=== PATIENT | male | born 1935 | race Caucasian/White ===

== ENCOUNTER 2017-02-07 11:06 | Emergency (ER) | payer MEDICARE ==
[~2017-02-07] VITALS: Ht 188 cm; Wt 107.1 kg
[~2017-02-07 11:06] MED LIST: ASPI81TA85 PO; CARV3.12 PO; CIPR-249 PO; ENAL2.5T PO; GLUC500C5 PO; LOVA40TA PO; MULTCAP PO; OSCA200T PO; PERC5TAB12 PO; PX F0.52 PO; RANO5TAB PO; ROPI1TAB PO; SPIR25TA2 PO
[2017-02-07] MEDS ORDERED: LIDOCAINE 2% MDV 20 ML VIAL As Ordered ONE (12:18)
[2017-02-07] MEDS ORDERED: LIDOCAINE 2% MDV 20 ML VIAL SC ONE (12:30)
[2017-02-07] MEDS ORDERED: ADACEL/BOOSTRIX VACCINE (DIPHTH/PERTUSS/ACELL/TETANUS)0.5ML SYR (90715) IM ONE (12:30)
[2017-02-07] MEDS ORDERED: cefTRIAXone SOD 1 GM VIAL (J0696) IM ONE (12:30)
--- NOTE | 2017-02-07 12:45 | REP ---
Maxillofacial CT without IV contrast: Axial images are acquired with helical scanning and a reformatted sagittal coronal projections. There are fractures of the tips of the nasal bones bilaterally and soft tissue injury of the nose. There are a few small bubbles of air beneath the right dilated. No orbit fracture is identified. The orbital fat planes are unremarkable. The ocular globes and lenses are unremarkable. The left frontal sinus is clear. 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 There is mild mucosal thickening in the ethmoid sinuses. The right maxillary sinus is clear. There is circumferential mucosal thickening of the left maxillary sinus accompanied by diffuse left maxillary sinus wall thickening. Findings are compatible with chronic left maxillary sinusitis. The sphenoid sinuses and man stored air cells are clear. There is nasal septal deviation to the left posteriorly. There is no zygomatic arch fracture. There is no mandible fracture. The skull base and sella are unremarkable. Impression: The tips of the nasal bones are fractured bilaterally. There is soft tissue injury of the nodes. No other fractures are identified. There are findings compatible with chronic sinusitis of the left maxillary sinus. Signed by Tong Christianson MD 02/07/2017 12:37 P
[2017-02-07] MEDS ORDERED: KEFL500C17 PO (13:17)
[2017-02-07 13:29] VITALS: BP 142/68
== END 2017-02-07 13:29 | disposition home or self-care (01) ==
LOC: M ED 11:06
DX: S01.21XA Laceration without foreign body of nose, initial encounter (principal); S01.511A Laceration without foreign body of lip, initial encounter; S01.81XA Laceration without foreign body of other part of head, initial encounter; W18.09XA Striking against other object with subsequent fall, initial encounter; Y92.019 Unspecified place in single-family (private) house as the place of occurrence of the external cause; Y93.89 Activity, other specified; Y99.8 Other external cause status; J34.2 Deviated nasal septum; I11.0 Hypertensive heart disease with heart failure; I25.2 Old myocardial infarction; E78.00 Pure hypercholesterolemia, unspecified; Z79.82 Long term (current) use of aspirin; Z79.899 Other long term (current) drug therapy; Z88.7 Allergy status to serum and vaccine; Z88.8 Allergy status to other drugs, medicaments and biological substances
CPT/HCPCS: 12004; 70486; 90471; 90715; 96372; 99282; J0696

== ENCOUNTER 2018-12-18 14:00 | Emergency (ER) | payer MEDICARE ==
[~2018-12-18] VITALS: Ht 182.9 cm; Wt 100.0 kg
[~2018-12-18 14:00] MED LIST changes: +KEFL500C17 PO; +RANO500T7 PO; -RANO5TAB PO; +SPIR-10 PO; -SPIR25TA2 PO
--- NOTE | 2018-12-18 15:02 | REP ---
CT of the brain without IV contrast: There are no comparisons. There is no subdural or epidural hematoma. There is no other acute intracranial hemorrhage. There is no edema, mass effect or midline shift. The cortical stripe is unremarkable. There is mild dilatation of the ventricles and sulci compatible with diffuse volume loss. There is lucency within the subcortical/periventricular white matter compatible with chronic microvascular ischemia. The visualized paranasal sinuses and mastoid air cells are clear. Impression: There is no hemorrhage, acute infarct or mass. There is chronic microvascular ischemia. There is mild diffuse volume loss. Electronically Signed by Tong Christianson MD 12/18/2018 02:53 P
--- NOTE | 2018-12-18 15:05 | REP ---
CT of the cervical spine: Axial images are acquired helical scanning and a reformatted sagittal and coronal projections. There are no comparisons. Vertebral body heights and alignment are normal. There is degenerative disc disease at C5-6 and C6-7. There is facet osteoarthritis. The facets are normally aligned. Prevertebral soft tissues are unremarkable. There are no posterior element fractures. Impression: There is no fracture or listhesis. There is degenerative disc disease and facet osteoarthritis. Electronically Signed by Tong Christianson MD 12/18/2018 02:57 P
[2018-12-18] MEDS ORDERED: LIDOCAINE 2% MDV 20 ML VIAL SC ONE (15:30)
[2018-12-18] MEDS ORDERED: NEOSPORIN OINT 0.9 GM PKT (FLOOR STOCK) TOP ONE (16:15)
[2018-12-18 16:25] VITALS: BP 129/69
== END 2018-12-18 16:29 | disposition home or self-care (01) ==
LOC: M ED 14:00
DX: S01.81XA Laceration without foreign body of other part of head, initial encounter (principal); S00.81XA Abrasion of other part of head, initial encounter; W06.XXXA Fall from bed, initial encounter; Y92.9 Unspecified place or not applicable; Y93.9 Activity, unspecified; Y99.9 Unspecified external cause status; I48.91 Unspecified atrial fibrillation; I25.2 Old myocardial infarction; I10 Essential (primary) hypertension; N42.9 Disorder of prostate, unspecified; Z95.0 Presence of cardiac pacemaker; Z96.641 Presence of right artificial hip joint; Z96.642 Presence of left artificial hip joint; Z79.82 Long term (current) use of aspirin; Z79.899 Other long term (current) drug therapy; Z88.7 Allergy status to serum and vaccine; Z88.8 Allergy status to other drugs, medicaments and biological substances

== ENCOUNTER 2018-12-22 15:01 | Emergency (ER) | payer MEDICARE ==
[~2018-12-22] VITALS: Ht 182.9 cm; Wt 100.0 kg
[2018-12-22 15:02] VITALS: BP 142/66
== END 2018-12-22 15:39 | disposition home or self-care (01) ==
LOC: M ED 15:01
DX: Z48.02 Encounter for removal of sutures (principal); I11.0 Hypertensive heart disease with heart failure; I50.9 Heart failure, unspecified; E78.9 Disorder of lipoprotein metabolism, unspecified; Z95.0 Presence of cardiac pacemaker; Z79.899 Other long term (current) drug therapy; Z79.82 Long term (current) use of aspirin; Z88.7 Allergy status to serum and vaccine; Z88.8 Allergy status to other drugs, medicaments and biological substances

== ENCOUNTER 2020-12-27 19:59 | Inpatient (IN) | payer MEDICARE ==
[~2020-12-27] VITALS: Ht 182.9 cm; Wt 100.1 kg
[~2020-12-27 19:59] MED LIST changes: -ASPI81TA85 PO; +ASPI81TA86 PO; +ENAL1TAB46 PO; -ENAL2.5T PO; -ROPI1TAB PO; +ROPI1TAB3 PO
[2020-12-27] MEDS: COMBIVENT RESPIMAT 100-20MCG INHALER 4GM INH SCH ×3 (22:10→22:56)
--- NOTE | 2020-12-27 22:19 | REPVR ---
PROCEDURE INFORMATION: Exam: XR Chest Exam date and time: 12/27/2020 9:40 PM Age: 85 years old Clinical indication: Cough and dyspnea; Additional info: Dyspnea/cough TECHNIQUE: Imaging protocol: XR of the chest. Views: 1 view. COMPARISON: CR Chest, 2 view PA, Lat 06/08/2014 8:00 AM FINDINGS: Tubes, catheters and devices: Transvenous pacemaker is in place. Lungs: There is patchy interstitial and alveolar pneumonic infiltrate in both lung bases. The Pleural spaces: There is no evidence of pneumothorax or pleural effusion. Heart/Mediastinum: The heart is normal in size. Bones/joints: There are degenerative changes right and left shoulder. There is osteophyte formation throughout the thoracic spine. IMPRESSION: Patchy interstitial and alveolar pneumonic infiltrate in both lung bases. Electronically signed by: Xavi Bahena On 12/27/2020 22:18:51 PM
[2020-12-27 22:32] LABS: VENOUS BASE EXCESS 3.9 (-2.0-2.0); VENOUS HCO3 32.5 MEQ/L (23.0-27.0); VENOUS O2 SATURATION 75.9 % (60.0-80.0); VENOUS PARTIAL PRESSURE CO2 67.2 mmHg (38.0-50.0); VENOUS PARTIAL PRESSURE O2 43.8 mmHg (30.0-50.0); VENOUS PH 7.302 UNITS (7.330-7.430); VENOUS STANDARD HCO3 27.4 MEQ/L; VENOUS TOTAL CO2 34.5 MEQ/L (24.0-28.0)
[2020-12-27 22:33] LABS: BASO # 0.1 10^3/uL (0.0-0.2); BASO % 0.2 % (0.0-1.0); EOS % 0.1 % (0.0-3.0); HEMATOCRIT 42.4 % (42.0-52.0); LYMPH # 0.7 10^3/uL (1.5-5.0); LYMPH % 3.2 % (24.0-44.0); MEAN CORPUSCULAR HEMOGLOBIN 30.4 pg (27.0-33.0); MEAN CORPUSCULAR HGB CONC 30.7 g/dl (32.0-36.5); MEAN CORPUSCULAR VOLUME 99.1 fl (80.0-96.0); MONO # 1.5 10^3/uL (0.0-0.8); MONO % 7.1 % (2.0-8.0); NEUTROPHILS # 19.1 10^3/uL (1.5-8.5); NEUTROPHILS % 88.8 % (36.0-66.0); PLATELET COUNT, AUTOMATED 222 10^3/uL (150-450); RED BLOOD COUNT 4.28 10^6/uL (4.30-6.10)
[2020-12-27 22:54] LABS: WHITE BLOOD COUNT 21.5 10^3/uL (4.0-10.0)
[2020-12-27 23:08] LABS: ALBUMIN 3.4 GM/DL (3.2-5.2); ALT/SGPT 19 U/L (12-78); BILIRUBIN,DIRECT 0.2 MG/DL (0.0-0.2); BILIRUBIN,TOTAL 0.6 MG/DL (0.2-1.0); BLOOD UREA NITROGEN 39 MG/DL (7-18); CALCIUM LEVEL 9.2 MG/DL (8.8-10.2); CARBON DIOXIDE LEVEL 32 MEQ/L (21-32); CHLORIDE LEVEL 100 MEQ/L (98-107); CK-MB VALUE MASS 1.3 NG/ML (<3.6); CPK CREATINE PHOSPHOKINASE 52 U/L (39-308); CREATININE FOR GFR 1.52 MG/DL (0.70-1.30); GLOMERULAR FILTRATION RATE 46.9 (>35); GLUCOSE, FASTING 112 MG/DL (70-100); NT-PRO BNP 1467 PG/ML (<450); POTASSIUM SERUM 4.6 MEQ/L (3.5-5.1); SODIUM LEVEL 139 MEQ/L (136-145); TOTAL PROTEIN 6.9 GM/DL (6.4-8.2); TROPONIN I < 0.02 NG/ML (< 0.10)
[2020-12-27] MEDS ORDERED: cefTRIAXone SOD 2 GM in D5W MINI-BAG PLUS 50 ML IV ONE (23:15)
[2020-12-27] MEDS ORDERED: AZITHROMYCIN INJ 500 MG, VIAL MATE ADAPTER 1 EACH in NS 250 ML IV ONE (23:15)
[2020-12-27] MEDS ORDERED: ASPI81TA26 PO (23:53)
[2020-12-27] MEDS ORDERED: MULT-110 PO (23:53)
[2020-12-27] MEDS ORDERED: META1POW PO (23:55)
[2020-12-27] MEDS ORDERED: ROPI2TAB3 PO (23:56)
[2020-12-28] MEDS ORDERED: ALBU8.5H INH
[2020-12-28] MEDS ORDERED: FURO40TA2 PO
[2020-12-28] MEDS ORDERED: ALBU0.63 NEB
[2020-12-28] MEDS ORDERED: XALA0.007 OU
[2020-12-28] MEDS ORDERED: SODI3NEB NEB
[2020-12-28] MEDS ORDERED: CARV6.25 PO
[2020-12-28] MEDS ORDERED: INCR1INH INH
[2020-12-28] MEDS ORDERED: ENAL5TA PO (00:01)
[2020-12-28] MEDS ORDERED: MAALOX 30 ML SUSP *UDC PO PRN (00:35)
[2020-12-28] MEDS ORDERED: ACETAMINOPHEN TAB 650MG DOSE (2X325MG) PO PRN (00:35)
[2020-12-28] MEDS ORDERED: MOM 30ML SUSPENSION UDC PO PRN (00:35)
[2020-12-28] MEDS: LEVALBUTEROL 1.25 MG/0.5 ML CONCENTRATE NEB NEB SCH ×6 (01:09→20:34)
[2020-12-28 02:16] VITALS: BP 118/58
[2020-12-28] MEDS: SIMVASTATIN 40 MG TAB PO SCH ×2 (02:49→22:01)
[2020-12-28] MEDS: rOPINIRole 1MG TAB PO SCH ×2 (02:50→22:02)
[2020-12-28] MEDS: LATANOPROST 0.005% OPHTH SOLN 2.5 ML OU SCH ×2 (04:00→22:03)
[2020-12-28 06:00] VITALS: BP 101/53
--- NOTE | 2020-12-28 06:15 | HPEPDOC ---
[facility] Medical History & Physical Date of Admission Dec 28, 2020 Date of Service: Dec 28, 2020 Attending Physician: URIEL MARK MD MPH History and Physical CHIEF COMPLAINT: Shortness of breath, cough HISTORY OF PRESENT ILLNESS: Mr. Chahal is an 85 year old male with history of bronchiectasis on 2L NC who presents to the ED via EMS for progressive shortness of breath and cough over the past 1.5 weeks. Patient states that since June 2020 he has had an increased cough with sputum but it became much worse 1.5 weeks ago and he began to develop shortness of breath with minor tasks. Today he was unable to even shower without being markedly short of breath so he decided to go to the ED. He denies any fevers, chills, chest pains, nausea or vomiting. He states that today he had less of an appetite but it was mostly related to his shortness of breath. ROS: Patient also endorses a firm area over his right bess that has been tender and painful for about 1 month without redness, warmth, or migration. He was going to mention it to his PCM next month when he saw them. PAST MEDICAL PROBLEMS: CAD A fib Prolonged sinus pausing with pacemaker placement (last battery change 2019) CHF with preserved ejection fraction HLD HTN Osteoarthritis Bronchiectasis on 2L NC at home PAST SURGICAL HISTORY: Hip replacement Partial prostatectomy Pacemaker placement MEDICATIONS: See record SOCIAL HISTORY: LIVES: at home alone WORK: retired TOBACCO: quit many years ago ALCOHOL: rare OTHER PERTINENT: still drives and performs IADLs PHYSICAL EXAMINATION: VITAL SIGNS: Reviewed, see below GENERAL: Well appearing older male, reclining in hospital bed with O2 cannula in place HEENT: AT/NC, EOMI, PERRLA NECK: supple, no lad HEART: rate controlled with occasional irregular beat, no appreciable M/R/G. 2+ bilateral mildly pitting edema to low bess which is chronic per patient, 2+ PTP bilaterally LUNGS: markedly decreased air movement throughout with prolonged expiratory phase, scattered rhonchi bilaterally, with possible faint bilateral expiratory wheezing ABDOMEN: active bowel sounds, soft and nontender SKIN: warm dry, no rashes, warmth, or induration MSK: moving all extremities, 3x6 inch area of increased firmness to right medial bess that is tender to palpation with mild tenderness to palpation proximally. The right calf circumference is not greater than the left calf. There is no calf tenderness or palpable cords. NEURO: AOx3 PSYCH: euthymic LABS: reviewed RADIOLOGY: CXR: IMPRESSION: Patchy interstitial and alveolar pneumonic infiltrate in both lung bases. MICROBIOLOGY: sputum culture ordered, blood cultures pending. Viral panel negative for all. ASSESSMENT: Mr. Chahal is an 85 year old male w/ bronchiectasis on 2L O2 by NE at home presenting with increased shortness of breath and patchy infiltrative processes identified on CXR brought in with SIRS criteria. PLAN: # Shortness of breath Imaging is concerning for bilateral pulmonary infiltrates with leukocytosis with neutrophil predominance and tachypnea meeting criteria for SIRS. Respiratory viral panel was negative and procalcitonin is pending. ABG shows slight base deficit with hypercarbia and hypoxia indicating acute process. Antibiotics have been initiated and prednisone burst was started to treat CAP with bronchiectasis with acute exacerbation. Meds: Prednisone 50mg daily x5 days Xopenex inhalers Q4H Azithromycin 500mg IV daily x3 days CTX 2g IV Q24H Aggressive pulmonary toilet Blood cultures and sputum cultures Follow procal Encourage ambulation # elevated serum creatinine: There are no prior renal studies to compare and patient is unsure if he has any history of kidney compromise. He received fluids in the ED and appears clinically hypervolemic with an elevated pBNP at this time so will hold additional IVF and recheck trend of serum creatinine. Will continue Coreg but will hold enalapril and Lasix. Meds: None Avoid nephrotoxic medications Recheck BMP in the morning # elevated pBNP: Unclear what patients baseline is, however he has peripheral edema on exam which is chronic and requires daily Lasix. He also has atrial fibrillation and required a demand pacemaker for frequent sinus pauses which also could contribute to elevated pBNP. In light of SIRS criteria, will not diurese at this time but will be mindful of fluid use while resuscitating. Meds: Continue cardiac medications Holding Enalapril, spironolactone and Lasix in setting of acute illness # RLE lesion: Patient has several weeks of firmness and tenderness to palpation over his right bess, his right leg does not appear larger in circumference than the left and there is no warmth or induration so this does not appear to be peripheral or deep vein thrombosis however will obtain XR and possibly US in the morning to further characterize it. Meds: None Ice packs to area as needed RLE XR obtained Consider RLE US in the morning pending XR results # CAD: Patient has history of CAD including angina and HTN and is followed in [place]. His blood pressures in the ED were initially low however after gentle fluids and abx he has become slightly hypertensive. Will hold enalapril, spironolactone and Lasix however will continue other cardiac medications. Meds: Ranolazine 500mg BID Coreg 6.25mg BID ASA 81mg # Restless leg syndrome: Continue home medication Meds: Ropinirole 2mg QHS # HLD: No active issues Meds: Simvastatin 40mg QHS DISPO: MED SURG FLOOR INPATIENT DIET: CARDIAC DVT PROPHY: LOVENOX DISCHARGE: PENDING REDUCTION IN O2 REQUIREMENT CONSULTS: NONE Vital Signs Vital Signs Date Time Temp Pulse Resp B/P (MAP) Pulse Ox O2 Delivery O2 Flow Rate FiO2 12/28/20 06:00 97.6 82 17 101/53 (69) 97 Nasal Cannula 6.0 Laboratory Data Labs 24H Laboratory Tests 2 12/27/20 22:12: Immature Granulocyte % (Auto) 0.6, Neutrophils (%) (Auto) 88.8H, Lymphocytes (%) (Auto) 3.2L, Monocytes (%) (Auto) 7.1, Eosinophils (%) (Auto) 0.1, Basophils (%) (Auto) 0.2, Neutrophils # (Auto) 19.1H, Lymphocytes # (Auto) 0.7L, Monocytes # (Auto) 1.5H, Eosinophils # (Auto) 0.0, Basophils # (Auto) 0.1, Nucleated Red Blood Cells % (auto) 0.0, Lactic Acid Level 1.2 12/27/20 22:13: Blood Gas Bicarbonate Standard 27.4, Venous Blood pH 7.302L, Venous Blood Partial Pressure CO2 67.2H, Venous Blood Partial Pressure O2 43.8, Venous Blood Total Carbon Dioxide 34.5H, Venous Blood HCO3 32.5H, Venous Blood Oxygen Saturation 75.9, Venous Blood Base Excess 3.9H, Anion Gap 7L, Glomerular Filtration Rate 46.9, Calcium Level 9.2, Total Bilirubin 0.6, Direct Bilirubin 0.2, Aspartate Amino Transf (AST/SGOT) 14, Alanine Aminotransferase (ALT/SGPT) 19, Alkaline Phosphatase 87, Total Creatine Kinase 52, Creatine Kinase MB 1.3, Creatine Kinase MB Relative Index 2.50, Troponin I < 0.02, [id number]-Type Natriuretic Peptide 1467H, Total Protein 6.9, Albumin 3.4, Albumin/Globulin Ratio 1.0, Thyroid Stimulating Hormone (TSH) 2.610 12/27/20 23:43: POC pH (Misc Panel) 7.422, POC Base Excess (Misc Panel) 7.0H, POC Saturated Percent O2 (Misc) 88L, POC pO2 (Misc Panel) 55.0L, POC pCO2 (Misc Panel) 47.8H, POC HCO3 (Misc Panel) 31.2H, POC Total CO2 (Misc Panel) 33.0H CBC/BMP Laboratory Tests 12/27/20 22:12 12/27/20 22:13 Microbiology Microbiology 12/27/20 Blood Culture, Received Pending 12/27/20 Blood Culture, Received Pending 12/27/20 Respiratory Virus Panel (PCR) ([facility]) - Final, Complete Home Medications Scheduled Aspirin (Aspirin EC) 81 Mg Tablet.dr, 81 MG PO DAILY Carvedilol (Carvedilol) 6.25 Mg Tablet, 6.25 MG PO BID Enalapril Maleate (Enalapril Maleate) 5 Mg Tablet, 5 MG PO BID Furosemide (Furosemide) 40 Mg Tablet, 40 MG PO DAILY Latanoprost (Xalatan) 0.005% 2.5ML Drops, 1 DROP OU QHS Lovastatin (Lovastatin) 40 Mg Tab, 40 MG PO QHS Multivitamin (Daily-Michael) 1 Each Tablet, 1 EACH PO DAILY Psyllium Husk/Aspartame (Metamucil Fiber Singles Packet) 3.4 Gm Powd.pack, 1 PKT PO BID Ranolazine (Ranexa) 500 Mg Aleisha, 500 MG PO BID Ropinirole HCl (Ropinirole HCl) 2 Mg Tablet, 2 MG PO QHS MAY TAKE A SECOND TABLET IF NEEDED Spironolactone (Spironolactone) 25 Mg Tab, 12.5 MG PO DAILY Umeclidinium [place] (Incruse Ellipta) 62.5 Mcg Blst.w.dev, 1 PUFF INH DAILY Scheduled PRN Albuterol Sulfate (Albuterol Sulfate Hfa) 8.5 Gm Hfa.aer.ad, 2 PUFFS INH Q6H PRN for WHEEZING Albuterol Sulfate (Albuterol Sulfate) 0.63 Mg/3 Ml Vial.neb, 1 VIAL NEB Q6H PRN for WHEEZING Sodium Chloride (Sodium Chloride 3% Neb Jessica) 15 Ml Vial.neb, 1 VIAL NEB BID PRN for WHEEZING USES AFTER ALBUTEROL IN NEB Allergies Coded Allergies: pseudoephedrine (Verified Adverse Reaction, Intermediate, ENLARGES HIS [place], 12/27/20) Influenza Virus Vaccines (Verified Adverse Reaction, Mild, "I GOT THE FLU", 12/27/20) A-FIB/CHADSVASC A-FIB History Current/History of A-Fib/PAF?: Yes Current PO Anticoag Therapy: No Age/Risk Factor Scoring CHADSVASC: CHADSVASC Response (Comments) Value Age Risk Factor Age >/= 75 years old 2 Gender Risk Factor Male 0 Hx of CHF Yes 1 Hx of HTN Yes 1 Hx of Stroke/TIA/or VTE No 0 Hx of Diabetes No 0 Hx of Vascular Disease No 0 Total 4 Treatment Treatment ordered: Other Other anticoagulant ordered: URIEL ALCANTARA MD MPH Dec 28, 2020 06:15
--- NOTE | 2020-12-28 06:16 | ECGEPIP ---
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
[2020-12-28 07:47] LABS: HEMATOCRIT 37.8 % (42.0-52.0); HEMOGLOBIN 11.7 g/dl (13.5-17.5); MEAN CORPUSCULAR HEMOGLOBIN 30.5 pg (27.0-33.0); MEAN CORPUSCULAR VOLUME 98.4 fl (80.0-96.0); PLATELET COUNT, AUTOMATED 216 10^3/uL (150-450); RED BLOOD COUNT 3.84 10^6/uL (4.30-6.10); WHITE BLOOD COUNT 17.6 10^3/uL (4.0-10.0)
[2020-12-28 08:07] LABS: CREATININE FOR GFR 1.35 MG/DL (0.70-1.30); GLOMERULAR FILTRATION RATE 53.7 (>35); POTASSIUM SERUM 4.2 MEQ/L (3.5-5.1)
[2020-12-28 08:08] LABS: CALCIUM LEVEL 8.7 MG/DL (8.8-10.2)
--- NOTE | 2020-12-28 08:32 | REP ---
INDICATION: firmness and pain over right bess COMPARISON: None. TECHNIQUE: AP and lateral views of the right tibia/fibula FINDINGS: Age-related changes to the tibia and fibula including knee and ankle joint. No acute fracture or dislocation. No obvious acute osseous abnormality. The surrounding soft tissues are grossly normal. No discrete soft tissue collection, subcutaneous emphysema, or foreign body noted. IMPRESSION: Age-related changes.. No obvious acute process by radiographic evaluation. <Electronically signed by Santiago Felix > 12/28/20 [id number]
[2020-12-28] MEDS ORDERED: FUROSEMIDE 40 MG TAB PO SCH (09:00)
[2020-12-28] MEDS ORDERED: SPIRONOLACTONE 12.5MG PER 1/2 TABLET PO SCH (09:00)
[2020-12-28] MEDS: CARVedilol 6.25 MG TAB PO SCH ×2 (09:00→22:05)
[2020-12-28] MEDS ORDERED: ENALAPRIL MALEATE 5 MG TAB PO SCH (09:00)
[2020-12-28] MEDS: ENOXAPARIN 40MG/0.4ML SYRINGE (J1650 PER 10MG) SC SCH (09:35)
[2020-12-28] MEDS: DOCUSATE SODIUM 100MG CAPSULE PO SCH ×2 (09:35→22:02)
[2020-12-28] MEDS: predniSONE 50 MG TAB PO SCH (09:35)
[2020-12-28] MEDS: ASPIRIN 81MG ENTERIC TABLET PO SCH (09:38)
[2020-12-28] MEDS: RANOLAZINE 500 MG ER TAB PO SCH ×2 (09:38→22:02)
[2020-12-28] MEDS ORDERED: NS 500 ML IV ONE (09:55)
[2020-12-28 10:00] VITALS: BP 90/45
[2020-12-28 14:00] VITALS: BP 100/54
--- NOTE | 2020-12-28 14:09 | IPNPDOC ---
Subjective Date Seen The patient was seen on 12/28/20. Subjective Chief Complaint/HPI Mr. Chahal is an 85 year old male with CAD, atrial fibrillation, and bronchiectasis chronically on 2L of NC at home who is here with worsening dyspnea and cough. This morning, his dyspnea is improved, but still requiring 6L of oxygen. Denies any chest pain. Objective Physical Examination General Exam: Positive: Alert, Cooperative Eye Exam: Negative: Sclera icteric ENT Exam: Positive: Atraumatic Neck Exam: Positive: Supple Chest Exam: Positive: Wheezing, Diminished Heart Exam: Positive: Rate Normal, Regular Rhythm Abdomen Exam: Positive: Normal bowel sounds, Soft; Negative: Tenderness Neuro Exam: Positive: Normal Speech Psych Exam: Positive: Mental status NL, Mood NL Assessment /Plan Assessment Mr. Chahal is an 85 year old male with CAD, atrial fibrillation, and bron chiectasis chronically on 2L of NC at home who is here with worsening dyspnea and cough and found to have pneumonia and acute exacerbation of bronchiectasis. Procalcitonin is mildly elevated at 0.27. Will continue with IV antibiotics, steroids, and Xopenex scheduled. Plan/VTE VTE Prophylaxis Ordered?: Yes Plan 1. Acute exacerbation of bronchiectasis -Secondary to pneumonia -Procalcitonin elevated at 0.27 -Continue IV antibiotics, steroids, and Xopenex (due to atrial fibrillation) -Supplemental oxygen as needed 2. Acute on chronic hypoxic respiratory failure -Chronically on 2L -Currently requiring 6L -Wean as tolerated 3. ENRIKE -Unclear baseline -Creatinine on admission 1.52 -Improving -Supportive care. Hold Lasix and enalapril 4. CAD -stable, no active chest pain -continue ranolazine, simvastatin, aspirin, and Coreg -Restart enalapril when renal function improves 5. Glaucoma -Continue latanoprost 6. DVT ppx -Lovenox Disposition: Pending improvement in oxygen requirements and renal function VS, I&O, 24H, Fishbone Vital Signs/I&O Vital Signs Date Time Temp Pulse Resp B/P (MAP) Pulse Ox O2 Delivery O2 Flow Rate FiO2 12/28/20 10:00 97.4 79 16 90/45 (60) 96 Nasal Cannula 6.0 I&O- Last 24 Hours up to 6 AM 12/28/20 06:00 Intake Total 305 ml Balance 305 ml Laboratory Data 24H LABS Laboratory Tests 2 12/27/20 22:12: Immature Granulocyte % (Auto) 0.6, Neutrophils (%) (Auto) 88.8H, Lymphocytes (%) (Auto) 3.2L, Monocytes (%) (Auto) 7.1, Eosinophils (%) (Auto) 0.1, Basophils (%) (Auto) 0.2, Neutrophils # (Auto) 19.1H, Lymphocytes # (Auto) 0.7L, Monocytes # (Auto) 1.5H, Eosinophils # (Auto) 0.0, Basophils # (Auto) 0.1, Nucleated Red Blood Cells % (auto) 0.0, Lactic Acid Level 1.2 12/27/20 22:13: Blood Gas Bicarbonate Standard 27.4, Venous Blood pH 7.302L, Venous Blood Partial Pressure CO2 67.2H, Venous Blood Partial Pressure O2 43.8, Venous Blood Total Carbon Dioxide 34.5H, Venous Blood HCO3 32.5H, Venous Blood Oxygen Saturation 75.9, Venous Blood Base Excess 3.9H, Anion Gap 7L, Glomerular Filtration Rate 46.9, Calcium Level 9.2, Total Bilirubin 0.6, Direct Bilirubin 0.2, Aspartate Amino Transf (AST/SGOT) 14, Alanine Aminotransferase (ALT/SGPT) 19, Alkaline Phosphatase 87, Total Creatine Kinase 52, Creatine Kinase MB 1.3, Creatine Kinase MB Relative Index 2.50, Troponin I < 0.02, DF-Hxt-F-Type Natriuretic Peptide 1467H, Total Protein 6.9, Albumin 3.4, Albumin/Globulin Ratio 1.0, Procalcitonin 0.27, Thyroid Stimulating Hormone (TSH) 2.610 12/27/20 23:43: POC pH (Misc Panel) 7.422, POC Base Excess (Misc Panel) 7.0H, POC Saturated Percent O2 (Misc) 88L, POC pO2 (Misc Panel) 55.0L, POC pCO2 (Misc Panel) 47.8H, POC HCO3 (Misc Panel) 31.2H, POC Total CO2 (Misc Panel) 33.0H 12/28/20 07:01: Nucleated Red Blood Cells % (auto) 0.0, Anion Gap 4L, Glomerular Filtration Rate 53.7, Calcium Level 8.7L CBC/BMP Laboratory Tests 12/27/20 22:12 12/27/20 22:13 12/28/20 07:01 Microbiology Microbiology 7/2/21 Blood Culture, Received Pending 12/27/20 Blood Culture, Received Pending 12/27/20 Respiratory Virus Panel (PCR) ([facility]) - Final, Complete TERRA LATIF DO Dec 28, 2020 14:09
[2020-12-28] MEDS ORDERED: cefTRIAXone SOD 2 GM VIAL (J0696 PER 250MG) IM SCH (21:00)
[2020-12-28] MEDS ORDERED: cefTRIAXone SOD 2 GM VIAL (J0696 PER 250MG) IV SCH (21:00)
[2020-12-28 22:00] VITALS: BP 130/63
[2020-12-28] MEDS: cefTRIAXone SOD 2 GM in D5W MINI-BAG PLUS 50 ML IV SCH (22:03)
[2020-12-28] MEDS: AZITHROMYCIN INJ 500 MG, VIAL MATE ADAPTER 1 EACH in NS 250 ML IV SCH (23:03)
[2020-12-29] MEDS: LEVALBUTEROL 1.25 MG/0.5 ML CONCENTRATE NEB NEB SCH ×7 (00:21→23:23)
[2020-12-29 02:00] VITALS: BP 121/57
[2020-12-29 05:35] LABS: HEMATOCRIT 38.9 % (42.0-52.0); MEAN CORPUSCULAR HEMOGLOBIN 30.6 pg (27.0-33.0); MEAN CORPUSCULAR HGB CONC 30.8 g/dl (32.0-36.5); MEAN CORPUSCULAR VOLUME 99.2 fl (80.0-96.0); PLATELET COUNT, AUTOMATED 240 10^3/uL (150-450); RED BLOOD COUNT 3.92 10^6/uL (4.30-6.10); WHITE BLOOD COUNT 12.9 10^3/uL (4.0-10.0)
[2020-12-29 05:57] LABS: CALCIUM LEVEL 8.5 MG/DL (8.8-10.2); CREATININE FOR GFR 1.28 MG/DL (0.70-1.30); GLOMERULAR FILTRATION RATE 57.1 (>35); MAGNESIUM LEVEL 2.4 MG/DL (1.8-2.4); POTASSIUM SERUM 4.4 MEQ/L (3.5-5.1)
[2020-12-29 06:00] VITALS: BP 118/56
[2020-12-29] MEDS: predniSONE 50 MG TAB PO SCH (09:43)
[2020-12-29] MEDS: DOCUSATE SODIUM 100MG CAPSULE PO SCH ×2 (09:43→20:38)
[2020-12-29] MEDS: ENOXAPARIN 40MG/0.4ML SYRINGE (J1650 PER 10MG) SC SCH (09:43)
[2020-12-29] MEDS: RANOLAZINE 500 MG ER TAB PO SCH ×2 (09:44→20:37)
[2020-12-29] MEDS: ASPIRIN 81MG ENTERIC TABLET PO SCH (09:44)
[2020-12-29] MEDS: CARVedilol 6.25 MG TAB PO SCH ×2 (09:45→20:38)
[2020-12-29 10:00] VITALS: BP 121/58
--- NOTE | 2020-12-29 10:00 | IPNPDOC ---
Subjective Date Seen The patient was seen on 12/29/20. Subjective Chief Complaint/HPI Mr. Chahal is an 85 year old male with CAD, atrial fibrillation, and bronchiectasis chronically on 2L of NC at home who is here with worsening dyspnea and cough. This morning, he was on 4L of oxygen. Dyspnea improved. No chest pain. Objective Physical Examination General Exam: Positive: Alert, Cooperative Eye Exam: Negative: Sclera icteric ENT Exam: Positive: Atraumatic Neck Exam: Positive: Supple Chest Exam: Positive: Wheezing, Diminished Heart Exam: Positive: Rate Normal, Regular Rhythm Abdomen Exam: Positive: Normal bowel sounds, Soft; Negative: Tenderness Neuro Exam: Positive: Normal Speech Psych Exam: Positive: Mental status NL, Mood NL Assessment /Plan Assessment Mr. Chahal is an 85 year old male with CAD, atrial fibrillation, and bronchiectasis chronically on 2L of NC at home who is here with worsening dyspnea and cough and found to have pneumonia and acute exacerbation of bronchiectasis. Procalcitonin is mildly elevated at 0.27. Will continue with IV antibiotics, steroids, and Xopenex scheduled. Plan/VTE VTE Prophylaxis Ordered?: Yes Plan 1. Acute exacerbation of bronchiectasis -Secondary to pneumonia -Procalcitonin elevated at 0.27 -Continue IV antibiotics, steroids, and Xopenex (due to atrial fibrillation) -Supplemental oxygen as needed -Ceftriaxone and Azithromycin day 2 2. Acute on chronic hypoxic respiratory failure -Chronically on 2L -Currently requiring 6L -Wean as tolerated 3. ENRIKE -Unclear baseline -Creatinine on admission 1.52 -Improving -Supportive care. Hold Lasix and enalapril 4. CAD -stable, no active chest pain -continue ranolazine, simvastatin, aspirin, and Coreg -Restart enalapril when renal function improves 5. Glaucoma -Continue latanoprost 6. DVT ppx -Lovenox Disposition: Pending improvement in oxygen requirements and renal function VS, I&O, 24H, Fishbone Vital Signs/I&O Vital Signs Date Time Temp Pulse Resp B/P (MAP) Pulse Ox O2 Delivery O2 Flow Rate FiO2 12/29/20 09:45 92 119/57 12/29/20 06:00 97.5 18 94 Nasal Cannula 4.0 I&O- Last 24 Hours up to 6 AM 12/29/20 06:00 Intake Total 1735 ml Output Total 175 ml Balance 1560 ml Laboratory Data 24H LABS Laboratory Tests 2 12/29/20 02:56: 12/29/20 05:20: Nucleated Red Blood Cells % (auto) 0.0, Anion Gap 3L, Glomerular Filtration Rate 57.1, Calcium Level 8.5L, Magnesium Level 2.4 CBC/BMP Laboratory Tests 12/29/20 05:20 Microbiology Microbiology 12/29/20 Gram Stain - Final, Resulted 12/29/20 Sputum Culture, Resulted Pending 12/27/20 Blood Culture - Preliminary, Resulted No growth after 24 hours . All specim... 12/27/20 Blood Culture - Preliminary, Resulted No growth after 24 hours . All specim... 12/27/20 Respiratory Virus Panel (PCR) ([facility]) - Final, Complete TERRA LATIF DO Dec 29, 2020 10:00
[2020-12-29 14:00] VITALS: BP 117/58
[2020-12-29 18:00] VITALS: BP 120/58
[2020-12-29] MEDS: rOPINIRole 1MG TAB PO SCH (20:37)
[2020-12-29] MEDS: SIMVASTATIN 40 MG TAB PO SCH (20:38)
[2020-12-29] MEDS: cefTRIAXone SOD 2 GM in D5W MINI-BAG PLUS 50 ML IV SCH (20:39)
[2020-12-29] MEDS: LATANOPROST 0.005% OPHTH SOLN 2.5 ML OU SCH (20:39)
[2020-12-29] MEDS: AZITHROMYCIN INJ 500 MG, VIAL MATE ADAPTER 1 EACH in NS 250 ML IV SCH (21:45)
[2020-12-29 22:00] VITALS: BP 141/64
[2020-12-30 02:00] VITALS: BP 129/66
[2020-12-30] MEDS: LEVALBUTEROL 1.25 MG/0.5 ML CONCENTRATE NEB NEB SCH ×3 (03:52→11:14)
[2020-12-30 06:00] VITALS: BP 127/71
[2020-12-30 06:07] LABS: HEMATOCRIT 37.5 % (42.0-52.0); HEMOGLOBIN 11.5 g/dl (13.5-17.5); MEAN CORPUSCULAR HEMOGLOBIN 30.6 pg (27.0-33.0); MEAN CORPUSCULAR HGB CONC 30.7 g/dl (32.0-36.5); MEAN CORPUSCULAR VOLUME 99.7 fl (80.0-96.0); PLATELET COUNT, AUTOMATED 222 10^3/uL (150-450); RED BLOOD COUNT 3.76 10^6/uL (4.30-6.10); WHITE BLOOD COUNT 11.3 10^3/uL (4.0-10.0)
[2020-12-30 06:22] LABS: BLOOD UREA NITROGEN 34 MG/DL (7-18); CALCIUM LEVEL 8.5 MG/DL (8.8-10.2); CARBON DIOXIDE LEVEL 34 MEQ/L (21-32); CHLORIDE LEVEL 105 MEQ/L (98-107); CREATININE FOR GFR 1.03 MG/DL (0.70-1.30); GLOMERULAR FILTRATION RATE > 60.0 (>35); GLUCOSE, FASTING 114 MG/DL (70-100); MAGNESIUM LEVEL 2.2 MG/DL (1.8-2.4); POTASSIUM SERUM 4.4 MEQ/L (3.5-5.1); SODIUM LEVEL 142 MEQ/L (136-145)
[2020-12-30] MEDS: BISACODYL 5 MG TAB PO SCH ×2 (09:00→11:08)
[2020-12-30] MEDS: ASPIRIN 81MG ENTERIC TABLET PO SCH (09:36)
[2020-12-30] MEDS: DOCUSATE SODIUM 100MG CAPSULE PO SCH (09:37)
[2020-12-30] MEDS: RANOLAZINE 500 MG ER TAB PO SCH (09:37)
[2020-12-30 09:38] VITALS: BP 118/58
[2020-12-30] MEDS: predniSONE 50 MG TAB PO SCH (09:38)
[2020-12-30] MEDS: ENOXAPARIN 40MG/0.4ML SYRINGE (J1650 PER 10MG) SC SCH (09:38)
[2020-12-30] MEDS: CARVedilol 6.25 MG TAB PO SCH (09:38)
[2020-12-30 10:00] VITALS: BP 124/69
[2020-12-30] MEDS ORDERED: rOPINIRole 2MG TAB PO PRN (10:05)
[2020-12-30] MEDS ORDERED: methylPREDNISolone 40MG 1ML VIAL IV ONE (10:15)
--- NOTE | 2020-12-30 10:45 | IPNPDOC ---
Subjective Date Seen The patient was seen on 12/30/20. Subjective Chief Complaint/HPI Mr. Chahal is an 85 year old male with CAD, atrial fibrillation, and bronchiectasis chronically on 2L of NC at home who is here with worsening dyspnea and cough. He has been having trouble sleeping overnight. Tells me that he takes 2mg in addition to his regular ropinirole when his regular ropinirole does not sufficiency control symptoms. Otherwise, he is still requiring 4L of oxygen. Objective Physical Examination General Exam: Positive: Alert, Cooperative Eye Exam: Negative: Sclera icteric ENT Exam: Positive: Atraumatic Neck Exam: Positive: Supple Chest Exam: Positive: Wheezing, Diminished Heart Exam: Positive: Rate Normal, Regular Rhythm Abdomen Exam: Positive: Normal bowel sounds, Soft; Negative: Tenderness Neuro Exam: Positive: Normal Speech Psych Exam: Positive: Mental status NL, Mood NL Assessment /Plan Assessment Mr. Chahal is an 85 year old male with CAD, atrial fibrillation, and bronchiectasis chronically on 2L of NC at home who is here with worsening dyspnea and cough and found to have pneumonia and acute exacerbation of bronchiectasis. Procalcitonin is mildly elevated at 0.27. Will continue with IV antibiotics, steroids, and Xopenex scheduled. Plan/VTE VTE Prophylaxis Ordered?: Yes Plan 1. Acute exacerbation of bronchiectasis -Secondary to pneumonia -Procalcitonin elevated at 0.27 -Continue IV antibiotics, steroids, and Xopenex (due to atrial fibrillation) -Supplemental oxygen as needed -Ceftriaxone and Azithromycin day 3 2. Acute on chronic hypoxic respiratory failure -Chronically on 2L -Currently requiring 6L -Wean as tolerated 3. ENRIKE -Unclear baseline -Creatinine on admission 1.52 -Resolved 4. CAD -stable, no active chest pain -continue ranolazine, simvastatin, aspirin, Coreg, and enalapril 5. Glaucoma -Continue latanoprost 6. DVT ppx -Lovenox Disposition: Pending improvement in oxygen requirements VS, I&O, 24H, Fishbone Vital Signs/I&O Vital Signs Date Time Temp Pulse Resp B/P (MAP) Pulse Ox O2 Delivery O2 Flow Rate FiO2 12/30/20 09:38 78 118/58 12/30/20 09:15 3.0 12/30/20 06:00 97.4 18 94 Nasal Cannula I&O- Last 24 Hours up to 6 AM 12/30/20 06:00 Intake Total 1830 ml Output Total 0 ml Balance 1830 ml Laboratory Data 24H LABS Laboratory Tests 2 12/30/20 05:29: Nucleated Red Blood Cells % (auto) 0.0, Anion Gap 3L, Glomerular Filtration Rate > 60.0, Calcium Level 8.5L, Magnesium Level 2.2 CBC/BMP Laboratory Tests 12/30/20 05:29 Microbiology Microbiology 12/29/20 Gram Stain - Final, Resulted 12/29/20 Sputum Culture, Resulted Pending 12/27/20 Blood Culture - Preliminary, Resulted No Growth after 48 hours. All Specime... 12/27/20 Blood Culture - Final, Complete Staphylococcus Epidermidis 12/27/20 Respiratory Virus Panel (PCR) ([facility]) - Final, Complete TERRA LATIF DO Dec 30, 2020 10:45
[2020-12-30] MEDS ORDERED: CEFD1CAP8 PO (12:26)
[2020-12-30] MEDS ORDERED: AZIT500T5 PO (12:26)
[2020-12-30] MEDS ORDERED: PRED5PAK2 PO (12:26)
--- NOTE | 2020-12-30 23:32 | DS.PDOC ---
Discharge Summary General Date of Admission Dec 28, 2020 at 00:52 Date of Discharge Dec 30, 2020 Discharge Summary PROCEDURES PERFORMED DURING STAY: None ADMITTING DIAGNOSES: 1. Acute exacerbation of bronchiectasis 2. Pneumonia 3. Acute on chronic hypoxic respiratory failure 4. ENRIKE 5. CAD 6. Glaucoma DISCHARGE DIAGNOSES: 1. Acute exacerbation of bronchiectasis 2. Pneumonia 3. Acute on chronic hypoxic respiratory failure 4. ENRIKE 5. CAD 6. Glaucoma. COMPLICATIONS/CHIEF COMPLAINT: Bronchiectasis, Pneumonia. HISTORY OF PRESENT ILLNESS: Copied from admitting attending's H&P " Mr. Chahal is an 85 year old male with history of bronchiectasis on 2L NC who presents to the ED via EMS for progressive shortness of breath and cough over the past 1.5 weeks. Patient states that since June 2020 he has had an increased cough with sputum but it became much worse 1.5 weeks ago and he began to develop shortness of breath with minor tasks. Today he was unable to even shower without being markedly short of breath so he decided to go to the ED. He denies any fevers, chills, chest pains, nausea or vomiting. He states that today he had less of an appetite but it was mostly related to his shortness of breath. " HOSPITAL COURSE: Patient arrived to the floor initially requiring Ventimask. Patient was given steroids, breathing treatments, and IV antibiotics. Patient's oxygen requirements improved back down to 2L. Today, patient feels well. He feels that his breathing was greatly improved compared to admission. He is able to ambulate the room without problem. Patient was discharged home today. DISCHARGE MEDICATIONS: Please see below. ALLERGIES: Please see below. PHYSICAL EXAMINATION ON DISCHARGE: VITAL SIGNS: Please see below. GENERAL: Comfortable, in no apparent distress HEENT: EOMI, Sclera clear NECK: Supple CARDIOVASCULAR EXAMINATION: Regular rate and rhythm RESPIRATORY EXAMINATION: Diminished, but clear ABDOMINAL EXAMINATION: Normal bowel sounds, soft, nontender PSYCHIATRIC EXAMINATION: Normal mood and affect LABORATORY DATA: Please see below. IMAGING: Radiologist interpretation CXR Patchy interstitial and alveolar pneumonic infiltrate in both lung bases. Tibia/Fibular XRay Age-related changes.. No obvious acute process by radiographic evaluation. PROGNOSIS: Good ACTIVITY: As tolerated. DIET: 2 gram sodium diet DISCHARGE PLAN: Home DISPOSITION: 01 Home, Self-Care. DISCHARGE INSTRUCTIONS: 1. Follow up with PCP in 1 week 2. Complete steroid taper 3. Complete antibiotic course DISCHARGE CONDITION: Stable. Total time spent on discharge planning, discharge summary, and medication reconciliation: 45 minutes. Vital Signs/I&Os Vital Signs Date Time Temp Pulse Resp B/P (MAP) Pulse Ox O2 Delivery O2 Flow Rate FiO2 12/30/20 11:42 92 Nasal Cannula 2.0 12/30/20 10:00 97.6 83 18 124/69 (87) I&O- Last 24 Hours up to 6 AM 12/30/20 06:00 Intake Total 1830 ml Output Total 0 ml Balance 1830 ml Laboratory Data Labs 24H Laboratory Tests 2 12/30/20 05:29: Nucleated Red Blood Cells % (auto) 0.0, Anion Gap 3L, Glomerular Filtration Rate > 60.0, Calcium Level 8.5L, Magnesium Level 2.2 CBC/BMP Laboratory Tests 12/30/20 05:29 Microbiology Microbiology 12/29/20 Gram Stain - Final, Resulted 12/29/20 Sputum Culture, Resulted Pending 12/27/20 Blood Culture - Preliminary, Resulted No Growth after 72 hours. All specime... 12/27/20 Blood Culture - Final, Complete Staphylococcus Epidermidis 12/27/20 Respiratory Virus Panel (PCR) (JOANN) - Final, Complete Discharge Medications Scheduled Aspirin (Aspirin EC) 81 Mg Tablet.dr, 81 MG PO DAILY, (Reported) Azithromycin (Azithromycin) 500 Mg Tablet, 500 MG PO DAILY Carvedilol (Carvedilol) 6.25 Mg Tablet, 6.25 MG PO BID, (Reported) Cefdinir (Cefdinir) 300 Mg Capsule, 300 MG PO BID Enalapril Maleate (Enalapril Maleate) 5 Mg Tablet, 5 MG PO BID, (Reported) Furosemide (Furosemide) 40 Mg Tablet, 40 MG PO DAILY, (Reported) Latanoprost (Xalatan) 0.005% 2.5ML Drops, 1 DROP OU QHS, (Reported) Lovastatin (Lovastatin) 40 Mg Tab, 40 MG PO QHS, (Reported) Multivitamin (Daily-Michael) 1 Each Tablet, 1 EACH PO DAILY, (Reported) Prednisone (Prednisone) 5 Mg Tab.ds.pk, 0 PO ASDIRECTED 6 day dose pack taper Psyllium Husk/Aspartame (Metamucil Fiber Singles Packet) 3.4 Gm Powd.pack, 1 PKT PO BID, (Reported) Ranolazine (Ranexa) 500 Mg Aleisha, 500 MG PO BID, (Reported) Ropinirole HCl (Ropinirole HCl) 2 Mg Tablet, 2 MG PO QHS, (Reported) MAY TAKE A SECOND TABLET IF NEEDED Spironolactone (Spironolactone) 25 Mg Tab, 12.5 MG PO DAILY, (Reported) Umeclidinium Flat Top (Incruse Ellipta) 62.5 Mcg Blst.w.dev, 1 PUFF INH DAILY, (Reported) Scheduled PRN Albuterol Sulfate (Albuterol Sulfate Hfa) 8.5 Gm Hfa.aer.ad, 2 PUFFS INH Q6H PRN for WHEEZING, (Reported) Albuterol Sulfate (Albuterol Sulfate) 0.63 Mg/3 Ml Vial.neb, 1 VIAL NEB Q6H PRN for WHEEZING, (Reported) Sodium Chloride (Sodium Chloride 3% Neb Jessica) 15 Ml Vial.neb, 1 VIAL NEB BID PRN for WHEEZING, (Reported) USES AFTER ALBUTEROL IN NEB Allergies Coded Allergies: pseudoephedrine (Verified Adverse Reaction, Intermediate, ENLARGES HIS PROSTATE, 12/27/20) Influenza Virus Vaccines (Verified Adverse Reaction, Mild, "I GOT THE FLU", 12/27/20) TERRA LATIF DO Dec 30, 2020 23:32
[2021-01-01 14:09] LABS: BODY FLUID CULTURE Not indicated. (.); LEGIONELLA ANTIGEN URINE Negative (Negative); ORGANISM ID Not indicated. (.); SPECIMEN SOURCE Urine (.); URINE STREP PNEUMONIAE ANTIGEN Negative (Negative)
== END 2020-12-30 13:48 | disposition home health service (06) | DRG 190 ==
LOC: M ED 19:59 → M MSPAV 20:00 → OBSVTOIN 12-28 00:52 → ENRESERV 12-28 01:19
PROVIDERS: ADMIT General Practice; ATTEND Internal Medicine
DX: J47.1 Bronchiectasis with (acute) exacerbation (principal); J96.21 Acute and chronic respiratory failure with hypoxia; N17.9 Acute kidney failure, unspecified; Z99.81 Dependence on supplemental oxygen; I25.10 Atherosclerotic heart disease of native coronary artery without angina pectoris; J47.0 Bronchiectasis with acute lower respiratory infection; I48.91 Unspecified atrial fibrillation; I50.9 Heart failure, unspecified; J18.9 Pneumonia, unspecified organism; M79.661 Pain in right lower leg; E78.5 Hyperlipidemia, unspecified; G25.81 Restless legs syndrome; I11.0 Hypertensive heart disease with heart failure; H40.9 Unspecified glaucoma; M19.90 Unspecified osteoarthritis, unspecified site; Z87.891 Personal history of nicotine dependence; Z79.82 Long term (current) use of aspirin; Z79.899 Other long term (current) drug therapy; Z88.7 Allergy status to serum and vaccine; Z88.8 Allergy status to other drugs, medicaments and biological substances; Z95.0 Presence of cardiac pacemaker

== ENCOUNTER 2021-04-20 20:03 | Observation (INO) | payer MEDICARE ==
[~2021-04-20] VITALS: Ht 180.3 cm; Wt 97.7 kg
[~2021-04-20 20:03] MED LIST changes: +ALBU0.63 NEB; +ALBU8.5H INH; +ASPI81TA26 PO; +AZIT500T5 PO; +CARV6.25 PO; +CEFD1CAP8 PO; +ENAL5TA PO; +FURO40TA2 PO; +INCR1INH INH; +META1POW PO; +MULT-110 PO; +PRED5PAK2 PO; +ROPI2TAB3 PO; +SODI3NEB NEB; +XALA0.007 OU
--- OUTSIDE RECORDS SUMMARY | 2021-04-20 20:11 | CCD | Summary of Care ---
Author Author [facility] Organization [facility] Address Unknown Phone Unavailable Care Team Providers Care Stamp Pad Maker Name Role Phone Shadi Monk MD PCP Reason for Referral * Diagnostic Lab (Routine) Referred By Contact Referred To Contact Status Reason Specialty Diagnoses / Procedures Tee Craig MD PhD [address] [address] Email: [email or web address] Open Diagnoses Bronchiectasis with acute exacerbation P rocedures AFB culture Electronically signed by Tee Craig MD PhD at * Diagnostic Lab (Routine) Referred By Contact Referred To Contact Status Reason Specialty Diagnoses / Procedures Tee Craig MD PhD [address] [place] [phone] Email: [email or web address] Open Diagnoses Bronchiectasis with acute exacerbation P rocedures AFB stain Electronically signed by Tee Craig MD PhD at * Diagnostic Lab (Routine) Referred By Contact Referred To Contact Status Reason Specialty Diagnoses / Procedures Tee Craig MD PhD [address] [place] [phone] Email: [email or web address] Open Diagnoses Bronchiectasis with acute exacerbation P rocedures Gram stain Electronically signed by Tee Craig MD PhD at * Diagnostic Lab (Routine) Referred By Contact Referred To Contact Status Reason Specialty Diagnoses / Procedures Tee Craig MD PhD 90 [facility] 2nd Floor [address] [place] [phone] Email: [email or web address] Open Diagnoses Bronchiectasis with acute exacerbation P rocedures Sputum Culture Electronically signed by Tee Craig MD PhD at Reason for Visit * Reason Comments Follow-up Encounter Details Care Team Description Date Type Department Tee Craig MD PhD [address] [place] [phone] Bronchiectasis with acute exacerbation ( Primary Dx); Chronic obstructive pulmonary disease, unspecified COPD type 02/26/2021 Office Visit [facility] [address], [address] [place] [phone] Allergies Comments Active Allergy Reactions Severity Noted Date Worsening BPH Pseudoephedrine Hcl Very sick, hospitalized after Typhus Vaccine 02/02/2012 documented as of this encounter (statuses as of 02/26/2021) Medications End Date Status Medication Sig Dispensed Refills Start Date Active Multiple Vitamin Take 1 tablet 0 (MULTIVITAMIN) tablet by mouth daily Active Calcium Carbonate-Vitamin Take 1 tablet 0 D (CALCIUM 500+D PO) by mouth 2 (two) times daily. Active psyllium 0.52 G capsule Take 3 0 capsules by mouth 2 (two) times daily. Active aspirin 81 MG tablet Take 81 mg by 0 mouth daily Active Pulmonary Supplies-see Nebulizer 1 each 0 sig MISCIndications: machine and 9 Bronchiectasis with acute kits for exacerbation bronchiectasi s Acapella for bronchiectasi s Active Misc. Devices (ACAPELLA) Use as 1 each 1 0 MISCIndications: directed. 9 Bronchiectasis with acute With airway exacerbation clearance- acapella device. Dx J47.1 Active Fexofenadine HCl 60 MG Take 60 mg by 0 Oral Tablet (MK) mouth daily as needed Active Latanoprost 0.005 % Place 1 drop 0 Ophthalmic Solution into both 0 (XALATAN) eyes daily Active Sodium Chloride 3 % Take by 750 mL 3 08/22/ 202 Inhalation Nebulization nebulization 0 Solution Two Times Daily For airway clearance as needed 04/09/2021 Active Albuterol Sulfate HFA 108 Inhale 2 3 Inhaler 4 (90 Base) MCG/ACT puffs into 0 Inhalation Aerosol the lungs Solution (PROVENTIL every 6 (six) HFA)Indications: SOB hours as (shortness of breath), needed for Wheezing Wheezing Active Spironolactone 25 MG Oral Take 0.5 45 tablet 3 Tablet (ALDACTONE) tablets by 0 mouth daily Active Enalapril Maleate 5 MG Take 1 tablet 180 tablet 3 0 Oral Tablet (VASOTEC) by mouth Two 1 Times Daily Active Carvedilol 6.25 MG Oral Take 1 tablet 180 tablet 3 Tablet (COREG) by mouth Two 1 times daily with meals Active Ranolazine ER 500 MG Oral Take 1 tablet 180 tablet 3 Tablet Extended Release by mouth Two 1 12 Hour (RANEXA) Times Daily Active Lovastatin 40 MG Oral Take 1 tablet 90 tablet 3 Tablet by mouth 1 (MEVACOR)Indications: nightly Dyslipidemia Active COVID-19 mRNA Virus Inject into 0 Vaccine (MODERNA COVID-19 the muscle VACCINE IM) Active Furosemide 20 MG Oral Take 20 mg by 0 Tablet (LASIX) mouth daily Active rOPINIRole HCl 2 MG Oral TAKE 1 TABLET 130 tablet 3 Tablet BY MOUTH 1 (REQUIP)Indications: NIGHTLY( MAY Restless leg syndrome TAKE ADDITIONAL DOSE IF NEEDED)* MAXIMUM DAILY DOSE IS 2 TABLETS* Active Misc. Devices (DURABLE Use as 1 each 0 MEDICAL EQUIPMENT SEE directed. 1 SIG) XX MISCIndications: Portable Chronic hypoxemic oxygen respiratory failure concentrator with tubing and nasal cannulae to be worn at 2 lpm oxygen with exertion. Active Albuterol Sulfate 0.63 Take 3 mLs by 75 mL 2 0 MG/3ML Inhalation nebulization 1 Nebulization Solution every 6 (six) (ACCUNEB)Indications: hours as Simple chronic bronchitis needed for Wheezing Active Incruse Ellipta 62.5 Inhale 1 puff 1 each 6 MCG/INH Inhalation into the 1 Aerosol Powder Breath lungs daily Activated (Umeclidinium [place]) Active Misc. Devices (DURABLE Use as 1 each 0 MEDICAL EQUIPMENT SEE directed. 1 SIG) XX MISC Oxygen at 2 liters via n/c with exertion portable use conserving device . Dx COPD Active Pulmonary Supplies-see Supplemental 1 each 0 sig XX MISCIndications: oxygen at 1 Exercise hypoxemia 2lpm with exercise/exer tion via nc, please supply tubing, related supplies, gaseous portability.( portable oxygen concentrator documented as of this encounter (statuses as of 02/26/2021) Active Problems Problem Noted Date Pacemaker generator end of life 11/24/2019 Nonischemic cardiomyopathy 11/24/2019 Complete AV block 11/24/2019 Gynecomastia 12/21/2018 Overview: Formatting of this note might be differ ent from the original. 11/28/2018 Incidental finding on chest CT Renal cyst 12/21/2018 Overview: Formatting of this note might be differ ent from the original. 11/28/2018 Incidental finding on chest CT , 3.9 cm on left. 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 TLC discussed at length with patient an d written instructions reviewed and provided to help lose at least at least 1/2 pound in weight per week. Cold 05/27/2018 Overview: Formatting of this note might be differ ent from the original. Getting over "recent cold" with cough a nd SOB for 3 weeks -lost 11 lbs in weight since last visit-- under care of his PCP -- Feeling bettor for for the last 2 days. Remains afebrile. No p urulent sputum.Refused Flu shot. PAC (premature atrial contraction) 11/18/2016 Overview: Formatting of this note might be differ ent from the original. 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 Now excellent LV function and no ventri cular ectopy. 11/19/15-- Doing well -- H/o non-ischemi c cardiomyopathy. Pacemaker reprogramming/check 04/15/2016 Overview: Formatting of this note might be differ ent from the original. Changed Atrial sensing from .3 to .6 mv on 04/15/16 for diminutive P waves nearly isoelectric. Restless leg syndrome 01/05/2014 Overview: Formatting of this note might be differ ent from the original. 12/09- postop from THR on R requip start ed by ortho. 0.5/d. Not holding overnite. Go to [id number] qhs 01/05/1412/2019 takes ropinirole qhs, sometimes needs to take another (usually once a week) L ast Assessment & Plan: Formatting of this note might be differ ent from the original. Doing very well on Requip 1mg/qhs. Trie d to d/c c return of sx's(cold turkey). Macular degeneration 10/30/2013 Hypovitaminosis D 09/26/2013 Overview: Formatting of this note is different fr om the original. Lab Results Component Value Date/Time [id number] 50 11/07/2018 12:57 PM [id number] 53 11/05/2017 11:07 AM [id number] 50 11/05/2015 11:55 AM [id number] 48 09/26/2013 08:45 AM 11/16/14 - DEXA spine :2.3.neck(-)0.7, h ip(-)0.3 Bilateral THR's. 11/10 VitD: 50 10/2018=50 Takes oscal+D (500 IU of vit pires D) 12/2019 takes Oscal bid. Healthcare maintenance 04/30/2012 Overview: Formatting of this note is different fr om the original. HME 05/09 [facility] prev initial. . Living will on chart. 05/09:MMSE;30/30, 06/09 [facility] established. MMSE: 30/30. H ME 10/30/14 minicog:(-), 10/31/15 GI colonoscopy planned Healthcare maintenance - Physical: 11/07/2018, 01/08/2020, 01/09 - Exercise: Walks on treadmill and ADL 's - Eye Exam: Once a year - Dental Exam: Every six months. - HIV Test: Screened in past for insur nicole., 10/2018=declined, 12/2019=declined - Hep C Screen: 10/2018=declined, 0=declined - Pneumovax: PCv13=10/2014; PPV23= 9; series completed. - Shingles Vaccine: Zostavax 08/2013, S hingrix recommended 12/2019, 12/2020 - Tdap: 01/2017 - Colonoscopy: 2016 - Next Colonoscopy due: 5 years (2020) - DEXA: B/ hip replacement; 2014 L-Spi ne T=2.3 - PSA: Followed by urology, hx of bl adder cancer. - Healthcare Proxy: Y Form in Chart: Y, 10/2018=forms provided. Living will signed 01/2003 reviewed with usha paul 12/2019 - Other: - TSH: See Dx. - Lipids: See Dx - Vitamin D: See Dx - A1C: Lab Results Component Value Date/Time HGBA1C 5.8 09/29/2011 10:50 AM HGBA1C 6.0 12/20/2009 03:45 PM -Dermatology: in the distant past, not recently. Skin exam 12/2019 Influenza vaccine refused 04/30/2012 Pure hypercholesterolemia 04/30/2012 Overview: Formatting of this note might be differ ent from the original. 08/05 - statin. 04/12; 158/64/78/80 10/2017- controlled on statin L ast Assessment & Plan: Formatting of this note might be differ ent from the original. Due for repeat. Tolerating meds well Low back pain 03/02/2012 Overview: Formatting of this note might be differ ent from the original. 02/06 GreenkyMD. PT started. Motrin vero ng day. L ast Assessment & Plan: Formatting of this note might be differ ent from the original. Stable. Essential hypertension 02/02/2012 Overview: Formatting of this note might be differ ent from the original. - F/U MookergeeMD 09/29/11 extensive note,labs. 02/06 . ECG: NSR 60/mi with upper normal AV for rate and prolo nged IV conduction time due to RBBB. [place] in the frontal plane -90 degrees w ith Left Anterior Fascicular block has Bifascicular Block- persisting with wide QRS interval of 160 ms. Frequent PVC often in couplets-- asympt omatic; consider remote septal MO.Compared with the last tracing frequ ent PVC's noticeable. ECHO: Moderate global hypokinesis with EF @ 35-40 % with mildly enlarged LV and enlarged RV that is also mildly hyp okinetic. Transmitral Doppler flow pattern showed Spiky tall A- waves dwar fing the E-- indicating impaired LV relaxation. Trace PI and MR and . Cou ld not estimate PA pressure- technically limited. Di.6. BP<. < dose amlodipine. 11/09:microalb:18.1 10/15/15 MookhergiMD: (-)Sx's, WT>, EKG stable, device check:nl. 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 04/12- CMP:nl Atypical moles/melanotic nevi pos 01/26/2011 Overview: Formatting of this note might be differ ent from the original. 02/05. TangorenMD. F/u: 10/2017- normal skin examiantion CHF , diastolic dysfunction 05/28/2010 Overview: Formatting of this note might be differ ent from the original. 12/05 - 02/04 NucStress:fixed inf hypo, L VEF: 42% F/U Mookergee 09/29/11 extensive note,lab s. 02/06 .ProBNP: 175. ECG: NSR 60/mi with upper normal AV for rate and prolonged IV conduction time due to RBBB. [place] in the frontal plane -90 deg nic with Left Anterior Fascicular block has Bifascicular Block- persistin g with wide QRS interval of 160 ms. Frequent PVC often in couplets-- asympt omatic; consider remote septal MO.Compared with the last tracing frequ ent PVC's noticeable. ECHO: Moderate global hypokinesis with EF @ 35-40 % with mildly enlarged LV and enlarged RV that is also mildly hyp okinetic. Transmitral Doppler flow pattern showed Spiky tall A- waves dwar fing the E-- indicating impaired LV relaxation. Trace PI and MR and . Cou ld not estimate PA pressure- technically limited. Di.6. 05/03/12:Check dig level and CMP and go from there. Next appointment in 1 month. 09/30/12:Plan: Discontinue-- AmlodipineCu t the dose of carvedilol to 3.125 mg bid and Enalapril too to 2.5 mg BID whi le continuing the spironolactone 12.5 mg daily-- i Needs to be seen 6 weeks-- will repeat ECHO( had MR, TR and PI with dilated Cardiomyopathy and low EF befor e) when Device check will be done as well. BP check 10/03/12: Non ischemic cardiomyopathy is well compensated and he is also on optimal medical management, BIV pacing sytem is working well . PVC are much less now . Incision site is also h ealing well 04/25/13: Ischemic cardiomyopathy well compensated now on optimal medical management 2. BIV pacer is working well from above parameters 3. Atrial tachycardia seems benign with no sympto ms, will observe. 09/26/13: ECG: AV sequential Bi ventricul ar Pacemaker driven complexes at a rate of 86/min with PVC,s seen. As comp ared with prior tracing. PVC's now back again. NO CHF but has now ventricu lar Ectopy--but no runs. BP under control . ECHO - Poor technical quality and windo ws. LV systolic function looked better than before..NO AI seen. RTC in 6 months. Will review labs from this morning as t steffany become available and act as needed then. 10/23/13: BhattaMD: Ischemic cardiomyop athy well compensated now on optimal medical management BIV pacer is workin g well from above parameters Atrial tachycardia seems benign with no sympto ms, will observe He is at low risk for Hip surgery with careful I/Os tila ce. back in 6 months 04/23/14 -BhattaMD 1. Ischemic cardiom yopathy well compensated now on optimal management 2. BIV pacer is work ing well from above parameters 3. Non sustained ventricular tachycardi a seems benign with no symptoms, will observe F/U in 6 months. 10/22/14 BhattaMD: Non Ischemic cardiomy opathy well compensated now on optimal medical management 2. BIV pacer is working well from above parameters 3. VT : No arrhythmia docume nted for the last 6 monthsF/U 6 months. 02/12/15 - MookhergeeMD NO CHF has now a symptomatic ventricular Ectopy-- albeit less than before and remain isol ated ones- no runs or complex VT.BP under control .RTC in 8-10 months 04/29/15 -BhattaMD Non Ischemic cardiomy opathy well compensated - on optimal medical management ; EF improve d from 30% to 55% after revascularization. 2. BIV pacer working well 3. VT : No arrhythmia documented for the last 6 months 10/15/15 MookhergiMD: (-)Sx's, WT>, EKG stable, device check:nl. F/u 6mt 04/15/16 -MookhergeeMD Hypertension, d yslipidemia and CHF-- now all improved by his compliance . No recurre nce of dizziness on position change . feels great cardiac munoz. NO chest di scomfort or SOB. has lost 11 lbs in weight since last v isit and motivated to lose extra weight. Impression and Plan; NO CHF, asymptomatic, No isolated ventricular Ectopy-- Pacemaker dependent now- Asking about Ranolazine and cost effec tiveness-- has no angina, but for its possible beneficial effect on LV fu nction would like to continue for now. RTC in 6-8 months. L ast Assessment & Plan: Formatting of this note might be differ ent from the original. 04/23/14 -BhattaMD 1. Ischemic cardiom yopathy well compensated now on optimal management 2. BIV pacer is work ing well from above parameters 3. Non sustained ventricular tachycardi a seems benign with no symptoms, will observe F/U in 6 months. Today: Clinically stable. Denies any CA rdia sx's Goiter 04/28/2000 Overview: Formatting of this note might be differ ent from the original. . US, repeat 09/27, 06/05: 2of 3 no dules gone, other :no change. 09/06 TFT;nl.06/09: US no change in old nodul es, new small nodule L lobe. F/u 1yr 07/12 TSH: 2.4, US: Somewhat heterogeneo us thyroid gland echogenicity with a few focal lesions. 11/10 -US: Unchanged bilateral thyroid n odules 04/12 TSH: 2.95 10/2018 FT4, TSH and U/S stable appearan ce of bilateral nodues. 12/27/2020 TSH=2.610 (external at [facility] during admission for pneumonia). L ast Assessment & Plan: Formatting of this note might be differ ent from the original. 06/09: US no change in old nodules, new small nodule L lobe. F/u 1yr c TSH Atherosclerotic heart disease of [place] coronary artery without angina pectoris Overview: Formatting of this note might be differ ent from the original. 12/05 - 02/04 NucStress:fixed inf hypo, L VEF: 42% F/U Mookergee 09/29/11 extensive note,lab s. 02/06 . ECG: NSR 60/mi with upper normal AV for rate and prolonged IV con duction time due to RBBB. [place] in the frontal plane -90 degrees with Left Anterior Fascicular block has Bifascicular Block- persisting with wid e QRS interval of 160 ms. Frequent PVC often in couplets-- asymptomatic; c onsider remote septal MO.Compared with the last tracing frequent PVC's no ticeable. ECHO: Moderate global hypokinesis with EF @ 35-40 % with mildly enlarged LV and enlarged RV that is also mildly hyp okinetic. Transmitral Doppler flow pattern showed Spiky tall A- waves dwar fing the E-- indicating impaired LV relaxation. Trace PI and MR and . Cou ld not estimate PA pressure- technically limited. Di.6. 05/03/12:Check dig level and CMP and go from there. Next appointment in 1 month. 06/23/13 Bi Pacer put in, due to >PVC 10/03/12: Non ischemic cardiomyopathy is well compensated and he is also on optimal medical management, BIV pacing sytem is working well . PVC are much less now . Incision site is also h ealing well 11/15/12: Plan: Stable ; Asymptomatic. C ontinue low dose of medications as advised Increase Ranolazine to 500 mg B ID now-- it has very little rate or BP effect CMP and Lipids check on way o ut and also BMP in RTC in 6 weeks. 12/27/12:Labs; Excellent renal function a nd good lipid profile. On reports from2 days prior lab work. Impression a nd Plan; NO CHF and No Ectopy. Stable cardiac status. BP under control as is the lipid profile. Device working well. Needs to follow TLC as di scussed and given written instructions. No question he had. Meds reviewed and reconciled. RTC in 8 months. BMP and Lipids to be checked pr ior to visit. 04/25/13: Ischemic cardiomyopathy well compensated now on optimal medical management 2. BIV pacer is working well from above parameters 3. Atrial tachycardia seems benign with no sympto ms, will observe. 10[facility]23/13[facility] Ischemic cardiomyop athy well compensated now on optimal medical management BIV pacer is workin g well from above parameters Atrial tachycardia seems benign with no sympto ms, will observe He is at low risk for Hip surgery with careful I/Os tila ce. back in 6 months 04/23/14 -[facility] 1. Ischemic cardiom yopathy well compensated now on optimal management 2. BIV pacer is work ing well from above parameters 3. Non sustained ventricular tachycardi a seems benign with no symptoms, will observe F/U in 6 months. 10/22/14 [facility]: Non Ischemic cardiomy opathy well compensated now on optimal medical management 2. BIV pacer is working well from above parameters 3. VT : No arrhythmia docume nted for the last 6 monthsF/U 6 months. 02/12/15 - MookhergeeMD NO CHF has now a symptomatic ventricular Ectopy-- albeit less than before and remain isol ated ones- no runs or complex VT.BP under control .RTC in 8-10 months 04/29/15 -[facility] Non Ischemic cardiomy opathy well compensated - on optimal medical management ; EF improve d from 30% to 55% after revascularization. 2. BIV pacer working well 3. VT : No arrhythmia documented for the last 6 months 10/15/15 MookhergeeMD : (-)Sx's, WT>, EK G stable, device check:nl. 04/15/16 -MookhergeeMD Hypertension, d yslipidemia and CHF-- now all improved by his compliance . No recurre nce of dizziness on position change . feels great cardiac munoz. NO chest di scomfort or SOB. has lost 11 lbs in weight since last v isit and motivated to lose extra weight. Impression and Plan; NO CHF, asymptomatic, No isolated ventricular Ectopy-- Pacemaker dependent now- Asking about Ranolazine and cost effec tiveness-- has no angina, but for its possible beneficial effect on LV fu nction would like to continue for now. RTC in 6-8 months. . L ast Assessment & Plan: Formatting of this note might be differ ent from the original. 04/23/14 -BhattaMD 1. Ischemic cardiom yopathy well compensated now on optimal management 2. BIV pacer is work ing well from above parameters 3. Non sustained ventricular tachycardi a seems benign with no symptoms, will observe F/U in 6 months. Today: Clinically stable. Denies any CA rdiac sx's Bladder cancer Overview: Formatting of this note might be differ ent from the original. 09/04 - hi grade. 04/06 s/p TURP for out let obstruction. 11/06 F/U [facility], PSA: 0.5. Cysto: no rmal, F/U 11/25/12: cystoscopy:(-)PSA; 0.7 05/29/13: cystoscopy: normal penile ure thra. Bulbous urethra was normal. The sphincter was adequate. Prostate: T here was recurrence of benign prostatic hyperplasia, however, his misael dder neck was wide open. The patient denies any symptoms. Bladder itself was heavily trabeculated. No evidence of any tumors was seen. Both orifices w ere seen and clear urine was effluxing from both. F/u in 6 months wi th a PSA and urine cytologies. 11/24/13: [facility] recurrence of benign prostatic hyperplasia, patient asymptomatic. bladder normal with some trabeculations, multiple red areas suggestive of BCG therapy. No other les ions were seen. The patient was reassured and told to come back and see me in 6 months for repeat cystoscopy at which time 3 urine cytolo gies will also be done. 06/04/14 ; Kaela returns for another surveillance cystoscopy:The bladder itself was normal. No lesions were seen . Both orifices appeared to be normal. The patient will return to see me in 1 year with a PSA and 3 urine cytologies. If negative, will start seeing him once a year. His PSA in the past has been normal.PSA; 06/19/14: 1.0 Prior to his next visit, he will need to have 3 urine cytologies. The most recen t one showed atypical cells. 05/31/15 [facility] Cytology x3: ATYPICAL CYTOLOGY x 3 [facility]04[facility] 3 urine cytologies with atypical cells but no cancer cells . h as no significant urological symptoms although does have some residu al urine. PSA 06/04/15: 0.9. cystoscopy : normal urethra, wide open bladder neck, no evidence of tumors in bladder. F/U 1 year with 3 urine cy tologies and cystoscopy. 06/03/16 Cytololgy 2of3:atypical per Dyllan kuliMD - 06/05/16 [facility] returns for once a year surveillance cystoscopy - also known to have a TURP back in 2007 and has been doing very well ever since.flexible cystoscopy = normal urethra. bladder neck wide open. bladd er = no it. F/U1 year for repeat cystoscopy and 3 urine cytologies. 06/13- normal csytoscopy L ast Assessment & Plan: Formatting of this note might be differ ent from the original. 06/04/14 ; Kaela returns for another surveillance cystoscopy:The bladder itself was normal. No lesions were seen . Both orifices appeared to be normal. The patient will return to see me in 1 year with a PSA and 3 urine cytologies. If negative, will start seeing him once a year. His PSA in the past has been normal.PSA; 06/19/14: 1.0 Prior to his next visit, he will need to have 3 urine cytologies. The most recen t one showed atypical cells. documented as of this encounter (statuses as of 02/26/2021) Resolved Problems Problem Noted Date Resolved Date Pulmonary nodules 07/14/2018 05/09/2019 Overview: Formatting of this note might be differ ent from the original. 06/13/2017 on CXR 06/29/2018 CT: right 7th and 8th rib defo rmity correlating with CXR nodule; also nodule 3.6 mm RUL, 2.6 mm RUL, sub centimeter x3 RUL, bronchiectasis 10/2018 CT of chest stable/decreased in size. Noted L 3.9 cm renal mass incidental find. Pedal edema 05/25/2017 11/23/2017 Overview: Formatting of this note might be differ ent from the original. 1-2 + without MOORE or any other symptom, but "Optivol" indicated fluid build up. Lasix 20 mg Q OD in the morning st arted. Advised to eat fruits too. Pneumothorax on left 07/10/2014 10/16/2015 Overview: Formatting of this note might be differ ent from the original. 06/05-06/08/14 [facility], [facility]. Fell on ice. CTchest: 06/05/14: L large pneumo/hemothorax. Ple ural fluid: (-)cytoAdmitted 1wk later c rib fractures and pneumothorax on Left. 4d in hospital and f/u c pulmonary c CXR:normal? CBC: H/H: 10.6/ 33.9 F/U RobertJohnsonMD- ortho. 07/10/14:fe els at baseline. Some cough c sputum but doesn't feel ill, SOB, feverish. 07/20/14 -RobertJohnsonMD- CXR: sig impr ovement. 07/24/14 - MookhergeeMD CXR: Interval de velopment of a small left pleural effusion with or without pleural thicke shameka. Given history of trauma, a hemothorax is not excluded. Otherwise, no change. In particular, there is no pneumothorax. Last Assessment & Plan: Formatting of this note might be differ ent from the original. 06/10 in [place]. Fell on ice. Admi tted 1wk later c rib fractures and pneumothorax on Left. 4d in hospital an d f/u c pulmonary c CXR:normal? Now feels at baseline. Some cough c sputum but doesn't feel ill, SOB, feverish. Aortic insufficiency 09/26/2013 09/26/2013 Overview: Formatting of this note might be differ ent from the original. By Echo has AI --mild- moderate. Checki ng another one on 09/26/13 --a year after the last one for follow-up as his arrhythmias have reappeared since last ECG in December of 2012. Asymptomatic PVCs 09/26/2013 11/23/2017 Overview: Formatting of this note might be differ ent from the original. Occasional isolated PVC's Right hip pain. THR 09/12/2013 10/16/2015 Overview: Formatting of this note might be differ ent from the original. 09/08 > ing pain. Xray:Severe degenerati ve changes of the right hip. No acute fracture or dislocation.2. Right supra-acetabular ossific density which may represent a dystrophic calcif ication or sequela nonunited ossification center.3. Abnormal contour of the femoral head neck junction suggestive of JOSH, cam type. Ref to Elvi ttGreenkyMD. 10/23/13: BhattaMD: Ischemic cardiomyop athy well compensated now on optimal medical management BIV pacer is workin g well from above parameters Atrial tachycardia seems benign with no sympto ms, will observe He is at low risk for Hip surgery with careful I/Os tila ce. back in 6 months 12/09 THR BrettGreenkyMD Hypotension 09/30/2012 07/24/2014 V-tach, bifascicular block, tachy/zenia. Pacer. 02/02/2012 11/23/2017 Overview: Formatting of this note might be differ ent from the original. 1989's. 05/03/12: MookergheeMD. Although asymptomatic will Assess PVC burden in 24 hours by a Holter appointment in 1 month. Thyroid functio n by TSH tests has been normal. Holter abnormalities enough to warrant Pacer.LBhatta to implant 06/24/12 done. F/U 07/05/12:stable. F/U 3mt for EC HO 04/25/13: Ischemic cardiomyopathy well compensated now on optimal medical management 2. BIV pacer is working well from above parameters 3. Atrial tachycardia seems benign with no sympto ms, will observe. 10/23/13: : Ischemic cardiomyopathy wel l compensated now on optimal medical management BIV pacer is working well f rom above parameters Atrial tachycardia seems benign with no sympto ms, will observe He is at low risk for Hip surgery with careful I/Os tila ce. back in 6 months . 04/23/14 -BhattaMD 1. Ischemic cardiom yopathy well compensated now on optimal management 2. BIV pacer is work ing well from above parameters 3. Non sustained ventricular tachycardi a seems benign with no symptoms, will observe F/U in 6 months. 07/24/14: Cards; MookhergeeMD NO CHF ut still has asymptomatic ventricular Ectopy--but no runs. BP under control . will get Holter monitor check for PVC burden that might itself comprimise LV function if more than 20% in a healthy heart. 10/22/14 BhattaMD: Non Ischemic cardiomy opathy well compensated now on optimal medical management 2. BIV pacer is working well from above parameters 3. VT : No arrhythmia docume nted for the last 6 monthsF/U 6 months. 02/12/15 - MookhergeeMD NO CHF has now a symptomatic ventricular Ectopy-- albeit less than before and remain isol ated ones- no runs or complex VT.BP under control .RTC in 8-10 months. 04/29/15 -BhattaMD Non Ischemic cardiomy opathy well compensated - on optimal medical management ; EF improve d from 30% to 55% after revascularization. 2. BIV pacer working well 3. VT : No arrhythmia documented for the last 6 months 10/15/15 MookhergiMD: (-)Sx's, WT>, EKG stable, device check:nl. F/u 6mt 04/15/16 -MookhergeeMD Hypertension, d yslipidemia and CHF-- now all improved by his compliance . No recurre nce of dizziness on position change . feels great cardiac munoz. NO chest di scomfort or SOB. has lost 11 lbs in weight since last v isit and motivated to lose extra weight. Impression and Plan; NO CHF, asymptomatic, No isolated ventricular Ectopy-- Pacemaker dependent now- Asking about Ranolazine and cost effec tiveness-- has no angina, but for its possible beneficial effect on LV fu nction would like to continue for now. RTC in 6-8 months. L ast Assessment & Plan: Formatting of this note might be differ ent from the original. Stable per MookerigobertoeMD 04/09, no new sx 's Obesity 05/27/2018 Overview: Formatting of this note might be differ ent from the original. Longstanding. 06/09 TFT:nl. 05/25/17 Not Obese BMI 29.09-- has lost 19 lbs in weight since last visit. L ast Assessment & Plan: Formatting of this note might be differ ent from the original. 15 lb loss since 06/09 purposeful Heart block 07/24/2014 documented as of this encounter (statuses as of 02/26/2021) Immunizations Name Administration Dates Next Due Influenza Quad High Dose 05/21/2020 IM Pres Free >=65YO Influenza Tri High Dose 05/08/2019 IM Pres Free >=65YO (FLUZONE HD) Moderna SARS-CoV-2 09/10/2020, 08/12/2020 Vaccine Pneumococcal Conjugate 7 09/26/2002 Valent Pneumococcal Conjugate 10/30/2014 PCV13 Pneumococcal 11/07/2018 Polysaccharide PPV23 Tdap 02/07/2017, 04/20/2011 Zoster (Shingles) Live 09/12/2013 (ZOSTAVAX) documented as of this encounter Social History Date Tobacco Use Types Packs/Day Years Used Quit: 06/28/1973 Former Smoker Cigarettes 0 36 Smokeless Tobacco: Never Used Comments Alcohol Use Standard Drinks/Week social rare No 0 (1 standard drink = 0.6 o z pure alcohol) Sex Assigned at Date Recorded Not on file Industry Job Start Date Occupation Not on file Not on file Not on file Date Recorded COVID-19 Exposure Response 02/26/2021 1:04 PM EDT In the last month, have you been in contact with No / Unsure someone who was confirmed or suspected to have Coronavirus / COVID-19? documented as of this encounter Last Filed Vital Signs Reading Time Taken Comments Vital Sign 132/71 02/26/2021 1:49 PM EDT Blood Pressure 90 02/26/2021 1:49 PM EDT Pulse 36.8 C (98.2 F) 02/26/2021 1:49 PM EDT Temperature 16 02/26/2021 1:49 PM EDT Respiratory Rate 95% 02/26/2021 1:49 PM EDT @2L pulse Oxygen Saturation - - Inhaled Oxygen Concentration 98.6 kg (217 lb 6 oz) 02/26/2021 1:49 PM EDT Weight 180.3 cm (5' 11") 02/26/2021 1:49 PM EDT Height 30.32 02/26/2021 1:49 PM EDT Body Mass Index documented in this encounter Progress Notes * Tee Craig MD PhD - 02/26/2021 2:00 PM EDT REASON FOR VISIT/CHIEF COMPLAINT: Bronchiectasis and COPD on SBOT in the past Worsening dyspnea due to interim hospitalization with post-discharge follow-up HISTORY OF PRESENTING ILLNESS/INTERIM HISTORY: - hospitalization locally in early December 2020 with pneumonia and sputum growing p an-sensitive pseudomonas aeruginosa for which he received treatment with Cephalo sporin and Azithromycin - at this point not recovered back to his regular baseline requiring LTOT at 2 l pm at rest whereas before he would only wear it with exertion, ie walking on yuan adm[place] - ET: mostly walking indoors for now since discharge - improved ankle swelling compared to hospitalization during which he was also t reated for pulmonary edema with Lasix - sputum production, cole-coloured, dark, no green discoloration, no hemoptysis - using his airway clearance regimen not regularly, once a week only - 3-4 tablespoon full of sputum per day, denies any fevers - no chest pains - weight loss during hospitalization and last 1-2 months, 11 lbs compared to las t visit in October 2020 - had COVID-vaccine this year in August and September 2020 - no difficulties swallowing/choking - reduced appetite - denies any blood AR or hematuria - continues on Incruse Ellipta PAST MEDICAL HISTORY: CAD with CHF, following with cardiology Dr Franco HTN HLD S/p PPM RLS Past surgeries/trauma: Tonsillectomy, adenoidectomy, fractured heel on the left side, L THR, R THR, pro state surgery for BPH, rib fracture 2014 Spinal stenosis Past Medical History: Diagnosis Date Abnormal CT scan, chest 02/02 with Ca nodules, cleared by EScalzettiMD radiology02/04 Bladder cancer 09/04 hi grade BPH (benign prostatic hyperplasia) 09/04 TURP for outlet obstruction Bright's disease age 11 CHF (congestive heart failure) EKG abnormal 12/05,06/06 Family history of colon cancer in extended family Fx ankle 1985 Right, recurrent edema Goiter 04/2000. US, repeat 09/27, 06/05: 2of 3 nodules gone, other :no change H/O sebaceous cyst on back chronic and asymptomatic Hearing loss Hearing loss in right ear 1991 s/p Sx repair=partial facial nerve on R Heart block Hyperglycemia 06/28/2006 resolved Hypertension Kidney stones, calcium oxalate 1984 1984, recurred 1988. W/U 2003:(-), Left otitis media 08/05 Obesity longstanding Osteoporosis screening 11/10 DEXA hip/wrist:normal Pneumothorax on left 07/10/201406/05-06/08/14 [facility]. Fell on ice. CTchest: 06/05/14: L large pneumo/hemothorax. Pleural fluid: (-)cytoAdmitted 1wk later c rib fract ures and pneumothorax on Left. 4d in hospital and f/u c pulmonary c CXR:normal? CBC: H/H: 10.6/33.9 F/U Wendy- ortho. 07/10/14:feels at baseline. Some cough c sputum but doesn't feel ill, SOB, feverish. 07/20/14 -Wendy- C RCT (rotator cuff tear) 12/03 Right. SGreenkyMD, s/p inj/PT Renal cyst, acquired, right 02/02CT, 03/06US: R cystic lesion no change, hemmorhagic cyst Right hip pain. THR 09/12/2013 11/15/15: GreenkyMD stable f/u 1yr Screen for colon cancer 11/2708/11/12:JOSE M poor prep (+)'roids 11/28/15 colon: (+) stool , no bx. f/u 5yr if ap propriate Vision abnormalities Past Surgical History: Procedure Laterality Date COLONOSCOPY 11/27 neg dental extractions 08/05 PACEMAKER PLACEMENT 06/23/2012 Bi[employer] REPRESENT[employer]IVE [employer] COURSES-P right heel TONSILLECTOMY AND ADENOIDECTOMY TOTAL HIP ARTHROPLASTY Left 2005 L hip 2005 GreenkyMD. 12/09 Rhip TOTAL HIP ARTHROPLASTY Right 12/09 GreenkyMD. 12/09 Rhip TRANSURETHRAL RESECTION OF PROSTATE 09/04 CURRENT MEDICATION: Current Outpatient Medications on File Prior to Visit Medication Sig Dispense Refill Albuterol Sulfate 0.63 MG/3ML Inhalation Nebulization Solution (ACCUNEB) Take 3 mLs by nebulization every 6 (six) hours as needed for Wheezing 75 mL 2 Albuterol Sulfate HFA 108 (90 Base) MCG/ACT Inhalation Aerosol Solution ( PROVENTIL HFA) Inhale 2 puffs into the lungs every 6 (six) hours as needed for Wheezing 3 Inhaler 4 aspirin 81 MG tablet Take 81 mg by mouth daily Calcium Carbonate-Vitamin D (CALCIUM 500+D PO) Take 1 tablet by mouth 2 ( two) times daily. Carvedilol 6.25 MG Oral Tablet (COREG) Take 1 tablet by mouth Two times d aily with meals 180 tablet 3 Enalapril Maleate 5 MG Oral Tablet (VASOTEC) Take 1 tablet by mouth Two T imes Daily 180 tablet 3 Fexofenadine HCl 60 MG Oral Tablet (MK) Take 60 mg by mouth daily as needed Furosemide 20 MG Oral Tablet (LASIX) Take 20 mg by mouth daily Incruse Ellipta 62.5 MCG/INH Inhalation Aerosol Powder Breath Activated ( Umeclidinium [place]) Inhale 1 puff into the lungs daily 1 each 6 Latanoprost 0.005 % Ophthalmic Solution (XALATAN) Place 1 drop into both eyes daily Lovastatin 40 MG Oral Tablet (MEVACOR) Take 1 tablet by mouth nightly 90 tablet 3 Misc. Devices (ACAPELLA) MISC Use as directed. With airway clearance- kerry pella device. Dx J47.1 1 each 1 Misc. Devices (DURABLE MEDICAL EQUIPMENT SEE SIG) XX MISC Use as directed . Portable oxygen concentrator with tubing and nasal cannulae to be worn at 2 lp m oxygen with exertion. 1 each 0 Misc. Devices (DURABLE MEDICAL EQUIPMENT SEE SIG) XX MISC Use as directed . Oxygen at 2 liters via n/c with exertion portable use conserving device . Dx COPD 1 each 0 Multiple Vitamin (MULTIVITAMIN) tablet Take 1 tablet by mouth daily psyllium 0.52 G capsule Take 3 capsules by mouth 2 (two) times daily. Pulmonary Supplies-see sig MISC Nebulizer machine and kits for bronchiect asis Acapella for bronchiectasis 1 each 0 Pulmonary Supplies-see sig XX MISC Supplemental oxygen at 2lpm with exerc ise/exertion via nc, please supply tubing, related supplies, gaseous portability .(portable oxygen concentrator 1 each 0 Ranolazine ER 500 MG Oral Tablet Extended Release 12 Hour (RANEXA) Take 1 tablet by mouth Two Times Daily 180 tablet 3 rOPINIRole HCl 2 MG Oral Tablet (REQUIP) TAKE 1 TABLET BY MOUTH NIGHTLY( MAY TAKE ADDITIONAL DOSE IF NEEDED)* MAXIMUM DAILY DOSE IS 2 TABLETS* 130 tablet 3 Sodium Chloride 3 % Inhalation Nebulization Solution Take by nebulization Two Times Daily For airway clearance as needed 750 mL 3 Spironolactone 25 MG Oral Tablet (ALDACTONE) Take 0.5 tablets by mouth da abdirahman 45 tablet 3 COVID-19 mRNA Virus Vaccine (MODERNA COVID-19 VACCINE IM) Inject into the muscle (Patient not taking: Reported on 11/12/2020) [DISCONTINUED] amlodipine (NORVASC) 5 MG tablet Take 2.5 mg by mouth warren y. Take 1/2 tablet by mouth daily No current facility-administered medications on file prior to visit. ALLERGIES: Sudafed - worsening BPH Typhus vaccine - [facility] [place] [facility] in the [employer], ? reaction not exactly known but required hospitalization Other; Sudafed [pseudoephedrine hcl]; and Typhus vaccine SOCIAL HISTORY: 45 pack years, quit 1974 No new interim changes reported FAMILY HISTORY: Father with emphysema (heavy smoker) No new interim changes reported The remainder of [id number] review of systems was non-contributory /unremarkable. PHYSICAL EXAMINATION: GENERAL: comfortable at rest, no acute distress VITAL SIGNS: Visit Vitals BP 132/71 (BP Location: Right arm, Patient Position: Sitting, Cuff size: Regular ) Pulse 90 Temp 36.8 C (98.2 F) (Oral) Resp 16 Ht 1.803 m (5' 11") Wt 98.6 kg (217 lb 6 oz) SpO2 95% Comment: @2L pulse BMI 30.32 kg/m HEENT: no cervical or supraclavicular lymphadenopathy, no thyromegaly, moist ora l mucous membranes, no oral thrush or lesions, tracheamid-line CVS: heart sounds heard distant but normal/without added audible sounds, calves soft, non-tender, no ankle edema RESPIRATORY: no digital clubbing, chestwith prolonged expiratory phase but n o wheezing onauscultation, mild bibasilar crackles GIT/ABDOMEN: soft, non-tender, no palpable masses/organomegaly MUSCULOSKELETAL: no obvious joint swelling/ gross deformities/ effusions or over lying redness, s/p bilateral THR, mild DJD-related changes in knees, ankles and hand joints SKIN: no rashes NEUROLOGICAL: awake and alert with no gross focal neurological deficit PSYCHIATRIC: grossly normal affect, mood, mentation and orientation PERTINENT (INTERIM) INVESTIGATIONS: Repeat chest x-ray today in light of outside chest x-ray from 2 months ago repor tedly demonstrating infiltrates did not show any infiltrates when compared to ol joni chest x-ray's done here in the past on my independent review with chronic ch anges as previously described. ASSESSMENT AND RECOMMENDATIONS/PLAN: Mr. Chahal is a pleasant 86 year old man with a remote but significant smok ing history (45 packyears) who hasmoderately severeCOPD witha combin ation ofchronic bronchitis and bronchiectasisalongside emphysema with hy perinflation. Since being started on regular airway clearance regimen with nebulized Albuterol and hypertonic saline the frequency of his intermittent recurringchest infe ctions/IECOPD's had decreased over the past couple of years. However, he experienced an interim exacerbation with pierre-sensitive pneumonia grown from spu jg sample while being hospitalized at his local outside hospital in early December, and has not recovered to his previous respiratory baseline up to this point maria fernanda roximately 2 months later. Her remains on LTOT to maintain adequate oxygen levels including at rest. 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 He has lost weight attributed to his exacerbation with no obvious red flag sympt oms on questioning him today and no other associated symptoms including any cons titutional symptoms or infectious signs. It is unclear whether he may have had a step-down in his lung function as a resu lt of his recent exacerbation or whether he continues to suffer from an ongoing infection, possibly with atypical mycobacterial infection or more drug-resistant organism. I have provided him with request for sputum samples including atypical AFB-smear and cultures as well as gram stain and sensitivities, which he would like to dodd ve tested locally with request to fax a copy of the results to us once available . In addition, I advised him to resume regular airway clearance at least once warren y and possibly twice daily, mornings and evenings, to optimize airway clearance and reduce sputum burden. We will follow-up in 6 weeks' time prior to the onset of winter and obtain repea t spirometry, lung volumes and gas transfer at that point with in-person visit. Otherwise, he should continue on his inhaled regimen apart from regular airway c learance. He received his COVID-vaccine with second dose in September this year and should kyra lify for a booster shot given underlying chronic lung disease, and I advised him to continue adhering to precautions, as he has been, in light of the ongoing SA RS-CoV-2 pandemic. I also advised him to contact us with any interim worsening i n his respiratory symptoms prior to his next upcoming appointment, if needed. I spent 20 minutes in [id number] consultation with the patient today of which at least half were spent counseling on the above outlined diagnosis and manageme nt plan with all questions answered to the patient's satisfaction. documented in this encounter Nursing Notes * Faye Javier RN - 02/26/2021 2:00 PM EDT Sterile cup given to patient labeled with patient name and date of , along with sputum sample order requisitions and sample bag. Patient given verbal inst ructions on how to obtain sample, he verbalized understanding. documented in this encounter Plan of Treatment Care Team Description Date Type Specialty 03/28/2021 Procedure visit Pulmonology 04/02/2021 Office Visit Pulmonology Jaya Sr MD [address] [facility] [address] [place], [place] [id number] 05/27/2021 Office Visit Cardiology Yoni Oneal MD [address] [place] [id number] 09/17/2021 Procedure visit Urology Shadi Monk MD [address] [place], [place] [id number] 01/12/2022 Office Visit Internal Medicine Order Schedule Name Type Priority Associated Diag noses Ordered: 02/26/2021 Sputum Culture Microbiology Routine Bronchiectasis with acute exacerbation Ordered: 02/26/2021 Gram stain Microbiology Routine Bronchiectasis with acute exacerbation Ordered: 02/26/2021 AFB stain Microbiology Routine Bronchiectasis with acute exacerbation Ordered: 02/26/2021 AFB culture Microbiology Routine Bronchiectasis with acute exacerbation Ordered: 02/26/2021 Complete PFT's, no PFT Routine Chronic obs tructive Bronchodilator pulmonary disease, unspecified COPD type Health Maintenance Due Date Last Done Comments MMR Vaccines (1 of 1 - 10/10/2013 Standard series) Varicella Vaccines (1 of 10/10/2013 09/12/2013 2 - 2-dose childhood series) Zoster Vaccines (2 of 3) 11/07/2013 09/12/2013 DTaP,Tdap,and Td Vaccines 08/10/2017 02/07/2017, (3 - Td or Tdap) 04/20/2011 Influenza Vaccine 03/28/2021 05/21/2020, 05/08/2019 Pneumococcal Vaccine: 65+ Completed 11/07/2018, Years 10/30/2014, 09/26/2002 Pneumococcal Vaccine: Completed 11/07/2018, Pediatrics (0 to 5 Years) 10/30/2014, and At-Risk Patients (6 09/26/2002 to 64 Years) COVID-19 Vaccine Completed 09/10/2020, 08/12/2020 HIB Vaccines Aged Out No longer eligible based on patient's age to complete this topic Hepatitis A Vaccines Aged Out No longer eligibl e based on patient's age to complete this topic Hepatitis B Vaccines Aged Out No longer eligibl e based on patient's age to complete this topic IPV Vaccines Aged Out No longer eligible based on patient's age to complete this topic documented as of this encounter Goals Goal Patient Associated Recent Progress Patient-Stat Aut hor Goal Type Problems ed? Weight (lb) < 99.8 kg (220 lb) Weight 98.6 kg (217 lb 6 Ye floridalma Marsh, oz) (02/26/2021 Devmauricio L 1:49 PM EDT) documented as of this encounter Implants Device Identifier Shelf Expiration Date Model / Serial / L ot Implanted Type Area Manufactur er 4076-52 / [id number] / Lead 52cm 4076-52capturefix Lead Heart ME DTRONIC Novus-06/23/2012 INC Implanted: 06/23/2012 by Yajaira Victor MD (Quantity not on file) Description:Right Atrial Pacing Lead 4076-58 / [id number] / Lead Pacemaker 58cm Capsurefixnovus Lead Heart MEDTRONIC Medt Card-06/23/2012 INC Implanted: 06/23/2012 by Yajaira Victor MD (Quantity not on file) Description:Right Ventricular Pacing Lead 4195 / [id number] / Lead Starfix Lv-06/23/2012 Lead Heart MED TRONIC Implanted: 06/23/2012 by BASHIR Victor MD (Quantity not on file) Description:Left Ventricular Pacing Lead 01/08/2021 [id number] / [id number] / Percepta Mri Entry Level Electrician-P [id number] Pacemaker Left: Chest [employer] Resync - [id number] INC Implanted: Qty: 1 on 11/24/2019 by Jay Dietz MD at [facility] Description:BiV Pacemaker documented as of this encounter Results Not on filedocumented in this encounter Visit Diagnoses Diagnosis Bronchiectasis with acute exacerbation - Primary Chronic obstructive pulmonary disease, unspecified COPD type documented in this encounter Additional Health Concerns Last Indicated Resolved Time Infection Onset Date 02/26/2021 Tuberculosis Rule-Out 02/26/2021 documented as of this encounter
--- OUTSIDE RECORDS SUMMARY | 2021-04-20 20:11 | CCD | Summary of Care ---
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 Name Role Phone Shadi Monk MD PCP Encounter Details Care Team Description Date Type Department Bronchiectasis with acute ex acerbation 02/26/2021 [facility] Diagnostic Radiolog y at Encounter [facility] [address] [place] [address] Allergies Comments Active Allergy Reactions Severity Noted Date Worsening BPH Pseudoephedrine Hcl Very sick, hospitalized after Typhus Vaccine 02/02/2012 documented as of this encounter (statuses as of 02/27/2021) Medications End Date Status Medication Sig Dispensed [...] 3 % Take by 750 mL 3 Inhalation Nebulization nebulization 0 Solution Two Times [...] Aerosol Powder Breath lungs daily Activated (Umeclidinium [place]) Active Misc. Devices (DURABLE Use as 1 [...] as of this encounter (statuses as of 02/27/2021) Active Problems Problem Noted Date Pacemaker generator [...] ortho. 0.5/d. Not holding overnite. Go to [id number] qhs 01/05/1412/2019 takes ropinirole qhs, sometimes needs [...] the original. Lab Results Component Value Date/Time [id number] 50 11/07/2018 12:57 PM [id number] 53 11/05/2017 11:07 AM [id number] 50 11/05/2015 11:55 AM [id number] 48 09/26/2013 08:45 AM 11/16/14 - DEXA spine :2.3.neck(-)0.7, h ip(-)0.3 Bilateral THR's. 11/10 VitD: 50 10/2018=50 Takes oscal+D (500 IU of vit pires D) 12/2019 takes Oscal bid. Healthcare maintenance 04/30/2012 Overview: Formatting of this note is different fr om the original. HME 05/09 [facility] prev initial. . Living will on chart. 05/09:MMSE;3030, 06/09 [facility] established. MMSE: 30. H ME 10/30/14 minicog:(-), 10/31/15 GI colonoscopy [...] 12/2019, 12/2020 - Tdap: 01/2017 - Colonoscopy: 2015 - Next Colonoscopy due: 5 years (2020) [...] the original. 02/06 [facility]. PT started. Motrin duri ng day. L ast Assessment & Plan: Formatting of this note might be differ ent from the original. Stable. Essential hypertension 02/02/2012 Overview: Formatting of this note might be differ ent from the original. - F/U [facility] 09/29/11 extensive note,labs. 02/06 . ECG: NSR 60/mi with upper normal AV for rate and prolo nged IV conduction time due to RBBB. 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 Frequent PVC often in couplets-- asympt omatic; consider remote septal [facility].Compared with the last tracing frequ ent PVC's [...] check:nl. 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 04/12- CMP:nl Atypical moles/melanotic nevi pos [...] prolonged IV conduction time due to RBBB. 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 Frequent PVC often in couplets-- asympt omatic; consider remote septal VA.Compared with the last tracing frequ ent PVC's [...] Will review labs from this morning as humberto jeter become available and act as needed then. [...] of bilateral nodues. 12/27/2020 TSH=2.610 (external at [facility] during admission for pneumonia). L ast Assessment & Plan: Formatting of this note might be differ ent from the original. 06/09: US no change in old nodules, new small nodule L lobe. F/u 1yr c TSH Atherosclerotic heart disease of [place] coronary artery without angina pectoris Overview: Formatting of this note might be differ ent from the original. 12/05 - 02/04 NucStress:fixed inf hypo, L VEF: 42% F/U [facility] 09/29/11 extensive note,lab s. 02/06 . ECG: NSR 60/mi with upper normal AV for rate and prolonged IV con duction time due to RBBB. 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 Frequent PVC often in couplets-- asymptomatic; c onsider remote septal [facility].Compared with the last tracing frequent PVC's no [...] with no sympto ms, will observe. 10/23/13: attaMD: Ischemic cardiomyop athy well compensated now on optimal medical management BIV pacer is workin g well from above parameters Atrial tachycardia seems benign with no sympto ms, will observe He is at low risk for Hip surgery with careful I/Os tila ce. back in 6 months 04/23/14 -[facility] 1. Ischemic cardiom yopathy well compensated now on optimal management 2. BIV pacer is work ing well from above parameters 3. Non sustained ventricular tachycardi a seems benign with no symptoms, will observe F/U in 6 months. 10/22/14 attaMD: Non Ischemic cardiomy opathy well compensated now [...] under control .RTC in 8-10 months 04/29/15 -[facility] Non Ischemic cardiomy opathy well compensated - [...] be differ ent from the original. 04/23/14 -[facility] 1. Ischemic cardiom yopathy well compensated now [...] TURP for out let obstruction. 11/06 F/U [facility], PSA: 0.5. Cysto: no rmal, F/U 11/25/12: [...] th a PSA and urine cytologies. 11/24/13: [facility] recurrence of benign prostatic hyperplasia, patient asymptomatic. [...] recen t one showed atypical cells. 05/31/15 [facility] Cytology x3: ATYPICAL CYTOLOGY x 3 [facility] e protocol. 3 urine cytologies with atypical cells but no cancer cells . h as no significant urological symptoms although does have some residu al urine. PSA 06/04/15: 0.9. cystoscopy : normal urethra, wide open bladder neck, no evidence of tumors in bladder. F/U 1 year with 3 urine cy tologies and cystoscopy. 06/03/16 Cytololgy 2of3:atypical per Dyllan Ana Paula - [facility] for once a year surveillance [...] as of this encounter (statuses as of 02/27/2021) Resolved Problems Problem Noted Date Resolved Date [...] be differ ent from the original. 06/05-06/08/14 [facility], [facility]. Fell on ice. CTchest: 06/05/14: L large [...] differ ent from the original. 06/10 in [place]. Fell on ice. Admi tted 1wk later [...] might be differ ent from the original. 3/14 > ing pain. Xray:Severe degenerati ve changes [...] differ ent from the original. Stable per [facility] 04/09, no new sx 's Obesity 05/27/2018 [...] as of this encounter (statuses as of 02/27/2021) Immunizations Name Administration Dates Next Due Influenza [...] of this encounter Last Filed Vital Signs Not on filedocumented in this encounter Plan of Treatment Care Team Description Date Type Specialty 03/28/2021 Procedure visit Pulmonology 04/02/2021 Office Visit Pulmonology Jaya Sr MD [address] [facility] [address] [place] [address] [phone] 05/27/2021 Office Visit Cardiology Yoni Oneal MD [address] [facility] [place] [address] 09/17/2021 Procedure visit Urology Shadi Monk MD [address] [facility] [address] [place], [place] [id number] 01/12/2022 Office Visit Internal Medicine Health Maintenance Due Date Last Done Comments [...] Weight 98.6 kg (217 lb 6 Ye s Salma, oz) (02/26/2021 Devena L 1:49 PM EDT) documented as of this encounter Implants Device Identifier Shelf Expiration Date Model / Serial / L ot Implanted Type Area Manufactur er 4076-52 / [id number] / Lead 52cm 4076-52capturefix Lead Heart ME DTRONIC Novus-06/23/2012 INC Implanted: 06/23/2012 by Yajaira Victor MD (Quantity not on file) Description:Right Atrial Pacing Lead 4076-58 / [id number] / Lead Pacemaker 58cm Capsurefixnovus Lead Heart MEDTRONIC Medt Card-06/23/2012 INC Implanted: 06/23/2012 by Yajaira Victor MD (Quantity not on file) Description:Right Ventricular Pacing Lead [id number] / [id number] / Lead Starfix Lv-06/23/2012 Lead Heart MED TRONIC Implanted: 06/23/2012 by BASHIR Victor MD (Quantity not on file) Description:Left Ventricular Pacing Lead 01/08/2021 [id number] / [id number] / Giovanna Mri Frame And Scrap Crusher-P [id number] Pacemaker Left: Chest MEDTRON[employer] Resync - [id number] [employer] Implanted: Qty: 1 on 11/24/2019 by Jay Dietz MD at OR [facility] Description:BiV Pacemaker documented as of this encounter Procedures Comments Procedure Name Priority Date/Time Associated Diag nosis XR CHEST FRONTAL AND Routine 02/26/2021 Bronchiec tasis with acute LATERAL 56081 1:17 PM EDT exacerbation documented in this encounter Results * XR Chest Frontal and Lateral (02/26/2021 1:17 PM EDT) Specimen Impressions Performed At IMPRESSION: [facility] No acute disease. Narrative Performed At [facility] INDICATION: Patient with history of inf ectious exacerbation of bronchiectasis, evaluate for interval change. TECHNIQUE: PA and lateral chest radiograph. COMPARISON: Chest radiograph dated 01/08. FINDINGS: Implantable cardiac pacemaker with lead s projecting over the right atrium, right ventricle, and left ventricle. Old healed fractures of bilateral ribs are again noted. The cardiomediastinal contours are normal. There is no evidence of pleural disease . Calcified nodular opacities in the left midlung, right perihilar, and right lower lung are unchanged. Procedure Note Interface, Received Via [employer] [facility] - 02/26/2021 4:55 PM EDT INDICATION: Patient with history of infectious exacerbation of bronchiectasis, evaluate for interval change. TECHNIQUE: PA and lateral chest radiograph. COMPARISON: Chest radiograph dated 01/09/2020. FINDINGS: Implantable cardiac pacemaker with leads projecting over the right atrium, right ventricle, and left ventricle. Old healed fractures of bilateral ribs are again noted. The cardiomediastinal contours are normal. There is no evidence of pleural disease. Calcified nodular opacities in the left midlung, right perihilar, and right lower lung are unchanged. IMPRESSION: No acute disease. Performing Organization Address City/State/ZIP Code P bhavna Number [facility] [address] [place] [address] documented in this encounter Visit Diagnoses Diagnosis Bronchiectasis with acute exacerbation documented in this encounter Additional Health Concerns Last Indicated Resolved Time Infection Onset Date 02/26/2021 Tuberculosis Rule-Out 02/26/2021 documented as of this encounter
--- OUTSIDE RECORDS SUMMARY | 2021-04-20 20:12 | CCD ---
Author Author [facility] Organization [facility] Address Unknown Phone Unavailable Care Team Providers Care Radiology Specialist Name Role Phone Jaya Sr MD Unavailable Unavailable Jaya Sr MD Unavailable Unavailable Jaya Sr MD Unavailable Unavailable Jaya Sr MD Unavailable Unavailable Jaya Sr MD Unavailable Unavailable Jaya Sr MD Unavailable Unavailable Jaya Sr MD Unavailable Unavailable Jaya Sr MD Unavailable Unavailable Jaya Sr MD Unavailable Unavailable Jaya Sr MD Unavailable Unavailable Jaya Sr MD Unavailable Unavailable Jaya Sr MD Unavailable Unavailable Jaya Sr MD Unavailable Unavailable Jaya Sr MD Unavailable Unavailable Jaya Sr MD Unavailable Unavailable Jaya Sr MD Unavailable Unavailable Jaya Sr MD Unavailable Unavailable Jaya Sr MD Unavailable Unavailable Mookherjee, Saktipada MD Unavailable Unavailable Mookherjee, Saktipada MD Unavailable Unavailable Mookherjee, Saktipada MD Unavailable Unavailable Mookherjee, Saktipada MD Unavailable Unavailable Mookherjee, Saktipada MD Unavailable Unavailable Mookherjee, Saktipada MD Unavailable Unavailable Mookherjee, Saktipada MD Unavailable Unavailable Mookherjee, Saktipada MD Unavailable Unavailable Mookherjee, Saktipada MD Unavailable Unavailable Mookherjee, Saktipada MD Unavailable Unavailable Mookherjee, Saktipada MD Unavailable Unavailable Mookherjee, Saktipada MD Unavailable Unavailable Mookherjee, Saktipada MD Unavailable Unavailable Mookherjee, Saktipada MD Unavailable Unavailable Mookherjee, Saktipada MD Unavailable Unavailable Mookherjee, Saktipada MD Unavailable Unavailable Mookherjee, Saktipada MD Unavailable Unavailable Mookherjee, Saktipada MD Unavailable Unavailable Mookherjee, Saktipada MD Unavailable Unavailable SOWMYA SUMMERSBETH Unavailable Unavailable Makhuli, N Zahi Unavailable Unavailable Makhuli, N Zahi Unavailable Unavailable Makhuli, N Zahi Unavailable Unavailable Makhuli, N Zahi Unavailable Unavailable Makhuli, N Zahi Unavailable Unavailable Makhuli, N Zahi Unavailable Unavailable Makhuli, N Zahi Unavailable Unavailable Makhuli, N Zahi Unavailable Unavailable Makhuli, N Zahi Unavailable Unavailable Makhuli, N Zahi Unavailable Unavailable Makhuli, N Zahi Unavailable Unavailable Makhuli, N Zahi Unavailable Unavailable Makhuli, N Zahi Unavailable Unavailable Makhuli, N Zahi Unavailable Unavailable Makhuli, N Zahi Unavailable Unavailable Makhuli, N Zahi Unavailable Unavailable Makhuli, N Zahi Unavailable Unavailable Makhuli, N Zahi Unavailable Unavailable Makhuli, N Zahi Unavailable Unavailable Makhuli, N Zahi Unavailable Unavailable Makhuli, N Zahi Unavailable Unavailable Makhuli, N Zahi Unavailable Unavailable Makhuli, N Zahi Unavailable Unavailable Makhuli, N Zahi Unavailable Unavailable Makhuli, N Zahi Unavailable Unavailable Makhuli, N Zahi Unavailable Unavailable Makhuli, N Zahi Unavailable Unavailable Makhuli, N Zahi Unavailable Unavailable Makhuli, N Zahi Unavailable Unavailable Makhuli, N Zahi Unavailable Unavailable Makhuli, N Zahi Unavailable Unavailable Makhuli, N Zahi Unavailable Unavailable Makhuli, N Zahi Unavailable Unavailable Makhuli, N Zahi Unavailable Unavailable Makhuli, N Zahi Unavailable Unavailable Makhuli, N Zahi Unavailable Unavailable Makhuli, N Zahi Unavailable Unavailable Makhuli, N Zahi Unavailable Unavailable Makhuli, N Zahi Unavailable Unavailable Makhuli, N Zahi Unavailable Unavailable Makhuli, N Zahi Unavailable Unavailable Makhuli, N Zahi Unavailable Unavailable Makhuli, N Zahi Unavailable Unavailable Makhuli, N Zahi Unavailable Unavailable Makhuli, N Zahi Unavailable Unavailable Makhuli, N Zahi Unavailable Unavailable Makhuli, N Zahi Unavailable Unavailable Linn Oneal MD Unavailable Unavailable Linn Oneal MD Unavailable Unavailable Linn Oneal MD Unavailable Unavailable Linn Oneal MD Unavailable Unavailable Linn Oneal MD Unavailable Unavailable Linn Oneal MD Unavailable Unavailable Linn Oneal MD Unavailable Unavailable Linn Oneal MD Unavailable Unavailable Linn Oneal MD Unavailable Unavailable Linn Oneal MD Unavailable Unavailable Linn Onela MD Unavailable Unavailable Linn Oneal MD Unavailable Unavailable Linn Oneal MD Unavailable Unavailable Linn Oneal MD Unavailable Unavailable Linn Oneal MD Unavailable Unavailable Linn Oneal MD Unavailable Unavailable Linn Oneal MD Unavailable Unavailable Linn Oneal MD Unavailable Unavailable Linn Oneal MD Unavailable Unavailable Linn Oneal MD Unavailable Unavailable Linn Oneal MD Unavailable Unavailable Linn Oneal MD Unavailable Unavailable Linn Oneal MD Unavailable Unavailable Linn Oneal MD Unavailable Unavailable Linn Oneal MD Unavailable Unavailable Linn Oneal MD Unavailable Unavailable Linn Oneal MD Unavailable Unavailable Linn Oneal MD Unavailable Unavailable Linn Oneal MD Unavailable Unavailable Linn Oneal MD Unavailable Unavailable Linn Oneal MD Unavailable Unavailable Linn Oneal MD Unavailable Unavailable Linn Oneal MD Unavailable Unavailable Linn Oneal MD Unavailable Unavailable Linn Oneal MD Unavailable Unavailable Linn Oneal MD Unavailable Unavailable Linn Oneal MD Unavailable Unavailable Linn Oneal MD Unavailable Unavailable Linn Oneal MD Unavailable Unavailable Linn Oneal MD Unavailable Unavailable Linn Oneal MD Unavailable Unavailable Linn Oneal MD Unavailable Unavailable Linn Oneal MD Unavailable Unavailable Linn Oneal MD Unavailable Unavailable Linn Oneal MD Unavailable Unavailable Linn Oneal MD Unavailable Unavailable Linn Oneal MD Unavailable Unavailable Linn Oneal MD Unavailable Unavailable Linn Oneal MD Unavailable Unavailable Linn Oneal MD Unavailable Unavailable Linn Oneal MD Unavailable Unavailable Linn Oneal MD Unavailable Unavailable Linn Oneal MD Unavailable Unavailable Linn Oneal MD Unavailable Unavailable Linn Oneal MD Unavailable Unavailable Linn Oneal MD Unavailable Unavailable GluzGiovana MD Unavailable Unavailable GluzGiovana MD Unavailable Unavailable GluzGiovana MD Unavailable Unavailable GluzGiovana MD Unavailable Unavailable GluzGiovana MD Unavailable Unavailable GluzGiovana MD Unavailable Unavailable GluzGiovana MD Unavailable Unavailable GluzGiovana MD Unavailable Unavailable GluzGiovana MD Unavailable Unavailable GluzGiovana MD Unavailable Unavailable GluzGiovana MD Unavailable Unavailable GluzGiovana MD Unavailable Unavailable GluzGiovana MD Unavailable Unavailable GluzGiovana MD Unavailable Unavailable GluzGiovana MD Unavailable Unavailable GluzGiovana MD Unavailable Unavailable GluzGiovana MD Unavailable Unavailable GluzGiovana MD Unavailable Unavailable GluzGiovana MD Unavailable Unavailable GluzGiovana MD Unavailable Unavailable GluzGiovana MD Unavailable Unavailable GluzGiovana MD Unavailable Unavailable GluzGiovana MD Unavailable Unavailable GluzGiovana MD Unavailable Unavailable GluzGiovana MD Unavailable Unavailable GluzGiovana MD Unavailable Unavailable GluGiovana carpenter MD Unavailable Unavailable GluGiovana carpenter MD Unavailable Unavailable GluGiovana carpenter MD Unavailable Unavailable GluzGiovana MD Unavailable Unavailable GluzGiovana MD Unavailable Unavailable GluzGiovana MD Unavailable Unavailable GluGiovana carpenter MD Unavailable Unavailable GluGiovana carpenter MD Unavailable Unavailable GluGiovana carpenter MD Unavailable Unavailable GluGiovana carpenter MD Unavailable Unavailable GluzGiovana MD Unavailable Unavailable GluzGiovana MD Unavailable Unavailable GluzGiovana MD Unavailable Unavailable GluzGiovana MD Unavailable Unavailable GluzGiovana MD Unavailable Unavailable GluGiovana carpenter MD Unavailable Unavailable GluGiovana carpenter MD Unavailable Unavailable GluGiovana carpenter MD Unavailable Unavailable GluGiovana carpenter MD Unavailable Unavailable GluzGiovana MD Unavailable Unavailable GluzGiovana MD Unavailable Unavailable GluGiovana carpenter MD Unavailable Unavailable GluGiovana carpenter MD Unavailable Unavailable GluGiovana carpenter MD Unavailable Unavailable GluGiovana carpenter MD Unavailable Unavailable GluGiovana carpenter MD Unavailable Unavailable GluGiovana carpenter MD Unavailable Unavailable GluzGiovana MD Unavailable Unavailable GluzGiovana MD Unavailable Unavailable GluzGiovana MD Unavailable Unavailable GluzGiovana MD Unavailable Unavailable Gluz, Giovana Hsu MD Unavailable Unavailable Gluz, Giovana Hsu MD Unavailable Unavailable Gluz, Giovana Hsu MD Unavailable Unavailable Gluz, Giovana Hsu MD Unavailable Unavailable Gluz, Giovana Hsu MD Unavailable Unavailable Gluz, Giovana Hsu MD Unavailable Unavailable Gluz, Giovana Hsu MD Unavailable Unavailable Gluz, Giovana Hsu MD Unavailable Unavailable Gluz, Giovana Hsu MD Unavailable Unavailable Gluz, Giovana Hsu MD Unavailable Unavailable Gluz, Giovana Hsu MD Unavailable Unavailable Gluz, Giovana Hsu MD Unavailable Unavailable Gluz, Giovana Hsu MD Unavailable Unavailable Gutsche MD, Tee Unavailable Gutsche MD, Tee Unavailable Gutsche MD, Tee Unavailable Gutsche MD, Tee Unavailable Gutsche MD, Tee Unavailable Gutsche MD, Tee Unavailable Gutsche MD, Tee Unavailable Gutsche MD, Tee Unavailable Gutsche MD, Tee Unavailable Gutsche MD, Tee Unavailable Gutsche MD, Tee Unavailable Gutsche MD, Tee Unavailable Gutsche MD, Tee Unavailable Gutsche MD, Tee Unavailable Gutsche MD, Tee Unavailable Gutsche MD, Tee Unavailable Gutsche MD, Tee Unavailable Gutsche MD, Tee Unavailable Gutsche MD, Tee Unavailable Gutsche MD, Tee Unavailable GUTSCHE, TEE [id number] Unavailable Unavailable Re-disclosure Warning The records that you are about to access may contain information from federally-assisted alcohol or drug abuse programs. If such information is present, then the following federally mandated warning applies: This information has been disclosed to you from records protected by federal confidentiality rules (42 CFR part 2). The federal rules prohibit you from making any further disclosure of this information unless further disclosure is expressly permitted by the written consent of the person to whom it pertains or as otherwise permitted by 42 CFR part 2. A general authorization for the release of medical or other information is NOT sufficient for this purpose. The Federal rules restrict any use of the information to criminally investigate or prosecute any alcohol or drug abuse patient.The records that you are about to access may contain highly sensitive health information, the redisclosure of which is protected by Article 27-F of the [facility] Public Health law. If you continue you may have access to information: Regarding HIV / AIDS; Provided by facilities licensed or operated by the [facility] Office of Mental Health; or Provided by the [facility] Office for People With Developmental Disabilities. If such information is present, then the following [facility] mandated warning applies: This information has been disclosed to you from confidential records which are protected by state law. State law prohibits you from making any further disclosure of this information without the specific written consent of the person to whom it pertains, or as otherwise permitted by law. Any unauthorized further disclosure in violation of state law may result in a fine or senior living sentence or both. A general authorization for the release of medical or other information is NOT sufficient authorization for further disc losure. Allergies and Adverse Reactions Type Description Substance Reaction Status Data Source(s ) Drug allergy PSEUDOEPHEDRINE HCL PSEUDOEPHEDRINE HCL [facility] Family History Family Member Name Family Member Gender Family Member Status Date o f Status Description Data Source(s) Unknown Unknown Problem [facility] ([facility] mother, sister Encounters Encounter Providers Location Date Indications Data Source(s ) Outpatient Attender: Shadi Monk MD 01/12/2022 12:00:[address] [facility] Outpatient Attender: Yoni Oneal MD 09/17/2021 12:00:[address] [facility] Outpatient 06/04/2021 12:00:00 AM [facility] Outpatient Attender: Jaya Sr MD 05/27/2021 12 :00:00 AM [facility] Outpatient Attender: TEE CRAIG [id number] 05/13/2021 12:0 0:00 AM EST [facility] Outpatient Referrer: TEE CRAIG [id number] 12:00:00 AM EDT Dyspnea, unspecified [facility] Dyspnea, unspecified Outpatient Attender: Tee Craig MDAttender: SALOMON KEN CRAIG [id number] 04/02/2021 12:00:00 AM EDT - 04/02/2021 05:30:34 PM EDT [facility] Outpatient Attender: TEE CRAIG [id number]: TEE CRAIG [id number] 03/28/2021 12:00:00 AM EDT - 03/29/2021 12:00:00 AM EDT Bronchiectasis with (acute) exacerbation [facility] Bronchiectasis with (acute) exacerbation Outpatient Attender: LANDEN SPAINeferrer: TEE LENZ CHE [id number] 03/28/2021 12:00:00 AM EDT [facility] Outpatient Referrer: TEE CRAIG [id number] 12:00:00 AM EDT Bronchiectasis with (acute) exacerbation [facility] Bronchiectasis with (acute) exacerbation Outpatient Attender: Tee Craig MDAttender: SALOMON CRAIG [id number] 02/26/2021 12:00:00 AM EDT - 02/26/2021 02:55:20 PM EDT [facility] Outpatient Attender: Shadi Monk MD [id number] 12:00:00 AM EDT - 01/09/2021 11:44:37 AM EDT [facility] Outpatient Referrer: Yoni Oneal MD 01/09/2021 12:0 0:00 AM EDT Malignant neoplasm of bladder, unspecified [facility] Malignant neoplasm of bladder, unspecifi ed Outpatient Referrer: Jaya Sr MD 021 12:00:00 AM EDT Other cardiomyopathies [facility] Other cardiomyopathies Outpatient Referrer: Shadi Monk MD 01/09/2021 12:00 :00 AM EDT Hypertrophy of breast [facility] Hypertrophy of breast Outpatient Attender: TEE CRAIG [id number] 01/02/2021 11:21:13 AM EDT [facility] Outpatient Attender: TEE CRAIG [id number] 11/12/2020 12:00:00 AM EDT - 11/12/2020 11:16:36 AM EDT Chronic respiratory failure with hypoxia [facility] Chronic respiratory failure with hypoxia Outpatient Referrer: Jaya Sr MD 12:00:00 AM EDT Fatty (change of) liver, not elsewhere classified [facility] Fatty (change of) liver, not elsewhere c lassified Outpatient Attender: Jaya Sr MDReferre r: Jaya Sr MD [id number] 09/24/2020 12:10:35 PM EDT - 09/24/2020 01:30:10 PM ED T Other cardiomyopathies [facility] Other cardiomyopathies Outpatient Attender: Yoni Oneal MD [id number] 2020 12:00:00 AM EDT - 09/11/2020 11:35:24 AM EDT Malignant neoplasm of bladder, unspecified [facility] Malignant neoplasm of bladder, unspecifi ed Outpatient Attender: Yoni Oneal MD 09/04/2020 12:00:00 A M EST [facility] Outpatient Referrer: Sarai Jackson 08/29/2020 12:00:0 0 AM EST Malignant neoplasm of bladder, unspecified [facility] Malignant neoplasm of bladder, unspecifi ed Outpatient Admitter: Sarai JacksonReferrer: Sarai Jackson 08/28/2020 12:00:00 AM EST Malignant neoplasm of bladder, unspecified [facility] Malignant neoplasm of bladder, unspecifi ed Outpatient Admitter: Sarai JacksonRefradhaer: Sarai Jackson 08/27/2020 12:00:00 AM EST Malignant neoplasm of bladder, unspecified [facility] Malignant neoplasm of bladder, unspecifi ed Outpatient Admitter: Sarai Chapiner: Sarai Jackson 08/26/2020 12:00:00 AM EST Malignant neoplasm of bladder, unspecified [facility] Malignant neoplasm of bladder, unspecifi ed Outpatient Attender: Sarai Nguyenshaji 07/23/2020 12:00:[address] [facility] Outpatient Attender: Jaya Sr MD 06/14/2020 12 :00:00 AM [facility] Outpatient Attender: TEE CRAIG [id number] 05/21/2020 12:00:00 AM [facility] Outpatient Attender: Shadi Monk MD [id number] 12:00:00 AM EDT - 01/08/2020 11:23:56 AM EDT Encounter for general adult medical exam ination without abnormal findings [facility] Encounter for general adult medical exam ination without abnormal findings Immunizations Vaccine Date Status Description Data Source(s) 09/10/2020 12:00:00 AM EDT completed <td I D="[id number]">Moderna SARS-CoV-2 Vaccine</td><td>09/10/2020, 08/12/2020</td><td></td> [facility] COVID-19 VACCINE Moderna 09/10/2020 12:00:00 AM EDT completed NYSIIS Vaccine Series Complete: YESThis Data wa s Submitted to [facility] Via [employer]. 08/12/2020 12:00:00 AM EST completed <td I D="[id number]">Moderna SARS-CoV-2 Vaccine</td><td>09/10/2020, 08/12/2020</td><td></td> [facility] COVID-19 VACCINE Moderna 08/12/2020 12:00:00 AM EST completed NYSIIS Vaccine Series Complete: NOThis Data was Submitted to [facility] Via [employer]. 197 05/21/2020 12:00:00 AM EST completed <td I D="[id number]">Influenza Quad High Dose IM Pres Free >=65YO</td><td>05/21/2020</td><td></td> [facility] Medications Medication Brand Name Start Date Product Form Dose Route Admi nistrative Instructions Pharmacy Instructions Status Indications Reaction Description Data Source(s) Pulmonary Supplies-see sig XX MISC [id number] 12/17/2020 12:00: 00 AM EDT active Exercise hypoxemia S upplemental oxygen at 2lpm with exercise/exertion via nc, please supply tubing, related supplies, gaseous portability.(portable oxygen concentrator [facility] Exercise hypoxemia [facility] [place], [place]. Devices (DURABLE MEDICAL EQUIPMENT SEE SIG) XX [facility] 97 [id number] 12/17/2020 12:00:00 AM EDT active Use as directed. Oxygen at 2 liters via n/c with exertion portable use conserving device . Dx COPD [facility] 7 ACTUAT umeclidinium 0.0625 MG/ACTUAT D ry Powder Inhaler [Incruse] Incruse Ellipta 62.5 MCG/INH Inhalation Aerosol Powder Breath Activated (Umeclidinium [place]) Incruse Ellipta 62.5 MCG/INH Inhalation Aerosol Powder Breath Activated (Umeclidinium [place]) 12/16/2020 12:00:00 AM EDT 1 {puff} Inhalatio n active Inhale 1 puff into the lungs neri ly [facility] Albuterol 0.21 MG/ML Inhalant Solution A lbuterol Sulfate 0.63 MG/3ML Inhalation Nebulization Solution (ACCUNEB) Albuterol Sulfate 0.63 MG/3ML Inhalation Nebulization Solution (ACCUNEB) 11/27/2020 12:00:00 AM EDT 0.63 mg Nebulization active Simple chronic bronchitis Take 3 mLs by nebulization every 6 (six) hours as needed for Wheezing [facility] Simple chronic bronchitis [facility] [place] [place]. Devices (DURABLE MEDICAL EQUIPMENT SEE SIG) XX [facility] 97 [id number] 11/12/2020 12:00:00 AM EDT act gabby Chronic hypoxemic respiratory failure Use as directed. Portable ox ygen concentrator with tubing and nasal cannulae to be worn at 2 lpm oxygen with exertion. [facility] Chronic hypoxemic respiratory failure ropinirole 2 MG Oral Tablet rOPINIRole HCl 2 MG Oral T ablet (REQUIP) rOPINIRole HCl 2 MG Oral Tablet (REQUIP) 10/01/2020 12:00:00 AM EDT active Restless leg syndrome TAKE 1 TABLET BY MOUTH NIGHT LY( MAY TAKE ADDITIONAL DOSE IF NEEDED)* MAXIMUM DAILY DOSE IS 2 TABLETS* [facility] Restless leg syndrome lidocaine (XYLOCAINE) 2 % urojet 20 mL [id number] 11:00:00 AM EDT 20 mL Urethral completed 20 mL, Urethr al, Once, Wed09/11/20 at 1100, For 1 dose [facility] Medication administered onsite Albuterol 0.21 MG/ML Inhalant Solution A lbuterol Sulfate 0.63 MG/3ML Inhalation Nebulization Solution (ACCUNEB) Albuterol Sulfate 0.63 MG/3ML Inhalation Nebulization Solution (ACCUNEB) 09/09/2020 12:00:00 AM EDT 0.63 mg Nebulization active Simple chronic bronchitis Take 3 mLs by nebulization every 6 (six) hours as needed for Wheezing [facility] Simple chronic bronchitis Lovastatin 40 MG Oral Tablet Lovastatin 40 MG Oral Tab let (MEVACOR) Lovastatin 40 MG Oral Tablet (MEVACOR) 08/01/2020 12:00:00 AM EST 40 mg Oral active Dyslipidemia Take 1 tablet by mouth nightly [facility] Dyslipidemia 12 HR ranolazine 500 MG Extended Release Oral Tablet Ranolazine ER 500 MG Oral Tablet Extended Release 12 Hour (RANEXA) Ranolazine ER 500 MG Oral Tablet Extended Release 12 Hour (RANEXA) 08/01/2020 12:00:00 AM EST 500 mg Oral active Take 1 tablet by mouth Two Times Daily [facility] Albuterol 0.21 MG/ML Inhalant Solution A lbuterol Sulfate 0.63 MG/3ML Inhalation Nebulization Solution (ACCUNEB) Albuterol Sulfate 0.63 MG/3ML Inhalation Nebulization Solution (ACCUNEB) 07/09/2020 12:00:00 AM EST 0.63 mg Nebulization active Simple chronic bronchitis Take 3 mLs by nebulization every 6 (six) hours as needed for Wheezing [facility] Simple chronic bronchitis carvedilol 6.25 MG Oral Tablet Carvedilol 6.25 MG Oral Tablet (COREG) Carvedilol 6.25 MG Oral Tablet (COREG) 07/03/2020 12:00:00 AM EST 6.25 mg Oral active Take 1 tablet by mouth Two times daily with meals [facility] Enalapril Maleate 5 MG Oral Tablet Enalapril Maleate 5 MG Oral Tablet (VASOTEC) Enalapril Maleate 5 MG Oral Tablet (VASOTEC) 07/03/2020 12:00:00 AM EST 5 mg Oral active Take 1 tablet by shaw th Two Times Daily [facility] 7 ACTUAT umeclidinium 0.0625 MG/ACTUAT D ry Powder Inhaler [Incruse] Incruse Ellipta 62.5 MCG/INH Inhalation Aerosol Powder Breath Activated (Umeclidinium [place]) Incruse Ellipta 62.5 MCG/INH Inhalation Aerosol Powder Breath Activated (Umeclidinium [place]) 05/16/2020 12:00:00 AM EST 1 {puff} Inhalatio n active Inhale 1 puff into the lungs neri ly [facility] Albuterol 0.21 MG/ML Inhalant Solution A lbuterol Sulfate 0.63 MG/3ML Inhalation Nebulization Solution (ACCUNEB) Albuterol Sulfate 0.63 MG/3ML Inhalation Nebulization Solution (ACCUNEB) 05/08/2020 12:00:00 AM EST 0.63 mg Nebulization active Simple chronic bronchitis Take 3 mLs by nebulization every 6 (six) hours as needed for Wheezing [facility] Simple chronic bronchitis Spironolactone 25 MG Oral Tablet Spironolactone 25 MG Oral Tablet (ALDACTONE) Spironolactone 25 MG Oral Tablet (ALDACTONE) 05/03/2020 12:00:00 AM EST 12.5 mg Oral active Take 0.5 tablets by mout h daily [facility] Albuterol Sulfate HFA 108 (90 Base) MCG/ ACT Inhalation Aerosol Solution (PROVENTIL HFA) 3381-5224-42 04/10/2020 12:00:00 AM EDT 2 {puff} Inha lation active WheezingSOB (shortness of breath) Inhale 2 puffs into the lungs every 6 (six) hours as needed for Wheezing [facility] Wheezing SOB (shortness of breath) Furosemide 40 MG Oral Tablet Furosemide 40 MG Oral Tab let (LASIX) Furosemide 40 MG Oral Tablet (LASIX) 01/11/2020 12:00:00 AM EDT 40 mg Oral active Take 1 tablet by mouth daily [facility] Furosemide 40 MG Oral Tablet Furosemide 40 MG Oral Tab let (LASIX) Furosemide 40 MG Oral Tablet (LASIX) 12/27/2019 12:00:00 AM EDT 40 mg Oral active Take 1 tablet by mouth Two Times Daily [facility] Insurance Providers Payer name Policy type / Coverage type Policy ID Covered democrat ID Covered democrat's relationship to garcia Policy Garcia Plan Information MEDICARE [id number] SP [id number] Medicare C [id number] SELF [id number] A Medicare C [id number] SELF [id number] MEDICARE A [id number] Self [id number] A DME Jurisdiction A [facility] [facility] C [id number] SELF [id number] MEDICARE [id number] Ruth [id number] A MEDICARE [id number] SP [id number] A MEDICARE A [id number] Self [id number] Medicare C [id number] SELF [id number] C96 C [id number] Ruth [id number] AARP U [id number] Self [id number] MEDICARE A [id number] Self [id number] A AARP UHC Supplemental F [id number] SELF [id number] UHC AARP Supplemental F [id number] SELF [id number] UHC AARP Supplemental F [id number] SELF [id number] UHC AARP Supplemental F [id number] SELF [id number] C AARP Supplemental F [id number] SELF [id number] MEDICARE [id number] Ruth [id number] A AARP O [id number] S [id number] [facility] [facility] OPTIONS [id number] SP [id number] DME Jurisdiction A TNIC C [id number] SELF [id number] [facility] Options Medigap Part B [id number] Self [id number] Medicare Natl Gov't Servi Medicare Primary [id number] Self [id number] AARP S [id number] S [id number] MEDICARE P [id number] S [id number] A SELF PAY 2 UNAVAILABLE 1 UNAVAILA BLE MEDICARE OUTPATIENT M [id number] S [id number] Problems, Conditions, and Diagnoses Code Display Name Description Problem Type Effective Dates Data Source(s) J47.1 Bronchiectasis with (acute) exacerbation Bronchiectasis with (acute) exacerbation Diagnosis 03/28/2021 01:41:34 PM EDT [facility] C67.9 Malignant neoplasm of bladder, unspecifi ed Malignant neoplasm of bladder, unspecified Diagnosis 01/09/2021 11:58:52 AM EDT [facility] I42.8 Other cardiomyopathies Other cardiomyopathies Diagnosi s 01/09/2021 11:57:23 AM T [facility] N62 Hypertrophy of breast Hypertrophy of breast Diagnosis 01/09/2021 11:55:00 AM T [facility] J96.11 Chronic respiratory failure with hypoxia Chronic respiratory failure with hypoxia Diagnosis 11/12/2020 10:18:34 AM EDT [facility] K76.0 Fatty (change of) liver, not elsewhere c lassified Fatty (change of) liver, not elsewhere classified Diagnosis 10/03/2020 10:08:[address] 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</td><td> </td> 01/09/2021 12:09:00 PM EDT Chronic combined systolic and diastolic congestive heart failureOther [facility] 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 LIPID PANEL <td>LIPID PANEL</td><td>Rout ine</td><td>01/09/2021 12:09 PM EDT</td><td> Other cardiomyopathy Obesity (BMI 30.0-34.9) Fatty liver Dyslipidemia</td><td> </td> 01/09/2021 12:09:00 PM EDT DyslipidemiaFatty liverObesity (BMI 30.0-34.9)Other ca rdiomyopathy [facility] Dyslipidemia Fatty liver Obesity (BMI 30.0-34.9) Other cardiomyopathy COMPREHENSIVE METABOLIC PANEL <td>COMPREHENSIVE METABO LIC PANEL</td><td>Routine</td><td>01/09/2021 12:09 PM EDT</td><td> Other cardiomyopathy Pacemaker reprogramming/check Obesity (BMI 30.0-34.9) Fatty liver Encounter for monitoring diuretic therapy</td><td> </td> 01/09/2021 12:09:00 PM EDT Encounter for monitoring diuretic therap yFatty liverObesity (BMI 30.0- 34.9)Pacemaker reprogramming/checkOther [facility] Encounter for monitoring diuretic therap y Fatty liver Obesity (BMI 30.0-34.9) Pacemaker reprogramming/check Other cardiomyopathy CREATININE BLOOD <td>CREATININE WITH GFR</td> <td>Routine</td><td>01/09/2021 12:06 PM EDT</td><td> Malignant neoplasm of urinary bladder, unspecified site</td><td> </td> 01/09/2021 12:06:00 PM EDT Malignant neoplasm of urinary bladder, unspecified sit e [facility] Malignant neoplasm of urinary bladder, u nspecified site PROLACTIN <td>PROLACTIN</td><td>Routin e</td><td>01/09/2021 12:04 PM EDT</td><td> Gynecomastia</td><td> </td> 01/09/2021 12:04:00 PM EDT Gynecomastia [facility] Gynecomastia US ABDOMINAL REAL TIME W/IMAGE DOCUMENTATION <td>US AB DOMEN COMPLETE 99476</td><td>Routine</td><td>10/03/2020 10:32 AM EDT</td><td> Fatty liver</td><td> </td> 10/03/2020 10:32:51 AM EDT Fatty liver [facility] Fatty liver Results ID Date Data Source [id number] 04/16/2021 03:02:38 PM EDT [facility] CT THORAX WITHOUT CONTRAST [id number] RE SULTInterpreted by:Bob Villarreal, MDCT thorax.INDICATION: Chronic dyspnea of uncertain etiology. History of bladder cancer. Reported history of bronchiectasis.TECHNIQUE: An unenhanced CT of the thorax was performed. 1 mm axial images are submitted and are compared with an examination dated November 25, 2018. Automated dose reduction techniques and/or adjustment according to patient size were used.FINDINGS: There is a left pacemaker generator. Lead tips terminate in the right atrium and right ventricle. A third lead is positioned in the coronary sinus.Nonocclusive secretions are present in the trachea. There is diffuse peripheral airway wall thickening. There is diffuse cylindrical bronchiectasis with scattered areas of varicoid and possibly cylindrical change. Similar findings were present previously. Airway patency is maintained through at least the segmental level. Occlusion of small peripheral airways by secretions or less likely aspirated material is noted.Patchy groundglass opacities are identified in the left upper lobe. There is a new nodular opacity measuring 5 mm in the left upper lobe on image #117. The large calcified nodule is again identified in the left midlung seen best on image #260. Associated linear calcification possibly representing inspissated secretions and a contiguous airway is once again identified. Bronchiectatic changes and associated adjacent inflammatory parenchymal changes have increased in the lingula. There is focal parenchymal density in the lingula representing either atelectasis or pneumonia. Increasing airway and parenchymal abnormalities are also identified in the left lower lobe. There is a new 8 mm in diameter pleural-based nodule in the left lower lobe on image #356. There is a new 9 mm in diameter pleural-based nodule in the left lower lobe seen on image #411. A spiculated approximately 2 cm in diameter pleural-based nodule is seen in the left lower lobe on image number 10/15/2016. There is no evidence of a l eft-sided pleural effusion.There is a new punctate nodule in the right lung apex on image #85. There is a new 3 mm in diameter pleural-based nodule in the right upper lobe on image #141. Progressive airway wall thickening is noted in the right upper lobe. Progressive airway wall thickening and intraluminal secretions are noted in the right middle lobe. Increasing inflammatory or infectious airway involvement is noted in the right lower lobe. Numerous peripheral airways in the right lower lobe are occluded and are completely or partially by secretions. There is no evidence of a right-sided pleural effusion.There are degenerative changes in the thoracic spine. Multiple interval lower right rib fractures are identified. Stable healed old lower right and left rib fractures are also identified.Numerous stable small mediastinal lymph nodes are present. Calcified left hilar lymph nodes are again identified. There is no evidence of intrathoracic lymphadenopathy.The thoracic esophagus is grossly unremarkable. Small mesenteric lymph nodes are identified. The right kidney is atrophic. There is a punctate nonobstructing stone in the right renal pelvis. There is a stable approximately 1.4 cm in diameter exophytic high attenuation lesion arising from the upper pole of the right kidney. There is persistent fullness of the olga and medial lateral limb of the left adrenal gland. There is a small low-attenuat ion nodule in the lateral limb of the right adrenal gland. Calcified stones are present in the gallbladder. Calcifications are present in the liver and spleen.Atherosclerotic calcifications are present in the thoracic aorta and branch vessels including the coronary arteries. The maximum diameter of the ascending aorta is approximately 4.2 cm in diameter, unchanged.There is stable bilateral gynecomastia.IMPRESSION: There is diffuse bilateral bronchiectasis. Interval increase in airway wall thickening is noted. Numerous airways are now partially or completely occluded by inspissated secretions. There are new nodular opacities are identified in the left lung. There is an approximately 2 cm in diameter spiculated left lower lobe opacity. While this could represent infectious or inflammatory disease, the possibility of neoplasm cannot be excluded and close radiographic follow-up is suggested. We recommend aggressive therapy for the patient's inflammatory/infectious airways disease with a repeat CT examination of the chest in approximately 6-8 weeks.Multiple interval lower right rib fractures.Evidence of a prior granulomatous infection.Atrophic right kidney with punctate nonobstructing stone. Stable 1.4 cm in diameter exophytic high attenuation lesion originating from the upper pole of the right kidney likely representing a cyst. This can be confirmed with ultrasound.Cholelithiasis.Small low-attenuation nodule right adrenal gland too small to characterize on this study. It has been present without significant interval change since at least October 2018.Stable dilatation of the ascending aorta with a maximum diameter 4.2 cm.Stable gynecomastia.This document has been electronically signed by Bob Villarreal MD on 04/16/2021 3:00 PM Name Value Range Interpretation Code Description Data Samira rce(s) Supporting Document(s) ID Date Data Source [id number] 04/08/2021 12:11:06 PM [facility] Name Value Range Interpretation Code Description Data [facility] rce(s) Supporting Document(s) Progress Note [facility] ERAUBi4kPuZBSlGl21/DIKdyGCJbd4MwXIefJVh5OTsaYINuS7FtZFL2nM5eNOZ1TWwDKkSsDmCyFFDy lbm [file] U2glLqNXkwQDT4Hj7VIAJTM5JGVv== ID Date Data Source [id number] 03/30/2021 12:50:40 PM EDT [facility] Service Cmnt XXX-Imp : NoneGram Stn XXX : 2+WBC'S Seen.No organisms seenMicroorganism XXX Cult : Indigenous microorganisms. Name Value Range Interpretation Code Description Data Samira rce(s) Supporting Document(s) ID Date Data Source [id number] 02/26/2021 04:55:39 PM EDT [facility] XR CHEST FRONTAL AND LATERAL [id number] RESULTInterpreted by:Marlen Gordon DOINDICATION: Patient with history of infectious exacerbation of bronchiectasis, evaluate for interval change.TECHNIQUE: PA and lateral chest radiograph.COMPARISON: Chest radiograph dated 01/09/2020.FINDINGS: Implantable cardiac pacemaker with leads projecting over the right atrium, right ventricle, and left ventricle.Old healed fractures of bilateral ribs are again noted. The cardiomediastinal contours are normal.There is no evidence of pleural disease.Calcified nodular opacities in the left midlung, right perihilar, and right lower lung are unchanged. IMPRESSION: No acute disease.This document has been electronically signed by ELIGIO Gordon on 02/26/2021 4:53 PM Name Value Range Interpretation Code Description Data Samira rce(s) Supporting Document(s) ID Date Data Source [id number] 02/26/2021 04:31:52 PM EDT [facility] Name Value Range Interpretation Code Description Data [facility] rce(s) Supporting Document(s) Progress Note [facility] IQFKUg7wXhATFxXq38/JDGpiFTVvh2YkBRxhMMf4RZllTGLrR4AzJLU4eW3hWKJ0UOkFMjHoWfQvWJVc lbm [file] ICAgICAgICAgICAgICAgICAgICAgICAgICAgICAgICAgICAgICAgICAgICAgICAgICAgICAgICAgICAg ICAgICAgICAgICAgICAgICAgICANCiAgICAgICAgIC AgICAgICAgICAgICAgICAgICAgICAgICAgICAgICAgICAgICAgICAgICAgICAgICAgICAgICAgICAgIC AgICAgICAgICAgICAgICAgICAgICAgICAgICAgICANCiAgICAgICAgICAgICAgICAgICAgICAgICAgIC AgICAgICAgICAgICAgICAgICAgICAgICAgICAgICAg ICAgICAgICAgICAgICAgICAgICAgICAgICAgICAgICAgICAgICAgICANCiAgICAgICAgICAgICAgICAg ICAgICAgICAgICAgICAgICAgICAgICAgICAgICAgICAgICAgICAgICAgICAgICAgICAgICAgICAgICAg ICAgICAgICAgICAgICAgICAgICAgICANCiAgICAgIC AgICAgICAgICAgICAgICAgICAgICAgICAgICAgICAgICAgICAgICAgICAgICAgICAgICAgICAgICAgIC AgICAgICAgICAgICAgICAgICAgICAgICAgICAgICAgICANCiAgICAgICAgICAgICAgICAgICAgICAgIC AgICAgICAgICAgICAgICAgICAgICAgICAgICAgICAg ICAgICAgICAgICAgICAgICAgICAgICAgICAgICAgICAgICAgICAgICAgICANCiAgICAgICAgICAgICAg ICAgICAgICAgICAgICAgICAgICAgICAgICAgICAgICAgICAgICAgICAgICAgICAgICAgICAgICAgICAg ICAgICAgICAgICAgICAgICAgICAgICAgICANCiAgIC AgICAgICAgICAgICAgICAgICAgICAgICAgICAgICAgICAgICAgICAgICAgICAgICAgICAgICAgICAgIC AgICAgICAgICAgICAgICAgICAgICAgICAgICAgICAgICAgICANCiAgICAgICAgICAgICAgICAgICAgIC AgICAgICAgICAgICAgICAgICAgICAgICAgICAgICAg ICAgICAgICAgICAgICAgICAgICAgICAgICAgICAgICAgICAgICAgICAgICAgICANCiAgICAgICAgICAg ICAgICAgICAgICAgICAgICAgICAgICAgICAgICAgICAgICAgICAgICAgICAgICAgICAgICAgICAgICAg ICAgICAgICAgICAgICAgICAgICAgICAgICAgICANCj w/cWFgS6mbvBZqxqN1F2cjYr5KNa3DSA1uo5QiQDEvYLyqehUxWqhRNtNgWQXuJkvDQxd9WKofFK7NjY FfN7HiS4NmXArrZE3CFPXoOODbxNEtVUEbZTSiAnN4IYRbPHteSA0QtBEnGYlxRKOkSINaSzRmBTJlRR CeBKXpFKJiHCVHURRwGUQwOpKsCBRdDNJgIK7VAFBp L737svUrZx2BJi2ADaToKH8qdo9RMqIvBHFtIziVUrp0FUkpGD9UyIPsqCEdXeAaVPAVFtKyY7hyi6Tu UlCjJJATCHebJI6Sn6MlhUXlFIu+Me0LAN0dw7MpRHwmMbCaVC5zse8XFOwQPoSdW3AizGsvWRWii2qw WBRsMI7ypQYoUSZ6BI5plrs4ucCHhMIlS9orBMNQDZ CHzJAjDUOcWA9cKpMuXdPlKNY1VZKuND9vVNhdDM4UTJZ3KNraKYBdGXDuL3mZHpYmAEBlFJYyjSqpEF 2JSbSxP3KzfqNgnWGlAjWeNZBVKa7+QYrjfdYmGsyQDeR0HNNjk1QrJIj8CV7NJMGuIRwrKH2ORRCbyK 9dFClrTY1VXpZwUIUtUKBVKeFuZ71rkNCtMKy5D2Kh YmVkZGVkRmlsZXMgPDwvTmFtZXMgWyBdDQogID4+ID4+JFvbGW9XYZfqhiOzRGPnKd2XKIQaYOSoIR7p BMHjLQQpW5F3nWbiHBBYCyMyW9frnmwuCD3eKDGeN716uAlpckGiCTTsJRPhZn1CNRHvVND6GODywNZm EuHcBTVRKTzsUW6YgRHiITV5vC9xWDojZXIpXXDeR9 nWCzYsvWjrAA94zCvpeoLccCPoTSr+Gi3RIN3mc6WmRZf8ntGzBUyaFFT9EVapGGKfSUWcEAWaAQN5WU T4DSCIGfUyZPXxSAJzUZzfHVFnOVQnve9HSZCjYUXcTqn2NJQfXKUcSVTsWLlgSXYuXQD5YPytIOEyID QdHY1WMvAkHVGbWELyTCobPMPhCSXmhq2IEMFcWFSy GsQ9YXIbPPNnQMSaZMnnWVFpRPQgDPx4NTQbQLFlSE7SAvFdIZLtIPfpEtzvVGRpFXJbcq7KFGJzBAOt BrW2JTHwXKTqPPKfVBrnFPDvYASxArL2HJJuKLZxML8TPkBjJVCgNXN2JqHpZOPzNBZsag5VLRYhVMRu TVUtKHBmSBKeMYMdDTgpXOCjFLB8PcZ2UQGbNJRyXT 3VJbZeRSObPFboLhBgGITpQBRuir9BEEZiEFKbRlH7DWGtXFZaHQGrMAggGHLbCENgVlBmPOYeNYNuLI 5ZMuVcEHMlMeJ8OssuVMLuPKAuwe2YVNVvWKDpIwBmGaNeLHLqCHAkYRqyGYAdEUUgLbN1OXMwDCFhMU 5PDvUmWQIyScI8RZurDFXhZSCwus3ZVGLoFLGfBpt6 TgAnGPJoRNOqLGroLKOdKHOpOZP8VRNlIPOaBN0JJrLbKIReXpVwNDGgGLDyGNJeyo5KAWQrNGFlCCQ1 FlLlUXAzWYQkRYqnSGEgYIB5SHSvPTGaODHoOO1SSbScCYKzWzNwLiGlSHXzNRKqfj9MRJTdTINjPcZ9 VLRbUAUsONMwEGudCYEdBGW9CFS3NIEfZWBuQR1ASr EgUFYiLrm3OuLmJCBkEQRkhm9BDMXwCZOnGbW7TMOtWGWtPJKcSPyoNCXdNIG6SZB0OHLnKWTbHV9VMh FmAKMkOmmjATVvZMLtLTGmji1JDBRiXBXdSJhhFRXxMJHnTCMvFGuwQIKtMAG3Ses1PLPxWISiTK9CKi KlGRWqAly6IxxzRBVjSGDjvy9UyQTqvSoawm7KUToB Gz1WjXllMLW4LHqqJr2rnTJtYJHbEQDSMk9NtyHiMQZqLKDUUXusPTQjZRFqDqPyHlW4RPZxMgH6RrX6 RKf3LSPxFUU3YRRlSPR5EsR1XDPvCIF7MFIqJPKoKQcuAZOdSLJ0LwPrOZYgQkN4VSf+XD2tYJe+Pg0K w4IpewO0waWuCQo6XOC6AE5RPZTSC5GSLu== ID Date Data Source [id number] 01/09/2021 03:30:20 PM T [facility] Name Value Range Interpretation Code Description Data Samira rce(s) Supporting Document(s) Progress Note [facility] YJOUEp9eLlULYkPb22/ETFacAGXro0XsVJcyBIu1PUmqZGTfM7KfIOU6dB5gVUQ0PBtTQsBpMiGxHgX3 lbm [file] MWMiZLo//6fVjiaIHnNDzhyfUggOgBP08hATkEynG4V/ISQSOCUicTfRTvtoEz351DKzeS5fAKpvyN qaX5CvHxfUWlVvSRJe5W1dxd+ojKoUdsHXTsLePVj3/hq05jkqO1/eu80z1Ovta/j2U12q/bB5Us9v2q pJQmn9UjOLw7TOYco2D4iMD//Ff6PHc7cAP8qh70kq 1Vx9PZz3j+6KEzw2qHmK2TrNl+a6B1BcSzNj0A9PaRsyqirLC4oH9iCs7ypA+2xhO5NCJEiy8fW4bAlr qaqg/0dXD4208UKsN98CfQs5q4iqm+LdeoiU4kn6F+rB8BjKUgYC9KBz6wpf+rF2i3+p7Tf6u+ru/ARCHIVIST MILITARY HISTORY/ [file] AgICAgICAgICAgICAgICAgICAgICAgICAgICAgICAg GIKpWWXsGOXqTFDrRXNoARDvRMZsSMMpJVTbMWLaJQRuDOErQIIgDQIpNXWtTM2LQCGeSDMcVEWtYXXf ICAgICAgICAgICAgICAgICAgICAgICAgICAgICAgICAgICAgICAgICAgICAgICAgICAgICAgICAgICAg EKRwIIOuLTZqLCMiYVUfTSTnLICnSUGjDEJjWB7NRI AgICAgICAgICAgICAgICAgICAgICAgICAgICAgICAgICAgICAgICAgICAgICAgICAgICAgICAgICAgIC DhDHQwSHIaKZXgYMLqSALjLSPkHNXnHEDrXDZkYWZcOPBqTJEpTJ5LGQYnGRQfPOJfSFBfZNRqAKCeFH AgICAgICAgICAgICAgICAgICAgICAgICAgICAgICAg LEPqLELpAJUfSMEmNRNqGZWwEXLeFQTqKPRcJKGrOLQgWDVtNUWpSFAbHWEeWEOzEY6MSLMvPSLqPQAm ICAgICAgICAgICAgICAgICAgICAgICAgICAgICAgICAgICAgICAgICAgICAgICAgICAgICAgICAgICAg ICAgICAgICAgICAgICAgICAgICAgICAgICAgICAgIA 0KICAgICAgICAgICAgICAgICAgICAgICAgICAgICAgICAgICAgICAgICAgICAgICAgICAgICAgICAgIC JfXRXzHPLaVDObPFFmYQHwYIGiPKQkGFPkTCPhGMGwCLHjTQXaJSXqEC9BTRUbWJRjQKNqEGJbHOYeSJ AgICAgICAgICAgICAgICAgICAgICAgICAgICAgICAg QAPnLKXrRXAkZBBnJPNmELOuLWNdEBDoGBCaVOHwQFErEEDoLBFaMWLjZDAjZBHxNWZbDO4XUFLqFRQl ICAgICAgICAgICAgICAgICAgICAgICAgICAgICAgICAgICAgICAgICAgICAgICAgICAgICAgICAgICAg ICAgICAgICAgICAgICAgICAgICAgICAgICAgICAgIC GeCX8BTLEaSXGxEVZdAXPzTTIpXMKpTPHyXREeHCZtLROjGUBlALLgMXXsQOHlASXfJJStSZSdJJQoRM YnQPGrYPVsCPKdAOMlFHOsCTTbDDIxLIKaOPMsCUQbSCWeDSBlICRxOJLiQY3BSRRzLLLgXNBdVVEdKB AgICAgICAgICAgICAgICAgICAgICAgICAgICAgICAg QRVzGHCeOJHxLQKpYPWlZBUwVMYtNYRvVPFwGOKyOTMhTAAhAMEmJDPsUPDfEUWfIQSdLSXxYT5YDL36 zOKtq9R3UAAzQX4nqkh/Ko4GKSdsofQbgJSeZI3AQiEcMN1euf2SHjQePK2tsm9GCRyYTvBgT8Y8fVTk DLDeHTVTDnMpD89bGEwhDw04VBffXPBpPmHcVFa1Th 4RWlPbA0uzTFExZoL2ONZlSjN5RAUlCnI0DLWcLiWbDDTbZILzYTOcYHPACQA1RADaNuSkJlXpVLVvTG bmYCSPFVPyTRMcEhXpRuKlYPKiMN0EPXGkI127nkGsHIXHUr3+MOrzobMeYgnROpLvCEEqa8XvFEy5WZ 5WWBXjJnyvn7VvQXRgCDQFKOdjJA6EBJR8BYI9POTe Ox7WWASmJ158ybZgIY4LOm1SZnYaJY7ttq8KAVBwYOKxImnVDvc3UGmuOO1IeAXqVGcKex6aahWeapQJ j7TnnfRenAHPEK6fS9UxJISHxXG3BICEBJQgdAP0VuP1VmGwJxQnPRE2KAZaEI0qIPxxHO7VWDK3MEqm FTFhQHXhW1nCToHfYQRnYAUugWhnBY0RBaRuJ6Romd EnxEP6PtOyBZGUHs0+ZVliscTtRmcVEdI1OPAun5MfQOl1XI5FETTbQGasRG0CACAtnI6jRAmgNM2LXw Z6YPMbLICCZzQbC47hsSWlWXh0K0NcHzRvALGhHrdoEJTzOPfyYoNvBQUyUaHsCWrgHG0+ID4+DQogIC 6VNPmrxrCyTOXtPx1IXJIlNZIkVJ9yABNoSGQbG3Z6 rWbwYAYQWcTjM5lfcngjJV2xVWSjC024kXbjftMnQZSaVSKcXk6FOYRoLXG7MEGkyBVgQTGuTTZMWPbj ST4TkKSmKKC9dV3dQJtmJPUtYOMxL9vTJgJavLmwUC04fBlrkwSzlUDbFCw+Fs7DQK4os1BlKQg8lcOj NYwuLEW7JPscJRGwBKCnBVVzGVT8CGB2FOSCAqTjMZ LyOVMjQNdaQVEmRDCntj9UVKQpNEE0JSU5HOHnCZNlKMJtTYctIBMrXGxuCQRsOCBcTHCcYA9FKcQbBA EuJOXqEAydTKFlZWLeli4SGPGdVFIrDmQhZVMyTMWbGHBhYTxyYXNbBFGlCyHiYFLfTUHjWZ2HRyPfYG YuNNE6HzItCOAgVULpjw4UHFVnCMCtNoWeFcTdOUKa VYDeCDusCNJxHNP5GAVtPZNmYOXaXP8PTzMqRYXuVVNwBkUrABRrEUQbbg9SDDDrWIBnNgg8WhUvSNEk FAPcKPrgIFIfOLQ4OEe2YABnOFCcDD7PZvSbOWOdXYndJSSlCOZxTSKsdb8LDWJcDRQwCWD1MNGdVTHf ERCeRWvaAYFvOVJoKsK7CPOfIGCtGV5RXcCbWBXnDo T0RKZuLZCrASKcup1SOLVeMYMjEbF7ZwNvUFFgZLTaCHvrJZSfEUMrXUG0EOGvHPDcZW8TEcTtSAAmSn gpMulqIBXvXVWycy6FURDzZBWpWuY7PPThQMZxJXSkLNawNRGlRRJ3QvqdVLYwGAIaJM5ZCaVvMHXfTs u5MXvbXTHuWPGxqc8FCDOsUQTcRKMwLVOkMXHuZYOk NSkaRULxAKAhQqF5OHArEAQpOM6MQkZsRYHcWqM6KqBrSMUyJACfkz0FTMTkYWIuLOo1BEEwSTNvOIUs WUzqLXMsJYVpWYI8KHQnUHDcEE4ZYkKrQMMpSdXjYJSoVKBqNPEvgv2VOYSqYMSpIxFiYKVfZTMxKBCj YUwoHDJqDIGrXTRaOYCnZOXvPS3HTvDvVAOqIrO1Rq kqGWRmFAZsnu4ABHEdIOS8QiS7JOEaJOXkYLOgKCngBDYlXTM5GeLfKQTeFKOeIR3BLqOyIKJsTcb5BP VvVSXdVVDtxz5VBNXbFEK9OFuqTdShBVDmKQFwUJgjLQWsJBI6HizeUUBqNRUnMB9JMrOlXIGgWvu4VN kvFCZaGSDeyh5PDDXdQLS4DYDrNpXkZOEoLAKzYElm KARoOIwfEUjuQGFzVROkIW2LXyUkKSMzYyFbXeJkVXZiAGEfos3OWKYgQOD8IST0RTElQZRqJXBwIYqb GOKiUUaqOxopQYVuEEFnXR4WLvPaNVXtMbBqBOIxJDBnJLXopn6FLMBiIBD8EzJ8XsHeDXOqVTQmRDpf HYEvONbvXDPwOLYdZLEcBL4PGhXdAVyrJERBPcj2VW plJ5z8IUE7Yz7PM5Cwt9DzQDZaDCODQXmxSD2kiiJmYKXtOf9SH6wEDvltFDOpDktmRCm5QxO9MlSgVJ O3HEAxZEQ1QCBdPLDtCG5vUET6WDCcYGX0StryRpq1REEkFAvbXkDnHiNhJHA7OJU9JdPiWQ8OPq5CHw I2MQX8dVNrCc4ILnP2XREQQtApGK7WMWm= ID Date Data Source [id number] 01/02/2021 01:42:42 PM EDT [facility] Name Value Range Interpretation Code Description Data Samira rce(s) Supporting Document(s) Progress Note [facility] SGQQLe7mArFLDkNh26/PJUixSBNlv4QkTRioQXo0OAogGTTxT1XsWDP7xL8uPUH7ORaPNpReAgWdBmG6 lbm EtMwkQLbIjLQCbYooLKyCuKJirOubipKWrSC3BgMN4SUGsX75qHSJiADWrR9XgVTK6HfP+Fo1ZIFTscT EtOP0JHzhG8Trfq2f1ZP8mfS+ZjJLzBCZjJTIEJDCgIq4Z7IuVgImHVL+USX9zrrDHzoh227OngtPu1B nkEQqn8eSfx/zdJ++OdBgr/31gHc+sNUobW3eYMnPI Chen+/62Dp9GCDzp/vtMrv7Z4hdw1oS+Yo16wiPZ9xx6m8OtbrwwA4uk7Obixn94sx84cxkOtmWf20nrb [file] FWI6ReTaKZM5PKHyP3EkPyStPP7WWz3YNoI0QWL1hZAqUe1VJEegQAOIZzGgLO9UFVz= ID Date Data Source [id number] 01/02/2021 12:01:15 PM EDT [facility] Name Value Range Interpretation Code Description Data Samira rce(s) Supporting Document(s) Progress Note [facility] PHOMZc8oFgUZQmOt08/OYUteDBAyj1DiIUdaVMx8XEkdNGHyW3OhBNA6nW1iYSO4ELkMZoZwNiStQyL6 lbm [file] zWXDYM5CIWZuDPaEpKgIjyn9J0YeHC8OCmxp// [file] ICAgICAgICAgICAgICAgICAgICAgICAgICAgICAgICAgICAgICAgICAgICAgICAgICAgICAgICAgICAg ICAgICAgICAgICAgICAgICAgICAgICAgICAgICAgICAgDQogICAgICAgICAgICAgICAgICAgICAgICAg ICAgICAgICAgICAgICAgICAgICAgICAgICAgICAgIC AgICAgICAgICAgICAgICAgICAgICAgICAgICAgICAgICAgICAgICAgICAgDQogICAgICAgICAgICAgIC AgICAgICAgICAgICAgICAgICAgICAgICAgICAgICAgICAgICAgICAgICAgICAgICAgICAgICAgICAgIC AgICAgICAgICAgICAgICAgICAgICAgICAgDQogICAg ICAgICAgICAgICAgICAgICAgICAgICAgICAgICAgICAgICAgICAgICAgICAgICAgICAgICAgICAgICAg ICAgICAgICAgICAgICAgICAgICAgICAgICAgICAgICAgICAgDQogICAgICAgICAgICAgICAgICAgICAg ICAgICAgICAgICAgICAgICAgICAgICAgICAgICAgIC AgICAgICAgICAgICAgICAgICAgICAgICAgICAgICAgICAgICAgICAgICAgICAgDQogICAgICAgICAgIC AgICAgICAgICAgICAgICAgICAgICAgICAgICAgICAgICAgICAgICAgICAgICAgICAgICAgICAgICAgIC AgICAgICAgICAgICAgICAgICAgICAgICAgICAgDQog ICAgICAgICAgICAgICAgICAgICAgICAgICAgICAgICAgICAgICAgICAgICAgICAgICAgICAgICAgICAg ICAgICAgICAgICAgICAgICAgICAgICAgICAgICAgICAgICAgICAgDQogICAgICAgICAgICAgICAgICAg ICAgICAgICAgICAgICAgICAgICAgICAgICAgICAgIC AgICAgICAgICAgICAgICAgICAgICAgICAgICAgICAgICAgICAgICAgICAgICAgICAgDQogICAgICAgIC AgICAgICAgICAgICAgICAgICAgICAgICAgICAgICAgICAgICAgICAgICAgICAgICAgICAgICAgICAgIC AgICAgICAgICAgICAgICAgICAgICAgICAgICAgICAg DQogICAgICAgICAgICAgICAgICAgICAgICAgICAgICAgICAgICAgICAgICAgICAgICAgICAgICAgICAg HCNdYCRbNNUoGJLpZSOzZYGtZGJfIKCbXTOnEPNdFSPiWEXeJSNqSCFqUNg8P0luRKXkSGSxQI1xKZv0 Jz8+FGzAWqBaQBR7mnKmcL4AIQ6et9IrDCjrFEDmf7 McJUc6BK3UTBYkXUycPT5HSPtvmz9UNXOoFZLncOMXh0rsWiXlGMX9GLPjXmaaEY5QNTCgU5owamRiWU JmPYNMBH7WHdJuF7ResX11LMCFMp0+RRzteoWsZrhRCpPlDSWpw3HpLXb8VF2IDBGbAnrqn6SxPkOeIU LIQLigVR8ZDVZ4UZHoHKPqDh8VQHIfD496mwOeHD9H Jj7TRlCuYX2hiy3HXeYlNJHrHioCDiz0QHcwOG1XsTOzQQeRnq6bsbOwinZVl6WievYlbLLTtIyrFE5z XF6yDZALQQA4WMciPR8fKMOeEXDkIoQ1SKHDJM8XOLGlJVCelYVtNDChGIMHPM6DIVkdMWY0ERMreeNv mKXsZQksHJ5RUXKkdbTrMpLgOHDYMNp+Kj8WDK6lw6 WtRPwgZPVeEV1acy0YZOdNFrMvI7P4lDIbZ0D7MGoeDm7JMUScUVAmUnRtWZNMHXsbKS8ZOO9dhoN9WJ 0JhNKdHZLkXVYawGFnRVl1T75piXCkJUftRJ3AFPN+Lexa+Mr2HDGDaWYMdYESlAwLpAYJPJnUlK9KxB7 UXj6XqT6HlFB49kGugaqXpIXedAR0ONO6iFSKfGMSY VZ8OfTUyuH7iccCtFdEnXCEDIqYvT37mrBKuVWIvPTQkBDLpLq3ZZVWwJ3LntaFqoJweogBrRNPlHQQE UM9DCPgxgjMcdCVrnAslYH78yXqqVT5KFd2BQsNrDX7lwk3EyQCzZm6NQSAgDC4HOIYnEDJkVJGoSEN6 RMMkAbNnBYioIRKgEYFwCLC4FGEdJPVuOD6YHoFrKW VqRBgjWYqqAUZdQGVesd1GULArIEAuUVr6CUHkEUNaXUOnXObeDSVjMIEkDPA2TIZxGTOkFA8XMqLdML SfJCR4TeosHYLvUMOzyq1NVYBxFIQdPJs8ZJWlEDQoMEEtOHjmHJLjXXTcNBPnUPDaTAEhJO9NGbAdST VvOLS5JZKkGUPhKYVzln6XJCOuKUYkDzJ5WyDhOFFl QERyXDeyJGZhDYH1MOG6MHNfKGGuAE7SAwYzMHIiMVUiMaDpZOWvKUSyss8UYGLlACPwHNGhUpEsOIRn VCRpNFknXTJuPRF7AQv4DDBmEGAmWV3NHjUcMZPdYJOkAOFbLUQjPAOfif3KLPDwJCBfEyXxUrDpKMEv FSSuVZohVIIzRPX1GkQvCPFaJZYoZH1JMaTuUDYrPF W6BAwoXGSmBAAxhv7ZGFJeASNpJaitGtMxXIMsVZDkGJwbVEPdDKT7DIX9JUZeZYJrVY1IYwBaTUFcBO jfLTMpXAStPRWfaf3NGYJiXAPyIOCiGITvGKVxSHOkUZvpWVFmHUS3CNA6FNSfQAHpZC5CFuJpCCDbRn FcDQVeHBDvGFQxoe7MBWCdZKZeSFB7EiWnEMAsCOTq HFw3awFdeVPeMCb1DB7QM6MperSmRfLGFa6Kh041RTV0YDHnEv2IQ1paIj6uHNAqZRKKSl0QACb6QJW9 KnZkMIPnUMT3F0BfLKm5DJC4SPSwAShkONQ2GfY+JCnvICY8TyQwLeNiLHO4SGJ2NEKcJDvySKXqSZHn POxwQd0mBPLIXp3+JNlixAEenAwuXORSYvFzKyk4KZroKCGKAg3E ID Date Data Source [id number] 01/02/2021 11:21:13 AM EDT [facility] Name Value Range Interpretation Code Description Data Samiar rce(s) Supporting Document(s) Progress Note [facility] CXAJOm5hUyLGOfKn16/YJJdzEXJfe2NtOKxhPBo2AGcuXAWzS3SiHFE5bT5eDRV8SKcKAgQxLjTsRhV4 lbm [file] ICAgICAgICAgICAgICAgICAgICAgICAgICAgICAgIC AgICAgICAgICAgICAgICAgICAgICAgICAgICAgICAgICAgICAgICAgICAgICAgICAgICAgICAgICAgIC VtKTXyDDKdPY6WUWAuYLPvZOInEHGeHLOuVAXuRYSzTHGkVTOyZZYpSVTeOZFxJQHuFQZnKXDvZZGwHA AgICAgICAgICAgICAgICAgICAgICAgICAgICAgICAg FNHtXVWdYRDfWQZoHAEuRFTlDN5SYYOpQXWmYDFmOPSnZLVrIRMpMSRoOIMzDXMqGAHpPQRfRLLcRHFb ICAgICAgICAgICAgICAgICAgICAgICAgICAgICAgICAgICAgICAgICAgICAgICAgICAgICAgICAgICAg TH9PXBFrSCYcNRFlNQCoKCXyUHGnNZNsDLLxLSJjSE AgICAgICAgICAgICAgICAgICAgICAgICAgICAgICAgICAgICAgICAgICAgICAgICAgICAgICAgICAgIC GpWGEnMFUyLLGiHN9FPLSmJXRsDHAyZOXxFUAqONIfGEMuISGyJCQeOUVnUAAoNANbNQKeNIHlKIYlYS AgICAgICAgICAgICAgICAgICAgICAgICAgICAgICAg INOaACRtGTYcDWZqEPZkAFEgBRWhBU8RTTQpJSRvVIFzOYJfQABmUXYuVWFjWNEpKUSiXQIvCKDuTXJz ICAgICAgICAgICAgICAgICAgICAgICAgICAgICAgICAgICAgICAgICAgICAgICAgICAgICAgICAgICAg XERmMT3TDNYjYECmNZSaFYOtWBVkJPJiSCHoNLEcGI AgICAgICAgICAgICAgICAgICAgICAgICAgICAgICAgICAgICAgICAgICAgICAgICAgICAgICAgICAgIC AsASOlREObENPfJENvGJ2IUJDcQQIgIQNiWMPlKQFjOBUiEKRsPXQiVLZxLHPzHCBnBFCaGJPfPAFdIH AgICAgICAgICAgICAgICAgICAgICAgICAgICAgICAg CTQeGEHgUGRwUHAfLNFqSGAbIAGuFXZpWW7CPQJkRSVpGAUmKKFmVSXeETYoJFFfTFUpAEApJDFbCDDv ICAgICAgICAgICAgICAgICAgICAgICAgICAgICAgICAgICAgICAgICAgICAgICAgICAgICAgICAgICAg DDTxASLlYG0VBW94xFVjh4C9WPOmJW4ndfg/Pg0KDQ adkhTozOSpCT2WKeWfUW5unn5WAgQuXF1rxl7NSFkSLkSwG7Y5rWXpUYHmMQNLKeXiO43uASmdHm34KU ilVFTuNyDdQCy4Sx2VCkQmG9weYLBiHiU5QJGpMvMuGPvpEK1Ga9VcuRAhJKv+Ar8NJI1nh5XeGPngMG OzXW2ocu7UXJoTCxDkJ2AnzkK3HUYqNKRlDg0TFSYo ZAQlhOUwTPQkKJHGKmQcF1NmqO31XMUGTg5+PVrdhyGzQhvBTnQbKMWtk4XyDNz2FK9TNKIhVVk5sSMi QALsU2Oif6RtWv80ROKyArpvQJQzl1YdBXx2rILrkLDbUZ8WQCKhDDOnuWZ3DwvnItGnUYJnGMhyVyVX GKaZZdMpN2Iae3ZiNeI2TYXbKuQfTCqmZGQjPqJ5YR 73oFvhDA0QQPOyMEZtZC06UOA8AYNbHj4IDb3ZNjDiRB5ubm8DUiIgBXAnOlqJHmz8RLtsPL5ZtMPcB1 WmnRPcw9pSJoJuI9ZKNNM6IJJvBy9AHSTjCiBeHIWqMYaeYG1kMQYrQFUNpUczpeA4IH5QGS8osrMaFV 5OXmZjKx8qXj9BPkHnX9OmQ0QzQAExKDIHHAacXS0D ZIxdMX5xUA2Bk2HOgKKxcL3ssl4UBTObENIiHwymwv6BEdljM1J8tVuyLJKgOIxdOWENQDgvJN6SDTPi EXF4IYPpIDWkTHBNSeYyV22kDE1LT0Pfe84jYwG6YPLzLhHqLOgfRW40kAwsjpVplZRqlKrtPM7HTi7+ DQplbmRvYmoNCnhyZWYNCjAgMjINCjAwMDAwMDAwMD KjDoY7FbRtMk2MNIToBWVzPYDoKoVlPFOrXZQyOIviNFZaHQF6LYIvONKuQQYnUW9DHnKpFSNtADlsWl LdYKVuJMIetl0RRVEqKZLrPZJ2PaYiGRZxXZUgPTjuIWLgDWFrWeA0JJMaGDMqQZ0OPqUkUGGqEBH3Dp JoOBKuJDGnqb3WKOGrUWJgJlYqACIuDDGnIIMwPFgs TJJrYQNeIuF5HFBtYRCkUC3SJwQoONQbXTG4ILaxCYKzQCIlbp6AOAYgDXIbVBz8NXKnXCYuYOMeMImb GXNkTSU7TNM9XCJkNNVaGF0RZiCmYKLsNPLxJRVsQDDeLBMzct7HJEBbIHGwLwLmNPFuWBZmTCCmXQwc MAVvEQO7EYM1FHPcPUEsYH7JAvUuARYrCVmnHgWsHP JbNTTyji3LQPDeTKDaCxH8EDObVZHmQXUfHLwdOUOcJMP5TFSzFIYgOYTgLM7RYaKjYKMqEPu7UtQnEV VkSHNydc0ZJWNoBREkWGB2ZXSzKIHiGWTuISvzVCQiRRY5VCW9UDZiXGTkEK6DDnHkDNHfEYb8OIVgTB UoFMUbxf9LqTXpgEzoea5KZJfXFj9MsRvhSDWxMBgl Hm4hhAUxFLAhEBZKNe0FuqXcKRMvRCAGMChmCQUlJFQ4QABrRMvaDAD5BNV5PCN7GFE7E5EyHiq9BhRu XBD2RqE4LehwUeCeJ7VlAJo8JPF3IPMbKMEcNUKyNRdfUpW0GzC+IJ0rYEm+Mt2Jf6DbcqQ6qcRrUYhq DYcjTD7JVQNOK9ANDg== ID Date Data Source [id number] 12/27/2020 10:12:00 PM EDT [facility] Name Value Range Interpretation Code Description Data Samira rce(s) Supporting Document(s) SARS-CoV-2 (COVID 19) NEGATIVE - SARS-CoV-2 (COVID19) [facility] This lab was ordered by [facility] a nd reported by [facility]. ID Date Data Source [id number] 11/18/2020 12:45:16 PM EDT [facility] Name Value Range Interpretation Code Description Data Samira rce(s) Supporting Document(s) Progress Note [facility] TWLSTh3gZkSVHnSc26/YQLrnMVUmc4PvGEspJEm3QFqtYRNtX4TwVMO7xM7cUXZ5YElNSeZiQhApMFN5 lbm [file] faUQVSNcZ5ZBN9NGzhPZYOYf2U ID Date Data Source [id number] 10/03/2020 11:28:57 AM [facility] US ABDOMEN COMPLETE [id number] RESULTInt erpreted by:Johanny Ramey MDULTRASOUND ABDOMEN COMPLETE.INDICATION: Fatty liver.TECHNIQUE: Multiple real- time sonographic images of the abdomen were obtained.COMPARISON: CT from 01/16/2019 FINDINGS: Image quality is degraded due to overlapping bowel gas.The liver is homogenous with normal contour and echogenicity. No focal mass lesions are seen. No intrahepatic ductal dilatation is seen. Hyperechoic foci with posterior shadowing are identified layering dependently within the gallbladder, which are consistent with gallstones.The gallbladder wall is not thickened, measuring 1 mm. There is no pericholecystic fluid present. A sonographic Ferris's sign was not elicited by the warehouse production worker. The common duct is not dilated in caliber, measuring 4 mm at the level of the hepatic artery. The pancreas is not well visualized secondary to overlying bowel gas.The right kidney measures 9.3 cm, and the left kidney measures 12.1 cm. Both kidneys are isoechoic. The right kidney is normal in contour and cortical thickness. The left kidney is normal in contour and cortical thickness. No hydronephrosis is seen. 1.2 x 0.9 x 0.9 cm cyst in the midpole. 1.2 x 1.4 x 1.0 cm cyst in the midpole.The spleen is homogenous with normal contour and measures 9.8 cm in length. No masses are identified.No ascites or free fluid is seen in Stokes's pouch.IMPRESSION: 1. Cholelithiasis.2. Liver is homogenous, without sonographic evidence for fatty liver.3. Suboptimally visualized or evaluated pancreas.4. Bilateral small renal cysts.5. Both kidneys are isoechoic, likely related to age-related changes.This document has been electronically signed by Johanny Ramey MD on 10/03/2020 11:26 AM Name Value Range Interpretation Code Description Data Samira rce(s) Supporting Document(s) ID Date Data Source [id number] 09/26/2020 09:45:20 AM [facility] Name Value Range Interpretation Code Description Data Samira rce(s) Supporting Document(s) [facility] ZHCOCq3gRmPNQoRua0UnGkJfFHEdSE6cctx0O6Q1mHCyR9VhuWRby8aqJ0LbA3NrFMIoSZLTBF5LqSCt jb2 [file] 9XJ76jECq41szckgp8wbg3Dp++3+fdfzu+B9y397++rqqsNFgt0tG5mKV8Tbd1CyK32HscZE/Rose Marie/LLv [file] rqvw0xQi60+Wv3z7/MWL91+9fX76+hq2v4XJI65+4u 2RzcldhOj45738yipSlt7hd7h/fwf7y261KFT77x/+wW3G5/70t33sd76t9y7/uaSyF4j219ktev/961 scaffolder/JDaDs+8ghaZ1wc6Nsk5fC2x9ozLm82/S+WeTm7WPzbX3/i6wVc14iYb5709G0+//9fP9NC7902/P rdebs+Gvh2Mp7pIitn0wSzO9/yL675b+jVs2auexi5 /vnt0ye/t2i56Mwnc/inpa3Im24qq/nb/89oPj1//ntFs8Bd3mHBQ5+gP/34p+9+/uExYf/9b09f/PTT f/z525//57ff/urp3Yf/+Ot3T19++OOHpz/8l1H/8M9PP/034I7ma/GVtz9u/WNrTy+++GcO0xmGb+LS f/jhN3/RlveyvGzH4/YTO4v6sgB1mzF+fPZ/5ap/+q +r+7bMj9nxbvfs/E1271xZ6qJH+pAda/a8UjB80hLtWl5akiks4/R3s6r88A++/wmrM43OEzkvty+9f/ Nxa35fNZ4z1n0/ffb89l+nc50RSO9/zrH+xH+hE1yUae2/uweqtc0npB72901r9hNE9A//vPb1tz/+9d dPP3/60328byitNHq697VzeW50l2slATDOtiuVO92+ fffjX7/9+X9/+A3fYX3e+4+ef1kin7r+Pu8w9lhDDCw6/ruffvxl/U5C/WO4qUG20ux8n/nd+2900vdR 5PpDb/fMYck89q3w2pGg388pU/tR8ERsGgBpwE3hV//qK3gJh8329M5F766+/J9v//T3f1L3qiv+SKzP PzrJio+XcNWnv/38h3/+yh3yVU48+I39aex96tRB// zmw1+++/Dj3//+Goa3P/78z0wqpeyo8D/uiC5//tT9C0w4QqdVSc8V6/R5386a1k+/++bRyMe//fzNm7 dPj6/Ob3/7i/vd8wv3/+Ptc0Oak7/5/ZE7T/7kOV0F9d9//I9vn+uank710ll6myKL+fK+O19efD+fnh /Wilfred+eP33/nC9LVrJ37DybatD5507sW5/flmo6cfHO 4pCJOH36+gUSB18g4351suwX8RrHya2E6ojihRrlkyVydJXyRT3KNP5qm2KaAcN3QWVln4EkEGxpKOk2 qRXfHUtxtoXzx8MbtaxnN5Xqk6VkLqHuZWLdTkJwKmy8KFXsUbA9fCBkXjWsHDInB3SuQIOtHxZ3GaUh UCYKBC3PGGVwovCeFbTeXCZ+DcOxIZ9oywlpANJly6 KnPBqeEHdbKVHaF5U5pXgxMRBiC9RbkU58NVMlB3LecwS8QEA0JGFwFuZtTHArdTGeKHBeGGX+PmVuZG 4mrfpcMPGcx1VcKMfnRPV3qO6bXYwFBYISFWdGESsgWdL5l90vmqKGZWPhZVQqYZ4VokOeeHnaflDniV WiYNU5FoCzNXI9WRXcOAP7AWPDQRNmLLOcYUWsWCBd O6DbyEmeLOrBAIVPSWpXOLvdCnLsx1W3SDFjyeWIXOXNYdULCXIWYtieLASEX3zNOOD6QRVoJmIbNZ9S lCOeUEO3RMiWLPGWSQmPZKmlKhLsn1D6DQBwO0IhGSOdabUiWHVCACfjCordXN1meJvlbqwoA9CbsJTi NPOTNATuXOGsDFHyHTIqA6Hmy3X1I5BwHTjOHOYLEN vTZYgaItH2q08wpmAGOWCtNBKyVE1+XL3vl7RhTb6NHFFdZE8bfdj7ZO1DeDHzLP3EMYldmqRsS3cgbx HkUtDkRHFWHH2uB0WwuG40FRE+IlOoGT9glxb1tyIcMgEfXMByQLLbEFLyUWuyCAPfDJCoINLdMTH4PC X2IGSwEyXrBDDuGDPbNNnbSUUdMZErzaVUMXPhMKZ0 Erf7UMXmCKDxVMIjRNbfTXPlUOZmQSA1AAQgQXMeWA4eIzSsFIHgDQBoPMWtEnN1KiNaKbODSVFaAAVn PWCaPtZuWYLmNRRuJNldGNYkSYZpFVu8YZHcIQMvMA9iMwIwCGXsMGKbRIFgKAPeDWSbxpZEOCOuBVCs OEK5CFFnQIOwOXGvYHelPFQqTENeLYS1YJRaUHEaZS 5zNzQlJXJsIBY8YiKxTTXwNVIelnJXLKLfPPRqHCJ2MBPkCYGzKRBnCFudMTWlVRYcIoS7GNSrLLOmCC 9vGrLuZKItWPT3NOTbQSYjZURweiPSZVFyPUXgDCv4JtOcIRMnAVYxSUmiHMUwKFSmJGcqNAYtEWCkMW 6xBuNtAPXlKCBgEYTbQVDjAVWyyjZTGKWbYNKjBMR0 JePcQXBfLHXwKWliITPjZYWeAVP5YRWeJXBrEY3wVuJhFXEpDTW6NgxwTMSeINFkpoNUMHTtIDFbPSTc LYSzFZNiQPSdEWbsDIAgBNLgAwX8MJDwCRAkRN1eXqQhBMPkLYQ4UPNfRVSzUEZureTMABDdNFGfRYGw TCO5WQMhWESsFQu9hqSglDRyFjm5Yj3WuBihVMZ5Nk 1KyiMkDQDpBWZOGo3Jk408UJWnVVCTMgk+JgwnnSEenIbpRMPXIFOxJaJTHRFWQ3O= ID Date Data Source [id number] 09/24/2020 01:56:29 PM EDT [facility] Name Value Range Interpretation Code Description Data Samira rce(s) Supporting Document(s) Progress Note [facility] RMTRLq7kWsEHSlBe60/WXEblMVFud8JiXUodZUb2CIlzISVgZ1TfPYV1iE7kHXR6PRjTMkVhQvHvEaMf lbm [file] AgICAgICAgICAgICAgICAgICAgICAgICAgICAgICAgICAgICAgICAgICAgICAgICAgICAgICAgDQogIC AgICAgICAgICAgICAgICAgICAgICAgICAgICAgICAg ICAgICAgICAgICAgICAgICAgICAgICAgICAgICAgICAgICAgICAgICAgICAgICAgICAgICAgICAgICAg ICAgICAgDQogICAgICAgICAgICAgICAgICAgICAgICAgICAgICAgICAgICAgICAgICAgICAgICAgICAg ICAgICAgICAgICAgICAgICAgICAgICAgICAgICAgIC AgICAgICAgICAgICAgICAgDQogICAgICAgICAgICAgICAgICAgICAgICAgICAgICAgICAgICAgICAgIC AgICAgICAgICAgICAgICAgICAgICAgICAgICAgICAgICAgICAgICAgICAgICAgICAgICAgICAgICAgDQ ogICAgICAgICAgICAgICAgICAgICAgICAgICAgICAg ICAgICAgICAgICAgICAgICAgICAgICAgICAgICAgICAgICAgICAgICAgICAgICAgICAgICAgICAgICAg ICAgICAgICAgDQogICAgICAgICAgICAgICAgICAgICAgICAgICAgICAgICAgICAgICAgICAgICAgICAg ICAgICAgICAgICAgICAgICAgICAgICAgICAgICAgIC AgICAgICAgICAgICAgICAgICAgDQogICAgICAgICAgICAgICAgICAgICAgICAgICAgICAgICAgICAgIC AgICAgICAgICAgICAgICAgICAgICAgICAgICAgICAgICAgICAgICAgICAgICAgICAgICAgICAgICAgIC AgDQogICAgICAgICAgICAgICAgICAgICAgICAgICAg ICAgICAgICAgICAgICAgICAgICAgICAgICAgICAgICAgICAgICAgICAgICAgICAgICAgICAgICAgICAg ICAgICAgICAgICAgDQogICAgICAgICAgICAgICAgICAgICAgICAgICAgICAgICAgICAgICAgICAgICAg ICAgICAgICAgICAgICAgICAgICAgICAgICAgICAgIC AgICAgICAgICAgICAgICAgICAgICAgDQogICAgICAgICAgICAgICAgICAgICAgICAgICAgICAgICAgIC AgICAgICAgICAgICAgICAgICAgICAgICAgICAgICAgICAgICAgICAgICAgICAgICAgICAgICAgICAgIC CsEFWbBNa2U1gdVCKfJIDlBP9sZFm1Sn8+DQoNCmVu ENB2muKcxH3YRR3ee8SxFXgsRKEmr6JdCZe5VS1IPZZiVCttKX0RCHjjfq6AOVOkSRAksHOHq3csOgNa WZX0KCQnKtruFG1AGNXtJ2apxbXeCNEvBKAHBUeuYXUHIY7QHfZjC0FxaG35YSGZDe8+DQplbmRvYmoN LvLoYUSxj9DzYAa4AI8HXHZnSljka4ZvRsThFDAXDW beYM3SNHP7OYSvEIPfNx5UVZQhK302oyShSF6CGd2YRoNlNQ6ksw7BOeNrJSLuTuoHLwe4FYunPJ9KoE HuZFrAnr7ifeNgyhGVj4ViuuNgeBJQNKk4lBYfUMRgYC2zz3dxxcqxRTopCMChEUKbEf8oKI9zLYDeZL WaMpJqOSSIOG2XRCWrNZWzbLHrIBHcBSXNOB3PVEhq AUR0WAJhxfNzuLHlIPkxOL1EDQMrlnGiAsDaMNEMEHn+Ly9YJU5kj1MrIVuhHxQfWA7ghn0WDUtMQzKh N6F0vEEmP5C6KUgdFg8PCRVyRRLlAWepOFDTUIlcDD0CYJ7gdaD9HP2VcPDxZBRvUYYvtQPuOGa4V75x oZUqIQryAV3SXWH+Lexa+Ot2LQWWmZVWmKUJdJySyTV RCUtRoF1EdO1JKr9UwT3ZfYW20wWtnabDlHAjuPT3NLW6bZMUnQIPOJD7BdXHpmR0ibeWsLMKcFDYXMi LuJ54ogDDdBYSrAXTmNYVpHi7WKNBuL6BopwDmmYnxdhHiZHMpVEHKNR8MLSqtzxEwyCUimSnqTE96oF csHE2ELf6TNaMpKC1pbj4GpZJsFb4TVHXsXG4XVEKu PHRgGXQoMYE0XXUgAbUdUTkeVGVzZXSvFQN5LMXmAEUbPQ1NDtCkYGXtRaZ8SqkjIATkEEKgcj0AGCEa OKWtIaU8LTFbBSPaZNBeRUlwQSFiLHKpWCN2THWwZGPfEQ9CKjIrVHQsZLUeKBNxGAGtFYClem6HQJHf MNUoPAU9YRAxQSHaFBNcFZziYADvDRZ8OQZlWQAtEW SuFQ0IKbFhVJEeKCB0OPEeSEZcGFHryx6WKGHkVJGmRbYgVHXrKFWsUTBoXZdpBKAbWKL8EKRcCTHaBP JaAZ4QJnFeBDLqEJn2OJGrBVRfVAHpmc3MGGGwLQJfPTb4GSGlBZXsPNJhCYvdTJLdBZJ0IPQzYXDdCU UyIT3IEpPmGGFcWXywACAdZQHfNUMsmr8JVWJuFHDs ZNE6JgQlBHRyXHXaADiuNDWoNELnXZBjXOTlZIJtXW2YAtBoBVTiMgQoKuBbSUMwJZLcko8UZSRzSMZb ENC9XSYiBXEfDNQqFMouOLSkDPZlSrF8IBHoYQYaWK2GIyHfLXIwYvMyZMilADXtNHKxvz9KXZWiAAUt RdZ9UtNhNZJoPGEfLLzjVQWsLSQcDKMuTGAoECFnPJ 1LZxXxOSCeFcW5BqdbRNRcJQGvba8ZfBQbdQpxbj6JPExVFk8KkKzuGTX4MZxcRu0urAAyPlZyTULIVp 7KdeJhHLNzQPGWWOcdAUTsSNS0KAduOiH7IWHpP0NqSLTrMBX9ZKNnLEZ8DUL9L5LrMdW0RrdpYhG6Er ieJHQwT7TaFIXjHwv2YwDdXVkaXVAnVwM+IF0gDQ o+Fr2Qq9NkyzS9xdYvWEzgHpkzPg5UKNHXJ5EBJe== ID Date Data Source [id number] 09/15/2020 08:23:20 PM EDT [facility] Name Value Range Interpretation Code Description Data Samira rce(s) Supporting Document(s) Progress Note [facility] RAXOYy6pUhSWStGb85/CNAcfGTKya1PjKTjmUZs7ZVhiMUFqM0QjDXA3aE2yVBT2ODnKPzGkVqPlAnCw lbm YoCtcCFkBkMVDyVyoOUfRnHDxzJykocUBeAD9OaPH1WCHyQ80mKEQhHBUqF1QwSUG9FBy+Wa9AXZFacD GcGX6SLaeB4Xouu0oCPt8t1Y3LUBxfaNSpe3a1XQLkzzdEO35kOPuw+4GSaImNJKqUnJz/+/IpasbML1 usAauOMXUjvJ3ars5vy6hRJt90vhhpEGLgYG710jzT SDGYip/+VEmxrwvUn38rj0dF5fBNr3qd+4WsOn8m6uAXnwtELIS651jnPHvYMyyU9Ppf0PJ1enp9Z8v4 gA6l5RtKHuSCQuuHR6G1DuEMVdMBmyLLu98KZD2Y9F6Z2GcKJo0Uro6hZtC5iDLmGsLGM+mChnSQUnlZ DlpW2+JNBcBvBUL3oK4eRFDhDg+uwaCgDUddOPnmWQ G/8XzAnZ1OGVqiTQiTKRuNmAruwdkpT+FvFmEKq3yfIEdxN+92dpNskpjJNdpUNloN4g8oBVbz/YzoYR L87fof2pSo0NB8Ccpn64WiEREQgkjfgTO85J8TTk+Jhn5d23h8LL+iaTJKw/k8Yvj6yIIHasKS4fXnq3 enLutK0sft0gMnrmnbFXkXMkQtehnHnCmL4Q5Ot5zd wOnC8L9E+qE1ov1eG0weNK+WD6254H9MyCt4M4ZheV/Cr6zNpxBPPi6OvzUSvc966LfB2lpClrMdirri tCuDD90mi6HrakphdPg5/27eiMqLLrDQFwlS4nlxKybcgvDc/Leah/aQ4hsaZqupA/KIc4KrTJQwrHaG7 PFcyaI5ZLfABxm8ON6fK2Dv+FVgafHlfIe5TtUI5q9 5iJh2x4xVXuLjnKjvfNAdzlPGAaLceV+gssD1IyawAdDafrWu0jfJI++IjwJ0uFZ8Mh2TxhZguKsvgz1 VCxPzVgQgcSobBAPxIljiHjCxtOAGubgPLJ5e19tFZkb6AtgvjCzvaTIoIecJLxavsn9xni6KeuxwzOd eR+Er7Kc30a+V1PHfb1SHShLSZ5E0Xgjnzq/soNGoG w4McOapFHk9LXs3gQzLJ2yOwJB3RGwD/Gn6w3PJ501zjulnckIqdd8q7dH+/brIL57y0JpbjsXh7wAOs +37MwqR8M44CBYFliQomWVa0g2kHKFTHyGMv8LIPoTb8MYAmJxCU9dxiVjbGChXUACzwipwQAgxEG71Z AVToEZR6ATmtLuDWqp7H2vzRHKGwwN8tlo6pVnw2EM yXQvBrCfXXZXiNQLfSzGIyDBr5cHsUG6owNnCfVDj71a8tzy4u4Tz3bXlKc/ZBJ8mAk50Gi5r88OOf6Y 3oNve+89rmkyv1+77O6hhO6C2g9ND0igP8fxwZe6K0vI5we2SI4hQca/COMA38yX4xp0LjEIZJt+bmX3 03jE36342I00I32pWh2EIsTE45xrCMYIMs1OgaS5JF [file] WkXQLuPkH3XzSzSCr0BiJrNT7OAd0HVwC7XRX3yPYiBm5MFgIpNlJSHjRcFB1EFWb= ID Date Data Source [id number] 08/30/2020 03:35:[address] [facility] CYTOPATHOLOGY REPORTName: Jt LYNNEMRN: [id number] Number: [id number] Date: 08/28/2020 00:00Received Date: 08/29/2020 16:53Physician(s): SARAI JACKSON MD MAKHULI, ZAHI N, MD Specimen(s) ReceivedA: URINE, VOIDED NUMBER 3Clinical History:Bladder cancer. See [id number] and [id number], VOIDED NUMBER 3: NEGATIVE FOR HIGH-GRADE UROTHELIAL CARCINOMAComment/ld/calReviewing Cytotech: FREDDIE Mclean (ASCP)Bin English M.D.Electronically Signed By Christopher Damon M.D. 08/30/2020 15:35:47The attending pathologist named above attests that he/she has personallyreviewed the relevant preparation(s) for the specimen(s) and rendered thefinal diagnosis. Microscopic DescriptionThe specimen is composed of benign urothelial and squamous cells. /ldGross Nwrzedasnky27 ml clear yellow fluid received: 1 Thin-layer Pap stained slide preparedby filter preparation. This report may include one or more immunohistochemical stain results thatuse analyte specific reagents. All positive and negative controls havebeen reviewed by the attending pathologist and are satisfactory. The testswere developed and their performance characteristics determined by [facility] Pathololgy department. They have not been cleared or approved by [place] Food and Drug Administration. The FDA has determined that suchclearance or approval is not necessary. Name Value Range Interpretation Code Description Data Samira rce(s) Supporting Document(s) ID Date Data Source [id number] 08/30/2020 03:35:[address] [facility] CYTOPATHOLOGY REPORTName: Jt LYNNEMRN: [id number] Number: [id number] Date: 08/27/2020 00:00Received Date: 08/29/2020 16:52Physician(s): SARAI JACKSON MD MAKHULI, ZAHI N, MD Specimen(s) ReceivedA: URINE, VOIDED NUMBER 2Clinical History:Bladder cancer. See [id number] and [id number], VOIDED NUMBER 2: NEGATIVE FOR HIGH-GRADE UROTHELIAL CARCINOMAComment/ld/calReviewing [employer]: FREDDIE Mclean (ASCP)Bin English M.D.Electronically Signed By Christopher Damon M.D. 08/30/2020 15:35:39The attending pathologist named above attests that he/she has personallyreviewed the relevant preparation(s) for the specimen(s) and rendered thefinal diagnosis. Microscopic DescriptionThe specimen is composed of benign urothelial and squamous cells withneutrophils and red blood cells in the background./ldGross Vjinecqxomp10 ml clear yellow fluid received: 1 Thin-layer Pap stained slide preparedby filter preparation. This report may include one or more immunohistochemical stain results thatuse analyte specific reagents. All positive and negative controls havebeen reviewed by the attending pathologist and are satisfactory. The testswere developed and their performance characteristics determined by [facility] Pathololgy department. They have not been cleared or approved by [place] Food and Drug Administration. The FDA has determined that suchclearance or approval is not necessary. Name Value Range Interpretation Code Description Data Samira rce(s) Supporting Document(s) ID Date Data Source [id number] 08/30/2020 03:35:[address] [facility] CYTOPATHOLOGY REPORTName: Jt LYNNEMRN: [id number] Number: [id number] Date: 08/26/2020 00:00Received Date: 08/29/2020 16:51Physician(s): SARAI JACKSON MD MAKHULI, ZAHI N, MD Specimen(s) ReceivedA: URINE, VOIDED NUMBER 1Clinical History:Bladder cancer. See [id number] and [id number], VOIDED NUMBER 1: NEGATIVE FOR HIGH-GRADE UROTHELIAL CARCINOMAComment/ld/calReviewing [employer]: FREDDIE Mclean (ASCP)Bin English M.D.Electronically Signed By Christopher Damon M.D. 08/30/2020 15:35:07The attending pathologist named above attests that he/she has personallyreviewed the relevant preparation(s) for the specimen(s) and rendered thefinal diagnosis. Microscopic DescriptionThe specimen is composed of benign urothelial and squamous cells. /ldGross Kyuzndexsel14 ml clear yellow fluid received: 1 Thin-layer Pap stained slide preparedby filter preparation. This report may include one or more immunohistochemical stain results thatuse analyte specific reagents. All positive and negative controls havebeen reviewed by the attending pathologist and are satisfactory. The testswere developed and their performance characteristics determined by [facility] Pathololgy department. They have not been cleared or approved by [place] Food and Drug Administration. The FDA has determined that suchclearance or approval is not necessary. Name Value Range Interpretation Code Description Data Samira rce(s) Supporting Document(s) ID Date Data Source [id number] 05/21/2020 12:33:[address] [facility] Name Value Range Interpretation Code Description Data [facility] Document(s) Progress Note [facility] EBPVHn2nVyKOLgNn78/AOJvsMDKzv3HqNXisOQx8TAamYWBpO3EbCPA2kM9nHQZ6AAwVKnCiAvGnKBL6 [facility] [file] ICAgICAgICAgICAgICAgICAgICAgICAgICAgICAgIC AgICAgICAgICAgICAgICAgICANCiAgICAgICAgICAgICAgICAgICAgICAgICAgICAgICAgICAgICAgIC AgICAgICAgICAgICAgICAgICAgICAgICAgICAgICAgICAgICAgICAgICAgICAgICAgICAgICAgICAgIC ANCiAgICAgICAgICAgICAgICAgICAgICAgICAgICAg ICAgICAgICAgICAgICAgICAgICAgICAgICAgICAgICAgICAgICAgICAgICAgICAgICAgICAgICAgICAg ICAgICAgICAgICANCiAgICAgICAgICAgICAgICAgICAgICAgICAgICAgICAgICAgICAgICAgICAgICAg ICAgICAgICAgICAgICAgICAgICAgICAgICAgICAgIC AgICAgICAgICAgICAgICAgICAgICANCiAgICAgICAgICAgICAgICAgICAgICAgICAgICAgICAgICAgIC AgICAgICAgICAgICAgICAgICAgICAgICAgICAgICAgICAgICAgICAgICAgICAgICAgICAgICAgICAgIC AgICANCiAgICAgICAgICAgICAgICAgICAgICAgICAg ICAgICAgICAgICAgICAgICAgICAgICAgICAgICAgICAgICAgICAgICAgICAgICAgICAgICAgICAgICAg ICAgICAgICAgICAgICANCiAgICAgICAgICAgICAgICAgICAgICAgICAgICAgICAgICAgICAgICAgICAg ICAgICAgICAgICAgICAgICAgICAgICAgICAgICAgIC AgICAgICAgICAgICAgICAgICAgICAgICANCiAgICAgICAgICAgICAgICAgICAgICAgICAgICAgICAgIC AgICAgICAgICAgICAgICAgICAgICAgICAgICAgICAgICAgICAgICAgICAgICAgICAgICAgICAgICAgIC AgICAgICANCiAgICAgICAgICAgICAgICAgICAgICAg ICAgICAgICAgICAgICAgICAgICAgICAgICAgICAgICAgICAgICAgICAgICAgICAgICAgICAgICAgICAg ICAgICAgICAgICAgICAgICANCiAgICAgICAgICAgICAgICAgICAgICAgICAgICAgICAgICAgICAgICAg ICAgICAgICAgICAgICAgICAgICAgICAgICAgICAgIC AgICAgICAgICAgICAgICAgICAgICAgICAgICANCjw/rZBhL3nixNIpslO4Y0onDi4TSl4XOF4gt8HfMX CpXAarkbPdImzXLePcCMIzNbjJQya2QQxmVP0KyYEzU3ZjC5WhGEiuRA4HRZXjGOGfgIDxLSNaNELbNb A2LBCvTSyrGO6NvPNwOLyzERZeVTHaAcEzTOItXLOq PWXeVCSzKWISAOGbVAMkPlLaUOetJN6Kf7IjqJB6FHv+Rd9IZW4vu6TrLChrAeXvXX8bcp2TQMwLQeFl M7PsmoX6GLG6GPMwRb3WYHCxGKJlxWDfEKAdYIZHWsDxK2DtgW77JMJOIb3+DSgzseRvKcfQTbW1SFFc b3EqVYb8WB0QPKYfVVw3uMZvRUBnS3Rnj5OaLk06SA YoPzkhCRJbf7ZpCRs7cWSndTYjCR3IWELmYEAvrGNdJQ2tQR0sDDApAXMrUfSkOGIFGO7KXDCrBPBtlY TtHIJgRZRTHE5XAResZNW6SGPsikLwjJBgXXggLV8EKLFrpqBzFkRtSQXYQIb+Mu0DBO7qj2MbFAiqZA AaUX3kjw3MYXiGJsFvD5A4wAVrA8D9BFwbTp1OMWIz KGLrTmRzKLYGGZbrVJ7HYA6vfgZ6QA2AeAInSJDjFYMiaUVvZMu1Q90wmGCpECtwXX7DXYM+Lexa+Pg0K QUJtVOJlSLOpYkLkCKYOFzLyN5BiX0ULz9BlQ1JuDQ58rBfbqeFoHRbaMD0NGV0lKCIcGXYUZC9KzJJd uV5mgeGnUjBgFZHHKyHvR71pqEVkPDLbQNVzRFXjOp 5FABEhE2KoogCvbSpbgzGhPKJnCSAZGJ7CQAhoaqFsuRExwLdxGX91jWmsPZ7GVl5NZkGmDL7uui9CwY OuLk8PSTZsBg9FLYSnVHWwALDfUFU6RBLxOyOoPLryHYEhCARnOYD3SWEcUTGpEQ9MHcSfSKCfHyJ1Bc siUEHzPFLdfr2ESJFzPAMcYcJ4QHSyRIArGLNnHCae MFXdAIDsCUO2FYJsQMFnKV9UYpUoDIJiUWD3QvfcKFLrUDXxry1DYPTgVBJrRPG8TBTeTJWqWVInVHpg MMTgFXN7MeJ8OURbLQFzFC5CUaCkXMWfCFo1JNquBCXvUFNlqs2UQSKpWGPuZBu5HaVyOKMnWWWyBYke AHZnVVXgRDQlLODsOVWwOO7HTpUxRROqZWDqKQIyEQ AoUDDexi9IDHKsTGWoMJM4XPZmEOBdISJyJKmjHSGwYYA8XXK7CPXtWNSnDC0FOsVmAGSpIPw9UzPmSE IdAXUpqw7OREUnZYCsOCxiGDQuVQHsFAOjWEgeDWNzFCO0TKL3MQDcRMHaHM9GClHoCGXjJMlbSUXdCP UsHUWstz7LAJEnAFGnBYH8TZJyKFUwAYOuUSauSVCq DPLvArFnASEeUQAiHN0XGdFtLCToVwV4GBCoQHGwOSXgxd8EUGFuWODwIZy9EQTlHCHdZDZzZFzkXHUb DTIeXdN8GATbRFZkMI3MTkTpHHNkSiB9OZAjVVVgNGHvym5LGIMrRDJqUmG4BLQnMLUyCQHaWBouSUNz KPQfRDPpGDDmQFCcXP8TYhQjVOGsMgD3GRXuKWBoDA Vjrt4RQDTiWVByBrtgWTWtREInXPRyUVwbDZVmPQQ4HER5UGIgAMWtZN1DMmCrRPZfCpTxYHRmVFYlHX Uazz0ZWMOuPYHvHXAgERQdVYYjNHHsLGrcHVCuZAL6MLK4HBYsAAXpZB5ZFdXbBVMlBlU5SJbiHAQhLH Gkax6YWYEsAZIvSkIkVvOxDOGaRIBeUXmjIHPkQXM5 Jnb5NHOxGARgSB0VHaDxFCVgMwz6WykrCZVpXIBkyl9QgHArtGmkiv6ONInSMu9HgDflWKU5AUzmPi2v qQBgADKkUUECRh8LieTuQEMeYFTGVAiqKSImIAHeOSjqQLA2PaBwKJEdGfYoUaVgBmM0VnHeRUR7HLLg MeH7MRQ7GTWeNps7PbH5NfPvY3MnAoDiLrLyAUTmXv lhZjA+HN2bKPm+Sd8Nx5FgfoJ6nhPdSOamKxs7Ya7QUUBGD7LXGb== Procedure Social History Code Duration Value Status Description Data Source(s ) Alcohol intake 02/26/2021 12:00:00 AM EDT Current non-d jerome of alcohol (finding) completed Current non-drinker of alcohol (finding) [facility] Tobacco use and exposure 02/26/2021 12:00:00 AM EDT Never used co mpleted Never used [facility] Smoking 02/26/2021 12:00:00 AM EDT Former smoker completed Former smoker [facility] Alcohol intake 01/09/2021 12:00:00 AM EDT Current non-d jerome of alcohol (finding) completed Current non-drinker of alcohol (finding) [facility] Alcohol intake 11/12/2020 12:00:00 AM EDT Current non-d jerome of alcohol (finding) completed Current non-drinker of alcohol (finding) [facility] Alcohol intake 09/24/2020 12:00:00 AM EDT Current non-d jerome of alcohol (finding) completed Current non-drinker of alcohol (finding) [facility] Alcohol intake 09/11/2020 12:00:00 AM EDT Current non-d jerome of alcohol (finding) completed Current non-drinker of alcohol (finding) [facility] Alcohol intake 05/21/2020 12:00:00 AM EST Current non-d jerome of alcohol (finding) completed Current non-drinker of alcohol (finding) [facility] Vital Signs ID Date Data Source [id number] 09/11/2020 11:36:49 AM EDT [facility] Name Value Range Interpretation Code Description Data Source(s) PREFERRED NAME [facility] ID Date Data Source [id number] 09/24/2020 01:30:08 PM EDT [facility] Name Value Range Interpretation Code Description Data Source(s) PREFERRED NAME [facility] ID Date Data Source [id number] 11/12/2020 11:16:33 AM EDT [facility] Name Value Range Interpretation Code Description Data Source(s) PREFERRED NAME [facility] ID Date Data Source [id number] 11/18/2020 12:45:16 PM EDT [facility] Name Value Range Interpretation Code Description Data Source(s) WEIGHT RECORDED 228 lb 228 lb [facility] Body height Measured 72.01 in 72.01 in [facility] PREFERRED NAME [facility] PREFERRED NAME [facility] ID Date Data Source [id number] 10/03/2020 11:28:57 AM EDT [facility] Name Value Range Interpretation Code Description Data Source(s) PREFERRED NAME [facility] PREFERRED NAME [facility] ID Date Data Source [id number] [facility] Interpretation Code Description Data Source(s) WEIGHT RECORDED 224 lb 224 lb [facility] PREFERRED NAME [facility] PREFERRED NAME [facility] ID Date Data Source [id number] [facility]/15[facility] Value [facility] Interpretation Code Description Data Source(s) WEIGHT RECORDED 227.8 lb 227.8 lb [facility] Body height Measured 72.[address] [facility] PREFERRED NAME [facility] PREFERRED NAME [facility] ID Date Data Source [id number] 06/25/2020 12:10:[address] [facility] Name Value Range Interpretation Code Description Data Source(s) PREFERRED NAME [facility] ID Date Data Source [id number] 08/29/2020 01:24:[address] [facility] Name Value Range Interpretation Code Description Data Source(s) PREFERRED NAME [facility] PREFERRED NAME [facility] ID Date Data Source [id number] 08/30/2020 03:36:[address] [facility] Name Value Range Interpretation Code Description Data Source(s) PREFERRED NAME [facility] ID Date Data Source [id number] 08/30/2020 03:36:[address] [facility] Name Value Range Interpretation Code Description Data Source(s) PREFERRED NAME [facility] ID Date Data Source [id number] 08/30/2020 03:35:[address] [facility] Name Value Range Interpretation Code Description Data Source(s) PREFERRED NAME [facility] ID Date Data Source [id number] 05/21/2020 12:33:[address] [facility] Name Value Range Interpretation Code Description Data Source(s) WEIGHT RECORDED 228 lb 228 lb [facility] Body height Measured [address] [facility] PREFERRED NAME [facility] PREFERRED NAME [facility] ID Date Data Source [id number] 01/08/2021 11:20:16 AM [facility] Name Value Range Interpretation Code Description Data Source(s) WEIGHT RECORDED 221 lb 221 lb [facility] Body height Measured [address] [facility] Patient Treatment Plan of Care Planned Activity Planned Date Details Description Data Source (s) Pulmonary Supplies-see sig XX MISC 12/17/2020 12:00:00 AM [facility]. Devices (DURABLE MEDICAL EQUIPMENT SEE SIG) XX M ISC 12/17/2020 12:00:00 AM [facility] 7 ACTUAT umeclidinium 0.0625 MG/ACTUAT Dry Powder Inha ler [Incruse] 12/16/2020 12:00:00 AM [facility] Albuterol 0.21 MG/ML Inhalant Solution 11/27/2020 12:00:00 AM [facility]. Devices (DURABLE MEDICAL EQUIPMENT SEE SIG) XX M [facility] 11/12/2020 12:00:00 AM [facility] ropinirole 2 MG Oral Tablet 10/01/2020 12:00:[address] [facility] lidocaine (XYLOCAINE) 2 % urojet 20 mL 09/11/2020 11:00:[address] [facility] Albuterol 0.21 MG/ML Inhalant Solution 09/09/2020 12:00:[address] [facility] Lovastatin 40 MG Oral Tablet 08/01/2020 12:00:00 AM [facility] 12 HR ranolazine 500 MG Extended Release Oral Tablet 12:00:00 AM [facility] Albuterol 0.21 MG/ML Inhalant Solution 07/09/2020 12:00:00 AM [facility] carvedilol 6.25 MG Oral Tablet 07/03/2020 12:00:00 AM [facility] Enalapril Maleate 5 MG Oral Tablet 07/03/2020 12:00:00 AM [facility] 7 ACTUAT umeclidinium 0.0625 MG/ACTUAT Dry Powder Inha ler [Incruse] 05/16/2020 12:00:00 AM [facility]sp[facility] Albuterol 0.21 MG/ML Inhalant Solution 05/08/2020 12:00:00 AM [facility] Spironolactone 25 MG Oral Tablet 05/03/2020 12:00:00 AM [facility] Albuterol Sulfate HFA 108 (90 Base) MCG/ ACT Inhalation Aerosol Solution (PROVENTIL HFA) 04/10/2020 12:00:00 AM EDT [facility] Furosemide 40 MG Oral Tablet 01/11/2020 12:00:00 AM T [facility] Furosemide 40 MG Oral Tablet 12/27/2019 12:00:00 AM T [facility]
[2021-04-20] MEDS ORDERED: COMBIVENT RESPIMAT 100-20MCG INHALER 4GM INH ONE (20:25)
[2021-04-20 20:58] LABS: BASO % 0.4 % (0.0-1.0); EOS # 0.3 10^3/uL (0.0-0.5); EOS % 3.2 % (0.0-3.0); HEMATOCRIT 36.5 % (42.0-52.0); HEMOGLOBIN 11.3 g/dl (13.5-17.5); LYMPH # 0.9 10^3/uL (1.5-5.0); LYMPH % 9.7 % (24.0-44.0); MEAN CORPUSCULAR HEMOGLOBIN 31.6 pg (27.0-33.0); MONO # 0.8 10^3/uL (0.0-0.8); MONO % 8.3 % (2.0-8.0); NEUTROPHILS # 7.3 10^3/uL (1.5-8.5); NEUTROPHILS % 78.1 % (36.0-66.0); PLATELET COUNT, AUTOMATED 209 10^3/uL (150-450); RED BLOOD COUNT 3.58 10^6/uL (4.30-6.10); WHITE BLOOD COUNT 9.4 10^3/uL (4.0-10.0)
[2021-04-20] MEDS: METAMUCIL (PSYLLIUM) PACKET PO SCH (21:00)
[2021-04-20] MEDS: LATANOPROST 0.005% OPHTH SOLN 2.5 ML OU SCH (21:00)
[2021-04-20] MEDS: RANOLAZINE 500 MG ER TAB PO SCH (21:00)
[2021-04-20 21:18] LABS: INR 0.99; PARTIAL THROMBOPLASTIN TIME 29.4 SECONDS (25.9-37.0); PROTHROMBIN TIME 13.5 SECONDS (12.7-14.5)
[2021-04-20 21:28] LABS: ABG BASE EXCESS 12.7 (-2.0-2.0); ABG HCO3 39.2 MEQ/L (22.0-26.0); ABG PARTIAL PRESSURE CO2 59.4 mmHg (35.0-45.0); ABG STANDARD HCO3 36.4 MEQ/L (22.0-26.0); ABG pH (ARTERIAL) 7.437 UNITS (7.350-7.450)
[2021-04-20 21:36] LABS: ALBUMIN 3.3 GM/DL (3.2-5.2); ALT/SGPT 18 U/L (12-78); BILIRUBIN,DIRECT < 0.1 MG/DL (0.0-0.2); BILIRUBIN,TOTAL 0.3 MG/DL (0.2-1.0); BLOOD UREA NITROGEN 33 MG/DL (7-18); CALCIUM LEVEL 8.8 MG/DL (8.8-10.2); CARBON DIOXIDE LEVEL 39 MEQ/L (21-32); CHLORIDE LEVEL 100 MEQ/L (98-107); CK-MB VALUE MASS < 1.0 NG/ML (<3.6); CPK CREATINE PHOSPHOKINASE 44 U/L (39-308); CREATININE FOR GFR 1.45 MG/DL (0.70-1.30); GLOMERULAR FILTRATION RATE 49.4 (>35); GLUCOSE, FASTING 111 MG/DL (70-100); MB/CK RELATIVE INDEX 2.27 (< OR =4); NT-PRO BNP 1784 PG/ML (<450); POTASSIUM SERUM 4.2 MEQ/L (3.5-5.1); SODIUM LEVEL 145 MEQ/L (136-145); TOTAL PROTEIN 6.5 GM/DL (6.4-8.2); TROPONIN I < 0.02 NG/ML (< 0.10)
--- NOTE | 2021-04-20 21:54 | REPVR ---
PROCEDURE INFORMATION: Exam: US Duplex Lower Extremity Veins, Bilateral Exam date and time: 04/20/2021 9:44 PM Age: 86 years old Clinical indication: Pain; Leg, lower; Bilateral; Additional info: Leg pain R/O dvt TECHNIQUE: Imaging protocol: Real-time duplex ultrasound of the extremities with 2-D sterling scale, color Doppler flow and spectral waveform analysis with image documentation. Complete exam focused on the bilateral lower extremity veins. COMPARISON: CR Tibia, Fibula lower leg RIGHT 12/28/2020 7:54 AM FINDINGS: Right deep veins: Unremarkable. The common femoral, femoral, proximal profunda femoral and popliteal veins are patent without thrombus. Normal Doppler waveforms. Normal compressibility and/or augmentation response. Right superficial veins: Saphenofemoral junction is patent without thrombus. Left deep veins: Unremarkable. The common femoral, femoral, proximal profunda femoral and popliteal veins are patent without thrombus. Normal Doppler waveforms. Normal compressibility and/or augmentation response. Left superficial veins: Saphenofemoral junction is patent without thrombus. Soft tissues: Soft tissue swelling. IMPRESSION: No evidence of deep vein thrombosis. Electronically signed by: Xavi Bahena On 04/20/2021 21:53:41 PM
--- NOTE | 2021-04-20 22:20 | REPVR ---
PROCEDURE INFORMATION: Exam: XR Chest Exam date and time: 04/20/2021 8:45 PM Age: 86 years old Clinical indication: Shortness of breath; Additional info: SOB TECHNIQUE: Imaging protocol: XR of the chest. Views: 1 view. COMPARISON: CR PORTABLE CHEST X-RAY 12/27/2020 9:33 PM FINDINGS: Tubes, catheters and devices: A disability counselor pacemaker is in place. Lungs: There is a calcified granuloma at the left mid lung field along with scarring. There is interstitial density throughout both lungs some of which is secondary to chronic interstitial lung changes. Interstitial density is heavier in the lung bases and probable chronic scarring at the left lung base. Pleural spaces: There is no evidence of pneumothorax or pleural effusion. Heart/Mediastinum: There is prominence left side of the heart. Bones/joints: Degenerative changes are noted right shoulder. IMPRESSION: Interstitial density in the lung bases much of which may be chronic. Electronically signed by: Xavi Bahena On 04/20/2021 22:20:02 PM
[2021-04-20] MEDS ORDERED: ACETAMINOPHEN TAB 650MG DOSE (2X325MG) PO PRN (22:55)
[2021-04-20] MEDS ORDERED: BENZONATATE 100MG CAPSULE PO PRN (22:55)
[2021-04-20] MEDS ORDERED: THERTAB52 PO (22:56)
--- OUTSIDE RECORDS SUMMARY | 2021-04-20 22:56 | CCD ---
Author Author [facility] Organization [facility] Address Unknown Phone Unavailable Care Team Providers Care Ski Guide Name Role Phone Jaya Sr MD Unavailable [...] Unavailable Gutsche MD, Tee Unavailable GUTSCHE, TEE [id number] Unavailable Unavailable Re-disclosure Warning The records that [...] is protected by Article 27-F of the [facility] Public Health law. If you continue you may have access to information: Regarding HIV / AIDS; Provided by facilities licensed or operated by the [facility] Office of Mental Health; or Provided by the [facility] Office for People With Developmental Disabilities. If such information is present, then the following [facility] mandated warning applies: This information has [...] law may result in a fine or longterm sentence or both. A general authorization for the release of medical or other information is NOT sufficient authorization for further disc losure. Allergies and Adverse Reactions Type Description Substance Reaction Status Data Source(s ) Drug allergy PSEUDOEPHEDRINE HCL PSEUDOEPHEDRINE HCL [facility] Family History Family Member Name Family Member Gender Family Member Status Date o f Status Description Data Source(s) Unknown Unknown Problem [facility] ([facility] mother, sister Encounters Encounter Providers Location Date Indications Data Source(s ) Outpatient Attender: Shadi Monk MD 01/12/2022 12:00:00 AM [facility] Outpatient Attender: Yoni Oneal MD 09/17/2021 12:00:00 A M [facility] Outpatient 06/04/2021 12:00:00 AM [facility] Outpatient Attender: Jaya Sr MD 05/27/2021 12 :00:00 AM [facility] Outpatient Attender: TEE CRAIG [id number] 05/13/2021 12:0 0:00 AM EST [facility] Outpatient Referrer: TEE CRAIG [id number] 12:00:00 AM EDT Dyspnea, unspecified [facility] Dyspnea, unspecified Outpatient Attender: Tee Craig MDAttender: SALOMON KEN CRAIG [id number] 04/02/2021 12:00:00 AM EDT - 04/02/2021 05:30:34 PM EDT [facility] Outpatient Attender: TEE CRAIG [id number]: TEE CRAIG [id number] 03/28/2021 12:00:00 AM EDT - 03/29/2021 12:00:00 AM EDT Bronchiectasis with (acute) exacerbation [facility] Bronchiectasis with (acute) exacerbation Outpatient Attender: LANDEN SPAINeferrer: TEE LENZ CHE [id number] 03/28/2021 12:00:00 AM EDT [facility] Outpatient Referrer: TEE CRAIG [id number] 12:00:00 AM EDT Bronchiectasis with (acute) exacerbation [facility] Bronchiectasis with (acute) exacerbation Outpatient Attender: Tee Craig MDAttender: SALOMON CRAIG [id number] 02/26/2021 12:00:00 AM EDT - 02/26/2021 02:55:20 PM EDT [facility] Outpatient Attender: Shadi Monk MD [id number] [id number] 12:00:00 AM EDT - 01/09/2021 11:44:37 AM EDT [facility] Outpatient Referrer: Yoni Oneal MD 01/09/2021 12:0 0:00 AM EDT Malignant neoplasm of bladder, unspecified [facility] Malignant neoplasm of bladder, unspecifi ed Outpatient Referrer: Jaya Sr MD 021 12:00:00 AM EDT Other cardiomyopathies [facility] Other cardiomyopathies Outpatient Referrer: Shadi Monk MD 01/09/2021 12:00 :00 AM EDT Hypertrophy of breast [facility] Hypertrophy of breast Outpatient Attender: TEE CRAIG [id number] 01/02/2021 11:21:13 AM EDT [facility] Outpatient Attender: TEE CRAIG [id number] 11/12/2020 12:00:00 AM EDT - 11/12/2020 11:16:36 AM EDT Chronic respiratory failure with hypoxia [facility] Chronic respiratory failure with hypoxia Outpatient Referrer: Jaya Sr MD 12:00:00 AM EDT Fatty (change of) liver, not elsewhere classified [facility] Fatty (change of) liver, not elsewhere c lassified Outpatient Attender: Jaya Sr MDReferre r: Jaya Sr MD [id number] 09/24/2020 12:10:35 PM EDT - 09/24/2020 01:30:10 PM ED T Other cardiomyopathies [facility] Other cardiomyopathies Outpatient Attender: Yoni Oneal MD [id number] 2020 12:00:00 AM EDT - 09/11/2020 11:35:24 AM EDT Malignant neoplasm of bladder, unspecified [facility] Malignant neoplasm of bladder, unspecifi ed Outpatient Attender: Yoni Oneal MD 09/04/2020 12:00:00 A M EST [facility] Outpatient Referrer: Sarai Jackson 08/29/2020 12:00:0 0 AM EST Malignant neoplasm of bladder, unspecified [facility] Malignant neoplasm of bladder, unspecifi ed Outpatient Admitter: Sarai JacksonReferrer: Sarai Jackson 08/28/2020 12:00:00 AM EST Malignant neoplasm of bladder, unspecified [facility] Malignant neoplasm of bladder, unspecifi ed Outpatient Admitter: Sarai JacksonRefradhaer: Sarai Jackson 08/27/2020 12:00:00 AM EST Malignant neoplasm of bladder, unspecified [facility] Malignant neoplasm of bladder, unspecifi ed Outpatient Admitter: Sarai Chapiner: Sarai Jackson 08/26/2020 12:00:00 AM EST Malignant neoplasm of bladder, unspecified [facility] Malignant neoplasm of bladder, unspecifi ed Outpatient Attender: Sarai Nguyenshaji 07/23/2020 12:00:00 AM E [facility] Outpatient Attender: Jaya Sr MD 06/14/2020 12 :00:00 AM [facility] Outpatient Attender: TEE CRAIG [id number] 05/21/2020 12:00:00 AM [facility] Outpatient Attender: Shadi Monk MD [id number] [id number] 12:00:00 AM EDT - 01/08/2020 11:23:56 AM EDT Encounter for general adult medical exam ination without abnormal findings [facility] Encounter for general adult medical exam ination without abnormal findings Immunizations Vaccine Date Status Description Data Source(s) 09/10/2020 12:00:00 AM EDT completed <td I D="[id number]">Moderna SARS-CoV-2 Vaccine</td><td>09/10/2020, 08/12/2020</td><td></td> [facility] COVID-19 VACCINE Moderna 09/10/2020 12:00:00 AM EDT completed NYSIIS Vaccine Series Complete: YESThis Data wa s Submitted to [facility] Via LIQVID. 08/12/2020 12:00:00 AM EST completed <td I D="[id number]">Moderna SARS-CoV-2 Vaccine</td><td>09/10/2020, 08/12/2020</td><td></td> [facility] COVID-19 VACCINE Moderna 08/12/2020 12:00:00 AM EST completed NYSIIS Vaccine Series Complete: NOThis Data was Submitted to [facility] Via LIQVID. 197 05/21/2020 12:00:00 AM EST completed <td I D="vogliiewsrhh52Binf">Influenza Quad High Dose IM Pres Free >=65YO</td><td>05/21/2020</td><td></td> [facility] Medications Medication Brand Name Start Date Product Form Dose Route Admi nistrative Instructions Pharmacy Instructions Status Indications Reaction Description Data Source(s) Pulmonary Supplies-see sig XX MISC [id number] 12/17/2020 12:00: 00 AM EDT active Exercise hypoxemia S upplemental oxygen at 2lpm with exercise/exertion via nc, please supply tubing, related supplies, gaseous portability.(portable oxygen concentrator [facility] Exercise hypoxemia [facility]. Devices (DURABLE MEDICAL EQUIPMENT SEE SIG) XX [facility] [id number] 12/17/2020 12:00:00 AM EDT active Use as directed. Oxygen at 2 liters via n/c with exertion portable use conserving device . Dx COPD [facility] 7 ACTUAT umeclidinium 0.0625 MG/ACTUAT D ry Powder Inhaler [Incruse] Incruse Ellipta 62.5 MCG/INH Inhalation Aerosol Powder Breath Activated (Umeclidinium [place]) Incruse Ellipta 62.5 MCG/INH Inhalation Aerosol Powder Breath Activated (Umeclidinium [place]) 12/16/2020 12:00:00 AM EDT 1 {puff} Inhalatio n active Inhale 1 puff into the lungs neri ly [facility] Albuterol 0.21 MG/ML Inhalant Solution A lbuterol Sulfate 0.63 MG/3ML Inhalation Nebulization Solution (ACCUNEB) Albuterol Sulfate 0.63 MG/3ML Inhalation Nebulization Solution (ACCUNEB) 11/27/2020 12:00:00 AM EDT 0.63 mg Nebulization active Simple chronic bronchitis Take 3 mLs by nebulization every 6 (six) hours as needed for Wheezing [facility] Simple chronic bronchitis [facility]. Devices (DURABLE MEDICAL EQUIPMENT SEE SIG) XX [facility] 97 [id number] 11/12/2020 12:00:00 AM EDT act gabby Chronic hypoxemic respiratory failure Use as directed. Portable ox ygen concentrator with tubing and nasal cannulae to be worn at 2 lpm oxygen with exertion. [facility] Chronic hypoxemic respiratory failure ropinirole 2 MG Oral Tablet rOPINIRole HCl 2 MG Oral T ablet (REQUIP) rOPINIRole HCl 2 MG Oral Tablet (REQUIP) 10/01/2020 12:00:00 AM EDT active Restless leg syndrome TAKE 1 TABLET BY MOUTH NIGHT LY( MAY TAKE ADDITIONAL DOSE IF NEEDED)* MAXIMUM DAILY DOSE IS 2 TABLETS* [facility] Restless leg syndrome lidocaine (XYLOCAINE) 2 % urojet 20 mL [address]-8 11:00:00 AM EDT 20 mL Urethral completed 20 mL, Urethr al, Once, Wed09/11/20 at 1100, For 1 dose [facility] Medication administered onsite Albuterol 0.21 MG/ML Inhalant Solution A lbuterol Sulfate 0.63 MG/3ML Inhalation Nebulization Solution (ACCUNEB) Albuterol Sulfate 0.63 MG/3ML Inhalation Nebulization Solution (ACCUNEB) 09/09/2020 12:00:00 AM EDT 0.63 mg Nebulization active Simple chronic bronchitis Take 3 mLs by nebulization every 6 (six) hours as needed for Wheezing [facility] Simple chronic bronchitis Lovastatin 40 MG Oral Tablet Lovastatin 40 MG Oral Tab let (MEVACOR) Lovastatin 40 MG Oral Tablet (MEVACOR) 08/01/2020 12:00:00 AM EST 40 mg Oral active Dyslipidemia Take 1 tablet by mouth nightly [facility] Dyslipidemia 12 HR ranolazine 500 MG Extended Release Oral Tablet Ranolazine ER 500 MG Oral Tablet Extended Release 12 Hour (RANEXA) Ranolazine ER 500 MG Oral Tablet Extended Release 12 Hour (RANEXA) 08/01/2020 12:00:00 AM EST 500 mg Oral active Take 1 tablet by mouth Two Times Daily [facility] Albuterol 0.21 MG/ML Inhalant Solution A lbuterol Sulfate 0.63 MG/3ML Inhalation Nebulization Solution (ACCUNEB) Albuterol Sulfate 0.63 MG/3ML Inhalation Nebulization Solution (ACCUNEB) 07/09/2020 12:00:00 AM EST 0.63 mg Nebulization active Simple chronic bronchitis Take 3 mLs by nebulization every 6 (six) hours as needed for Wheezing [facility] Simple chronic bronchitis carvedilol 6.25 MG Oral Tablet Carvedilol 6.25 MG Oral Tablet (COREG) Carvedilol 6.25 MG Oral Tablet (COREG) 07/03/2020 12:00:00 AM EST 6.25 mg Oral active Take 1 tablet by mouth Two times daily with meals [facility] Enalapril Maleate 5 MG Oral Tablet Enalapril Maleate 5 MG Oral Tablet (VASOTEC) Enalapril Maleate 5 MG Oral Tablet (VASOTEC) 07/03/2020 12:00:00 AM EST 5 mg Oral active Take 1 tablet by shaw th Two Times Daily [facility] 7 ACTUAT umeclidinium 0.0625 MG/ACTUAT D ry Powder Inhaler [Incruse] Incruse Ellipta 62.5 MCG/INH Inhalation Aerosol Powder Breath Activated (Umeclidinium [place]) Incruse Ellipta 62.5 MCG/INH Inhalation Aerosol Powder Breath Activated (Umeclidinium [place]) 05/16/2020 12:00:00 AM EST 1 {puff} Inhalatio n active Inhale 1 puff into the lungs neri ly [facility] Albuterol 0.21 MG/ML Inhalant Solution A lbuterol Sulfate 0.63 MG/3ML Inhalation Nebulization Solution (ACCUNEB) Albuterol Sulfate 0.63 MG/3ML Inhalation Nebulization Solution (ACCUNEB) 05/08/2020 12:00:00 AM EST 0.63 mg Nebulization active Simple chronic bronchitis Take 3 mLs by nebulization every 6 (six) hours as needed for Wheezing [facility] Simple chronic bronchitis Spironolactone 25 MG Oral Tablet Spironolactone 25 MG Oral Tablet (ALDACTONE) Spironolactone 25 MG Oral Tablet (ALDACTONE) 05/03/2020 12:00:00 AM EST 12.5 mg Oral active Take 0.5 tablets by mout h daily [facility] Albuterol Sulfate HFA 108 (90 Base) MCG/ ACT Inhalation Aerosol Solution (PROVENTIL HFA) 5690-5224-98 04/10/2020 12:00:00 AM EDT 2 {puff} Inha lation active WheezingSOB (shortness of breath) Inhale 2 puffs into the lungs every 6 (six) hours as needed for Wheezing [facility] Wheezing SOB (shortness of breath) Furosemide 40 MG Oral Tablet Furosemide 40 MG Oral Tab let (LASIX) Furosemide 40 MG Oral Tablet (LASIX) 01/11/2020 12:00:00 AM EDT 40 mg Oral active Take 1 tablet by mouth daily [facility] Furosemide 40 MG Oral Tablet Furosemide 40 MG Oral Tab let (LASIX) Furosemide 40 MG Oral Tablet (LASIX) 12/27/2019 12:00:00 AM EDT 40 mg Oral active Take 1 tablet by mouth Two Times Daily [facility] Insurance Providers Payer name Policy type / Coverage type Policy ID Covered libertarian ID Covered libertarian's relationship to garcia Policy Garcia Plan Information MEDICARE [id number] SP [id number] Medicare C [id number] SELF [id number] A Medicare C [id number] SELF [id number] MEDICARE A [id number] Self [id number] A DME Jurisdiction A [facility] C [id number] SELF [id number] MEDICARE [id number] Ruth [id number] A MEDICARE [id number] SP [id number] A MEDICARE A [id number] Self [id number] [id number] Medicare C [id number] SELF [id number] C96 C [id number] Ruth [id number] AARP U [id number] Self [id number] MEDICARE A [id number] Self [id number] A AARP UHC Supplemental F [id number] SELF [id number] UHC AARP Supplemental F [id number] SELF [id number] UHC AARP Supplemental F [id number] SELF [id number] UHC AARP Supplemental F [id number] SELF [id number] C AARP Supplemental F [id number] SELF [id number] MEDICARE [id number] Ruth [id number] A AARP O [id number] S [id number] [employer] OPTIONS [id number] SP [id number] DME Jurisdiction A MNIC C [id number] SELF [id number] [employer] Options Medigap Part B [id number] Self [id number] Medicare Natl Gov't Servi Medicare Primary [id number] Self [id number] AARP S [id number] S [id number] MEDICARE P [id number] S [id number] A SELF PAY 2 UNAVAILABLE 1 UNAVAILA BLE MEDICARE OUTPATIENT M [id number] S [id number] Problems, Conditions, and Diagnoses Code Display Name Description Problem Type Effective Dates Data Source(s) J47.1 Bronchiectasis with (acute) exacerbation Bronchiectasis with (acute) exacerbation Diagnosis 03/28/2021 01:41:34 PM EDT [facility] C67.9 Malignant neoplasm of bladder, unspecifi ed Malignant neoplasm of bladder, unspecified Diagnosis 01/09/2021 11:58:52 AM EDT [facility] I42.8 Other cardiomyopathies Other cardiomyopathies Diagnosi s 01/09/2021 11:57:23 AM T [facility] N62 Hypertrophy of breast Hypertrophy of breast Diagnosis 01/09/2021 11:55:00 AM T [facility] J96.11 Chronic respiratory failure with hypoxia Chronic respiratory failure with hypoxia Diagnosis 11/12/2020 10:18:34 AM EDT [facility] K76.0 Fatty (change of) liver, not elsewhere c lassified Fatty (change of) liver, not elsewhere classified Diagnosis 10/03/2020 10:08:50 AM [facility] E78.5 Hyperlipidemia, unspecified Hyperlipidemia, unspecifie d Diagnosis 09/24/2020 12:10:35 PM EDT [facility] Z79.899 Other mcc (current) drug therapy O ther salvage determiner (current) drug therapy Diagnosis [facility] Encounter for therapeutic drug level mon itoring Encounter for therapeutic drug level monitoring Diagnosis 09/24/2020 12:10:35 PM EDT [facility] E66.9 Obesity, unspecified Obesity, unspecified Diagnosis 09/24/2020 12:10:35 PM [facility] Surgeries/Procedures Procedure Description Date Indications Data Source(s) XR CHEST FRONTAL AND LATERAL 17774 <td>XR CHEST FRONTA L AND LATERAL 97092</td><td>Routine</td><td>02/26/2021 1:17 PM EDT</td><td> Bronchiectasis with acute exacerbation</td><td> </td> 02/26/2021 01:17:00 PM EDT Bronchiectasis with acute exacerbation [facility] Bronchiectasis with acute exacerbation NATRIURETIC PEPTIDE <td>PROBNP</td><td>Routine</ td><td>01/09/2021 12:09 PM EDT</td><td> 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</td><td> </td> 01/09/2021 12:09:00 PM EDT Chronic combined systolic and diastolic congestive heart failureOther [facility] 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 LIPID PANEL <td>LIPID PANEL</td><td>Rout ine</td><td>01/09/2021 12:09 PM EDT</td><td> Other cardiomyopathy Obesity (BMI 30.0-34.9) Fatty liver Dyslipidemia</td><td> </td> 01/09/2021 12:09:00 PM EDT DyslipidemiaFatty liverObesity (BMI 30.0-34.9)Other ca rdiomyopathy [facility] Dyslipidemia Fatty liver Obesity (BMI 30.0-34.9) Other cardiomyopathy COMPREHENSIVE METABOLIC PANEL <td>COMPREHENSIVE METABO LIC PANEL</td><td>Routine</td><td>01/09/2021 12:09 PM EDT</td><td> Other cardiomyopathy Pacemaker reprogramming/check Obesity (BMI 30.0-34.9) Fatty liver Encounter for monitoring diuretic therapy</td><td> </td> 01/09/2021 12:09:00 PM EDT Encounter for monitoring diuretic therap yFatty liverObesity (BMI 30.0- 34.9)Pacemaker reprogramming/checkOther [facility] Encounter for monitoring diuretic therap y Fatty liver Obesity (BMI 30.0-34.9) Pacemaker reprogramming/check Other cardiomyopathy CREATININE BLOOD <td>CREATININE WITH GFR</td> <td>Routine</td><td>01/09/2021 12:06 PM EDT</td><td> Malignant neoplasm of urinary bladder, unspecified site</td><td> </td> 01/09/2021 12:06:00 PM EDT Malignant neoplasm of urinary bladder, unspecified sit e [facility] Malignant neoplasm of urinary bladder, u nspecified site PROLACTIN <td>PROLACTIN</td><td>Routin e</td><td>01/09/2021 12:04 PM EDT</td><td> Gynecomastia</td><td> </td> 01/09/2021 12:04:00 PM EDT Gynecomastia [facility] Gynecomastia US ABDOMINAL REAL TIME W/IMAGE DOCUMENTATION <td>US AB DOMEN COMPLETE 28679</td><td>Routine</td><td>10/03/2020 10:32 AM EDT</td><td> Fatty liver</td><td> </td> 10/03/2020 10:32:51 AM EDT Fatty liver [facility] Fatty liver Results ID Date Data Source [id number] 04/16/2021 03:02:38 PM EDT [facility] CT THORAX WITHOUT CONTRAST [id number] RE SULTInterpreted by:Bob Villarreal, MDCT thorax.INDICATION: Chronic [...] rce(s) Supporting Document(s) ID Date Data Source [id number] 04/08/2021 12:11:06 PM [facility] Name Value Range Interpretation Code Description Data [facility] rce(s) Supporting Document(s) Progress Note [facility] WEWSNq5uPqLQPtXd08/LEGtgWXEgd2GpYUirKGi4ROcpIHXmS7LaVRN4nU7qPDV5CYjKZxIgZhLaBBTz lbm [file] B9ktIoTRxrSWL5Dv6VTZKTH9GYNa== ID Date Data Source [id number] 03/30/2021 12:50:40 PM EDT [facility] Service Cmnt XXX-Imp : NoneGram Stn XXX : 2+WBC'S Seen.No organisms seenMicroorganism XXX Cult : Indigenous microorganisms. Name Value Range Interpretation Code Description Data Samira rce(s) Supporting Document(s) ID Date Data Source [id number] 02/26/2021 04:55:39 PM EDT [facility] XR CHEST FRONTAL AND LATERAL [id number] RESULTInterpreted by:Marlen Gordon DOINDICATION: Patient with history [...] rce(s) Supporting Document(s) ID Date Data Source [id number] 02/26/2021 04:31:52 PM EDT [facility] Name Value Range Interpretation Code Description Data [facility] rce(s) Supporting Document(s) Progress Note [facility] VANKDw3iXuYYRhUu29/AFRwtDCNym4PnVGbpVRt4ENwcZMRtF5CjEEK3hK5eVNA2DQtUUzRgZyFbIZCc lbm [file] ICAgICAgICAgICAgICAgICAgICAgICAgICAgICAgICAgICAgICAgICAgICAgICAgICAgICAgICAgICAg ICAgICAgICAgICAgICAgICAgICANCiAgICAgICAgIC AgICAgICAgICAgICAgICAgICAgICAgICAgICAgICAgICAgICAgICAgICAgICAgICAgICAgICAgICAgIC AgICAgICAgICAgICAgICAgICAgICAgICAgICAgICANCiAgICAgICAgICAgICAgICAgICAgICAgICAgIC AgICAgICAgICAgICAgICAgICAgICAgICAgICAgICAg ICAgICAgICAgICAgICAgICAgICAgICAgICAgICAgICAgICAgICAgICANCiAgICAgICAgICAgICAgICAg ICAgICAgICAgICAgICAgICAgICAgICAgICAgICAgICAgICAgICAgICAgICAgICAgICAgICAgICAgICAg ICAgICAgICAgICAgICAgICAgICAgICANCiAgICAgIC AgICAgICAgICAgICAgICAgICAgICAgICAgICAgICAgICAgICAgICAgICAgICAgICAgICAgICAgICAgIC AgICAgICAgICAgICAgICAgICAgICAgICAgICAgICAgICANCiAgICAgICAgICAgICAgICAgICAgICAgIC AgICAgICAgICAgICAgICAgICAgICAgICAgICAgICAg ICAgICAgICAgICAgICAgICAgICAgICAgICAgICAgICAgICAgICAgICAgICANCiAgICAgICAgICAgICAg ICAgICAgICAgICAgICAgICAgICAgICAgICAgICAgICAgICAgICAgICAgICAgICAgICAgICAgICAgICAg ICAgICAgICAgICAgICAgICAgICAgICAgICANCiAgIC AgICAgICAgICAgICAgICAgICAgICAgICAgICAgICAgICAgICAgICAgICAgICAgICAgICAgICAgICAgIC AgICAgICAgICAgICAgICAgICAgICAgICAgICAgICAgICAgICANCiAgICAgICAgICAgICAgICAgICAgIC AgICAgICAgICAgICAgICAgICAgICAgICAgICAgICAg ICAgICAgICAgICAgICAgICAgICAgICAgICAgICAgICAgICAgICAgICAgICAgICANCiAgICAgICAgICAg ICAgICAgICAgICAgICAgICAgICAgICAgICAgICAgICAgICAgICAgICAgICAgICAgICAgICAgICAgICAg ICAgICAgICAgICAgICAgICAgICAgICAgICAgICANCj w/zMLnA9zccBYfriN6Q1mxHy8QGu2OYP3wp4OmKEEhGAezovTrWkjJRmBlVGTsFtfYOjp2DDimOF4TiE EtH9SkS8DhBGyhXO8XULKpZEFlyUIqNVQtWLTuUcG9OPJlQLlcOY9UvZIvSPprZLPkZUYvZaSiGFVkSG OuOOZzPEVgEMJLJBXxDHUvJaLmSIDqAYFkDY4ZATGy F938tcMjQa2VLp6HGuHwRV2rqt2GHvOpCQBkGgtWHnl4NGelOE4IiOLjsBDiRfDfKZPCUmVvN6rvo7Fv QhYvOYQGKWznIK7Ap3NrgCBkLTo+Lm8WDT6vi1HnRUxxQaIeVO0jpr6DTNzMKzHyE7EdbQtsQMRun2ns ORHnIN3eaVIqQXS4MU6rirb7nuCEtSBsT1frALZOYB CKzQInEJCkSQ7lGbBeYiSjQGO6QTBkRI7aZOuzRH2KBXD9TIcdKBPmDRSoZ5fLLbOqUFGzIHJgfSkuEV 3RSpKhD5VkmoMlhPWcBlCtUQVPEg6+HVrhhfUmAicUToV5YNWnm8AoUAn2WY6HOJTqIStzBK1ZXZHbkY 9uGIthKI4BCmNnWMBiSHTEPiHdI83ycDNpTYn4L2Ms YmVkZGVkRmlsZXMgPDwvTmFtZXMgWyBdDQogID4+ID4+HYxySK3LGJyegfYxSOPvFl5BDXHsHOUxJQ5t HTVmLNTbV1G9pLxcXEZXOkVmS5ufucarCQ8mIRIaO988iYhpfkRnVIBiELCbUy4EOBJuTSP3DDKxlJOl RuUaXZDCEXxmBW0SfGPtXHV3vA2xIRqiJCUdCYDoX9 dYMyElnVytWJ28lIgvucIfnVLpNEe+It4QMZ3wf6VeBKp8hjIaEFakPVV7YUvoESQcFCJcLZCnAZV4MP P9FNHYNtKbDOZbZQUzKPewLOWzCYWatu2YKHYaZAUhRgc8NOOdCLXqWUXkLXvuLEEaFQM7QOdbOWDmCX ZdTK9NNzQgFJRlTLTqXKsaIQDrRCAepp9WXXFlDKJw AcP8ZSPxDSLeDAXdMZgxLTJuIMZoMIg8FECaGDCvVH9JZmYpRHAtLDgkOdpgHSTbNVXeqt7IEEBeZRRd GtZ0OTPmBHNjYGEqUHtlDSMwXBNiQhT9XAYnCRDkRF3QKlOkBTKuVFX1WhNrNWKeLGCcjz1YFTDzDICv BBXmYEYwEKEpBHLhPYymEZEyFWR1YbT3ROGyKQRcVO 8XWqNjFMJiZRlzOoCsUDWyRQZqmv6MGKLtBUHsMbB6TDFeWENtKXKzJIokHEPtCLLcNtKuPMUzJTHvCJ 3UWmZpJBCxSuB7PjocEGGvRJAsfq4JQBXjVSUmEgQtLgVxDLSgMIOqJPtwICRvNYKtLrT2UGQnPFDpXQ 9OKzCmRZZuHfN1GFjsGCAhMUNekc6GANMmAUEqNbz0 BbXiLSDyPXQfPXfsHMQnKGLeAJP7CNSaBROyEU4JLrPbLNLfCsNeXTEgUREfQNWycg1UOIZyZSHoUUK0 XqXjBUBhUZHrVYgbTIBeKII2IUCwKRNaXIYdZB0GKmWrHFKpMxRzZuCdDRYmMBRovq7ANREaEJAkGbB2 POYdUENuIOPlENrnPYNaKKT6NOL3JDGwOFYfVA3MUp MkBRXwLpk0LiYsVKQhNDEgug8MLWIoNBJqUxG5ZMBzLDTkTTIgVHggCNFiNVY7JXM2XIOaQPJbPM3TZr EqEBFzYrkrQPIeLFCmYLZnvf0IFHFnCZApNUjuVLStXENlWEImZPoxLDAfHTI5Tht0DYYqUUHzLC3WVo LuJYKtWwi7XyjmDHUyMBFbso0PrVQhmHijjd1AZIiY Oh9QkQuvGIW0UWsbWk4atDSfKEOzIWAAEb6HhtAbCTZyFBWFFCvhQHGvSGImSeFjLqR8MDZzJuV9WmX7 QZz6OFJmXJH7RIHcBIU2OlN4BCAkKXC1DALhKDQtUCcsSPObLPD9NdSvUIFlSdQ2IQn+EI2nIXq+Pg0K y4ZlgjG3jmFyPWd6KYT5EA9ALNFBK4XNSh== ID Date Data Source [id number] 01/09/2021 03:30:20 PM T [facility] Name Value Range Interpretation Code Description Data Samira rce(s) Supporting Document(s) Progress Note [facility] DKXYFd9vAeEGHfIs02/OVMgrULBmi9LfEDqwCZc3FInrSHTyV6SnVCV8kW9hPRK6BIwYRgUeQeNqChO6 lbm [file] MWMiZLo//4xZjjsZBhCVcgpqNibRhTF92vKQiOyaT2P/YJDXLPMjiHfDJayiAu704FOirS8tRHocfS tbT9EpWpyZZsOcRMYt6R8zqr+ojKoUdsHXTsLePVj3/ke50gjpW9/ct14v6Jrif/j2U12q/pS1Fg7j2t oLVvk5ZxSCo8PPOdn8G0dLO//Xn2NWu9fEL4lu18ob 4Rc8WXr6s+4JJmz8jBlG9GyEp+a2P5DxQzSq0L9KpAvkxzzNY5gU0cOl8kcM+4keG3HHRYha3gY9kBdt qaqg/5pEK8434ZYqQ00BiGp3f8djg+JuiteE4ji8B+rS9KxKTkGW3YWk4ytk+rF2i3+p7Tf6u+ru/[employer]/ [file] AgICAgICAgICAgICAgICAgICAgICAgICAgICAgICAg WWDnBVTkPXViAGWoEWQgTTPwAYCuUNQjBFHgVODeNFMjGJEsTBDoJEHdNFRnCG1KBNBuNALwEXZvDBYr ICAgICAgICAgICAgICAgICAgICAgICAgICAgICAgICAgICAgICAgICAgICAgICAgICAgICAgICAgICAg EVMcOVAbJVEsUCZeYHFgLUNnHHExVROpVAIvJB1TCQ AgICAgICAgICAgICAgICAgICAgICAgICAgICAgICAgICAgICAgICAgICAgICAgICAgICAgICAgICAgIC NzNORcFPVwIPBbJAJeNGYkSRJjMXYtSLSmZENxIUZjBHPpFRJcBY3TDWLkOAOhKNInDZUjFEXcSBFvLE AgICAgICAgICAgICAgICAgICAgICAgICAgICAgICAg NWDxULWpFUBrXNZgNDWdHQGuNSRkHAGdBZBfOFLjEYNsQQLaIPBuUCVkIJLkGZJvZG4NNFEtVASvCTGn ICAgICAgICAgICAgICAgICAgICAgICAgICAgICAgICAgICAgICAgICAgICAgICAgICAgICAgICAgICAg ICAgICAgICAgICAgICAgICAgICAgICAgICAgICAgIA 0KICAgICAgICAgICAgICAgICAgICAgICAgICAgICAgICAgICAgICAgICAgICAgICAgICAgICAgICAgIC UpWJMvDYLsWHCxOQEzYNTiZKHxHKMeAFUnIMMdQNQaDISxFCVkLYKdBA7CVCNlQFDxUVSgFTXySUZiPN AgICAgICAgICAgICAgICAgICAgICAgICAgICAgICAg RVMgRKPiOTDuKISwRXHtJEQhXLJeDCKuBZSxJJMePAKgTOZvGJBkUWMwUFKiUVOqQPLeET0PKMJpLSFg ICAgICAgICAgICAgICAgICAgICAgICAgICAgICAgICAgICAgICAgICAgICAgICAgICAgICAgICAgICAg ICAgICAgICAgICAgICAgICAgICAgICAgICAgICAgIC XyZN8OGYWoCVDnYLDeXAZcNYSxZNYiSLAuMHLbLESyVYHnFNMwVNUbHKYtDQDcXJCsDDXlBCIdBRRvIW FjTAJvYPFvOEVmOAUpIYDhGYNaLYBqXQOaBRBaGOUnPLKaAYJjIKDyGZEdZE0DEVEwOMUzJJSuZUEwOS AgICAgICAgICAgICAgICAgICAgICAgICAgICAgICAg AXRoNKYcKTXbDRGyXSJiSZLhCKNiKACvLRBbLWEtYFSgJFNcBFLjJHPyDRWaTLHySQUoNNTvCE4ZJA15 uLWil2A6DWOaJH1pqoj/Ls6FHDfdesVnmWVsOF1TCtQuWK8hkf3UKrEfQW7qpy5UIVoXHuLcS2A9uSUd FESzZBDXDtBuR34oCHqxZf13HAgcUHCsXiDqMNb9Mo 0APjZxK9nwXJPgFiJ7SKHqPtK9CKMcPvB5CKNmMiIbSIJoDHGtHBRoWAVBNGA4IUOwDxUdQdMbVVGxAY gnQYXTMTJbFLClEsQwSzVpUHTtAS0JPVFjF680alHoFYMNPs6+CCiuxnNjQxkXFlUyZQZom8SgWWz3KE 7SWBEgJvdmd0QyMCArJBLGJPgnQH3HZUS7FJV5YUFr Qf1ILQMoW585qkGaDN0ICg4DXqEqRF0lsw3HRRDgSFEaRqzTGbp8UDqaHA3DjOQpJCfCxk6ejtQgotJE q6DfalDofJRRRC9wW5CcHHZFtSN1MHHPKOJwpKQ8IgC5OmQqUhPeLUW8VSPkVE4oCIoxBE8QKLL2NMti DREjIIQbP1lGNoMvNBAyQGBfcZgoZB4DAmDnW2Bsml DmwYI9LjBaQGQKMs1+ABbhyvMwZwhGJtW8DURbk5DgMPy8ZP1OCPScXEglGD5FIVHnlW5dURhwOL8HWc A0HJSyGHVXCaRnM24acYUbTFs1Y8KiKvGjCOOaLujuBJYsDWdbWoUhGFWcScGrYGkoJD0+ID4+DQogIC 9DHTkejgUnBHEiTc5GYUUgNKDwDY2zMZJkMZFhI0F8 dKbvAXDWInRmS2dyglauTE2zNKLuX986bAogyiXyXGXaWEAdHq0SVGWxCVG4QVBzlPSjYIVjJAQVBPnv FW1VzRYcHQM4kQ6zUTncXKVoRRMzD1dGWoQeqZtzYY14uDhlnzWyuAFeXDf+Hl9OTN8bv3DyXFc0maAp GUrlNHI7VHihDSEkVZXaTLBoHHA0GRE1JAFAAhCbKK PyIMIzNVqiJSPqXMWoxv2XQLZeHUV6NAI6UGZpUBPuRWBwHZlvMPUnNUjdGEHhTFEoTCGhNS2UJnQwFT VqGLGnBIleKHInFLSupl5SDNZuBVBiIlSfYIPmOIQgZUNeOUmtPFAkGTFqJrVyURLxLUPhJA2FSoOaJE NhOPG2RxOiKJYcIFGkom0CTQWtXVUiVzKaBxCaMZHu QWMqLBmxFTEjJSR6UZGxFDNaKXDhYZ0ASvRcLHDnTMOmHcKdYQPrFQKpsu2ZFEVyPNWjZmo0EyTvAJKs UDBjDXdeNDYmYKG4QJa5IBBdYRFpIK9KQpUgUGBgRKkzSYQwDJYtZRHolq9VIMMbBKQpGAI2TWSfGIYj AKZaNGssTZNwHMRcXyD9XRDyULUnXP1LQwXbFQIoMa F1JCClKVTuVCImhs7FROLqPQOmFnF9MvNkTFZuQRFqSBmxVGRgRWFuOKE2LYRzNSJnZA5PCpOrLGYfEh xpHnbwRXJfRTCfqv9LRKRoFEVrDiG0ESEySCIyTGPcJUgmZGQbGAW6QhgnRGBaOFTqDB5ZEbDeXNCeMi o0DOopPYYgLKRscy6FURAlRLFePTDvUSHkSVYkIGVg MBceSKCcRGWrUcQ8XVQpFFGsFS5JMiNoLEOvWhD3ZyUgYECiUDUnuq6OMOOzUCDrZKc6UDMqNGNpBUPn GRueRZBaLLTpLER9BEQeMLAmJG0PVtXwFAEoZxFeZPMxXIAkJVXfar7AXJTuAPAoMrVgQCUkUCNhAUSe CVwkYSRfEAXiIPNoVYGnZVKyRC7FLlOjIZDsIxO0Xi yuTBBtMTDljh2NAITbDWG6YbT6EPKmIYSmIFGfBWwhKINqNEX9FuEbDPYlYEDwCA5UZkNmPGFmUct1MF LwHGBqFYYbgo4KOSGdIOV3GNspCkLvJCJkKBIhZWxvQYLnBGH4DzdhXHNxQEKbVN9PZkJmCCUkDqz5JD puOJBvHIWgiw1ZGRQySZC7QGRqFyFfVYFoYSCsHLsa NSAbMZbdKKiwVKNzOHPfUZ3BKrWkCYOgXxRsLrQqHBZsSZYtef0FXVRwAGD4EUZ5YTEmGKVgHAWcKWjb GCIyWKpzTmfpAOEhTOEkEU2VOzVbEDViBfBhNEDpLMKcFCSbyc6MKXBxRHX4FvK1OfZjHLRnITNdDCdt DIOeYTqyOVLpRUTpKSRwOA6HKmXvVRrhUISIUez1DD owY7i3SGJ4Ha0QA3Oti1IdPJCvQCHAMUjcQD6hfyTgJPFtQe0PI2jIDrzsMFYiBlzwCWs8FxE7XnLmUG H1BQFkGMY1OSKoHJBnNG0bOLZ5UFAoJIO1DecpOyv5NTTuTEmsXfRzEcSyNFX0UXP9UoNyZH1WLf5WOy C1HDF9kTBqZu3IWcM6GUSRZmMrZI5UWLl= ID Date Data Source [id number] 01/02/2021 01:42:42 PM EDT [facility] Name Value Range Interpretation Code Description Data Samira rce(s) Supporting Document(s) Progress Note [facility] YHSATf0xOiDCJrLz94/BWBerPKBwo7OjIVfvRZn8JEdnBKGxI5OeIHY8bA4qERE2ACuFByLuKkPxPmP2 lbm JmGxdXGtYuLQGeJfuJOfYmAYqhLcekmCUdBF6CjBX8NHLdU61iRZOhKKNiE3GbHRN9BcC+Fr2OXNYbxR DnPC9CSwuG8Nkhy1v8DX7cdW+HjJYkADAqNQAOOELpDe2M8YxKyBgQJD+OPT5cvoQNvqv015RdasZt7R pbBGmu4cWcv/zdJ++OdBgr/31gHc+wGPnkG8xHRbJR Chne+/91Bv1MXIde/yhTik9X9fjb5sK+Td90mzYX7oc0r8TinqdaU6lr0Olpub32oh85hroNxeOw90xnr [file] MRV9KaHyFBG6DKYiU6LwFoPzVG2PRh8POuI5EEH3uSSdIv5FIFxyFFXFQhPaCG7GMBx= ID Date Data Source [id number] 01/02/2021 12:01:15 PM EDT [facility] Name Value Range Interpretation Code Description Data Samira rce(s) Supporting Document(s) Progress Note [facility] RMIPAj6fAuZDErBw10/XPUapXZCsz4RaXHmbJRc6YSffKKOlH4IgPVC9vX1pPWG3ZUyDMaVyHgSxFsN1 lbm [file] qMPARG7KCAIvNWdXdQlDgfq6L1MiIB5UYzcz// [file] ICAgICAgICAgICAgICAgICAgICAgICAgICAgICAgICAgICAgICAgICAgICAgICAgICAgICAgICAgICAg ICAgICAgICAgICAgICAgICAgICAgICAgICAgICAgICAgDQogICAgICAgICAgICAgICAgICAgICAgICAg ICAgICAgICAgICAgICAgICAgICAgICAgICAgICAgIC AgICAgICAgICAgICAgICAgICAgICAgICAgICAgICAgICAgICAgICAgICAgDQogICAgICAgICAgICAgIC AgICAgICAgICAgICAgICAgICAgICAgICAgICAgICAgICAgICAgICAgICAgICAgICAgICAgICAgICAgIC AgICAgICAgICAgICAgICAgICAgICAgICAgDQogICAg ICAgICAgICAgICAgICAgICAgICAgICAgICAgICAgICAgICAgICAgICAgICAgICAgICAgICAgICAgICAg ICAgICAgICAgICAgICAgICAgICAgICAgICAgICAgICAgICAgDQogICAgICAgICAgICAgICAgICAgICAg ICAgICAgICAgICAgICAgICAgICAgICAgICAgICAgIC AgICAgICAgICAgICAgICAgICAgICAgICAgICAgICAgICAgICAgICAgICAgICAgDQogICAgICAgICAgIC AgICAgICAgICAgICAgICAgICAgICAgICAgICAgICAgICAgICAgICAgICAgICAgICAgICAgICAgICAgIC AgICAgICAgICAgICAgICAgICAgICAgICAgICAgDQog ICAgICAgICAgICAgICAgICAgICAgICAgICAgICAgICAgICAgICAgICAgICAgICAgICAgICAgICAgICAg ICAgICAgICAgICAgICAgICAgICAgICAgICAgICAgICAgICAgICAgDQogICAgICAgICAgICAgICAgICAg ICAgICAgICAgICAgICAgICAgICAgICAgICAgICAgIC AgICAgICAgICAgICAgICAgICAgICAgICAgICAgICAgICAgICAgICAgICAgICAgICAgDQogICAgICAgIC AgICAgICAgICAgICAgICAgICAgICAgICAgICAgICAgICAgICAgICAgICAgICAgICAgICAgICAgICAgIC AgICAgICAgICAgICAgICAgICAgICAgICAgICAgICAg DQogICAgICAgICAgICAgICAgICAgICAgICAgICAgICAgICAgICAgICAgICAgICAgICAgICAgICAgICAg CXAdGAEdFTCrQMFqALCbWABnNFLkSNGrDGGzALMkHOHfDATsKBTuNYStIWj6C1flHBBdYFXdIG5nCZd7 Jz8+BPoDLySaUBE3pqFfyZ2PVL1kc4DvRVruFFYme2 GzKEl5VM1HZGHxEXsqMI2ADOdtdi9AIIJaZXAyrHBJi8crEiAyBXE6AZJhOixlXV6PIIIqY6zjtgGtMC JkPDIBHZ2OYoCsK1QqiZ39FJDUUq1+YRixpcXyRedLUzDdHZQzk2YjHLt5SW7JDLCiMbfgb8MrOyKvHI GXAPuoGZ9MWWN4PEVqTHNjAk7SVJRgU603cgCqZR1D De1WCcXdXB7wjc1DDqUiXYMxPxgVXfh1DMvsLZ6KoJBhUApRfi8imjUfteYOt9GjswEamKLApXjbXE1p AA9yBMHRMNV7XYdnTH9gZLJvELWsOsN1BJUNWZ4KEUYmNDOuzPJgLAUyDUZGKO4BOEbwHIR9RRXpjoZm rAVzNDobGW9NGMBfspJpYbRgDORCEIt+Eg4TFO1qg9 ClHXzyVEGbZO7fdc2UDQqWHcJsQ4Q4oTQaN6L6WPhjAr5MTOKhJPDvLgVvPBTKTMlwIC8TOQ8sofJ3EZ 8XlITcLQGvKFMdpORgWYh6P71tjLHtGJhlHI7XREP+Lexa+Rc5NUKOjSTNcYJUqKdPkEQTDHvSrI6BcA8 FGr8ZrN4PwRE08yQopevDhZMikNS8LQS5zMTHwNZLD VU1ReIKgzV9kxySvEkSiQXAJXeHyS20pzHMtNKFrROEiJHXhEv8UQOCaK0TtiyWmgUltufUzGEEaWTGK YQ4PTCmtlkCwjZIqsKhhWR23kVaiOD2NBw8BXyCmCJ6fco4CwPYxGw6KEKYhYB9NCXVoSNOrBZAtJME5 TCMeKcUnHCsiRAHaLNFlMDH6ISBpZNOkTQ6OFxXgTT VqZKfxMEbpGQVnFIXsxw6TDLVdOXSzGRd4UHIvBODsOUShBTjnZFTbNZFjSJC6GOEgQDXeIY9MQoMbRN FxFUT5YnylWUPeIBJzup4YFAHyASQdFSq4FGUxRZCrMZCtBHatZPRiCNOcYXVfNJInCMBgPN0AHbHmIC RjNBJ9UOUzKVErAAOayx4FEWTkGPAyDrQ8SbEfWILz JTSeHRtwWMGlSOP6OQD1QOUeKQCgJY6MGhNuBWXoWHTwBpOcRGFtYGSoaz9CJKQsNFHcQTMpGuUnFHBe SSUmHTciHJPfNLM7XFh3DMIpEAVwAK8EJgZeIBNpOTPuEBGkLVHyPWJomz8MFPJdTXKqNmZgLhNaUYSo NNQiMCrvMLOvBIE0JsRfECCqEPQnFT9KYoDzIOAjNS A3JFawGPDkSTLhza0EVHIzBJDnXdbrVnSeXGRxQETdCAzvFXFiIBF2JQP4UGMbMGRaJJ3ERfNaRIOiDW zzULOjSTHsHPXkop2BFAFkKXOfPEZkNRVpIOCqQLXqRHopPGJtZSJ1KBS9JUPsSNMnSH3ZNbBlQARlWk LiQHYqFRLzELQggy5AWMZvREWbMDR0EeWwUIMzCMBv WPq5gxGhwSFcOEu5NJ2HU4LlutJdQfYMEr4Nj517RZP9MURiGe0IB1fwYb5tJTNdEHGKNc4MGQd6BOF7 AaAaDROoWEQ7G5MuGWo3LEU0ZVXsOMglYWV4QeL+BGxuAGM5YeWjWpCyNKQ9XCW2OTAfPExpIUDoAGFb ETwfWg4iIQMCZf8+JBzhcDZrzSujOATWUrHlRgr7YYfgNYVYNj1Y ID Date Data Source [id number] 01/02/2021 11:21:13 AM EDT [facility] Name Value Range Interpretation Code Description Data Samira rce(s) Supporting Document(s) Progress Note [facility] RRKTBf5nPyRRCvXx76/WGSwxJQGki1JoEHdcZSj5KSuaIKSiZ5IgCHD0cX9iRHF1SMpSVkNbUhEgKtS8 lbm [file] ICAgICAgICAgICAgICAgICAgICAgICAgICAgICAgIC AgICAgICAgICAgICAgICAgICAgICAgICAgICAgICAgICAgICAgICAgICAgICAgICAgICAgICAgICAgIC GaNEOlPJIiEN9DTUVzBYBsLTCqWACoOOBtGVDuHOMbMEPaNAGwOWVsGYOvITIfVBSxMLHzNPYxSZPmZG AgICAgICAgICAgICAgICAgICAgICAgICAgICAgICAg IRJmVUHlBTPuBANdUREgLCKdGR3NDIHrBYJcQHIcBPLeCDXkZVSbPAJbRSPfXOEwZCKnMOKdFVQbTNPr ICAgICAgICAgICAgICAgICAgICAgICAgICAgICAgICAgICAgICAgICAgICAgICAgICAgICAgICAgICAg CT3TNXRgODXgCIPmVWPjNZGrCILlMPIvPKQvUUGdTG AgICAgICAgICAgICAgICAgICAgICAgICAgICAgICAgICAgICAgICAgICAgICAgICAgICAgICAgICAgIC GyTMIqASWlFSNtYE3QFFQlBDFxESAsLPZvZMFoPJFvHILeIBRwVWJbVWDjDRHxPREjLKEtIMBpUPXqEB AgICAgICAgICAgICAgICAgICAgICAgICAgICAgICAg VKOgODToOWMuACQpOZNrNWBiQBZlLF7GTYLnANGgULUaNEFxOTHqRFFdPYRjJSCuTEXrXSYlBNUfNYNy ICAgICAgICAgICAgICAgICAgICAgICAgICAgICAgICAgICAgICAgICAgICAgICAgICAgICAgICAgICAg MLCvMF2YNCDnAWOhEKHeBIPdAUGjMAUjBLSqBQGlWL AgICAgICAgICAgICAgICAgICAgICAgICAgICAgICAgICAgICAgICAgICAgICAgICAgICAgICAgICAgIC YoHWHnMQBdHFVzJVTyUZ5ZFOTsXSAnILKqRWCnCJTyWKSqUEBkKZPoLIMhOQUoEKHsGHMfUOTmPPNyON AgICAgICAgICAgICAgICAgICAgICAgICAgICAgICAg PQEoPEImEGLwUMOfMDWjHFPyGMLmOWWaIP2UUHIbYMRtXWEbKQUaUXMoDZMcABHqWKSaTXCzLQTeWQTj ICAgICAgICAgICAgICAgICAgICAgICAgICAgICAgICAgICAgICAgICAgICAgICAgICAgICAgICAgICAg JVXpPXRsCF6AGK36pOTly5M1ZACoKK0fwwp/Pg0KDQ nelaYnlSOrQH0YVtAlSB5bjh9WGjKjKH4miy7YQJgRDnHdY7S8yEGzPIUlIWBJImBsR96iSApaFj39ZY kiCVVdNaZkNXh0As9JKqSsC0edXIGrUyT9JZWaUmYfIVflKO3Wj4BozRDpZAh+Gn5FNG7wk4SvAIljIF FvJT6whj4PHUuMGfVnZ5KpplT1PXEyFMPyJh6HSHDc FHIttRPpSIIjXEKEVdRdJ9KcdK33ZBWOPn3+GBbdcaGmYskDKwWsYPDes6RiIFp4WB7NBBBqYDf1oETe LJOyB3Zed6KaCm14MXOeNdivHITpx6WaBJn1hVYnoJTpPJ4ZAMDpUDCvdIA9MfzeGcUgPZGgRWzfRwAE CQlVCzBtF4Jlu7NzKqQ6VYCuSsMePUnuGGHlOgM4WC 91rSfnZN2LFXQkNHJlFZ33TDJ6TGHtQw2WMa0OBhNwDJ1gpb7BSvBnSUTgSdhXSav4MKwlRE1BhKMeC4 HuwDIsd1qSJqTjL7GMJZY2SRKfRi3ZAFOpTtEnKNZiIUybYM4hVDHlELLGiCsmckJ8IN7SIC9jzsHjEZ 9GLnHhUj1sDv5XArAxU4VfC4NpJJCrCIDELIbzEA5M YUtwQW8cJZ0Tk0HEiXOetR7fds1PXOJjFDFfCbhfil7JXcxxE1K8pRtlVQKbROlhKBIARTrwUY0QYKGi OEX7SQUmMMKxWGXUFtCtL95hDF9CI7Bvd81rPeB9DQEaGyRaIOabDG99pLmywdGhnEUgcMxmFV1BIf8+ DQplbmRvYmoNCnhyZWYNCjAgMjINCjAwMDAwMDAwMD FfZiR8QaPuRq7ZDZRcOPBrUZOiSaHmBYWuKAGrPJzeLGScHOK4MOQkSMTyZUYoDR3ZTlDdUYKuGZgyBk UpPUJmVBEasg4ATTFjNQRpYBI1WhVvJIEaZUNtUWqnJIRvPPTbUuC4VDXhJLBkFR1GFkEyJWEgYIY1Ku BsZPLuYRFqfp8CBAQxAPVjClAoRPNvYJTkZOWnBYlu AHJdALQuNxT1DHKiJLCkCR8SFnBjLYPdHAA3KUrfOWAdIHAryy2WHKSuMRNrSJp9ZCAzFYJrBZPlZNlg ZYZrITC1HJX0ASMwVZLbBE3RIxCzDTUnYWGpOEYfZANsKNAqce3AHTOtILOtDwYeDCIkXCNwJGGbIIkq OOSuVZF8MCY7SYRvWYHnHM8AKbNsVWYeRFggCvGsBM GlHRVljs0IFBQmDXUkSgZ4CHLeQTGhSVKbPIopCHScCJM8REEsHKFsQLVcMU3AKiZvAQUbUDu0AyQdXY WoBSIubb5UFLRrGKAlIUI5ADXkIOTvFAVqYTinPWSgAVX5IAB9QYUdPVItYS5INtHnQUYhGVc9KWMqYW QxYMOrun5VbKXonIdfcy6YOQmPSp3JeHaxWWRuQHsk Zs6nsJEbTFYaIFFJIx7BfzBtAXFuWTGYNRwmYXUkUOW5OJDrPIrwLXW9GZE1WSG6HBY8D5FvYlj9OhHh TEY5YnY2AotqHzWrI4KcXGm8EAD8CFYjUVFwZAWdRHhqUoN2EpX+YG3tGMf+Ow0Mr7PqoyU7akMaNKqj ILkwKQ9NDUGRL7EHJs== ID Date Data Source [id number] 12/27/2020 10:12:00 PM EDT [facility] Name Value Range Interpretation Code Description Data Samira rce(s) Supporting Document(s) SARS-CoV-2 (COVID 19) NEGATIVE - SARS-CoV-2 (COVID19) [facility] This lab was ordered by [facility] a nd reported by [facility]. ID Date Data Source [id number] 11/18/2020 12:45:16 PM EDT [facility] Name Value Range Interpretation Code Description Data Samira rce(s) Supporting Document(s) Progress Note [facility] UPDCXa5aCrNLFxUm25/OITxvQAClg6ZdSQqcGBd3HRzsIHQdE8FsFTR3bN2wJNT2BQfJLlMvJfBoJYY6 lbm [file] ytAFDDIfS9TWK5BSeoKHOBFi5M ID Date Data Source [id number] 10/03/2020 11:28:57 AM [facility] US ABDOMEN COMPLETE [id number] RESULTInt erpreted by:Johanny Ramey MDULTRASOUND ABDOMEN COMPLETE.INDICATION: [...] Ferris's sign was not elicited by the senior infrastructure engineer. The common duct is not dilated in [...] rce(s) Supporting Document(s) ID Date Data Source [id number] 09/26/2020 09:45:20 AM [facility] Name Value Range Interpretation Code Description Data Samira rce(s) Supporting Document(s) [facility] JZRBNp1vPeQKCfDwy3KuVtSiDAZoWD2zlhz9Z6T7vHRvU8RcbOCds5xrV1PbJ6ZjMFYdBEHIVN1ImAPu jb2 [file] 2UI25jJRp79wcvobc9gtu9Tp++3+fdfzu+V5o021++blhrSXqj6zB6cCA8Zwp4XxK85EhuTX/Rose Marie/LLv [file] MluPMRm7YsMh671+dktw6DD//y93//5mBHNkcPT/HPB/senior applications engineer+EYSCCQSVTcCjZxCaHpE3TomNtCasuctAx WwWS144JkYDDUXquaFUWLwcHTUvW6LSANTIG5PQiLC mPXNvqOcEyKROlirzbADSNjZqrCuSVXJyGa0zUuJCTNFxNXOM8KCSmiNVKezOrRuW3UWVlAFCQoQqoMb UnXLQzsQ0nfWWTrCu6bNCdCVLzpBoVcTBBHpkm6GItcB1xvHoxDHIGHEKoIY4xnIzuMkKkZI+d9DbuG8 jwJ1WC8RWdFnEhe5sdGB7t8wkA7aVLv2KMvdvP0kDY YKjHW6Q6fIYjlfO5RLFGyG3zaUMY/d1yraY4Q7uvhD33QEbn9Q9EJGxuWwKGliGPbP13Xh+5QswuwTzY RYAw0Ye9X0osgAE/a40HJLfwgUYeNwiOEfOfwEPa3PBRXJ1I8GXhEX4wJ282psBD2DiMDhHJou05XxmZ c9+WTEOTZPP/o5QslOFDn+wqIW9+W5hFBqsL82OmPd N2Z45fQH9g1Mj2aPI/CcW8PjLwrpFyTDXoBYU/Voz9R3ENXUoGoxPtlLZedmjl7tqr7Kaa/87fFKUh7m uN8JBY0lzktwn1H0KkUoxE8frH3KTuXEn37ri0f6KbWLxonYkhC7tw2z6TrhIccBXc3zvZi9Qv+9C8mS 7v9vh6K26S1xnEdSsLIqBl/6/a87Bg93Dq80Dn20Hw [file] udbk4mJq07+Wv3z7/MWL91+9fX76+zo5t3JGO44+4u 4GixccaBz80100wvaOof3ah4y/ihy3b590STT33l/+wW3G5/91y80wh67y7n6/bqAfV1x460dwka/961 lens generating machine tender/JDaDs+9genG4zo4Ala6dS4y1cvXm08/S+ImKz7PUbiG9/z0wVd47gGv3849K8+//8cQ4TQ7517/P rdebs+Ipp7Ke6jAzkz6aDdE2/gG161b+vPg2qlxjr0 /vnt0ye/h0q60Ueqo/cnov9Tx93yg/nb/89oPj1//mtZb8Kx7sIJS9+gP/34p+9+/uExYf/9b09f/PTT f/z525//57ff/urp3Yf/+Ot3T19++OOHpz/8l1H/8M9PP/412A7on/GVtz9u/WNrTy+++HoG3cmRe+LS f/jhN3/RlveyvGzH4/LUE9g1trX2ogC+fPZ/5ap/+q +r+4iNi5pthaqv/P3905hI5kHN+pAda/n9EvN59pHbSw1megxy3/J7e7v94U++/ioxI75POpqmad+9f/ Exp52hMT8z2d2/ffb89l+zm95PPX9/zrH+xH+aH6vKyp1/rxfruj9wpB78958r2zFC2R//vPb1tz/+9d dPP3/45184gbvbYSj025AcuS20c0raLMXHuenYL93+ fffjX7/9+X9/+H9cLN4b+4+kz2zms5g+Ki0b0ycSMMz0/ruffvxl/U5C/QR2jBQ62wb3o/nd+2900vdR 5PpDb/aHAcz61i0j4lXh297vJ/qK9DIoJuMtiH5bP//sK1qCq5645S5P077+/J9v//U7q4E4qyr+SKzP PzrJio+XcNWnv/38h3/+lh1eYD81+V15arj65tNJ// zmw1+++/Dj3//+Goa3P/94z0lpuiir2Z/uiC5//uO6X3a7GvqYFu0Z2/U2063j3h+/++bRyMe//fzNm7 dPj6/Ob3/7i/vd8wv3/+Axo1Hgf0/5/ZE7T/7rSI0V3i4//I9vn+haca888uj9bxIX+fK+O19efD+fnh /Wilfred+eP33/zM3OYuG52MatvnN1798oT8/wgzb8zaGP 6rOVLF27+iAWK03k8503bqhD9XgKqh8E4zrghGsvpsSmfKBiEL0FOB1jq8ViHdI3OKKiq7PwOAaiYEc9 fHIbFOvgjvGis9NnkqiuT7Cyn8DoKhHmELZlZzVnPzb7VMVxYqW4aGQoAlNeCZTqB9QdSBNzLeN7BbPw NXINMI2AYHGvbwCzQoNjPHM+OlOxYB3wfaseBDVnx6 LtCLgtPXgxUUSdW5N1pTbeVSRcJ7KocG62ZDGoI8CgtgY7EOK8FUJxFiScQLSwzPNyBNUiVDH+PmVuZG 9cuuvmSVFby0KrTIawJWU3mZ1xLTsQRRCWZNqKCFuaSaF5g26jnlDRNOGbJNRxSP8OqzNumMhavyLtuJ XsHLO4VhLaBPR9TEYpQBO8UMZPFDCqBGZmRDOfJMFt D8VfoSipJXoODMKHGUuXQXgoZsInc2B0IJNlmuQVANQWSnKHGCFGIobwWPICP6xRZNU5SAPtLcMuUP4X pLKaZAW8MAtEUSASORhMIPpuWjQam4F3CCAhG9EtZEGlezYsZJWKKHpvOkhxXE3pwDdxbcmfY6NoyZCm OXUYNRNtJLYiGADnZYBvQ5Zee1P0U4YyMGqXPKDHPE eXDAssZlX3h03etxQADBJwUISwYE1+RW7bx2YbEp8BNILgOS0zfyr8JX2WmOCiVL0IUQlxenAhF7mqys IvMnIjYKLVTX1pZ0EjcU53XHT+LwJqYQ3etjs3qkMhSrDuFKJjCSAcHBPuLIykVEXtATUrESBpBCC0GQ X4LVXqMcUnZLPtBRYkRUfiMIIeYHSdcvDUHFUtWRE2 Gcx2SGMsLXRhZFHxGDvkXQZtDEVeCNB4GARpIHQhPM2uKuLvSQTlQYHzTCFwDaL0MlJzHjSVJMDuRLDi TQJzObNyHRVdLGAqWYekDICfXUMuMSn5FSYxFLZkXB0dWbRpYOXsJSHpWHCdZZZqGYMsggHDRODsBFIw ZKY9JEIaTCAkKPIxJExzHECvEZLlAOA3CUOjTADnBR 5bLzMcIOBsUYM2TpVhBFArZZZqthZFXQYpYECyETK5WNHcTICzZSQeRMtdVHTkGLXoWpI0IJHrMWWjXK 1nSiGwMABaTGL8OQRrVQJlDYSoeuSSBDDcEEJgHHl0ZtRhHNEnHGDpXOrgGMCvAKAxCJpuTILtSWDqZZ 6bJyKxUVCmFAPnGEBiXYNhTDOzubJPMDAdYEBoKVZ8 VlDqBKOkEAWsTTkuKSXgXFUbBEW0JMUwLJFiBY7yDeYjGIJfKNP3OazxTCHuUGNtceWMPTVrJEVhTIHf RKRhJRYlYIQtZZslLRQbODKfYpW6DJGpYCVxCM2yVqLbFCEhUAS7YHDdPOMeOKPnrzZAFNDqWOIbMWHj MPM4DHYfERFzMDw7koRumQEsOeh1Rl5FkQafFKR2Po 6FhkGhLMEyWLBZMu6Wn234NFFeBYFGSvh+PxjrwYBvgPamFMQBQCJiTfBGGYOJK4A= ID Date Data Source [id number] 09/24/2020 01:56:29 PM EDT [facility] Name Value Range Interpretation Code Description Data Samira rce(s) Supporting Document(s) Progress Note [facility] LHXFGr4cVnUQTsGk95/YLNgmQDHnd4QpKBsvLCd5OZjjABYnF7MsIOZ6dZ2sNSO6FQzFCaPzRvJdDsTu lbm [file] AgICAgICAgICAgICAgICAgICAgICAgICAgICAgICAgICAgICAgICAgICAgICAgICAgICAgICAgDQogIC AgICAgICAgICAgICAgICAgICAgICAgICAgICAgICAg ICAgICAgICAgICAgICAgICAgICAgICAgICAgICAgICAgICAgICAgICAgICAgICAgICAgICAgICAgICAg ICAgICAgDQogICAgICAgICAgICAgICAgICAgICAgICAgICAgICAgICAgICAgICAgICAgICAgICAgICAg ICAgICAgICAgICAgICAgICAgICAgICAgICAgICAgIC AgICAgICAgICAgICAgICAgDQogICAgICAgICAgICAgICAgICAgICAgICAgICAgICAgICAgICAgICAgIC AgICAgICAgICAgICAgICAgICAgICAgICAgICAgICAgICAgICAgICAgICAgICAgICAgICAgICAgICAgDQ ogICAgICAgICAgICAgICAgICAgICAgICAgICAgICAg ICAgICAgICAgICAgICAgICAgICAgICAgICAgICAgICAgICAgICAgICAgICAgICAgICAgICAgICAgICAg ICAgICAgICAgDQogICAgICAgICAgICAgICAgICAgICAgICAgICAgICAgICAgICAgICAgICAgICAgICAg ICAgICAgICAgICAgICAgICAgICAgICAgICAgICAgIC AgICAgICAgICAgICAgICAgICAgDQogICAgICAgICAgICAgICAgICAgICAgICAgICAgICAgICAgICAgIC AgICAgICAgICAgICAgICAgICAgICAgICAgICAgICAgICAgICAgICAgICAgICAgICAgICAgICAgICAgIC AgDQogICAgICAgICAgICAgICAgICAgICAgICAgICAg ICAgICAgICAgICAgICAgICAgICAgICAgICAgICAgICAgICAgICAgICAgICAgICAgICAgICAgICAgICAg ICAgICAgICAgICAgDQogICAgICAgICAgICAgICAgICAgICAgICAgICAgICAgICAgICAgICAgICAgICAg ICAgICAgICAgICAgICAgICAgICAgICAgICAgICAgIC AgICAgICAgICAgICAgICAgICAgICAgDQogICAgICAgICAgICAgICAgICAgICAgICAgICAgICAgICAgIC AgICAgICAgICAgICAgICAgICAgICAgICAgICAgICAgICAgICAgICAgICAgICAgICAgICAgICAgICAgIC HhESWkEQu6D9ehIJCvSTCeCT7gGNe3Rk1+DQoNCmVu UKZ3cmIsxW2JOY1de8RfIIzbGRKxn4RqQJr3BY6SPTNoGHpmWM7RWJnrly8XUYOvVXUoeHSMy3vxFnIi TQV6TNZaTfttKN7LZMSdZ1qpqjZjDSNfTSVAQVyuKAFHQA7NLyTpY0ExzY22NDHQWe2+DQplbmRvYmoN UaQbDTDue2RtOOg6XI2NNDHyGqbmi8PcHlGeDYYEML dnLZ1VAAS9UJWdJQAtNz9ZGFEuC184ozVnDN2DEs4GUiCxHF4ijy7BElSsXGDqAdwMTkc4HNqrMD6ZxW KgKGqJqp5dgsBkvkYUk9YattKooALAVVn9rREbYZLrVW9vs9fxywqiFEjkVWTdHWTeWj1yDH9fMTYeIP BtDvYtBDAAFN4BLSGkFBYfkNXxSRKrBJLDDP1ZVYox YIC2QXFchaHrcLQdPVueWD7OXDDuijHtCpDvZQYPWFa+Jv8JJH9jh0RgZQcwEsBnSR0zjf2QMZnBFbYf W1P3sOErE8F0DAolPt0ZWXUbJPXyUVyeIVRXWZbkIV0KDV7easS5PH2BdENnALLnIEZoeYWvRUa2V52u iIQaLFrpWM1QIFX+Lexa+Ho2BXWRkRHFxAGPtFvYyRM PTDjWiZ9WbE7BPz0NmO0BpJF37vSicwtFxJWddOP1JDN8yXHKpWFDEJP2SrPDytU4gbpWpWBFePEVLFo BaF71sbTJeRVKcGCPnMPDjXg9AINDeI6XlgjYhvJmdnxTkMKYzQGELIS2SEEsqhpAxyXXgsPaaBU60eI gdAI0CCk1TMiOkNY9xwi5BvYXjFh5SRMZmTN3ESKGg YYUvFKEmLOG0QZXvNsAeKKjwZJXhETTsDHT1KPOuSZTbBD5JKdUnDYRmIpB1RurgKMKtTUKrrz8XXZGi CGSxLgS9WRKvVUPkICIyZStsXKKaAGCtXGV2OTNhMRAwPT8TQeQrCUVrVMIySTGhBTMxFGEqja4QVWDe NOKnGLE9ESOxZLMbMISrAUngFZXlKVV6ZXZcAMQqGS SvCJ5LWcWpFTWlAEJ8YVRtHYKfNNQaob5YOIHtGXIiMvUeMOQfMGCmQFSiXIcrFQAoFTE6HGQiRPPcNK YcYO3PAhJtRMSwOSc5JYVaWDAdCBGeof8GITZwWJSqUQg9YZOkBLEwOHFfDLweLLIaSON5SMNwLIMqTM TiXJ8ERbKeXMOtRHeySARaRWSgIUXixt3DKECvFXSk PNS3UsOxPGAcAVTyARibPIZvWIYnNAIyUJIsRJQqUK7ZVzQlPUBfCiLpPnFzNWAbNVXxwt7DSBVxYZEg RJV2NANhTIEgUCYtDHmbUKVeEIVcMmD2RSGbITTnVI7WLwXgQJVcQyFqSBdsNVYlKMMwzx0WEYTpUZKo IxS5GqBtMHYqBHEdIDcpOLSaOCBcSENzMZWcIIWrGE 4FWkQpVCRsJbT8QmtvHTExBNSihn4EpYAnxTpgqb9HGGnLIw6HrMscWSS7KKssMx2siIAzWzYcHZPTUg 4UocCjNKTpHQJDHJwsSRLfEGR4FZlnYxA9LGRkT9CmMXPqMCH9MWArBLA7HPJ8F2FwIsM9ElldLzL8Cf giCSGhF7EbIJWrLsk6SoScMGjzWQXgCxR+IF0gDQ o+Bs2Fj6AcolE0leLfQAotCkrfSt6NZQHUR7ZPMv== ID Date Data Source [id number] 09/15/2020 08:23:20 PM EDT [facility] Name Value Range Interpretation Code Description Data Samira rce(s) Supporting Document(s) Progress Note [facility] YYYPGy3jIaXZGqTd00/JNEwlYCDui3KrBKikGGi4KJofXVJyA6QyMUH3bE5uXMP0QByQVhNgKjDcJiXr lbm TvCagEOrUsIEPjZalIFwEdAUjfGwlfhYLuUB3OiHU5GPUgG12sSOXsOVKiE2ZkOIR1LMw+Wn5LVKOndG FwQN6ARflL1Bwvm5tFLh5b3V8MTHxxdMKjk0v3YDKwhxdKM90pXZcm+4GSaImNJKqUnJz/+/IpasbML1 ytVkqAMBJreM9pka7jl0nLTt38gazvNIDjJZ222vtG SDGYip/+UOptrnkSo98rg7sC3fDQf4yd+8BhPe0g8fGTmsuZNXR489fuJRsRFasH3Qef1SH0jmr7Z8y4 pD7h2PgSRnHEBdfAW0G5FuIGWlLUtrGJr01KDS8G9I5J2AkUTb3Jhi1kGdX5lVGnVqYNB+mChnSQUnlZ DlpW2+AQQgUvIAV8aH9pYDFaCc+uwaCgDUddOPnmWQ G/3SbYwU5TLAouRPoZGBpIbExjqbkqS+YkDjGPm6dbDUomD+95uuIxpaqVRjwWHopQ4c9xRMac/YzoYR T31glw0oZb6BC4Lvtr19QfMIUTsglvsFY87Z9WCo+Phd7o12q6HP+iaTJKw/i9Xex4oCQFcnTH0rWpv2 jkMzmN5vgc1uJarnahNFrDKeQfrqjKxSxQ9A5Xi7fz yQyE8L5E+mR4mg6iO8kgNS+MC9016T6PpGg4Z9GwvR/Sy9hRenFYGs5XpxJCye418KaY2anOczSmrinh eOjRN96rj5MazfpkwIx9/46xaNjMWbUUMjfL5zqjIesbiiYo/Leah/iT8lwlKxirO/VTd3QlHCGdpRjU6 YDkkwW1LRbBCgt6EV5yQ7Sh+NNpizTkkKu9NfQD3k5 6wLf8p9yUVxArlTvzoEPvndKWGcRpvH+kqeL6FgzoOrBbluNp5gnGO++ExnY6yBD7Eb9MrlJicQtvhz8 VViIkXdSyaRnmOUIgTrhrKxJgaXHWnrxVXT4j45eDGjj1YxfwfYxgfXYgDhdCCbbsec1yiq4HlvkazTw eR+Un0Hq97z+F1XVis4EBDsRHL5W2Mbprrm/soNGoG f4GvVtuEPi0VEb6hTsTP3pNhLH8SWbF/Yn0q8DW260xpqhdqnAbhw4w0yZ+/htDL29h7NddghUd7sVWq +92BgiW2W47UPIZhwCxaUYx9i0cEJTALnFWt6HYWsQd6DXEnYuEI2gtqVhgFBjEEFJmxkxuGImaPT88E OYHgTHW7MIemFuHLxd3H1nsLIBJiwR2gcn1mYra0JP rHUtRfEsGMPKbPAPwIaCZiQAy4yWkUP2fbRqLjYXq95e2srl3k1Lg1tYtVb/XQY4qLs69Hc3m53RSz8S 3oNve+82xsuiz6+32S7zyY1M2a7NR2foA7psjUk4K2wH8ok1NX0oCdy/UVNR58nK9zr1VfLYAWd+bmX3 65dX03949N09U56vEi4FIpVN51heOZQAMp8UlxQ5ZC [file] UxLCFhVfW5IyVaFVv7WdZzDA1WDl2DXiA4HXA9gXAoTa8KCeDrRkFAVmCdNU0UUTi= ID Date Data Source [id number] 08/30/2020 03:35:00 PM [facility] CYTOPATHOLOGY REPORTName: Jt LYNNEMRN: [id number] Number: [id number] Date: 08/28/2020 00:00Received Date: 08/29/2020 16:53Physician(s): SARAI JACKSON MD MAKHULI, ZAHI N, MD Specimen(s) ReceivedA: URINE, VOIDED NUMBER 3Clinical History:Bladder cancer. See [id number] and [id number], VOIDED NUMBER 3: NEGATIVE FOR HIGH-GRADE UROTHELIAL CARCINOMAComment/ld/calReviewing Cytotech: FREDDIE Mclean (ASCP)Bin English M.D.Electronically Signed By Christopher Damon M.D. 08/30/2020 15:35:47The attending pathologist named above attests that he/she has personallyreviewed the relevant preparation(s) for the specimen(s) and rendered thefinal diagnosis. Microscopic DescriptionThe specimen is composed of benign urothelial and squamous cells. /ldGross Mjbaccghdna20 ml clear yellow fluid received: 1 Thin-layer Pap stained slide preparedby filter preparation. This report may include one or more immunohistochemical stain results thatuse analyte specific reagents. All positive and negative controls havebeen reviewed by the attending pathologist and are satisfactory. The testswere developed and their performance characteristics determined by [facility] Patholol[facility]. They have not been cleared or approved by [place] Food and Drug Administration. The FDA has determined that suchclearance or approval is not necessary. Name Value Range Interpretation Code Description Data Samira rce(s) Supporting Document(s) ID Date Data Source [id number] 08/30/2020 03:35:00 PM [facility] CYTOPATHOLOGY REPORTName: Jt LYNNEMRN: [id number] Number: [id number] Date: 08/27/2020 00:00Received Date: 08/29/2020 16:52Physician(s): SARAI JACKSON MD MAKHULI, ZAHI N, MD Specimen(s) ReceivedA: URINE, VOIDED NUMBER 2Clinical History:Bladder cancer. See [id number] and [id number], VOIDED NUMBER 2: NEGATIVE FOR HIGH-GRADE UROTHELIAL CARCINOMAComment/ld/calReviewing [employer]: FREDDIE Mclean (ASCP)Bin English M.D.Electronically Signed By Christopher Damon M.D. 08/30/2020 15:35:39The attending pathologist named above attests that he/she has personallyreviewed the relevant preparation(s) for the specimen(s) and rendered thefinal diagnosis. Microscopic DescriptionThe specimen is composed of benign urothelial and squamous cells withneutrophils and red blood cells in the background./ldGross Ptgiisouhvd31 ml clear yellow fluid received: 1 Thin-layer Pap stained slide preparedby filter preparation. This report may include one or more immunohistochemical stain results thatuse analyte specific reagents. All positive and negative controls havebeen reviewed by the attending pathologist and are satisfactory. The testswere developed and their performance characteristics determined by [facility] Patholol[facility] department. They have not been cleared or approved by [place] Food and Drug Administration. The FDA has determined that suchclearance or approval is not necessary. Name Value Range Interpretation Code Description Data Samira rce(s) Supporting Document(s) ID Date Data Source [id number] 08/30/2020 03:35:00 PM [facility] CYTOPATHOLOGY REPORTName: Jt LYNNEMRN: [id number] Number: [id number] Date: 08/26/2020 00:00Received Date: 08/29/2020 16:51Physician(s): SARAI JACKSON MD MAKHULI, ZAHI N, MD Specimen(s) ReceivedA: URINE, VOIDED NUMBER 1Clinical History:Bladder cancer. See [id number] and [id number], VOIDED NUMBER 1: NEGATIVE FOR HIGH-GRADE UROTHELIAL CARCINOMAComment/ld/calReviewing Cytotech: FREDDIE Mclean (ASCP)Bin English M.D.Electronically Signed By Christopher Damon M.D. 08/30/2020 15:35:07The attending pathologist named above attests that he/she has personallyreviewed the relevant preparation(s) for the specimen(s) and rendered thefinal diagnosis. Microscopic DescriptionThe specimen is composed of benign urothelial and squamous cells. /ldGross Yltidtatkrv29 ml clear yellow fluid received: 1 Thin-layer Pap stained slide preparedby filter preparation. This report may include one or more immunohistochemical stain results thatuse analyte specific reagents. All positive and negative controls havebeen reviewed by the attending pathologist and are satisfactory. The testswere developed and their performance characteristics determined by [facility] Pathololgy department. They have not been cleared or approved by [place] Food and Drug Administration. The FDA has determined that suchclearance or approval is not necessary. Name Value Range Interpretation Code Description Data Samira rce(s) Supporting Document(s) ID Date Data Source [id number] 05/21/2020 12:33:27 PM [facility] Name Value Range Interpretation Code Description Data [facility] Presbyteriane(s) Supporting Document(s) Progress Note [facility] ITAXOb3zDaWDMmTx27/GGArcCOEem7NcRJfhZDs3GHpiSWSnL4QxIDS5sM1rZHG3GDeCKnJuPqAvHHN9 [facility] [file] ICAgICAgICAgICAgICAgICAgICAgICAgICAgICAgIC AgICAgICAgICAgICAgICAgICANCiAgICAgICAgICAgICAgICAgICAgICAgICAgICAgICAgICAgICAgIC AgICAgICAgICAgICAgICAgICAgICAgICAgICAgICAgICAgICAgICAgICAgICAgICAgICAgICAgICAgIC ANCiAgICAgICAgICAgICAgICAgICAgICAgICAgICAg ICAgICAgICAgICAgICAgICAgICAgICAgICAgICAgICAgICAgICAgICAgICAgICAgICAgICAgICAgICAg ICAgICAgICAgICANCiAgICAgICAgICAgICAgICAgICAgICAgICAgICAgICAgICAgICAgICAgICAgICAg ICAgICAgICAgICAgICAgICAgICAgICAgICAgICAgIC AgICAgICAgICAgICAgICAgICAgICANCiAgICAgICAgICAgICAgICAgICAgICAgICAgICAgICAgICAgIC AgICAgICAgICAgICAgICAgICAgICAgICAgICAgICAgICAgICAgICAgICAgICAgICAgICAgICAgICAgIC AgICANCiAgICAgICAgICAgICAgICAgICAgICAgICAg ICAgICAgICAgICAgICAgICAgICAgICAgICAgICAgICAgICAgICAgICAgICAgICAgICAgICAgICAgICAg ICAgICAgICAgICAgICANCiAgICAgICAgICAgICAgICAgICAgICAgICAgICAgICAgICAgICAgICAgICAg ICAgICAgICAgICAgICAgICAgICAgICAgICAgICAgIC AgICAgICAgICAgICAgICAgICAgICAgICANCiAgICAgICAgICAgICAgICAgICAgICAgICAgICAgICAgIC AgICAgICAgICAgICAgICAgICAgICAgICAgICAgICAgICAgICAgICAgICAgICAgICAgICAgICAgICAgIC AgICAgICANCiAgICAgICAgICAgICAgICAgICAgICAg ICAgICAgICAgICAgICAgICAgICAgICAgICAgICAgICAgICAgICAgICAgICAgICAgICAgICAgICAgICAg ICAgICAgICAgICAgICAgICANCiAgICAgICAgICAgICAgICAgICAgICAgICAgICAgICAgICAgICAgICAg ICAgICAgICAgICAgICAgICAgICAgICAgICAgICAgIC AgICAgICAgICAgICAgICAgICAgICAgICAgICANCjw/zPNjQ5bdrRPanrS8A0xiBo8UDi8PYE5mq8YkKC LwTTbfvcWmRaoNEkPnUURzNceCGyn4PFlsGO9MyKXwJ4QpR1YfAEuwTO0RFPRfBWUmwPLmKEDbEGRmCa W1DKTdCUnyWR5FvTQkCDchVIDnCRQdUnObBKBxZBRo RPMfLUXvDPEKRTAwWAAgYiFnKHtdHH0Dt7JocIO3VEx+Fk8MYA1xm6HmGJzkQvMmFU5inx6DOWxMQeHi J7LhqpR4OIT3WVPdDf4RLIIaYMSjjLBfGFZrKELCMgKeY6CilT43NCVNRm0+KEtxqnVuNihLWnU5SGSy c4SyEEv6PI5BGJXzSXn1sMUuHNLbQ8Bhu7OqIt04JK HgJckwUCJed0UwGWe3wUJouDPpXF0ARQToQOXkuXMkXO9bPM6tOFYyQICuBbCuCLQXXA8UJWEtOHRbeE GtYPTwRBIKBN8HOGrsVZR6ZUHwyxVowTIuOTagNP3TWJUbypQpHhCvXUFMJDk+Bs5JPR4ba8TnCXcyRA QaRD1sfd8OSCdOQyDyB4G3nHUqJ7N6MDolIi6WBEMi USQhRmLxPJACPNnsVA6GUR8yzaY8IG6MmUKtYSTrMXFjqKRfCFi3D58rfKNjOVajHY9CLXL+Lexa+Pg0K ZPSlRIPeYQNiGaOtRGXLCzNuG5SlW2YTi3IrB5WwDI64sFypheCyDOutLH2VGI1sKWApYFJTNG3BfJHz hS6rieJyRhAzKDEQOiHoC12myURqJKZxERYuRGAwCw 0PDSIzI8EgkkGqhWxbqnQpNICgIYOKAR3GNRswolBncZVoeJztNC28dQuxTG4MTc7JGzOaTO8dca0ShQ YhJi5GJLUpDq0IQIDnBOFbFBTjLFF4UNDtYkNrQRqwUMIoGXDlJMJ3JKTqICXnXA6DNkDiDUEgQvF4Ve dxIHZwZQDzos5ZQFMmPGTyXwA4HXKwVKRxQOAhJOgh XJKiZSPvANG9SDLrIFUqHJ2GWwLjWIMsETQ6LtiiLGFrSNJzls3OHJGlBSTbBEU3OPEwRQLkVIGoCIxa TABjFII1DwN3RMYhIASjYO2LJwEsJPGwRZi9JDefLWWqSJBczn4SMKRgNTIuUHt2OcYkXCYlVOTfWGri BADjSSEkECNoWDVkMTJqHP4WHvNqYGClTPKeGUNtNL RcCCMpsb8DFOMtHXSqXRO8JIEyQKUvXCTaCOncMUFcDTB6JFE7JLVnVHRaLY7WWmToARRgJBb3KeYgRT DdXTQavz2JSVOmOSIkRIpkVBUxBIWtIAZwMXpuJOBkTKF3KSN3HKIsJKSzOH8NBdVsIEOvEEjdJOUtNF SdAKZbxo9VZFTsMXAlRAR2CBKbHUEnDWOwVTgaCFNj OAHbOrJxJPTlKBCyXK5GYeGuZJAwIgN3UIGqYPRyRSIuet7CIOWrQRVwDPz8UWAjOYFaOIVyCGjvRHHc GGSuYtE9HWAqETKuWG9QZvCqABLmGvN4TJHeNJOyXZRoil9RMQQuLWGoEwF8KKAhGLIkWEFwFWnoOGKo XMKmSORbJJGaNHVtEX7MRcHcFMBmGxF2MFFlTRKdPO Stqc8MERMxJTPiTxwrIGElUDOqXPFfBOjaFNNtRYB9VAF8NJZjQQPdDS5BLtKnVTEwZmJkIPTvDUDeCM Qnfa1HCCWvRYYvWXSiXMFgMDRbEKFgVDwkDVEcUIE3MFO6USIpECOeWT3UIeHqHELgIuM4LZuwGAYsTG Xizv9BFPSkTWVfYnSnStZeGNSyYZUqDMxbTKWnUGK5 Eeh7JYNrLULiLE7AXtYlMAVoCeu9QyugAJUlXNWrgm2PeXOtoBaban0VJInYBx5XvGrsLTN8SNzjJf3b lCDfQBOrMRWKYo5JrzZmIXYhKFTXUZxuHRNyGPRiVHbrFUO7SrRlLSKpPwIiWwGfYaU8TuAfJVW4XJHt BqM5GIC3DYIsKsx4WxA7OkVlU3TiRxUwLeFaVFCzPn lhZjA+QG9oXVe+Rc4Vw8AbgyD4tmQfHLpuUjk1Lq8SZAFSC7RURz== Procedure Social History Code Duration Value Status Description Data Source(s ) Alcohol intake 02/26/2021 12:00:00 AM EDT Current non-d jerome of alcohol (finding) completed Current non-drinker of alcohol (finding) [facility] Tobacco use and exposure 02/26/2021 12:00:00 AM EDT Never used co mpleted Never used [facility] Smoking 02/26/2021 12:00:00 AM EDT Former smoker completed Former smoker [facility] Alcohol intake 01/09/2021 12:00:00 AM EDT Current non-d jerome of alcohol (finding) completed Current non-drinker of alcohol (finding) [facility] Alcohol intake 11/12/2020 12:00:00 AM EDT Current non-d jerome of alcohol (finding) completed Current non-drinker of alcohol (finding) [facility] Alcohol intake 09/24/2020 12:00:00 AM EDT Current non-d jerome of alcohol (finding) completed Current non-drinker of alcohol (finding) [facility] Alcohol intake 09/11/2020 12:00:00 AM EDT Current non-d jerome of alcohol (finding) completed Current non-drinker of alcohol (finding) [facility] Alcohol intake 05/21/2020 12:00:00 AM EST Current non-d jerome of alcohol (finding) completed Current non-drinker of alcohol (finding) [facility] Vital Signs ID Date Data Source [id number] 09/11/2020 11:36:49 AM EDT [facility] Name Value Range Interpretation Code Description Data Source(s) PREFERRED NAME [facility] ID Date Data Source [id number] 09/24/2020 01:30:08 PM EDT [facility] Name Value Range Interpretation Code Description Data Source(s) PREFERRED NAME [facility] ID Date Data Source [id number] 11/12/2020 11:16:33 AM EDT [facility] Name Value Range Interpretation Code Description Data Source(s) PREFERRED NAME [facility] ID Date Data Source [id number] 11/18/2020 12:45:16 PM EDT [facility] Name Value Range Interpretation Code Description Data Source(s) WEIGHT RECORDED 228 lb 228 lb [facility] Body height Measured 72.01 in 72.01 in [facility] PREFERRED NAME [facility] PREFERRED NAME [facility] ID Date Data Source [id number] 10/03/2020 11:28:57 AM EDT [facility] Name Value Range Interpretation Code Description Data Source(s) PREFERRED NAME [facility] PREFERRED NAME [facility] ID Date Data Source [id number] [facility] Interpretation Code Description Data Source(s) WEIGHT RECORDED 224 lb 224 lb [facility] PREFERRED NAME [facility] PREFERRED NAME [facility] ID Date Data Source [id number] [facility] Name Value Range Interpretation Code Description Data Source(s) WEIGHT RECORDED 227.8 lb 227.8 lb [facility] Body height Measured 72.01 in 72.01 in [facility] PREFERRED NAME [facility] PREFERRED NAME [facility] ID Date Data Source [id number] 06/25/2020 12:10:10 PM [facility] Name Value Range Interpretation Code Description Data Source(s) PREFERRED NAME [facility] ID Date Data Source [id number] 08/29/2020 01:24:09 PM [facility] Name Value Range Interpretation Code Description Data Source(s) PREFERRED NAME [facility] PREFERRED NAME [facility] ID Date Data Source [id number] 08/30/2020 03:36:27 PM [facility] Name Value Range Interpretation Code Description Data Source(s) PREFERRED NAME [facility] ID Date Data Source [id number] 08/30/2020 03:36:13 PM [facility] Name Value Range Interpretation Code Description Data Source(s) PREFERRED NAME [facility] ID Date Data Source [id number] 08/30/2020 03:35:59 PM [facility] Name Value Range Interpretation Code Description Data Source(s) PREFERRED NAME [facility] ID Date Data Source [id number] 05/21/2020 12:33:27 PM [facility] Name Value Range Interpretation Code Description Data Source(s) WEIGHT RECORDED 228 lb 228 lb [facility] Body height Measured 72 in 72 in [facility] PREFERRED NAME [facility] PREFERRED NAME [facility] ID Date Data Source [id number] 01/08/2021 11:20:16 AM [facility] Name Value Range Interpretation Code Description Data Source(s) WEIGHT RECORDED 221 lb 221 lb [facility] Body height Measured 72 in 72 in [facility] Patient Treatment Plan of Care Planned Activity Planned Date Details Description Data Source (s) Pulmonary Supplies-see sig XX MISC 12/17/2020 12:00:00 AM [facility]. Devices (DURABLE MEDICAL EQUIPMENT SEE SIG) XX M ISC 12/17/2020 12:00:[address] [facility] 7 ACTUAT umeclidinium 0.0625 MG/ACTUAT Dry Powder Inha ler [Incruse] 12/16/2020 12:00:[address] [facility] Albuterol 0.21 MG/ML Inhalant Solution 11/27/2020 12:00:00 AM [facility]. Devices (DURABLE MEDICAL EQUIPMENT SEE SIG) XX M [facility] 11/12/2020 12:00:[address] [facility] ropinirole 2 MG Oral Tablet 10/01/2020 12:00:00 AM [facility] lidocaine (XYLOCAINE) 2 % urojet 20 mL 09/11/2020 11:00:00 AM [facility] Albuterol 0.21 MG/ML Inhalant Solution 09/09/2020 12:00:00 AM [facility] Lovastatin 40 MG Oral Tablet 08/01/2020 12:00:00 AM [facility] 12 HR ranolazine 500 MG Extended Release Oral Tablet 12:00:00 AM [facility] Albuterol 0.21 MG/ML Inhalant Solution 07/09/2020 12:00:00 AM [facility] carvedilol 6.25 MG Oral Tablet 07/03/2020 12:00:00 AM [facility] Enalapril Maleate 5 MG Oral Tablet 07/03/2020 12:00:00 AM [facility] 7 ACTUAT umeclidinium 0.0625 MG/ACTUAT Dry Powder Inha ler [Incruse] 05/16/2020 12:00:00 AM [facility] Albuterol 0.21 MG/ML Inhalant Solution 05/08/2020 12:00:00 AM [facility] Spironolactone 25 MG Oral Tablet 05/03/2020 12:00:00 AM [facility] Albuterol Sulfate HFA 108 (90 Base) MCG/ ACT Inhalation Aerosol Solution (PROVENTIL HFA) 04/10/2020 12:00:00 AM EDT [facility] Furosemide 40 MG Oral Tablet 01/11/2020 12:00:00 AM T [facility] Furosemide 40 MG Oral Tablet 12/27/2019 12:00:00 AM T [facility]
[2021-04-20] MEDS ORDERED: HOME MED LIST COMPLETE! XX SCH (23:00)
--- NOTE | 2021-04-20 23:02 | HPEPDOC ---
General Date of Admission 04/20/21 Date of Service: Apr 20, 2021 Chief Complaint The patient is a 86-year-old male admitted with a reason for visit of Shortness Of Breath. Source: Patient History of Present Illness Anders Chahal is an 86-year-old male with significant medical history of CAD, hypertension, hyperlipidemia, A. fib with pacemaker, HFrEF, and bronchiectasis with chronic oxygen 2 L nasal cannula who arrives with complaints of shortness of breath. Of note, patient had recent admission December 2020 for pneumonia. Patient reports some increased shortness of breath from baseline for the past few days. He reportedly bumped up his nasal cannula to 4 L today as he was noted to have desat 85% and dyspnea with ambulation. He keeps track of his SPO2 at home and typically exercises with treadmill but today he was unable to as his SPO2 85% when standing and ambulating. Patient recently had seen his director informatics and had a CT done outpatient and he brought the report with him. He is somewhat limited historian about pulmonology recommendations are changes from that CT discussion. He does allude to "aggressive treatment planned" however is "still waiting to hear back regarding that". He notified his director informatics office today however had not received a call back and thus came to ER. Pt denies dodd, sinus congestion, sore throat, productive cough, palpitations, chest pain, n/v/d, abdominal pain, weakness, sensory changes or syncope. Patient seen in no acute distress he reports at rest right now he feels at baseline however when moving around is when he noticed some shortness of breath. He does report some bilateral lower extremity edema. Of note, patient afebrile without leukocytosis. He is not tachycardic and unlabored breathing. CT thorax without contrast from outpatient show degenerative changes of the thoracic spine, multiple nodular opacities and linear calcifications. Bronchiectasis changes and inflammatory parenchymal changes; similar to previous read. Today, Chest x-ray nonacute it does mention interstitial density in the lung bases much of which may be chronic BNP 1784. Trop 0.02. Patient on 4 L nasal cannula upon arrival however he did show compensation with ABG. He was able to be weaned down at rest to baseline 2 L nasal cannula 95%. Patient will be admitted for further evaluation management of presenting concerns. Home Medications Scheduled Aspirin (Aspirin EC) 81 Mg Tablet.dr, 81 MG PO 3XW, (Reported) MON,WED,FRI Carvedilol (Carvedilol) 6.25 Mg Tablet, 6.25 MG PO BID, (Reported) Enalapril Maleate (Enalapril Maleate) 5 Mg Tablet, 5 MG PO BID, (Reported) Furosemide (Furosemide) 40 Mg Tablet, 40 MG PO DAILY, (Reported) Latanoprost (Xalatan) 0.005% 2.5ML Drops, 1 DROP OU QHS, (Reported) Lovastatin (Lovastatin) 40 Mg Tab, 40 MG PO QHS, (Reported) Multivitamin,Therapeutic (Thera-Tabs) 1 Each Tablet, 1 TAB PO DAILY, (Reported) Psyllium Husk/Aspartame (Metamucil Fiber Singles Packet) 3.4 Gm Powd.pack, 1 PKT PO BID, (Reported) Ranolazine (Ranexa) 500 Mg Aleisha, 500 MG PO BID, (Reported) Ropinirole HCl (Ropinirole HCl) 2 Mg Tablet, 2 MG PO QHS, (Reported) MAY TAKE A SECOND TABLET IF NEEDED Spironolactone (Spironolactone) 25 Mg Tab, 12.5 MG PO DAILY, (Reported) Umeclidinium [place] (Incruse Ellipta) 62.5 Mcg Blst.w.dev, 1 PUFF INH DAILY, (Reported) Scheduled PRN Albuterol Sulfate (Albuterol Sulfate Hfa) 8.5 Gm Hfa.aer.ad, 2 PUFFS INH Q6H PRN for WHEEZING, (Reported) Albuterol Sulfate (Albuterol Sulfate) 0.63 Mg/3 Ml Vial.neb, 1 VIAL NEB Q6H PRN for WHEEZING, (Reported) Sodium Chloride (Sodium Chloride 3% Neb Jessica) 15 Ml Vial.neb, 1 VIAL NEB BID PRN for WHEEZING, (Reported) USES AFTER ALBUTEROL IN NEB Allergies Coded Allergies: pseudoephedrine (Verified Adverse Reaction, Intermediate, ENLARGES HIS PROSTATE, 12/27/20) Influenza Virus Vaccines (Verified Adverse Reaction, Mild, "I GOT THE FLU", 12/27/20) Past Medical History Medical History CAD A fib Per chart review prolonged sinus pausing with pacemaker placement (last battery change 2019) CHF with preserved ejection fraction HLD HTN Osteoarthritis Bronchiectasis on 2L NC at home Surgical History Hip replacement Partial prostatectomy Pacemaker placement Family History Significant Family History: Cancer, COPD Cancermother, sister, uncle; COPDfather Social History * Smoker: former Smoker (quit 1974) Alcohol: rarely Drugs: denies Recent Travel/Sick Contacts: Denies: Recent travel, Recent sick contacts Psychosocial History: No pertinent psych hx A-FIB/CHADSVASC A-FIB History Current/History of A-Fib/PAF?: No Current PO Anticoag Therapy: No Review of Systems Constitutional: Reports: Fatigue; Denies: Chills, Fever, Night Sweats Eyes: Denies: Pain, Vision change ENT: Denies: Head Aches, Ear Pain, Dysphagia Skin: Denies: Rash, Lesions, Breakdown Pulmonary: Reports: Dyspnea, Cough Cardiovascular: Denies: Chest Pain, Palpitations, Orthopnea, Paroxysmal Noc. Dyspnea, Lt Headedness Gastrointestinal: Denies: Nausea, Vomiting, Abdominal Pain, Diarrhea Genitourinary: Denies: Dysuria, Frequency, Incontinence, Retention Hematologic: Denies: Bruising, Bleeding Excessively Musculoskeletal: Denies: Neck Pain, Back Pain, Joint Pain, Muscle Pain, Spasms Neurological: Denies: Weakness, Numbness, Change in speech, Confusion Psych: Reports: Mood Normal; Denies: Depression, Memory Issues Physical Examination General Exam: Positive: Alert, Cooperative, No Acute Distress Eye Exam: Positive: PERRLA, Conjunctiva & lids normal, EOMI; Negative: Sclera icteric ENT Exam: Positive: Atraumatic, Mucous membr. moist/pink, Pharynx Normal Neck Exam: Positive: Supple; Negative: JVD, thyromegaly Chest Exam: Positive: Rales Heart Exam: Positive: Rate Normal, Regular Rhythm, Normal S1, Normal S2; Negative: Murmurs, Rubs Telemetry: Positive: No significant arrhythmia Abdomen Exam: Positive: Normal bowel sounds, Soft; Negative: Tenderness, Hepatospenomegaly Extremity Exam: Positive: Normal pulses; Negative: Clubbing, Cyanosis, Edema Skin Exam: Positive: Nl turgor and temperature; Negative: Breakdown, Lesion Neuro Exam: Positive: Normal Gait, Normal Speech, Cranial Nerves 3-12 NL, Reflexes 2+ Psych Exam: Positive: Mental status NL, Mood NL, Oriented x 3 Vital Signs Vital Signs Date Time Temp Pulse Resp B/P (MAP) Pulse Ox O2 Delivery O2 Flow Rate FiO2 10/24/21 21:42 99.1 82 22 144/78 (100) 95 Nasal Cannula 2.0 Laboratory Data Labs 24H Laboratory Tests 2 04/20/21 20:42: Immature Granulocyte % (Auto) 0.3, Neutrophils (%) (Auto) 78.1H, Lymphocytes (%) (Auto) 9.7L, Monocytes (%) (Auto) 8.3H, Eosinophils (%) (Auto) 3.2H, Basophils (%) (Auto) 0.4, Neutrophils # (Auto) 7.3, Lymphocytes # (Auto) 0.9L, Monocytes # (Auto) 0.8, Eosinophils # (Auto) 0.3, Basophils # (Auto) 0.0, Nucleated Red Blood Cells % (auto) 0.0, Prothrombin Time 13.5, Prothromb Time International Ratio 0.99, Activated Partial Thromboplast Time 29.4, Anion Gap 6L, Glomerular Filtration Rate 49.4, Calcium Level 8.8, Total Bilirubin 0.3, Direct Bilirubin < 0.1, Aspartate Amino Transf (AST/SGOT) 12, Alanine Aminotransferase (ALT/SGPT) 18, Alkaline Phosphatase 76, Total Creatine Kinase 44, Creatine Kinase MB < 1.0, Creatine Kinase MB Relative Index 2.27, Troponin I < 0.02, KY-Pin-L-Type Natriuretic Peptide 1784H, Total Protein 6.5, Albumin 3.3, Albumin/Globulin Ratio 1.0, Thyroid Stimulating Hormone (TSH) 3.470 04/20/21 21:21: Blood Gas Bicarbonate Standard 36.4H, Arterial Blood pH 7.437, Arterial Blood Partial Pressure CO2 59.4H, Arterial Blood Partial Pressure O2 73.0L, Arterial Blood Total CO2 41.0H, Arterial Blood HCO3 39.2H, Arterial Blood Base Excess 12.7H, Arterial Blood Oxygen Saturation 94.0L CBC/BMP Laboratory Tests 04/20/21 20:42 Microbiology Microbiology 04/20/21 Respiratory Virus Panel (PCR) ([facility]) - Final, Complete Assessment/Plan 1. CHF exacerbation in patient with underlying bronchiectasis: -Telemetry monitoring -Monitor fluid balance, I's and O's, urinary output -Patient appears mildly hypervolemic -Plan for diuresis: Patient takes Lasix 40 mg daily at home; will adjust to 40 mg IV twice daily -Monitoring creatinine closely given elevated; A.m. labs -Given bronchiectasis component we will continue patient breathing treatments and trial scheduled. Should patient become rhonchorous or wheeze would consider steroids at that time. -Should patient have any infectious marker elevation or elevated procalcitonin would consider empiric coverage for developing pneumonia; however lower suspic ion given clinical presentation 2. Elevated creatinine: Patient creatinine at arrival in December admission 1.3- 1.5. Today creatinine 1.45. He did improve creatinine prior to his discharge in December 26-.2. -Monitor fluid balance, I's and O's, urinary output -Avoid nephrotoxins as able; given patient hypervolemia is possible elevated creatinine relative to cardiorenal component. Will increase Lasix given above and hold Vasotec/spironolactone at present. -A.m. labs to consider further adjustment -Consider nephrology consult pending patient response 3. HTN: Monitor BP in setting of above. Held Vasotec/spinal lactone as mentioned. We will continue Coreg. 4 HDL: Continue statin 5. A. fib and CAD: Telemetry monitoring. Continue with aspirin and statin 6. Restless leg syndrome: Continue Requip at bedtime DVT prophylaxis: Heparin subcu CODE STATUS: Full code Disposition planning: Home pending a.m. labs and ambulation saturation Plan / VTE VTE Prophylaxis Ordered?: Yes ALYX RAMIREZ NP Apr 20, 2021 22:39
[2021-04-20] MEDS ORDERED: ALBUTEROL SULFATE 2.5 MG/0.5 ML INH NEB SOLN NEB PRN (23:05)
--- OUTSIDE RECORDS SUMMARY | 2021-04-20 23:08 | CCD ---
Author Author [facility] Organization [facility] Address Unknown Phone Unavailable Care Team Providers Care Stone Sawyer Name Role Phone Jaya Sr MD Unavailable [...] Unavailable Linn Oneal MD Unavailable Unavailable Linn nOeal MD Unavailable Unavailable Linn Oneal MD Unavailable [...] Unavailable Gutsche MD, Tee Unavailable GUTSCHE, TEE [id number] Unavailable Unavailable Re-disclosure Warning The records that [...] is protected by Article 27-F of the [facility] Public Health law. If you continue you may have access to information: Regarding HIV / AIDS; Provided by facilities licensed or operated by the [facility] Office of Mental Health; or Provided by the [facility] Office for People With Developmental Disabilities. If such information is present, then the following [facility] mandated warning applies: This information has been [...] law may result in a fine or prison sentence or both. A general authorization for the release of medical or other information is NOT sufficient authorization for further disc losure. Allergies and Adverse Reactions Type Description Substance Reaction Status Data Source(s ) Drug allergy PSEUDOEPHEDRINE HCL PSEUDOEPHEDRINE HCL [facility] Family History Family Member Name Family Member Gender Family Member Status Date o f Status Description Data Source(s) Unknown Unknown Problem [facility] ([facility] mother, sister Encounters Encounter Providers Location Date Indications Data Source(s ) Outpatient Attender: Shadi Monk MD 01/12/2022 12:00:00 AM [facility] Outpatient Attender: Yoni Oneal MD 09/17/2021 12:00:00 A M [facility] Outpatient 06/04/2021 12:00:00 AM [facility] Outpatient Attender: Jaya Sr MD 05/27/2021 12 :00:00 AM [facility] Outpatient Attender: TEE CRAIG [id number] 05/13/2021 12:0 0:00 AM EST [facility] Outpatient Referrer: TEE CRAIG [id number] 12:00:00 AM EDT Dyspnea, unspecified [facility] Dyspnea, unspecified Outpatient Attender: Tee Craig MDAttender: SALOMON KEN CRAIG [id number] 04/02/2021 12:00:00 AM EDT - 04/02/2021 05:30:34 PM EDT [facility] Outpatient Attender: TEE CRAIG [id number]: TEE CRAIG [id number] 03/28/2021 12:00:00 AM EDT - 03/29/2021 12:00:00 AM EDT Bronchiectasis with (acute) exacerbation [facility] Bronchiectasis with (acute) exacerbation Outpatient Attender: LANDEN SPAINeferrer: TEE LENZ CHE [id number] 03/28/2021 12:00:00 AM EDT [facility] Outpatient Referrer: TEE CRAIG [id number] 12:00:00 AM EDT Bronchiectasis with (acute) exacerbation [facility] Bronchiectasis with (acute) exacerbation Outpatient Attender: Tee Craig MDAttender: SALOMON CRAIG [id number] 02/26/2021 12:00:00 AM EDT - 02/26/2021 02:55:20 PM EDT [facility] Outpatient Attender: Shadi Monk MD [id number] [id number] 12:00:00 AM EDT - 01/09/2021 11:44:37 AM EDT [facility] Outpatient Referrer: Yoni Oneal MD 01/09/2021 12:0 0:00 AM EDT Malignant neoplasm of bladder, unspecified [facility] Malignant neoplasm of bladder, unspecifi ed Outpatient Referrer: Jaya Sr MD 021 12:00:00 AM EDT Other cardiomyopathies [facility] Other cardiomyopathies Outpatient Referrer: Shadi Monk MD 01/09/2021 12:00 :00 AM EDT Hypertrophy of breast [facility] Hypertrophy of breast Outpatient Attender: TEE CRAIG [id number] 01/02/2021 11:21:13 AM EDT [facility] Outpatient Attender: TEE CRAIG [id number] 11/12/2020 12:00:00 AM EDT - 11/12/2020 11:16:36 AM EDT Chronic respiratory failure with hypoxia [facility] Chronic respiratory failure with hypoxia Outpatient Referrer: Jaya Sr MD 12:00:00 AM EDT Fatty (change of) liver, not elsewhere classified [facility] Fatty (change of) liver, not elsewhere c lassified Outpatient Attender: Jaya Sr MDReferre r: Jaya Sr MD [id number] 09/24/2020 12:10:35 PM EDT - 09/24/2020 01:30:10 PM ED T Other cardiomyopathies [facility] Other cardiomyopathies Outpatient Attender: Yoni Oneal MD [id number] 2020 12:00:00 AM EDT - 09/11/2020 11:35:24 AM EDT Malignant neoplasm of bladder, unspecified [facility] Malignant neoplasm of bladder, unspecifi ed Outpatient Attender: Yoni Oneal MD 09/04/2020 12:00:00 A M EST [facility] Outpatient Referrer: Sarai Jackson 08/29/2020 12:00:0 0 AM EST Malignant neoplasm of bladder, unspecified [facility] Malignant neoplasm of bladder, unspecifi ed Outpatient Admitter: Sarai JacksonReferrer: Sarai Jackson 08/28/2020 12:00:00 AM EST Malignant neoplasm of bladder, unspecified [facility] Malignant neoplasm of bladder, unspecifi ed Outpatient Admitter: Sarai JacksonRefradhaer: Sarai Jackson 08/27/2020 12:00:00 AM EST Malignant neoplasm of bladder, unspecified [facility] Malignant neoplasm of bladder, unspecifi ed Outpatient Admitter: Sarai Chapiner: Sarai Jackson 08/26/2020 12:00:00 AM EST Malignant neoplasm of bladder, unspecified [facility] Malignant neoplasm of bladder, unspecifi ed Outpatient Attender: Sarai Nguyenshaji 07/23/2020 12:00:00 AM E [facility] Outpatient Attender: Jaya Sr MD 06/14/2020 12 :00:00 AM [facility] Outpatient Attender: TEE CRAIG [id number] 05/21/2020 12:00:00 AM [facility] Outpatient Attender: Shadi Monk MD [id number] [id number] 12:00:00 AM EDT - 01/08/2020 11:23:56 AM EDT Encounter for general adult medical exam ination without abnormal findings [facility] Encounter for general adult medical exam ination without abnormal findings Immunizations Vaccine Date Status Description Data Source(s) 09/10/2020 12:00:00 AM EDT completed <td I D="[id number]">Moderna SARS-CoV-2 Vaccine</td><td>09/10/2020, 08/12/2020</td><td></td> [facility] COVID-19 VACCINE Moderna 09/10/2020 12:00:00 AM EDT completed NYSIIS Vaccine Series Complete: YESThis Data wa s Submitted to [facility] Via [employer]. 08/12/2020 12:00:00 AM EST completed <td I D="[id number]">Moderna SARS-CoV-2 Vaccine</td><td>09/10/2020, 08/12/2020</td><td></td> [facility] COVID-19 VACCINE Moderna 08/12/2020 12:00:00 AM EST completed NYSIIS Vaccine Series Complete: NOThis Data was Submitted to [facility] Via [employer]. 197 05/21/2020 12:00:00 AM EST completed <td I D="[id number]">Influenza Quad High Dose IM Pres Free >=65YO</td><td>05/21/2020</td><td></td> [facility] Medications Medication Brand Name Start Date Product Form Dose Route Admi nistrative Instructions Pharmacy Instructions Status Indications Reaction Description Data Source(s) Pulmonary Supplies-see sig XX MISC [id number] 12/17/2020 12:00: 00 AM EDT active Exercise hypoxemia S upplemental oxygen at 2lpm with exercise/exertion via nc, please supply tubing, related supplies, gaseous portability.(portable oxygen concentrator [facility] Exercise hypoxemia [facility]. Devices (DURABLE MEDICAL EQUIPMENT SEE SIG) XX [facility] 97 [id number] 12/17/2020 12:00:00 AM EDT active Use as directed. Oxygen at 2 liters via n/c with exertion portable use conserving device . Dx COPD [facility] 7 ACTUAT umeclidinium 0.0625 MG/ACTUAT D ry Powder Inhaler [Incruse] Incruse Ellipta 62.5 MCG/INH Inhalation Aerosol Powder Breath Activated (Umeclidinium [place]) Incruse Ellipta 62.5 MCG/INH Inhalation Aerosol Powder Breath Activated (Umeclidinium [place]) 12/16/2020 12:00:00 AM EDT 1 {puff} Inhalatio n active Inhale 1 puff into the lungs neri ly [facility] Albuterol 0.21 MG/ML Inhalant Solution A lbuterol Sulfate 0.63 MG/3ML Inhalation Nebulization Solution (ACCUNEB) Albuterol Sulfate 0.63 MG/3ML Inhalation Nebulization Solution (ACCUNEB) 11/27/2020 12:00:00 AM EDT 0.63 mg Nebulization active Simple chronic bronchitis Take 3 mLs by nebulization every 6 (six) hours as needed for Wheezing [facility] Simple chronic bronchitis [facility]. Devices (DURABLE MEDICAL EQUIPMENT SEE SIG) XX [facility] 97 [id number] 11/12/2020 12:00:00 AM EDT act gabby Chronic hypoxemic respiratory failure Use as directed. Portable ox ygen concentrator with tubing and nasal cannulae to be worn at 2 lpm oxygen with exertion. [facility] Chronic hypoxemic respiratory failure ropinirole 2 MG Oral Tablet rOPINIRole HCl 2 MG Oral T ablet (REQUIP) rOPINIRole HCl 2 MG Oral Tablet (REQUIP) 10/01/2020 12:00:00 AM EDT active Restless leg syndrome TAKE 1 TABLET BY MOUTH NIGHT LY( MAY TAKE ADDITIONAL DOSE IF NEEDED)* MAXIMUM DAILY DOSE IS 2 TABLETS* [facility] Restless leg syndrome lidocaine (XYLOCAINE) 2 % urojet 20 mL [address]-4 11:00:00 AM EDT 20 mL Urethral completed 20 mL, Urethr al, Once, Wed09/11/20 at 1100, For 1 dose [facility] Medication administered onsite Albuterol 0.21 MG/ML Inhalant Solution A lbuterol Sulfate 0.63 MG/3ML Inhalation Nebulization Solution (ACCUNEB) Albuterol Sulfate 0.63 MG/3ML Inhalation Nebulization Solution (ACCUNEB) 09/09/2020 12:00:00 AM EDT 0.63 mg Nebulization active Simple chronic bronchitis Take 3 mLs by nebulization every 6 (six) hours as needed for Wheezing [facility] Simple chronic bronchitis Lovastatin 40 MG Oral Tablet Lovastatin 40 MG Oral Tab let (MEVACOR) Lovastatin 40 MG Oral Tablet (MEVACOR) 08/01/2020 12:00:00 AM EST 40 mg Oral active Dyslipidemia Take 1 tablet by mouth nightly [facility] Dyslipidemia 12 HR ranolazine 500 MG Extended Release Oral Tablet Ranolazine ER 500 MG Oral Tablet Extended Release 12 Hour (RANEXA) Ranolazine ER 500 MG Oral Tablet Extended Release 12 Hour (RANEXA) 08/01/2020 12:00:00 AM EST 500 mg Oral active Take 1 tablet by mouth Two Times Daily [facility] Albuterol 0.21 MG/ML Inhalant Solution A lbuterol Sulfate 0.63 MG/3ML Inhalation Nebulization Solution (ACCUNEB) Albuterol Sulfate 0.63 MG/3ML Inhalation Nebulization Solution (ACCUNEB) 07/09/2020 12:00:00 AM EST 0.63 mg Nebulization active Simple chronic bronchitis Take 3 mLs by nebulization every 6 (six) hours as needed for Wheezing [facility] Simple chronic bronchitis carvedilol 6.25 MG Oral Tablet Carvedilol 6.25 MG Oral Tablet (COREG) Carvedilol 6.25 MG Oral Tablet (COREG) 07/03/2020 12:00:00 AM EST 6.25 mg Oral active Take 1 tablet by mouth Two times daily with meals [facility] Enalapril Maleate 5 MG Oral Tablet Enalapril Maleate 5 MG Oral Tablet (VASOTEC) Enalapril Maleate 5 MG Oral Tablet (VASOTEC) 07/03/2020 12:00:00 AM EST 5 mg Oral active Take 1 tablet by shaw th Two Times Daily [facility] 7 ACTUAT umeclidinium 0.0625 MG/ACTUAT D ry Powder Inhaler [Incruse] Incruse Ellipta 62.5 MCG/INH Inhalation Aerosol Powder Breath Activated (Umeclidinium [place]) Incruse Ellipta 62.5 MCG/INH Inhalation Aerosol Powder Breath Activated (Umeclidinium [place]) 05/16/2020 12:00:00 AM EST 1 {puff} Inhalatio n active Inhale 1 puff into the lungs neri ly [facility] Albuterol 0.21 MG/ML Inhalant Solution A lbuterol Sulfate 0.63 MG/3ML Inhalation Nebulization Solution (ACCUNEB) Albuterol Sulfate 0.63 MG/3ML Inhalation Nebulization Solution (ACCUNEB) 05/08/2020 12:00:00 AM EST 0.63 mg Nebulization active Simple chronic bronchitis Take 3 mLs by nebulization every 6 (six) hours as needed for Wheezing [facility] Simple chronic bronchitis Spironolactone 25 MG Oral Tablet Spironolactone 25 MG Oral Tablet (ALDACTONE) Spironolactone 25 MG Oral Tablet (ALDACTONE) 05/03/2020 12:00:00 AM EST 12.5 mg Oral active Take 0.5 tablets by mout h daily [facility] Albuterol Sulfate HFA 108 (90 Base) MCG/ ACT Inhalation Aerosol Solution (PROVENTIL HFA) 1040-1755-19 04/10/2020 12:00:00 AM EDT 2 {puff} Inha lation active WheezingSOB (shortness of breath) Inhale 2 puffs into the lungs every 6 (six) hours as needed for Wheezing [facility] Wheezing SOB (shortness of breath) Furosemide 40 MG Oral Tablet Furosemide 40 MG Oral Tab let (LASIX) Furosemide 40 MG Oral Tablet (LASIX) 01/11/2020 12:00:00 AM EDT 40 mg Oral active Take 1 tablet by mouth daily [facility] Furosemide 40 MG Oral Tablet Furosemide 40 MG Oral Tab let (LASIX) Furosemide 40 MG Oral Tablet (LASIX) 12/27/2019 12:00:00 AM EDT 40 mg Oral active Take 1 tablet by mouth Two Times Daily [facility] Insurance Providers Payer name Policy type / Coverage type Policy ID Covered green party ID Covered green party's relationship to garcia Policy Garcia Plan Information MEDICARE [id number] SP [id number] Medicare C [id number] SELF [id number] A Medicare C [id number] SELF [id number] [id number] MEDICARE A [id number] Self [id number] A DME Jurisdiction A [facility] C [id number] SELF [id number] MEDICARE [id number] Ruth [id number] A MEDICARE [id number] SP [id number] A MEDICARE A [id number] Self [id number] Medicare C [id number] SELF [id number] C96 C [id number] Ruth [id number] AARP U [id number] Self [id number] MEDICARE A [id number] Self [id number] A AARP UHC Supplemental F [id number] SELF [id number] UHC AARP Supplemental F [id number] SELF [id number] UHC AARP Supplemental F [id number] SELF [id number] UHC AARP Supplemental F [id number] SELF [id number] C AARP Supplemental F [id number] SELF [id number] MEDICARE [id number] Ruth [id number] A AARP O [id number] S [id number] [employer] OPTIONS [id number] SP [id number] DME Jurisdiction A MOIC C [id number] SELF [id number] [employer] Options Medigap Part B [id number] Self [id number] Medicare Natl Gov't Servi Medicare Primary [id number] Self [id number] AARP S [id number] S [id number] MEDICARE P [id number] S [id number] A SELF PAY 2 UNAVAILABLE 1 UNAVAILA BLE MEDICARE OUTPATIENT M [id number] S [id number] Problems, Conditions, and Diagnoses Code Display Name Description Problem Type Effective Dates Data Source(s) J47.1 Bronchiectasis with (acute) exacerbation Bronchiectasis with (acute) exacerbation Diagnosis 03/28/2021 01:41:[address] [facility] C67.9 Malignant neoplasm of bladder, unspecifi ed Malignant neoplasm of bladder, unspecified Diagnosis 01/09/2021 11:58:[address] [facility] I42.8 Other cardiomyopathies Other cardiomyopathies Diagnosi s 01/09/2021 11:57:23 AM T [facility] N62 Hypertrophy of breast Hypertrophy of breast Diagnosis 01/09/2021 11:55:00 AM T [facility] J96.11 Chronic respiratory failure with hypoxia Chronic respiratory failure with hypoxia Diagnosis 11/12/2020 10:18:[address] 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 Diagnosis [facility] Encounter for therapeutic drug level mon itoring Encounter for therapeutic drug level monitoring Diagnosis 09/24/2020 12:10:35 PM EDT [facility] E66.9 Obesity, unspecified Obesity, unspecified Diagnosis 09/24/2020 12:10:35 PM [facility] Surgeries/Procedures Procedure Description Date Indications Data Source(s) XR CHEST FRONTAL AND LATERAL 46746 <td>XR CHEST FRONTA L AND LATERAL 46976</td><td>Routine</td><td>02/26/2021 1:17 PM EDT</td><td> Bronchiectasis with acute exacerbation</td><td> </td> 02/26/2021 01:17:00 PM EDT Bronchiectasis with acute exacerbation [facility] Bronchiectasis with acute exacerbation NATRIURETIC PEPTIDE <td>PROBNP</td><td>Routine</ td><td>01/09/2021 12:09 PM EDT</td><td> 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</td><td> </td> 01/09/2021 12:09:00 PM EDT Chronic combined systolic and diastolic congestive heart failureOther [facility] 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 LIPID PANEL <td>LIPID PANEL</td><td>Rout ine</td><td>01/09/2021 12:09 PM EDT</td><td> Other cardiomyopathy Obesity (BMI 30.0-34.9) Fatty liver Dyslipidemia</td><td> </td> 01/09/2021 12:09:00 PM EDT DyslipidemiaFatty liverObesity (BMI 30.0-34.9)Other ca rdiomyopathy [facility] Dyslipidemia Fatty liver Obesity (BMI 30.0-34.9) Other cardiomyopathy COMPREHENSIVE METABOLIC PANEL <td>COMPREHENSIVE METABO LIC PANEL</td><td>Routine</td><td>01/09/2021 12:09 PM EDT</td><td> Other cardiomyopathy Pacemaker reprogramming/check Obesity (BMI 30.0-34.9) Fatty liver Encounter for monitoring diuretic therapy</td><td> </td> 01/09/2021 12:09:00 PM EDT Encounter for monitoring diuretic therap yFatty liverObesity (BMI 30.0- 34.9)Pacemaker reprogramming/checkOther [facility] Encounter for monitoring diuretic therap y Fatty liver Obesity (BMI 30.0-34.9) Pacemaker reprogramming/check Other cardiomyopathy CREATININE BLOOD <td>CREATININE WITH GFR</td> <td>Routine</td><td>01/09/2021 12:06 PM EDT</td><td> Malignant neoplasm of urinary bladder, unspecified site</td><td> </td> 01/09/2021 12:06:00 PM EDT Malignant neoplasm of urinary bladder, unspecified sit e [facility] Malignant neoplasm of urinary bladder, u nspecified site PROLACTIN <td>PROLACTIN</td><td>Routin e</td><td>01/09/2021 12:04 PM EDT</td><td> Gynecomastia</td><td> </td> 01/09/2021 12:04:00 PM EDT Gynecomastia [facility] Gynecomastia US ABDOMINAL REAL TIME W/IMAGE DOCUMENTATION <td>US AB DOMEN COMPLETE 52962</td><td>Routine</td><td>10/03/2020 10:32 AM EDT</td><td> Fatty liver</td><td> </td> 10/03/2020 10:32:51 AM EDT Fatty liver [facility] Fatty liver Results ID Date Data Source [id number] 04/16/2021 03:02:[address] [facility] CT THORAX WITHOUT CONTRAST [id number] RE SULTInterpreted by:Bob Villarreal, MDCT thorax.INDICATION: Chronic [...] rce(s) Supporting Document(s) ID Date Data Source [id number] 04/08/2021 12:11:[address] [facility] Name Value Range Interpretation Code Description Data [facility] rce(s) Supporting Document(s) Progress Note [facility] TAVBRf9xGwNTRuHi98/AVNylPZSok8UvXSjuHPz5FKzmGHKhR8QyDKM8mD9hOBG3KKzNVlAnUnVcKBRs lbm [file] R3pgKrMPusXMD8Ry5ZDHKSI4YTCo== ID Date Data Source [id number] 03/30/2021 12:50:[address] [facility] Service Cmnt XXX-Imp : NoneGram Stn XXX : 2+WBC'S Seen.No organisms seenMicroorganism XXX Cult : Indigenous microorganisms. Name Value Range Interpretation Code Description Data Samira rce(s) Supporting Document(s) ID Date Data Source [id number] 02/26/2021 04:55:[address] [facility] XR CHEST FRONTAL AND LATERAL [id number] RESULTInterpreted by:Marlen Gordon DOINDICATION: Patient with history [...] rce(s) Supporting Document(s) ID Date Data Source [id number] 02/26/2021 04:31:[address] [facility] Name Value Range Interpretation Code Description Data [facility] rce(s) Supporting Document(s) Progress Note [facility] ENUVMq9nYgKXNlBq68/SSVmgNWPrz0VzKZpaDSs9IHpgLQSvP8GnZZW7lE8dXRX9GGtINaJqLgHcBDWo lbm [file] ICAgICAgICAgICAgICAgICAgICAgICAgICAgICAgICAgICAgICAgICAgICAgICAgICAgICAgICAgICAg ICAgICAgICAgICAgICAgICAgICANCiAgICAgICAgIC AgICAgICAgICAgICAgICAgICAgICAgICAgICAgICAgICAgICAgICAgICAgICAgICAgICAgICAgICAgIC AgICAgICAgICAgICAgICAgICAgICAgICAgICAgICANCiAgICAgICAgICAgICAgICAgICAgICAgICAgIC AgICAgICAgICAgICAgICAgICAgICAgICAgICAgICAg ICAgICAgICAgICAgICAgICAgICAgICAgICAgICAgICAgICAgICAgICANCiAgICAgICAgICAgICAgICAg ICAgICAgICAgICAgICAgICAgICAgICAgICAgICAgICAgICAgICAgICAgICAgICAgICAgICAgICAgICAg ICAgICAgICAgICAgICAgICAgICAgICANCiAgICAgIC AgICAgICAgICAgICAgICAgICAgICAgICAgICAgICAgICAgICAgICAgICAgICAgICAgICAgICAgICAgIC AgICAgICAgICAgICAgICAgICAgICAgICAgICAgICAgICANCiAgICAgICAgICAgICAgICAgICAgICAgIC AgICAgICAgICAgICAgICAgICAgICAgICAgICAgICAg ICAgICAgICAgICAgICAgICAgICAgICAgICAgICAgICAgICAgICAgICAgICANCiAgICAgICAgICAgICAg ICAgICAgICAgICAgICAgICAgICAgICAgICAgICAgICAgICAgICAgICAgICAgICAgICAgICAgICAgICAg ICAgICAgICAgICAgICAgICAgICAgICAgICANCiAgIC AgICAgICAgICAgICAgICAgICAgICAgICAgICAgICAgICAgICAgICAgICAgICAgICAgICAgICAgICAgIC AgICAgICAgICAgICAgICAgICAgICAgICAgICAgICAgICAgICANCiAgICAgICAgICAgICAgICAgICAgIC AgICAgICAgICAgICAgICAgICAgICAgICAgICAgICAg ICAgICAgICAgICAgICAgICAgICAgICAgICAgICAgICAgICAgICAgICAgICAgICANCiAgICAgICAgICAg ICAgICAgICAgICAgICAgICAgICAgICAgICAgICAgICAgICAgICAgICAgICAgICAgICAgICAgICAgICAg ICAgICAgICAgICAgICAgICAgICAgICAgICAgICANCj w/jDIhI1ssrBUtoqZ3U8neVz8NRs7SFT3cf7DyDTQdJYlkxyRwSgiYSpHrEOPePyvERzk6LSnfFQ2ZmN IvS3FgB8QaLXrgVU0IYTZjHIKrzAQaHQEpNDMhWuA1SFBxNTraCA6YnXIgJCpjPVDzJWZtLgTsNWEnST YvLMQuNGQeJZHZWPCrRJXcYeXeITSwRMQwAA5JQWGc R083ulNpUr9OTi8SVhNiSJ6trr8CBtBePBRjBmvYEoy8TJjfAV4AhNOpdBSfEiWaCMIFOeVpX3kuo7Iq LnKqMDHZCYbsCE2Ab1DctWJmUAr+Dl9WLS6oi1OdSIvhAwJfJX2yyx8GLElFAwNoM4LvcJdkNYUtb7rw IORjMW2dkXKjWLX3GY3zpcr2agSGyGXqF0xpNYDSWH VYpPNkBUZjTQ7pUnQdHdYmPIF7FHFqBU2bTFevCD3BCEN4XIulJLZvASIpU3yXAiYwVMAlWCDupEjcLE 0GFaObZ4CoopLqkPTnKtIvWYUMJo6+VOkkheSlWzaXUyZ4VYUnf5NiVKs5YZ9OTHRiZJinTV8MNKDmcN 3gNGgrSI7EAoEeEXSdZVXDZlIlD80zlUIvHBx5N1Nl YmVkZGVkRmlsZXMgPDwvTmFtZXMgWyBdDQogID4+ID4+YXvqZQ7DAJigbpApXWGhFc6URZAuLVIsYL4a ZDUuZDFiX3J5iHvpAAUMRpZkN5vfabfgFZ0yTZUyR962fTpulhYqBEUbWDKkVt1HSVGvCBD9UQTzzVTo TlBpCLDZORrnSN5QeKPvJGG6gO1aMZbqELVrWXIwN1 qKQsPtpNjlVC84yVxurrPoiWPePBa+Rj0CNO6bt0PuQLi9uzEhARngKEQ5IXbeQPScPACpXIKuVBZ7VG Y7ZVYUWzWgBXPnSJGxDJkvNNZxFQPsoz5XQKGhZOLgVyx0DXOjTNTrQCHdZXdpUHEgQCB1IKniQSLkKA RjBZ8QJnXnMVUyZFUvZCezMPVlXVWguu6VTASuPPFy SoQ2BUFcPHKhDUIxIJenOILpUCHnWQf8FLSnZAGcMC1DDcAdCGGeJBwbCffyVXTiGOZfhq5NWHNhBVJt TuL7ZQKuITMuHXQyPXdrQRCaYQDyNrP9IZNcHFXvHE6YOyGyYFHnEBF1QpKcPFMbSNCbue8FHVApCFYj RQQrPLBcUJLySHGkRDhcTTRyNQN8KfG9CUKfWIKkQI 0VSiKhXECtFEkkFlLnDQTwQSNlyq9SBSMzDJJaIiN1FAUdQAOgGSKxKLybRNSaCZThAcXhLMHkGHLfYR 9YGcJqSQLwChE2SnfoHWKxRIAbty4OMJZrAWWwGxXtZkVyAKSzVCGsPXgeAFQxLGNaKrB1DZHiQIHbVY 8AMiAkZUDyAxE9GUsvJFPlGCGdfh9JIPPkIQIzIgr5 IuCcGEYwKSVpESetWADjHSLrEDX9PVWbBXKvPA1BBqUrNIIuTfTaQZNeIJRmNBFpuh8DASXaTRAmLJN0 UjUgCRNuXBUaVCwbRNRuVPP8SQAqGXZgUKZcEF4LTgIzQOUgDfZgUeThSEVcAAPaqh0AFLIsJPWnJdJ3 XFKkTDNjKZAwZFavQHWbITP7ETU1MLUgLUReMC3KMr TbPHQfNhe4WbLqEQYmUAAzhb0XRZOsNCWnMiB1NAZsLWSxBOXuPMrrJUSkJIB1YVZ2XIOdUVXzLJ1LDh VwCVFdJtqwSLOeCIScWJXuvc6WAZUiVHEeVCodXOYxUXTzPTLuMCirRCByNIZ8Irv8FQVkNUEzUF2XXu YmWJXpGhu4KmbsZUCqLNUoms9WgUOscJljic0DESwM Ii1MqNflQCO9SFgtJp3pwPBxVWYjCDVVSi3EdtAkTOUzMDLZKQopWSMxSSDxReGmGeA8GKFkJmF0WxP1 QZs8FVRfHHF6RSLoVMA8AaT5HVSgECZ8EXVzYYNnULkzFJSuHOL2FeGeUAFcZhR2IEm+QT7aMEh+Pg0K z8BowjX5kzQpMNn6JJS2LX4YAASGQ5BHFh== ID Date Data Source [id number] 01/09/2021 03:30:[address] [facility] Name Value Range Interpretation Code Description Data Samira rce(s) Supporting Document(s) Progress Note [facility] RNLIQx5uZtHKUcQs28/UDYjkJBJlg1WdICarBKu0SCunNJKvE7LaOMV6tB1hHOL2DPrQOxQiUtPsLnJ2 lbm [file] MWMiZLo//1vPsguHIiVYfahiSdhCzEY77yNBeShlV0I/XBAHKQGifEnTCywrUt214ZIuhW9rSFrlrG qrJ1BaZcaPQnNvSMFf5X4gag+ojKoUdsHXTsLePVj3/cc54vheJ6/lc77l0Hqag/j2U12q/mY6Lw1g3w oGCtg4SfIJo4PDOti2B9tBG//Uv1CKg8lDZ3er35pk 8Vr9TZj0l+7NKwx7cIoS2QaKm+t3G5EyQrEf4C4ZvThwxjzOR5kO4tUl0jeV+5rtV4YKCZca5gE9wMkt qaqg/2sEW0417LWcZ00RkSg5z5cun+TiilqX1sk6G+dD8KwHJaYW8FUu7eeu+rF2i3+p7Tf6u+ru/PIECE WORK INSPECTOR/ [file] AgICAgICAgICAgICAgICAgICAgICAgICAgICAgICAg GIRpWLEoKPFeWYHeKVWbFVWgQYBiSPIpEXLjCSGaZTTcQUBnVYBrZHRjSDZrML8TGNExYIArKQWgMMRq ICAgICAgICAgICAgICAgICAgICAgICAgICAgICAgICAgICAgICAgICAgICAgICAgICAgICAgICAgICAg NETcKMJgWMQnSKWoIBKnXKXuZQRiPCXrCFFdRU0EFM AgICAgICAgICAgICAgICAgICAgICAgICAgICAgICAgICAgICAgICAgICAgICAgICAgICAgICAgICAgIC DvYETsDTGpTRLeGAOaFYVuWPEzQLKbVVWyQKIxWYKrHMDaUVQoFY4NTKLxJDWaLQObFUZmMXLtHHHuNQ AgICAgICAgICAgICAgICAgICAgICAgICAgICAgICAg YJDhUNSxYWMaJXKzFBKvSUNzQKNhNEZbLPHnZEChWTLaYQKxEXDfEGYxOPWlMXCmXO2UISHrQDMxPKXk ICAgICAgICAgICAgICAgICAgICAgICAgICAgICAgICAgICAgICAgICAgICAgICAgICAgICAgICAgICAg ICAgICAgICAgICAgICAgICAgICAgICAgICAgICAgIA 0KICAgICAgICAgICAgICAgICAgICAgICAgICAgICAgICAgICAgICAgICAgICAgICAgICAgICAgICAgIC JqEVFwBHTiJBMoBSGhGPZdKFGfWZKfMODnPYBrFBUnHIOvOPNcWPQkIR4YTBQiUWWzYAAxKZKjPQDiHR AgICAgICAgICAgICAgICAgICAgICAgICAgICAgICAg KDVxVHIrJZFzSTXxZVVeJVPeETEbJDRhMXUqWYAqBPHxVULqENWcNPPtSJVsWGNuEGLnMJ6BDPBuPBOm ICAgICAgICAgICAgICAgICAgICAgICAgICAgICAgICAgICAgICAgICAgICAgICAgICAgICAgICAgICAg ICAgICAgICAgICAgICAgICAgICAgICAgICAgICAgIC AsZC0ELXFqUELdAOHlOWSsMMSwGZAvWYSnHXYgEKMxZJJsCPMeAPYtZIQqFKEdNVSmWGKaSDTiZOVbSE YhBVUjYHZxULGbUSStTMGlSHOdTUWfPNBhCOBgFXWaFEUyJHWaGTAaYKYpGE6SGLOyIFXyWIYgBEBuZC AgICAgICAgICAgICAgICAgICAgICAgICAgICAgICAg CIBiPSRcCWZpQXOgPCKxFRFfYWBwFUErSEXmPIAaUMDcJPPrPEWvGKZkQBHvUNGbGLBsHIUpWV3TNC60 eYSms4E3TEXcPL1qmug/Yq0ICEjqabRcrBWvUV6KGlSbXZ9isu5QHdOuPF6psq8TCFqLOtSxF0F8aJQz HBNdCPXPRjPwE45fVSeuLi43GPwdAOGcAyLbIWs0Qy 1PTtUhW6dxVCEqRcE5OIRkYkO5ETNzSyQ4IXVgRjHmLCMpCSFfLKUnPAIGONR1LFNlIqOfUtAxHKSuFS nyVJWUXRDmCIFxXnEsRvPoZXFtCQ1IXUPyE240cbOxGJSAYb2+EUkgsyCfPggPMgYjTCGio1IvNJv7OQ 5HEWLxCmezg0BkHPXeMLYWSDwwUV1UPJY2RJS3XELy Cf6YNAPbX881hsBdCE0PKm6QLhGaZP4lre1HUWVeLHIyIhtLRja3JBtjXQ6QvKMpVVjQxf2ajsJqevGT l0RoagNzoOJTPZ2nX8VbXQGIqAG6TJMJOCGojTQ6NkD8RpCeAlScZLD2GBGhAU8pXWpjQT6BFSU7GOsz DQXoDPFoY0yYHlWhOFKjOFVgpDpeYE0JLdAqT9Cori NnuKX7QbMbDKBYGg9+OQjbxpRbFyrDCvM3GNOmq7OsEIn6JR9MPFPjBHzyAZ9TMWSscG7lCEslPR5SNw U4MZVjIVANTzBhL71mlPJeIEz6D9QpSpSiPEMxKwlcVXCjWEbxZuUkGICzRpVtIOknGV0+ID4+DQogIC 4FXStvixOfXHEjNb5RSLMmRXLdYT2nGOKaGDRnG0B9 yLbmZMVDPxHeC4oqwtpoMR3aGEUsW638bWvookCqFSJnHXVwFj1BULSsFDV4YXWxlSJaNSNrDXAUONnp EZ0KgHAsSEI4wT2gWUyeXSShNJMhE8sDUtDkpHkmUU11rKncunJptCFnMQe+Jc2KQM7ih3MbLMo3opXm AOsvSFA0ZUnsHORhBALdZPGqVEK8CWP1IQTXNrMgBT CbOSGmCUpmTPVyXJAegh0HNCVcHSQ7SYH8LAUaMREfYPSwZYovZJIbIZnmYCYgISIySEDxZR4WHuQkIP SsARJlVTykZHDiITTtdg7TUZWkEGYuIlYcNTKrKNXyHVWdSDoyTOIlCNNdUfEiCVXeCKBhCD8JFeBoUF NzBSC0ZtWpZCZjSOCpxm6MDVCnESIwBdPtVrRaHHZq VRCjTNsmVUScZMQ4HKPsXSDaQHTiDL9PKhHzKBZkLUUjAeBlMVQgMDHdie3IFQGbXSXaOam0MgPkSATk WXKvZZfgXYJlMEG3XAo8BKByPKXkNG6SKtViHVBgNRidEFArLBPiOPRmqv9FUOAcWIQqLCM9SLXvEWVb AQBfMYpjNNEeNQZzJlD1FLPvEVKyLC4INxUiPQSaHj P2QWTuPOSqFVExdg2KPBLsKLRaGvH6VgTeVXXlSBVbVNxfSQAdCPHqMJB9IJDpEHWfSO5PSlXvIYHaUz csPrmuTTOrDQMcjg3XEPDqKLCkRwY7CUFwCWEoDLMcJAihLUZiPLS4DstgFNKxEXUeZS1FDnOzSNQmOu h5ERohFVLmCAUugq9WGFJjUAGaVNAxDYKdXZBkCKQv IWvmFBWiLEXaFoQ5JPEeTNBuQP5KUqBoDXGpRgD2LoGbRFBiADHyxu2IOZLwJVNpAHk7DQSpHZJcTVHa EPyrDFUbOYDbODW6CYYaFCRsLF5QXmDcBXFnAgFgCECjNSFlKZDcqf5QIMKaSORsCzKhPUVgSCPtZKXh LOjfJQZtGNRhCXInKQEiECDgLO8ZJsHjJKJePfE2Nm jdGQXxXYZbgy8USJMrGHS7KcR1IWNhEZKfBGTkELnbIKRdUIS9GoAbFEPwLKIxLW2YVyOtGRYbZqf6AD ZkZSDkEFGvxx0SIECbSUS7TMsmJmXpRQBcKMLxJKlzJDDxFBS5UvzhCOVnNQRaNB1PVhJoLNRiYoa9VF fmEWEaTUNehz2TMXHaHHJ3FDQrXqClRITlWIWpVXpx ODQzFMsqWXvwEPAjBOXqJD6AAaEfNKTuYtDtFtPsISTvYRQubd4XENVvOAY8WSY9NOHeIBLmEZLnRKgy HAExXGicZzeqVJRdTEXcHI8UVdDuZBRgOrZdAWFkYQYvFCFudx5TAENeNUI7TtE2FeDuOCFoZFOvCHiw WLNnOJfrFFXxFZOfBJJvKX0GGxSsJHnpNHBFNvk9QG seR0i9FKC9Uj7PW9Pol1RrLGFgGPTDADuyCD5pqwDbJVEeDf7HV4kVCzuaCFBqWvqqQDm1OuH0FiYqWW F7JXGsZEB3PKIjAHDhTY5zLLC4OXYhLJC7OcvsSko7TGOfPOssLzEiEiZuHWD0VWF7SfPkIZ1FUo4ZIn U6FME0lSHyVj9CNvU4NGCILyYlJN1OZIj= ID Date Data Source [id number] 01/02/2021 01:42:[address] [facility] Name Value Range Interpretation Code Description Data Samira rce(s) Supporting Document(s) Progress Note [facility] XNOZWu5qMzBEQlZr87/NYLwsAEVhc8HePGcfCGh8MYjcEYSgJ2YeAHG1hI1yXPN4VWhIFfJfRxHiJkA5 lbm XzEqoPGcLaPCGwPmoLJbAwBNecEoopsWYuVM8KwTA1QIXpG75nQZKwRUOzZ5JmLYV0BiM+Bj1OSWBbxA RoDL8PXutM4Ccra5l1XC3smP+FvYOmGKWqXODJFMUfNm0J1NrBeXhHHB+EYB1jbpMOhvb690QygyFz3C edKPiq3bLpk/zdJ++OdBgr/31gHc+vPRxuZ7xUPlSI Chen+/99Ek9DCLui/njDns9Y0vwq3yZ+Cj05iaQT1lr1i9BmwpwsK3re4Tyecf50dj31jgzJshJj02mhj [file] CEX5SdDlSOF7KOVdS0ZaQmVdDU7CJe6WMzG7YAU3zQKzXf4QUKytKTAJPzXbXD3SESt= ID Date Data Source [id number] 01/02/2021 12:01:[address] [facility] Name Value Range Interpretation Code Description Data Samira rce(s) Supporting Document(s) Progress Note [facility] ZAPAGi2rMgWAFkWz66/STCsmREEbt3PaBEedKGb9IZglDPYoF0DtMUV7mN1nSTS5EPmPLsJqCdYhNmU7 lbm [file] uAXTQC7FERDqKYhOgLjCghk6W5OiNC8LIlxc// [file] ICAgICAgICAgICAgICAgICAgICAgICAgICAgICAgICAgICAgICAgICAgICAgICAgICAgICAgICAgICAg ICAgICAgICAgICAgICAgICAgICAgICAgICAgICAgICAgDQogICAgICAgICAgICAgICAgICAgICAgICAg ICAgICAgICAgICAgICAgICAgICAgICAgICAgICAgIC AgICAgICAgICAgICAgICAgICAgICAgICAgICAgICAgICAgICAgICAgICAgDQogICAgICAgICAgICAgIC AgICAgICAgICAgICAgICAgICAgICAgICAgICAgICAgICAgICAgICAgICAgICAgICAgICAgICAgICAgIC AgICAgICAgICAgICAgICAgICAgICAgICAgDQogICAg ICAgICAgICAgICAgICAgICAgICAgICAgICAgICAgICAgICAgICAgICAgICAgICAgICAgICAgICAgICAg ICAgICAgICAgICAgICAgICAgICAgICAgICAgICAgICAgICAgDQogICAgICAgICAgICAgICAgICAgICAg ICAgICAgICAgICAgICAgICAgICAgICAgICAgICAgIC AgICAgICAgICAgICAgICAgICAgICAgICAgICAgICAgICAgICAgICAgICAgICAgDQogICAgICAgICAgIC AgICAgICAgICAgICAgICAgICAgICAgICAgICAgICAgICAgICAgICAgICAgICAgICAgICAgICAgICAgIC AgICAgICAgICAgICAgICAgICAgICAgICAgICAgDQog ICAgICAgICAgICAgICAgICAgICAgICAgICAgICAgICAgICAgICAgICAgICAgICAgICAgICAgICAgICAg ICAgICAgICAgICAgICAgICAgICAgICAgICAgICAgICAgICAgICAgDQogICAgICAgICAgICAgICAgICAg ICAgICAgICAgICAgICAgICAgICAgICAgICAgICAgIC AgICAgICAgICAgICAgICAgICAgICAgICAgICAgICAgICAgICAgICAgICAgICAgICAgDQogICAgICAgIC AgICAgICAgICAgICAgICAgICAgICAgICAgICAgICAgICAgICAgICAgICAgICAgICAgICAgICAgICAgIC AgICAgICAgICAgICAgICAgICAgICAgICAgICAgICAg DQogICAgICAgICAgICAgICAgICAgICAgICAgICAgICAgICAgICAgICAgICAgICAgICAgICAgICAgICAg TRMjHRSpWMOfMMUoIJBqFQCrCQMhXLWmWYBwUVEuAPFpSDCnAZJhTYJhGOk4G4apUGDqHKBgSH6uTPy3 Jz8+CEiBWgDqPOP5cwFszN9LDU0ev1MlTHjwSUVyu4 QlULt4AW8ZBTYwKFdtPB6YEPmhkr1GHANjZCKlhQNZt5biXjWhMBO5HAHbUfstPV4DETAtS8srgfInWZ JtPVBTKU1RWbDmQ6XtiX93KFHNLp6+DDvaaaBcFebGJtLlQYOru2XiHOu3MP9KANKjYzndf8YbBwOvJK IOUSruGH1AIJB0HANtNLFcNg3TVUJeN349hhNqGQ1K Bg6ZFqVwJQ1qpv9SSzIiDDGlIwrFXse1UQotVY0BmQFgGQhThd8swoHucpYWm0FvmgCvcEFSdBznXS0n WH6rWXQNWSX9DLonHF6jUJRsWHBpFzA1OUNHDC7DAZHuAHNgwNHqSRPsRLXRPS5RJWxvWNF2LTYuzqIg uABxPLlyNF7TVKLkkqBxSqWnNIHEZTy+Hb2BJK5uj3 AgNImtZPBpOU2mds3DKUaSNxQsZ3Y4uHWmG9H5GMtdFm4JQXTrVIIcVrJwQNECEFvvML3CCM1zdcQ6TR 0LwFWaBTGoMNTwiNGiOQv4R05xfBKmUHylBF5UUQG+Lexa+Hx8RUAQoADEtRWIkGxTnRZFPAmVcS5EoR0 YYc7VjH4YiAU42gPwreeGwDVsxLX7NAO2rNPIqJNVF ZK4VrZZreN1ezwJjDaSgITLWSpDjV61uhOVaRAOlRSGzHFKhWc0YAWDaD6LwhoIiaAuxqbYdAPSiEQOT EO6QERawqzCkiEOfxPyqQT88qQngYM5KEk9FRqFjTJ7zoc4LxMZrPj8VQSRxQI4SVXQgHFOkLQTcRHL7 YPUfIoTpZEusKHGbMWUrZOO0MTItCITuIV6COzEiVJ CdXTmtBOlmVNXgFZNbkd6XEOTjQGZcPWv4XEFwVWRqHHTkINcmQIYhZRZwWLP6HVPsQCLfVL6YBmVgPI MxRZG6NyulMMCcNLEmgc4FIPGyVJCiCIj2FWJmLFRnEQSyTCtmUOOkRCGzLNNfRBYuFQUbOM0AAgNcRM ZhIUZ4UCAtAQNyXQSjxv6MMHHiYRJvKbT0UrGjTRVz VUYoPNfyUCHpXTY2IIV1IEFmMSKdSR2YDlEeJUXvLGNsVjMrQCDvQKVzja1DBMLrTAVhJVAoRqTpLWUb RXBtSHxiUUYdSCH1PJq2URArCITePG3DFoUrQENtWBCrOHAwUMUqYYQudv9JOCQeKGIdZhLmQeXcCUMx CNYyBFqxDNWmOLI9RdXbWRYiWPNoCB6IRrNlYCBgII T4JErcGLSuBNVcmq2TMUExTIXdBmhkBdCbFLYpGJUoWQcqHUOnIBR4KBK5HPWzODBgGD0BTcOhEFVeFI apFSKdVLImZFQqfp0UAGSzOPGeUPEwSWHzUWPyDEVoUMfbTCXfBNB1QPL2JPGxPDAaAI7JAnKfLOEsTq CaCCFuDOZxUPDuwf0FHDYrCXWuRRQ2HgUjUUEzHFXh AHv4pjPeiJCcSXy6QJ4HD5ExmgRgWdGBQr0Ps844MIM2YWJpTd3QD4xqRc2sYQHhFREKDu5OHLr2JJH7 SmIhJNSzUPY1F1BkNSw1KKF2DUYtUMduTFP8QnY+HSveBXH1SkXdTyAjPGK1DZA9LZFqCMpdYTCtOPZj SElfVq8kBMAZAg3+MTvemKLnfXxqHTZNVbTeMgh8LMrxRPBWCw5T ID Date Data Source [id number] 01/02/2021 11:21:[address] [facility] Name Value Range Interpretation Code Description Data Samira rce(s) Supporting Document(s) Progress Note [facility] VMHBMg8pUyHCCeAs90/JOSuxSITsg3IfFMelYNh8FPjcHDDlF1NpHPW6xL8kPYM6CKxQLvMcPxYyAvN8 lbm [file] ICAgICAgICAgICAgICAgICAgICAgICAgICAgICAgIC AgICAgICAgICAgICAgICAgICAgICAgICAgICAgICAgICAgICAgICAgICAgICAgICAgICAgICAgICAgIC GpCBCnUALgZZ1TIUTgETVcMPWfUOCdZKToOFVtSAYbDVGwFIWeREDkXKCyXERoGLQpLFExBWMyWNQnJH AgICAgICAgICAgICAgICAgICAgICAgICAgICAgICAg GFFwYGFvIGXaLCGaVJMgAWMjCM0LKGEkPTPfYJElVCZvJDKlMTUvKDYsJSWkHTJtEOAjKPOcGWFgCRUz ICAgICAgICAgICAgICAgICAgICAgICAgICAgICAgICAgICAgICAgICAgICAgICAgICAgICAgICAgICAg OC4HSCYnGSWtLEStVBYqUHTmWYFkYDVuLATmKHAtCL AgICAgICAgICAgICAgICAgICAgICAgICAgICAgICAgICAgICAgICAgICAgICAgICAgICAgICAgICAgIC WtOCLpSVFgSBIaYA1XGVIqIFQfAILqABJkXRLmZCHnDOIaSKUvHDZfZEXiKWEfABEqHSTwALAcIPFgXL AgICAgICAgICAgICAgICAgICAgICAgICAgICAgICAg TSCaCADeFIRsSDVfBVAbJMIiGYLtVI0AILXzGLJwKFFxXHVcQCRzIVXlSFPjAXHzZWNzZRMwYPScAGPw ICAgICAgICAgICAgICAgICAgICAgICAgICAgICAgICAgICAgICAgICAgICAgICAgICAgICAgICAgICAg FYLmWQ1WTDRaOJHiRVYjTDZnUMDkHQKfFAUkRISpUV AgICAgICAgICAgICAgICAgICAgICAgICAgICAgICAgICAgICAgICAgICAgICAgICAgICAgICAgICAgIC NfWBFiCFChMIWbKSFpMF9LEIHbNFFuMVJmWFVzMWYqWAOfPMKpEWMnOKXfRGWrFLRlBFQxEREnIXZjDU AgICAgICAgICAgICAgICAgICAgICAgICAgICAgICAg ZAUfBQMnDJEbTRRlYFXbANDiJBHfTDWjKA6PHIEnOBQgNPXfSDVwAOFvFQOlZYIjUWCyUCLyGSRwJRSl ICAgICAgICAgICAgICAgICAgICAgICAgICAgICAgICAgICAgICAgICAgICAgICAgICAgICAgICAgICAg DNBiVUEnDS0SPB29wITxy1S1JEFtIC2iuqy/Pg0KDQ twzqZdpGOhWS5UIqCxVU3tti9JJaVkLQ2wka7CKAzENwMyW7U1yWXfYUKdIWIFQfNyI83mRDapAn26CE xbXJJjYyPqXKf4Wj6KVoDiF7wwKHPzXfV2MZGmQfWgBXoaCW8Ok7QamJBpFJi+Mh7PDC7xo2DzSQegXV AxZY2fri6WFDzSFbWgY6QgdvQ7SOUlENVwLl4CGQMv RVJriQVjTXGxBOZNWnDpA8IyoN14UVLTJu1+GZwyykTlUhbUNvIiWAJjh7OxXXb0TK9HDJWxKQw0sGZz WUPqY6Gwi1AfAe40TLFtIkzhBOLke7LbUJh4kOVhfVQySU7TIIWiQDQjdXP0IpyuFgVkBWToIBsuWtXU AHiETsRkC7Bpi0IwKmQ7FBCgUoVqJSxcOFYpHcJ9CQ 46oMrbYY1PYVRpZUUdYM01XEJ6BGFlZy1YDe3WLkWjRU6qui1JTuMmWFOaQjnEFyj4RJybBI6DzIEgX4 AxsINkz4kIWsNlM5QFEMC8YSDpVq9DXUNaUeDrMJHcSRpaST1gEUMuKHUYiSpjwnN2HS5YWU3fdgCfGX 5FEmPwFz0jXq0CDhAaB5EkS9TvAZHdKMGFRKyrMR4P IKaaJU2oLK6Tk3NMcVKaiV3bff3SKONkVGMiQullnq9PYwpdD1X4kFhsAMDwDKbqKQWNVOreOU9SHUNv HML2QRWhOMYuOUVYLeEcJ52uCB7QJ2Kft71gLhC5JZWiOeVdLQinKQ83bHcusmJcfNXsjSfcIR1IVi3+ DQplbmRvYmoNCnhyZWYNCjAgMjINCjAwMDAwMDAwMD OiGrU0FuDhFl4HXBSgRRKaNIXmAkShUDGkVWQqUFtdXYXgZOV1TUXvZGByISNlJO9IPrWnCHRhVNgaKt PbGTQhKUChou8YWRYdEHZmGIW5KzDlAPZqDFEcPDtyIFUyKSPoCbI8FMKyINHaVT3SOjBzKBSrQST5Qb UsBTAoLDKybw1ZBICyLWVjAdJcVFLlXJVcYCNhLZig EJTaFVQkIaR2ORMpBIHlDV7VAyPyEFZyEQN6HYgaHSZlMTYmqu7MEUCnWZJgZZr7MRNfBGPrACBjFGts IZXqNFC7OAG9YKXcSSUoKO7ZGjYiAIOdHGFbQQYaJIHqVRIkqw7WQLQfGIKtSfYxWUFhLYYeKPZpPIzb EHJyTDN0BSY8NIVqWDHzUJ7PBfHkDLAhXUmeHcWeTY TeOMMyli5XVNUsOGMwBhS8SKZcEXAmTIBhMIflXPVbNPV6KZCwIPBvUHNdEF2MKbReQJCmAZd5XwUoED MdZZBzyu2KPGHaYBKzLPG8BNAyBDNwVBDjAItrGIDrBVF6DTU2BFIoDHBtOH8TGpEqOXOlBZw7AVKzFN JrYYRdra5TjSKskPaapv1UTRgTBn4HbGaqXSFiZRys Uw0vsZCrKBHxIGZITr4JgxYbACDlBRIQKYkhDAEbJWS2AASvILdmZJI0PIO6AYY2PPH5Y1FwLje7AkGv XJW6EyJ8PabyLfXwW4KxGNj5PZW6TRFkUURsZCMdSXdqKrJ3QrK+XX1qUWt+Kb6Lp5SicdD5cnGnHAwz JWgvXL6ZQTSGP0BNLa== ID Date Data Source [id number] 12/27/2020 10:12:00 PM EDT [facility] Name Value Range Interpretation Code Description Data Samira rce(s) Supporting Document(s) SARS-CoV-2 (COVID 19) NEGATIVE - SARS-CoV-2 (COVID19) [facility] This lab was ordered by [facility] a nd reported by [facility]. ID Date Data Source [id number] 11/18/2020 12:45:[address] [facility] Name Value Range Interpretation Code Description Data Samira rce(s) Supporting Document(s) Progress Note [facility] OOIEGr3sFcBJCqEh59/CUFzzZAYva5MuCWlvGNj5FYdrRFQsZ8SkOBN5uT8uDKA9QApAJjXbOzGcGLZ8 lbm [file] sbFYIWAuQ6SGG5QOoyOINVOb9P ID Date Data Source [id number] 10/03/2020 11:28:[address] [facility] US ABDOMEN COMPLETE [id number] RESULTInt erpreted by:Johanny Ramey MDULTRASOUND ABDOMEN COMPLETE.INDICATION: [...] Ferris's sign was not elicited by the grades 1 through 6 teacher. The common duct is not dilated in [...] rce(s) Supporting Document(s) ID Date Data Source [id number] 09/26/2020 09:45:[address] [facility] Name Value Range Interpretation Code Description Data Samira rce(s) Supporting Document(s) [facility] AZROHc2jKyAWZhCxm5SeFaZqXMZiQW9nrur6U2Z6rFFrV1HopYWal2tdV0KkB3QyHXIpVFBHBZ8LoURp jb2 [file] 3EL71mMZp25fuirzt6tql2Fm++3+fdfzu+P2i868++mwcuIQqq4qF2lLE9Zdt7SaV58WqtTP/Rose Marie/LLv [file] IjgPSJr9FnWx903+wloo3KS//y93//5mBHNkcPT/HPB/mortgage loan specialist+CATIOGWYMpYsGdPkToR7YspOdBwhmmdOq ArHY768RiRKQJFcvlXKPAvuXQWwI3ZIUCIYM5NYyNG eCZTyoHxOhYERfnyqqKXZWzEvnFaHDTYbOa8ePwTNSRDiRJWR4LZEqwBEOodOrYhR5NQPfZTBUhDqcDs HjJLAodU3pkVPUsZq0dRQaHOWtmSuSnNYJPldt7VSoaT9kxUfvCEHYCISpRY0afYrzAwVlYD+c6TbdK0 ewM1ZW6HYpVeWbu7seAS0c4wsD9yLJo6XPpmvY7aHP CIhHM5Y0eJHddqX0QJATkK5uyJCG/p4irnX4K6vvtI00ESyx4G9ZLWnbNlNEpjSQyX11Ij+5QswuwTzY BMTq6Ay8Z9bfgTY/p22LDRbfiXPqSeuMTnLkjWAe7BVOZT7B7BOiTX4yV161deEY2FnBUzZImo09VmeS c9+WTEOTZPP/u9PjxJVAy+wqIW9+R9xZMwxD59WuUa J4V78gBM4q3Dv9jYR/VlK8HdBmlcCzGEXbDSJ/Zwy9J4AKDRpYklJijFUijaky0pma3Lhj/24tKWGj9l oC9OUP3ivwmoc3B7JxJddQ9cmH4NDvHAn83ei4a4OkVFmjiUsnP3ph4q4WpnAzfYZx4gaGl8Jj+9C8mS 1n1wr2H73D1heOjBzDRqUk/6/c22Xf95Zs83Sa22Dc [file] exmt0bAg97+Wv3z7/MWL91+9fX76+sj7l1NTL86+4u 1FbwbsiNk69739iemGwl6zn7v/vpa0f562CKU16i/+wW3G5/39u65sb40q1y5/vdRpD5a248dvwm/961 health information internship/JDaDs+6woyZ1kj8Vko5wH0n3xzUu13/S+FxXb9MQjjU9/g3pXu55gMo0233T9+//1iJ2AS7320/P rdebs+Mbd7Hc9nHumb3iPnE8/nQ138k+xYs5ooyoy2 /vnt0ye/b0z12Mfrx/lmzq7Hq40pv/nb/89oPj1//ouDf0Lz0iNMF7+gP/34p+9+/uExYf/9b09f/PTT f/z525//57ff/urp3Yf/+Ot3T19++OOHpz/8l1H/8M9PP/031G0hg/GVtz9u/WNrTy+++SkM3lmIn+LS f/jhN3/RlveyvGzH4/HCX9d9xaU2jmB+fPZ/5ap/+q +r+2jDz4dlysdh/Y4428fR3jOY+pAda/f9BjB18mCfNv3aeyuf2/D9g2l95E++/nkvA44FPrczch+9f/ Ruv31qJM5q8x0/ffb89l+jq70KIE3/zrH+xH+tR7qFqw2/oihbfw9lkA14210e4cWX8U//vPb1tz/+9d dPP3/33447yfdgFHl337HpdP58n6soQBQVzmoWW25+ fffjX7/9+X9/+U8aMU8g+4+vc2zgw0f+Ic3l2tkACFl5/ruffvxl/U5C/ON9cSE92dl3e/nd+2900vdR 5PpDb/eZNoq19v6d2aHf841jT/rX9UPmQpLwqS6dD//gA3nAa9238A1O982+/J9v//Z5e7A2sbo+SKzP PzrJio+XcNWnv/38h3/+jm5bPU85+F30jkr40sRQ// zmw1+++/Dj3//+Goa3P/50v1ezvbmu2V/uiC5//oJ9F5b9JgsFYi3B3/O8448b9c+/++bRyMe//fzNm7 dPj6/Ob3/7i/vd8wv3/+Lpq6Ywb1/5/ZE7T/8yTP8P5u3//I9vn+wgwj566vt1wcCN+fK+O19efD+fnh /Wilfred+eP33/jF0LFiQ31CyvueO2570qM8/etgp8rrWO 8pJUJH86+yLIP92c1493uvxR1LnNld2W1jflzZnzeeWtmCYnXK1RXE0kj1WeCaX2CEKjj6OiELidWIh3 kUAmVXvqdbCnl0QqhoxoI8Zct1PcXyClPBXiKoQkMxb2BOFaHpC2lAPaLdXzQRXhA9BuKPRvEsD1RmSa ZNOGRD1HCWFlbdNaJoHwDSO+RkQgZU5mralkZWIxu5 DhRUveJZvsIXNaJ1U0vEjvXZFlO0RiiZ09CVFxH6RnyrX9PCY3IGUpZuCwGNValBHpALLeZKO+PmVuZG 7dzbqjPJDdo0QbDNinRMV2hD9rILfZQJWVAMnANNfyNoE6q77dcgWUTSIxMAQwYJ5JtqCmrGtpvyLdmD ZxDTH9SoGrWUH0FBArTEL3DZXFRPFiIPRyTADqUGMo O6OlwZgtQIwRWAIWEIxNMMfuEjLyp7O9LFDiufQUSZJEVlFOBELSEhrmDZILB1oOUGT1KHGfHlBcDR2G lHNjDYU7SXiZTTRFUSwQPJowHzSwb7Q8XUAzE2JfVJRvvqWcYHGEDWhoJclzIJ2foXvfrskuZ0LtiABr RXMOJPUbAPCyUKOyQUKrU6Yhf2S7U3OgFMcUHMVUKY kGNFsyDeT8a50isoUEAKMnOCTbDA2+TN4qd2NoZe8TFRKuAL5tpcq1QW4KcCPaEW6XSFlihxHwO6ezlu PwKcOzYKCJEP7bI2HwbT09ZRF+UeDmST4vdhz7fmRyQcSoUCOjXLJzVMQuILqgRSHmIBKvFIIoHPN5SE X7EZSjRkPhHOWyZKAmWFqdTAAbQLDxxtGJOAAzLIU5 Bpg4HNIxWZCsKXSrYBlqSVHhNOOpSSP2CUNtNVCnLS0mFbRxRYFoMONnCUYoDrZ3YjYaDfBNUQNwFVZg QHSvJmVrQUCgJRKvVGthOXXhPTMmSEg7PWVxXMYfZJ2nYpHlHZJqIFAaQPUuVGOoWEVlxrIOYFKdOBNz ZLU6QUMwEHGuIZFcBHkrEQEcIEHeDIZ7PXLiDDZqWC 3eOgBfBTNcLRL1HiPjKHNjOLCzblAMZNCpVMLoPMF6TSRvCWSaXNZeIRdiRDBxAXLoFbT7VKUeCDRtSU 6sCgIaRAWxFCC3DXUmIRQrRJKmcxSWAWQcJHBhJRr4IwOrRWXpUNHlZOepIGAlRMOvSLdqQIPdBOMtDJ 4aRnTiIOBiVJUuFXExDHBeTGSzumTOLQPcBRVgMEH8 AsBuJVWvZIFlZZeuNSUcHYNgYXW7EONuUOEoKE3hJuPgTBCcLLI1HjxeSBSlWFOdjrSQKUPaYCXgSSRb IMZfLMXqVBZeWKzsTNShDXJfGqZ4CYMlGDQxDR0tKiOrMJVnDIH2JBCiUXIwHDBzbpVVICUqPQTgVOHl YIU5CHIgPEBoXVx8phCceAPhRtv8Ci6JjBkbRHC1Jw 1RdeVaLYArBVREIt4Rp692ZJBvPRMPIoy+VtihkRPdqJegEXLFQXCcYdHPJCRTT8T= ID Date Data Source [id number] 09/24/2020 01:56:[address] [facility] Name Value Range Interpretation Code Description Data Samira rce(s) Supporting Document(s) Progress Note [facility] NERLCe7lLhOANeYh95/PRJfoDTFgu5HeDZjnUYy7AObrWJGdY3QrODY1rG8gKQX9WScXKfMiObKfEqZn lbm [file] AgICAgICAgICAgICAgICAgICAgICAgICAgICAgICAgICAgICAgICAgICAgICAgICAgICAgICAgDQogIC AgICAgICAgICAgICAgICAgICAgICAgICAgICAgICAg ICAgICAgICAgICAgICAgICAgICAgICAgICAgICAgICAgICAgICAgICAgICAgICAgICAgICAgICAgICAg ICAgICAgDQogICAgICAgICAgICAgICAgICAgICAgICAgICAgICAgICAgICAgICAgICAgICAgICAgICAg ICAgICAgICAgICAgICAgICAgICAgICAgICAgICAgIC AgICAgICAgICAgICAgICAgDQogICAgICAgICAgICAgICAgICAgICAgICAgICAgICAgICAgICAgICAgIC AgICAgICAgICAgICAgICAgICAgICAgICAgICAgICAgICAgICAgICAgICAgICAgICAgICAgICAgICAgDQ ogICAgICAgICAgICAgICAgICAgICAgICAgICAgICAg ICAgICAgICAgICAgICAgICAgICAgICAgICAgICAgICAgICAgICAgICAgICAgICAgICAgICAgICAgICAg ICAgICAgICAgDQogICAgICAgICAgICAgICAgICAgICAgICAgICAgICAgICAgICAgICAgICAgICAgICAg ICAgICAgICAgICAgICAgICAgICAgICAgICAgICAgIC AgICAgICAgICAgICAgICAgICAgDQogICAgICAgICAgICAgICAgICAgICAgICAgICAgICAgICAgICAgIC AgICAgICAgICAgICAgICAgICAgICAgICAgICAgICAgICAgICAgICAgICAgICAgICAgICAgICAgICAgIC AgDQogICAgICAgICAgICAgICAgICAgICAgICAgICAg ICAgICAgICAgICAgICAgICAgICAgICAgICAgICAgICAgICAgICAgICAgICAgICAgICAgICAgICAgICAg ICAgICAgICAgICAgDQogICAgICAgICAgICAgICAgICAgICAgICAgICAgICAgICAgICAgICAgICAgICAg ICAgICAgICAgICAgICAgICAgICAgICAgICAgICAgIC AgICAgICAgICAgICAgICAgICAgICAgDQogICAgICAgICAgICAgICAgICAgICAgICAgICAgICAgICAgIC AgICAgICAgICAgICAgICAgICAgICAgICAgICAgICAgICAgICAgICAgICAgICAgICAgICAgICAgICAgIC UjPJGtDJt9R0omXXIxYYAiUX4jGQy2Ck9+DQoNCmVu YPZ0pbVtgS1RQC0gi6MrYGsiCMZan7AwZGp1NL4QTGDvPPiqGI3BTNnbzh8EKZOkCVAuzFPUb9ijJfPd AKB8DCBwPrphPN8VBGLdY7ocmgSpVHMiLWQLRPrhOVLGSR9CAkTfK8GyaN66YCVPLl5+DQplbmRvYmoN FtLlYNSet6JrKNm0RX9VVIShWnumj2SpRmDpOSAQGK qiMG5YMKA2ASLvAUQiTn2PLZMhY671kgKdZA9OSo2XOoVdQB7rnw0QAtSiKLRtPlfUZob0GMthRE9VxY YyDOzGbc2rliIanpRMe5DbtjNneTZYMZr7fNTrFMDxAB8zg1shprxpPIgsEQSkOEXcHt5nJV9kCYYmJK ZqJrIrNUWSBB1CPOFrBACvgCHoCKCdQLDGZM8CBEzg MMP5CAEdbdEriIDwLNhgKR7MMBRclaIbAdNvKUXGZKi+Ho6QIP3rv7IiICxuPkTwZA2ysj3DQYoMLqYu D8A7mIHwA3M3OFdiQg8ZYLBePYGdWEcdVDFHCJyyCU2FJC0jpwZ3IX0HvQOzIXHfVKQxqOZeBBr3W40u mTMrKHcxLZ9RYYY+Lexa+Ks5LGEGeYAVaYLCbEnZtZO ANOlEaH5YxG9ZKd0GyV1LyWC28jKfrwdPaYWkvMD3CFK3qWHHcZPYOJW3DdCAibB1tpxYqUZGbJKFABj QeW38qxXSiMNCdTRXuMKInJo6MYEEcI0LhwnGpfTjgzwTwQYGgJZVXWN8UBSalihSyhCCdbMhpCZ91xW jiEB6UAl1RFsWrTJ3xmx9NxOMgBj7HQDEcOC1NILFo PHMfARFoRJH5JJEtPxVqFRkxZQSyMONnMJE9YRMvUWMkPR1KWzLmIQEkKxO2DqkfXIGvCLWjpp7EUBUn SVLwWjD1SHFqAIQsKUCjPPhoSOIsRCCbAVJ8JIHjCDAoTL2BXkDwKWZuZOXuXLJtWLHrZKEugo5QIBKc ETBxPDK3HPMmUHKyJCTrDDwuZTXhBWB9RLWpXKCiJG CgPU5CYmCvRGRdTNC5LBHbONGuDHKlba7WOUBhNVLwFhWkSGLyKVUvFFZjLDqaCZKeZEF8EZRqUCDbWN HdFQ3XUvMoCASkMXc5ZTGnJMDaLYKdpv6MERVsUGAcHHf1VVSfYUGzUORlFVasGHLaFYS6GHTuVERpWG AbKU9JXsJlJOBhGBbhVCChUVQyXZUnpz6GJCRgVNYt IZF8KkQkVMWwJESpMXzbOPLyDRApQYLaHDEyUVTcQE7OFgCsDYTiCrUuDtMuIUAxUGUdfg0HEDKmEZZa MPC7UPNmOEVrKPGuGQxqSYChCVOeJuX9REMoJQFyWC7PPdHaJHKjOeMqAKrhTZHkSFAvej0UHGXvXOPp DkK4WjWbNQAyXJWpSBuuXIUvCJLnAKJlHVPqZFSpSS 5OFtXrURZyBmH8BlbsTXCsBPRstu4PlYVzuPmxfb4HSZvZFq0CwHbhAVZ3NHxfIu0fpNNbXjBuGRRAVk 4EomTlLQWxLZIVVRktCZGoTPJ3BRpvJeY5MLDtA8EqCVZdGEG4FARmNEJ4FMN3R5PfHfG1HzubXaN1Am slLZOhL9XsGLApFss8HyWbVAbiHFOtFgF+IF0gDQ o+Rb9Sz0ZrwaG5rjHcCVfwQfdrRj7JCLCFD6HULc== ID Date Data Source [id number] 09/15/2020 08:23:[address] [facility] Name Value Range Interpretation Code Description Data Samira rce(s) Supporting Document(s) Progress Note [facility] FJRIEa3sIxGAIsRx93/XMUugPDVbb6EsZRksRMv6CRepGTUaF7DpRKP2qO1xQJD2YZtNFhCbAqVxNxUf lbm WePqeTCeSyIZIbCpuAKrQpSUinTpznuJWsKP5CyER7BOCoA57vFAAbJRLuD2FxZBU7ZZg+Xt5DGABbwB MwQI3VGoxM0Gvrq3eNBx9b9N7JLYkjrLAui8o3EZNriduJS91sRZuh+4GSaImNJKqUnJz/+/IpasbML1 dpBaoQUFOdnV6fyc0jy2aLWw89deeqXTIfJV831xfK SDGYip/+KEuscbpLz18bi3eB0dOLo9ah+0IlPr3s7gUBodgCLRH259fgJGwHJyzG3Mbb7GH8xdm8X3n7 zK5p9WgOMnJNLcsDK1E8YpGXEvUYzmNIy18BPZ6N7J2N9WdUVv1Tvh2hAlK1qFDsRuLSP+mChnSQUnlZ DlpW2+KRRyMeVPU3fX6dKOUlNx+uwaCgDUddOPnmWQ G/5KhJvO2JYZfjMItXQXoTmDpavvyeX+JoCyYXh9sqOCzkF+41vbXzothHXjdFBnpC9m7oPPyk/YzoYR F81ren2fBc6QF7Iuym26IdXHFBnmikiMS48N3JHa+Dwr7l77o4DH+iaTJKw/i4Vki2kRIDwoUY3aUad1 adDycU5upn3xWlpmbyCWpTHrJcehmBlOlY4N2Tl3fj rXmQ2L0Z+yT0pa1hF7kkFG+ET8123G4HeJz6N1HfnW/Vl3hYjeJUYo1UxgIItk286PqX0zrDwcLvewrc sAuOB04ct2KgngxtxDl4/18voTjLXfVKZifV8xnjZoksgkWk/Leah/hT6caoHtkqF/IPi6CtUKItsZzR1 PMwntB4BXnANrv6GY7wU5Iq+JGdfzTpyBf8DdCN0i6 2pCd9q0hYEtYdxFgjlVPsexHVQlDvjS+isrU9JfybIcLgvgTk6ljQX++OwgS0aKN1Lc4XbqEzjPqggo2 XEkPnPdZwkNjbOFOdOajzNuXnmYFThyuVNX3m73mOIpv7QlwtvVrupJLuAjqAXscuxg5uhi9CgghzkJy eR+Xh9Hh51s+B7LXzt0OREjKFR1Q3Butoct/soNGoG i7PaQaqUMd2HBv4lLsHA8lFjJR4PDsZ/Oh3d8OC499ajyeuruIwvc7j3eZ+/iaXL06w1LrivpVy7wRFo +17PbiT3H12BSQWckFysFNz6j3nWQSEKaAIt4SRQfMm0QTBbSzLJ7jhzDlnJMlKSWLlkjppLWchOS63X BVXePAD2WIauZsNZdy4I1fsYTQWqwA2cjq8aBuk0EM vNTbDlItOHGWbBCOuRdAXiDPf0zLgML4gtPvTbUPd80v5ctp2a4Ls5kJsTh/TVR7gVg32Tw6i09EPp1E 3oNve+28xslei5+74M8bbT8E9y9CA1mdF4fmfXy7Y7gF5js3RZ0wRnl/MMVI41fN7oi4ZrDVFWu+bmX3 48yL50376C41W90aMf1IAsED66yoMNGIKt5EqsT1RZ [file] MwKDKxHmX0OtLiWZz9ZcXnPO2XZk6FGhC0CRO1pIQzRk8PQuOrIiCKDhCxOG2EPVe= ID Date Data Source [id number] 08/30/2020 03:35:00 PM [facility] CYTOPATHOLOGY REPORTName: Jt LYNNEMRN: [id number] Number: [id number] Date: 08/28/2020 00:00Received Date: 08/29/2020 16:53Physician(s): SARAI JACKSON MD MAKHULI, ZAHI N, MD Specimen(s) ReceivedA: URINE, VOIDED NUMBER 3Clinical History:Bladder cancer. See [id number] and [id number], VOIDED NUMBER 3: NEGATIVE FOR HIGH-GRADE UROTHELIAL CARCINOMAComment/ld/calReviewing Cyt[employer]: FREDDIE Mclean (ASCP)Bin English M.D.Electronically Signed By Christopher Damon M.D. 08/30/2020 15:35:47The attending pathologist named above attests that he/she has personallyreviewed the relevant preparation(s) for the specimen(s) and rendered thefinal diagnosis. Microscopic DescriptionThe specimen is composed of benign urothelial and squamous cells. /ldGross Luuwpiwwlhz24 ml clear yellow fluid received: 1 Thin-layer Pap stained slide preparedby filter preparation. This report may include one or more immunohistochemical stain results thatuse analyte specific reagents. All positive and negative controls havebeen reviewed by the attending pathologist and are satisfactory. The testswere developed and their performance characteristics determined by [facility] Pathololgy department. They have not been cleared or approved by [place] Food and Drug Administration. The FDA has determined that suchclearance or approval is not necessary. Name Value Range Interpretation Code Description Data Samira rce(s) Supporting Document(s) ID Date Data Source [id number] 08/30/2020 03:35:00 PM [facility] CYTOPATHOLOGY REPORTName: Jt LYNNEMRN: [id number] Number: [id number] Date: 08/27/2020 00:00Received Date: 08/29/2020 16:52Physician(s): SARAI JACKSON MD MAKHULI, ZAHI N, MD Specimen(s) ReceivedA: URINE, VOIDED NUMBER 2Clinical History:Bladder cancer. See [id number] and [id number], VOIDED NUMBER 2: NEGATIVE FOR HIGH-GRADE UROTHELIAL CARCINOMAComment/ld/calReviewing [employer]: FREDDIE Mclean (ASCP)Bin English M.D.Electronically Signed By Christopher Damno M.D. 08/30/2020 15:35:39The attending pathologist named above attests that he/she has personallyreviewed the relevant preparation(s) for the specimen(s) and rendered thefinal diagnosis. Microscopic DescriptionThe specimen is composed of benign urothelial and squamous cells withneutrophils and red blood cells in the background./ldGross Capidcukbdm65 ml clear yellow fluid received: 1 Thin-layer Pap stained slide preparedby filter preparation. This report may include one or more immunohistochemical stain results thatuse analyte specific reagents. All positive and negative controls havebeen reviewed by the attending pathologist and are satisfactory. The testswere developed and their performance characteristics determined by [facility] Pathololgy department. They have not been cleared or approved by [place] Food and Drug Administration. The FDA has determined that suchclearance or approval is not necessary. Name Value Range Interpretation Code Description Data Samira rce(s) Supporting Document(s) ID Date Data Source [id number] 08/30/2020 03:35:00 PM [facility] CYTOPATHOLOGY REPORTName: Jt LYNNEMRN: [id number] Number: [id number] Date: 08/26/2020 00:00Received Date: 08/29/2020 16:51Physician(s): SARAI JACKSON MD MAKHULI, ZAHI N, MD Specimen(s) ReceivedA: URINE, VOIDED NUMBER 1Clinical History:Bladder cancer. See [id number] and [id number], VOIDED NUMBER 1: NEGATIVE FOR HIGH-GRADE UROTHELIAL CARCINOMAComment/ld/calReviewing Cytotech: FREDDIE Mclean (ASCP)Bin English M.D.Electronically Signed By Christopher Damon M.D. 08/30/2020 15:35:07The attending pathologist named above attests that he/she has personallyreviewed the relevant preparation(s) for the specimen(s) and rendered thefinal diagnosis. Microscopic DescriptionThe specimen is composed of benign urothelial and squamous cells. /ldGross Ludqwziupot37 ml clear yellow fluid received: 1 Thin-layer Pap stained slide preparedby filter preparation. This report may include one or more immunohistochemical stain results thatuse analyte specific reagents. All positive and negative controls havebeen reviewed by the attending pathologist and are satisfactory. The testswere developed and their performance characteristics determined by [facility] Pathololgy department. They have not been cleared or approved by [place] Food and Drug Administration. The FDA has determined that suchclearance or approval is not necessary. Name Value Range Interpretation Code Description Data Samira rce(s) Supporting Document(s) ID Date Data Source [id number] 05/21/2020 12:33:27 PM [facility] Name Value Range Interpretation Code Description Data [facility] Supporting Document(s) Progress Note [facility] WXKPMo2cQlWXVoTb19/CQGbbPQKup7HiLFapBKw3INddGZBiV1GyEWP8iS3vZQT7WQzEJjXhSkUjSLA0 [facility] [file] ICAgICAgICAgICAgICAgICAgICAgICAgICAgICAgIC AgICAgICAgICAgICAgICAgICANCiAgICAgICAgICAgICAgICAgICAgICAgICAgICAgICAgICAgICAgIC AgICAgICAgICAgICAgICAgICAgICAgICAgICAgICAgICAgICAgICAgICAgICAgICAgICAgICAgICAgIC ANCiAgICAgICAgICAgICAgICAgICAgICAgICAgICAg ICAgICAgICAgICAgICAgICAgICAgICAgICAgICAgICAgICAgICAgICAgICAgICAgICAgICAgICAgICAg ICAgICAgICAgICANCiAgICAgICAgICAgICAgICAgICAgICAgICAgICAgICAgICAgICAgICAgICAgICAg ICAgICAgICAgICAgICAgICAgICAgICAgICAgICAgIC AgICAgICAgICAgICAgICAgICAgICANCiAgICAgICAgICAgICAgICAgICAgICAgICAgICAgICAgICAgIC AgICAgICAgICAgICAgICAgICAgICAgICAgICAgICAgICAgICAgICAgICAgICAgICAgICAgICAgICAgIC AgICANCiAgICAgICAgICAgICAgICAgICAgICAgICAg ICAgICAgICAgICAgICAgICAgICAgICAgICAgICAgICAgICAgICAgICAgICAgICAgICAgICAgICAgICAg ICAgICAgICAgICAgICANCiAgICAgICAgICAgICAgICAgICAgICAgICAgICAgICAgICAgICAgICAgICAg ICAgICAgICAgICAgICAgICAgICAgICAgICAgICAgIC AgICAgICAgICAgICAgICAgICAgICAgICANCiAgICAgICAgICAgICAgICAgICAgICAgICAgICAgICAgIC AgICAgICAgICAgICAgICAgICAgICAgICAgICAgICAgICAgICAgICAgICAgICAgICAgICAgICAgICAgIC AgICAgICANCiAgICAgICAgICAgICAgICAgICAgICAg ICAgICAgICAgICAgICAgICAgICAgICAgICAgICAgICAgICAgICAgICAgICAgICAgICAgICAgICAgICAg ICAgICAgICAgICAgICAgICANCiAgICAgICAgICAgICAgICAgICAgICAgICAgICAgICAgICAgICAgICAg ICAgICAgICAgICAgICAgICAgICAgICAgICAgICAgIC AgICAgICAgICAgICAgICAgICAgICAgICAgICANCjw/mVThP7jtjGMrjoY7U3uqUs0GFi8EKG7ii5PaAV DxUJhgitYeKxcTYgRnAPXwTpcKSvq3AUdvIH9OyGEmQ2WsC9DnQRowMK9EWJEyTUJiuKCrJMCpEODcEe C8PUArQMpbWT8BeUJiAUmyXXMaSPUuPlByFMLkXRKx OZOiUJGaUIAPDZXxWRJoLqDcWCbtAV1Ba9BcmKX4EUe+Tx7DVE2ha5AgQGicQsXrQT7kjk7ZCJfAOjTz Y5LxszO3QEA8ZLWqIy8BHGRxMVKjkIVwWDGwNGBJYwHdL6RwgY18WIDOLr5+RRspznVxBwzCJyL6JRIc h0FtFPh7FJ5DQGTvAFc3dZIwNBDuT2Cgm4CuIf38UM TgKcehDHUkj1XoFFb9iYXzzKIyOX7DCUZdLQNujQRpQA2fNH4mOOVsUPWdAxJjRKVVRL1CGIVbQPCclX AvDJCcGMDEXC1IGDueLQP3EKOokrGugQNnHIvpUC2HNDHckaTtKhDzBIOEOTc+Aa5OPN5aa7VvXGkaKM QwSI5ytp0BOArASxQnK2X5lEAkM3M6ANltXd4LJVJf CNLrJuNzEXJJEOrcEQ2TTT9gftH8MN7PmWZnXZVaZERypPUvMGp5D14ihXYjNOzfOA1MOAY+Lexa+Pg0K QTSqTNWeHLUrRsKvSWXKMkIdP0VpJ0DNa2BxX1UxBN02tYaeodWpETebPD8YRW4yTUGyIGJNZA6XwEVp fZ6okjGdJzWbZFUXQhFrO21vcPFaMIPtSJStAXChJr 1UAJBhJ0VwixFhqBywzsBnAYBgFKYLQO4VWUdsqtBvfYUglJoaEC73zUzmVB0KLg7YQuCbUP7eaw9OfC PdAs5ESDTzZt2BAROfDGShASKyMWH2CXKgWbPoVLnkCMFrRMPvZGQ8LKAzVJUbGF9UFkRmWNIsHwV6Ke nuUDXlCQCzdh0MAPKdEQVcOjO6ITMcODPgKIZrWZxr IYMcIDEjVHH9QRRwGLDxGC2DRxBfPXYqCEV5HklnDDGyBTVkdo4HIYHrZBDzOSQ0SRYfYXYyNZBuAPuk GKDrSGW5RtT4MOIsSNXbBH4EBzCjUPFvVPb5KYgkIUQaBNNrql1CVZOpNTUbGIy8NtHwITWmWPVhWDnw ZBQbJIWoCNSmIGWfCDViCC9OJcItFRJuSSIgHBUkKE ZhDLYdpl0HQBQiNOMsUYO4USPpXIMnVUAnCEyfDAFoHNR1MWL6DUYcEDSlNB9DQbFeACEyCVk7SjRhSQ XnQESswc7LMJXhGZQjLMoxEGCeIUGyMQJtQNtrQJKsJKF3VKV2OWXxQPEnYN3DZpFzBECpAHfrBODwQD FbNMLznc3ANGDzHJYdSDL9XALmMLYvNLBiCBbgIJIf UTNyJlZxAKXeDJYaNU3YZeNmECArHmW4ADTzLWVtEAOite0KTSNjXSNaBVv1MVMdWQKzJIPeXNtjFOAt HJCnNiP6WXNaSWAmYJ2KCxGsMNIsTgW7HSHtHSOyUQOojj9FUXKjPPZgBcL9TOStHFOgVTXbJHyzOUYh TNBuAJTmWLMbGQRuLV8NGoMwKUAiLwD7NGNxLJLaZF Mhoh6LDDBcLZOrXxznFDOlOSYbWONbVWhjUFAkHCY6AAU5FKFoASHuZU0ECnJcJPDuYnDtJMMrQWDdEE Zwaj3YMVYsCRCcGHQyXSUwDDNuWNZvAWnnUKBvIHI1MFV1WTUsAGOeLO4OEeYvVBKlMqD3BDwcIDWvGC Iqkr0VWRIeNSGmRzViMrXpDXIzOQHoCLbuBTFjKOS5 Lzk0IJXkJXDxQE6PEwQbAGJcMts3GalnPARxRDQqoc9OcHSlxFofdo7QHGbSFu8WcWsjUOE4EZtxAg9a aSOnWQPsXMMYTz1DduCiZPNjWCYWDLcoQRNdDCWmNWncCDN9KsVrMJQiXrKtPeImWiU3RtAlAHU0AEGy OyP7BHU4WDQeBvv5JmV6GeNhC8CrJfXhSaLwMDGiBd lhZjA+MM3zZUw+Tq6Xa7RuoaM9ceLiJRcqZmg4Xx2ECKKOV2ZAZy== Procedure Social History Code Duration Value Status Description Data Source(s ) Alcohol intake 02/26/2021 12:00:00 AM EDT Current non-d jerome of alcohol (finding) completed Current non-drinker of alcohol (finding) [facility] Tobacco use and exposure 02/26/2021 12:00:00 AM EDT Never used co mpleted Never used [facility] Smoking 02/26/2021 12:00:00 AM EDT Former smoker completed Former smoker [facility] Alcohol intake 01/09/2021 12:00:00 AM EDT Current non-d jerome of alcohol (finding) completed Current non-drinker of alcohol (finding) [facility] Alcohol intake 11/12/2020 12:00:00 AM EDT Current non-d jerome of alcohol (finding) completed Current non-drinker of alcohol (finding) [facility] Alcohol intake 09/24/2020 12:00:00 AM EDT Current non-d jerome of alcohol (finding) completed Current non-drinker of alcohol (finding) [facility] Alcohol intake 09/11/2020 12:00:00 AM EDT Current non-d jerome of alcohol (finding) completed Current non-drinker of alcohol (finding) [facility] Alcohol intake 05/21/2020 12:00:00 AM EST Current non-d jerome of alcohol (finding) completed Current non-drinker of alcohol (finding) [facility] Vital Signs ID Date Data Source [id number] 09/11/2020 11:36:[address] [facility] Name Value Range Interpretation Code Description Data Source(s) PREFERRED NAME [facility] ID Date Data Source [id number] 09/24/2020 01:30:[address] [facility] Name Value Range Interpretation Code Description Data Source(s) PREFERRED NAME [facility] ID Date Data Source [id number] 11/12/2020 11:16:[address] [facility] Name Value Range Interpretation Code Description Data Source(s) PREFERRED NAME [facility] ID Date Data Source [id number] 11/18/2020 12:45:[address] [facility] Name Value Range Interpretation Code Description Data Source(s) WEIGHT RECORDED 228 lb 228 lb [facility] Body height Measured 72.01 in 72.01 in [facility] PREFERRED NAME [facility] PREFERRED NAME [facility] ID Date Data Source [id number] 10/03/2020 11:28:[address] [facility] Name Value Range Interpretation Code Description Data Source(s) PREFERRED NAME [facility] PREFERRED NAME [facility] ID Date Data Source [id number] [facility] Name Value Range Interpretation Code Description Data Source(s) WEIGHT RECORDED 224 lb 224 lb [facility] PREFERRED NAME [facility] PREFERRED NAME [facility] ID Date Data Source [id number] 09/15/2020 [facility]23[facility] Name Value Range Interpretation Code Description Data Source(s) WEIGHT RECORDED 227.8 lb 227.8 lb [facility] Body height Measured 72.01 in 72.01 in [facility] PREFERRED NAME [facility] PREFERRED NAME [facility] ID Date Data Source [id number] 06/25/2020 12:10:10 PM [facility] Name Value Range Interpretation Code Description Data Source(s) PREFERRED NAME [facility] ID Date Data Source [id number] 08/29/2020 01:24:09 PM [facility] Name Value Range Interpretation Code Description Data Source(s) PREFERRED NAME [facility] PREFERRED NAME [facility] ID Date Data Source [id number] 08/30/2020 03:36:27 PM [facility] Name Value Range Interpretation Code Description Data Source(s) PREFERRED NAME [facility] ID Date Data Source [id number] 08/30/2020 03:36:13 PM [facility] Name Value Range Interpretation Code Description Data Source(s) PREFERRED NAME [facility] ID Date Data Source [id number] 08/30/2020 03:35:59 PM [facility] Name Value Range Interpretation Code Description Data Source(s) PREFERRED NAME [facility] ID Date Data Source [id number] 05/21/2020 12:33:27 PM [facility] Name Value Range Interpretation Code Description Data Source(s) WEIGHT RECORDED 228 lb 228 lb [facility] Body height Measured 72 in 72 in [facility] PREFERRED NAME [facility] PREFERRED NAME [facility] ID Date Data Source [id number] 01/08/2021 11:20:[address] [facility] Name Value Range Interpretation Code Description Data Source(s) WEIGHT RECORDED 221 lb 221 lb [facility] Body height Measured 72 in 72 in [facility] Patient Treatment Plan of Care Planned Activity Planned Date Details Description Data Source (s) Pulmonary Supplies-see sig XX MISC 12/17/2020 12:00:00 AM [facility]. Devices (DURABLE MEDICAL EQUIPMENT SEE SIG) XX M ISC 12/17/2020 12:00:00 AM [facility] 7 ACTUAT umeclidinium 0.0625 MG/ACTUAT Dry Powder Inha ler [Incruse] 12/16/2020 12:00:00 AM [facility] Albuterol 0.21 MG/ML Inhalant Solution 11/27/2020 12:00:00 AM [facility]. Devices (DURABLE MEDICAL EQUIPMENT SEE SIG) XX M [facility] 11/12/2020 12:00:00 AM [facility] ropinirole 2 MG Oral Tablet 10/01/2020 12:00:00 AM [facility] lidocaine (XYLOCAINE) 2 % urojet 20 mL 09/11/2020 11:00:00 AM [facility] Albuterol 0.21 MG/ML Inhalant Solution 09/09/2020 12:00:00 AM [facility] Lovastatin 40 MG Oral Tablet 08/01/2020 12:00:00 AM [facility] 12 HR ranolazine 500 MG Extended Release Oral Tablet 12:00:00 AM [facility] Albuterol 0.21 MG/ML Inhalant Solution 07/09/2020 12:00:00 AM [facility] carvedilol 6.25 MG Oral Tablet 07/03/2020 12:00:00 AM [facility] Enalapril Maleate 5 MG Oral Tablet 07/03/2020 12:00:00 AM [facility] 7 ACTUAT umeclidinium 0.0625 MG/ACTUAT Dry Powder Inha ler [Incruse] 05/16/2020 12:00:00 AM [facility]spital Albuterol 0.21 MG/ML Inhalant Solution 05/08/2020 12:00:00 AM [facility] Spironolactone 25 MG Oral Tablet 05/03/2020 12:00:00 AM [facility] Albuterol Sulfate HFA 108 (90 Base) MCG/ ACT Inhalation Aerosol Solution (PROVENTIL HFA) 04/10/2020 12:00:00 AM EDT [facility] Furosemide 40 MG Oral Tablet 01/11/2020 12:00:00 AM T [facility] Furosemide 40 MG Oral Tablet 12/27/2019 12:00:00 AM T [facility]
[2021-04-21 01:20] VITALS: BP 155/77
[2021-04-21] MEDS: SIMVASTATIN 40 MG TAB PO SCH ×2 (02:18→20:32)
[2021-04-21] MEDS: rOPINIRole 1MG TAB PO SCH ×2 (02:18→20:32)
[2021-04-21] MEDS: FUROSEMIDE 40MG/4ML VIAL (J1940) IV SCH ×3 (02:19→20:33)
[2021-04-21 06:00] VITALS: BP 119/70
[2021-04-21 07:11] LABS: BASO % 0.2 % (0.0-1.0); HEMATOCRIT 37.1 % (42.0-52.0); HEMOGLOBIN 11.5 g/dl (13.5-17.5); LYMPH # 0.5 10^3/uL (1.5-5.0); LYMPH % 5.1 % (24.0-44.0); MEAN CORPUSCULAR HEMOGLOBIN 31.3 pg (27.0-33.0); MEAN CORPUSCULAR VOLUME 101.1 fl (80.0-96.0); MONO # 0.2 10^3/uL (0.0-0.8); MONO % 1.7 % (2.0-8.0); NEUTROPHILS # 9.6 10^3/uL (1.5-8.5); NEUTROPHILS % 92.6 % (36.0-66.0); PLATELET COUNT, AUTOMATED 217 10^3/uL (150-450); RED BLOOD COUNT 3.67 10^6/uL (4.30-6.10); WHITE BLOOD COUNT 10.4 10^3/uL (4.0-10.0)
[2021-04-21 07:14] VITALS: O2SAT 90
[2021-04-21] MEDS: BUDESONIDE 0.25 MG/2 ML INHALATION SUSPENSION INH SCH ×2 (07:22→19:18)
[2021-04-21 07:39] LABS: CALCIUM LEVEL 8.4 MG/DL (8.8-10.2); CREATININE FOR GFR 1.28 MG/DL (0.70-1.30); MAGNESIUM LEVEL 2.1 MG/DL (1.8-2.4); POTASSIUM SERUM 3.7 MEQ/L (3.5-5.1)
[2021-04-21] MEDS: RANOLAZINE 500 MG ER TAB PO SCH ×2 (08:25→20:32)
[2021-04-21] MEDS: METAMUCIL (PSYLLIUM) PACKET PO SCH ×2 (08:25→20:33)
[2021-04-21] MEDS: MULTIVITAMINS/MINERALS THERAP 1 TAB PO SCH (08:25)
[2021-04-21] MEDS: HEPARIN SOD (PORCINE) 5000UNITS/ML 1ML VIAL/SYRINGE SQ SCH ×2 (08:26→20:33)
[2021-04-21] MEDS: CARVedilol 6.25 MG TAB PO SCH ×2 (08:26→20:33)
[2021-04-21] MEDS ORDERED: ASPIRIN 81MG ENTERIC TABLET PO SCH (09:00)
--- NOTE | 2021-04-21 13:11 | IPNPDOC ---
Subjective Date Seen The patient was seen on 04/21/21. Subjective Chief Complaint/HPI Breathing is much better this a.m. back to home oxygen requirement. Still has a cough with sputum production. Objective Physical Examination General Exam: Positive: Alert, Cooperative, No Acute Distress Eye Exam: Positive: PERRLA, Conjunctiva & lids normal, EOMI; Negative: Sclera icteric ENT Exam: Positive: Atraumatic, Mucous membr. moist/pink, Pharynx Normal Neck Exam: Positive: Supple; Negative: JVD, thyromegaly Chest Exam: Positive: Other (Bilateral basal crackles); Negative: Rhonchi, Wheezing Heart Exam: Positive: Rate Normal, Regular Rhythm, Normal S1, Normal S2; Negative: Murmurs, Rubs Telemetry: Positive: No significant arrhythmia Abdomen Exam: Positive: Normal bowel sounds, Soft; Negative: Tenderness Extremity Exam: Positive: Normal pulses; Negative: Clubbing, Cyanosis, Edema Skin Exam: Positive: Nl turgor and temperature; Negative: Breakdown, Lesion Neuro Exam: Positive: Normal Gait, Normal Speech, Strength at 5/5 X4 ext, Normal Tone Psych Exam: Positive: Memory Intact, Oriented x 3 Assessment /Plan Assessment This is an 86-year-old male with significant medical history of CAD, h ypertension, hyperlipidemia, A. fib with pacemaker, CHF, bronchiectasis with chronic hypoxic and hypercarbic respiratory failure with oxygen 2 L nasal cannula who presented to the ED with complaints of shortness of breath. Patient reported some increased shortness of breath from baseline for the past few days. He reportedly bumped up his nasal cannula to 4 L today as he was noted to have desat 85% and dyspnea with ambulation. He keeps track of his SPO2 at home and typically exercises with treadmill but today he was unable to as his SPO2 85% when standing and ambulating. CT thorax without contrast from outpatient show degenerative changes of the thoracic spine, multiple nodular opacities and linear calcifications. Bronchiectasis changes and inflammatory parenchymal changes; similar to previous read. Chest x-ray in ED was nonacute it does mention interstitial density in the lung bases much of which may be chronic Patient on 4 L nasal cannula upon arrival however he did show compensation with ABG. He was able to be weaned down at rest to baseline 2 L nasal cannula 95%. He was admitted for evaluation of SOB. SOB likely due diastolic CHF exacerbation and possible flare of bronchiectasis. We will check sputum for culture and sensitivity. Though procalcitonin is not elevated will treat him with empiric antibiotics for possible bronchiectasis flare. Continue IV lasix. Start on Augmentin. HTN: Will hold enalapril to allow for higher doses of diuretics. We will continue Coreg and diuretics. HDL Continue statin A. fib and CAD Continue with aspirin and statin and beta-sean Restless leg syndrome Continue Requip at bedtime Plan/VTE VTE Prophylaxis Ordered?: Yes VS, I&O, 24H, Fishbone Vital Signs/I&O Vital Signs Date Time Temp Pulse Resp B/P (MAP) Pulse Ox O2 Delivery O2 Flow Rate FiO2 04/21/21 07:14 90 Nasal Cannula 2.0 04/21/21 06:00 97.7 92 17 119/70 (86) I&O- Last 24 Hours up to 6 AM 04/21/21 05:59 Intake Total 0 ml Balance 0 ml Laboratory Data 24H LABS Laboratory Tests 2 04/20/21 20:42: Immature Granulocyte % (Auto) 0.3, Neutrophils (%) (Auto) 78.1H, Lymphocytes (%) (Auto) 9.7L, Monocytes (%) (Auto) 8.3H, Eosinophils (%) (Auto) 3.2H, Basophils (%) (Auto) 0.4, Neutrophils # (Auto) 7.3, Lymphocytes # (Auto) 0.9L, Monocytes # (Auto) 0.8, Eosinophils # (Auto) 0.3, Basophils # (Auto) 0.0, Nucleated Red Blood Cells % (auto) 0.0, Prothrombin Time 13.5, Prothromb Time International Ratio 0.99, Activated Partial Thromboplast Time 29.4, Anion Gap 6L, Glomerular Filtration Rate 49.4, Calcium Level 8.8, Total Bilirubin 0.3, Direct Bilirubin < 0.1, Aspartate Amino Transf (AST/SGOT) 12, Alanine Aminotransferase (ALT/SGPT) 18, Alkaline Phosphatase 76, Total Creatine Kinase 44, Creatine Kinase MB < 1.0, Creatine Kinase MB Relative Index 2.27, Troponin I < 0.02, XR-Zpt-W-Type Natriuretic Peptide 1784H, Total Protein 6.5, Albumin 3.3, Albumin/Globulin Rat io 1.0, Thyroid Stimulating Hormone (TSH) 3.470 04/20/21 21:21: Blood Gas Bicarbonate Standard 36.4H, Arterial Blood pH 7.437, Arterial Blood Partial Pressure CO2 59.4H, Arterial Blood Partial Pressure O2 73.0L, Arterial Blood Total CO2 41.0H, Arterial Blood HCO3 39.2H, Arterial Blood Base Excess 12.7H, Arterial Blood Oxygen Saturation 94.0L 04/21/21 06:52: Immature Granulocyte % (Auto) 0.4, Neutrophils (%) (Auto) 92.6H, Lymphocytes (%) (Auto) 5.1L, Monocytes (%) (Auto) 1.7L, Eosinophils (%) (Auto) 0.0, Basophils (%) (Auto) 0.2, Neutrophils # (Auto) 9.6H, Lymphocytes # (Auto) 0.5L, Monocytes # (Auto) 0.2, Eosinophils # (Auto) 0.0, Basophils # (Auto) 0.0, Nucleated Red Blood Cells % (auto) 0.0 CBC/BMP Laboratory Tests 04/20/21 20:42 04/21/21 06:52 Microbiology Microbiology 04/20/21 Respiratory Virus Panel (PCR) (JOANN) - Final, Complete Rosalba Rodriguez MD Apr 21, 2021 07:51
[2021-04-21 14:00] VITALS: BP 114/53
[2021-04-21] MEDS: AUGMENTIN 875 MG TAB PO SCH ×2 (14:59→20:32)
--- NOTE | 2021-04-21 18:21 | ECGEPIP ---
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
[2021-04-21] MEDS: LATANOPROST 0.005% OPHTH SOLN 2.5 ML OU SCH (20:33)
[2021-04-21 22:00] VITALS: BP 111/59
[2021-04-22 00:16] VITALS: O2SAT 95
[2021-04-22 06:00] VITALS: BP 134/72
[2021-04-22] MEDS: BUDESONIDE 0.25 MG/2 ML INHALATION SUSPENSION INH SCH (07:26)
[2021-04-22 08:45] LABS: BASO % 0.1 % (0.0-1.0); EOS # 0.2 10^3/uL (0.0-0.5); EOS % 1.2 % (0.0-3.0); HEMATOCRIT 37.7 % (42.0-52.0); HEMOGLOBIN 11.7 g/dl (13.5-17.5); LYMPH # 1.4 10^3/uL (1.5-5.0); LYMPH % 9.5 % (24.0-44.0); MEAN CORPUSCULAR HEMOGLOBIN 31.8 pg (27.0-33.0); MEAN CORPUSCULAR VOLUME 102.4 fl (80.0-96.0); MONO % 6.9 % (2.0-8.0); NEUTROPHILS # 11.8 10^3/uL (1.5-8.5); NEUTROPHILS % 81.8 % (36.0-66.0); PLATELET COUNT, AUTOMATED 217 10^3/uL (150-450); RED BLOOD COUNT 3.68 10^6/uL (4.30-6.10); WHITE BLOOD COUNT 14.4 10^3/uL (4.0-10.0)
[2021-04-22] MEDS: FUROSEMIDE 40MG/4ML VIAL (J1940) IV SCH (08:56)
[2021-04-22 08:57] VITALS: BP 134/77
[2021-04-22] MEDS: HEPARIN SOD (PORCINE) 5000UNITS/ML 1ML VIAL/SYRINGE SQ SCH (08:57)
[2021-04-22] MEDS: RANOLAZINE 500 MG ER TAB PO SCH (08:57)
[2021-04-22] MEDS: MULTIVITAMINS/MINERALS THERAP 1 TAB PO SCH (08:57)
[2021-04-22] MEDS: CARVedilol 6.25 MG TAB PO SCH (08:57)
[2021-04-22] MEDS: AUGMENTIN 875 MG TAB PO SCH (08:57)
[2021-04-22] MEDS: METAMUCIL (PSYLLIUM) PACKET PO SCH (08:58)
[2021-04-22 09:00] VITALS: O2SAT 94
[2021-04-22 09:17] LABS: CALCIUM LEVEL 9.2 MG/DL (8.8-10.2); CREATININE FOR GFR 1.28 MG/DL (0.70-1.30); MAGNESIUM LEVEL 2.2 MG/DL (1.8-2.4); POTASSIUM SERUM 3.6 MEQ/L (3.5-5.1)
[2021-04-22] MEDS ORDERED: AMOX875T2 PO (10:18)
--- NOTE | 2021-04-22 18:30 | DS.PDOC ---
Discharge Summary General Date of Admission Apr 20, 2021 at 20:04 Date of Discharge 04/22/2021 Attending Physician: GRICEL ROSAS DO Discharge Summary PROCEDURES PERFORMED DURING STAY: None. ADMITTING DIAGNOSES: 1. CHF exacerbation of patient underlying bronchiectasis. 2. Elevated creatinine 3. Hypertension 4. Hyperlipidemia 5. A. fib 6. Coronary artery disease 7. Restless leg syndrome DISCHARGE DIAGNOSES: 1. CHF exacerbation of patient underlying bronchiectasis. 2. Elevated creatinine 3. Hypertension 4. Hyperlipidemia 5. A. fib 6. Coronary artery disease 7. Restless leg syndrome COMPLICATIONS/CHIEF COMPLAINT: Dyspnea. HISTORY OF PRESENT ILLNESS: Patient is an 86-year-old male with significant history of coronary artery disease, hypertension, hyperlipidemia, A. fib with pacemaker, heart failure with reduced ejection fraction and bronchiectasis with chronic oxygen of 2 L via nasal cannula arrived with complains of shortness of breath. Of note, patient had recent admission in December for pneumonia. Patient reported some increase shortness of breath and baseline with past 2 days. He reportedly bumped up his nasal cannula 4 L on the day of admission when he noted to desat to 85% with ambulation. Patient was recently seen by his litigation coordinator had a CT done outpatient and brought the report with him. He is somewhat limited historian but his pulmonary recommendations are. He does allude to aggressive treatment plan however he still waiting to hear back regarding that. He notified his litigation coordinator office today however does not seem to call back thus he came to the emergency department. Patient will be admitted for further evaluation of presenting concerns.. HOSPITAL COURSE: Patient was initially started on Augmentin for possible bronchiectasis exacerbation. Patient was also diuresed secondary to a possible heart failure exacerbation. Patient did improve and was back at his home baseline of 2 L. Patient was feeling better on the day of discharge and the decision was made to discharge the patient home. Patient was discharged home on 04/22/2021.. DISCHARGE MEDICATIONS: Please see below. ALLERGIES: Please see below. PHYSICAL EXAMINATION ON DISCHARGE: VITAL SIGNS: Please see below. General: Alert and oriented male patient who was sitting up in bed when I walked in. Patient did not appear to be in any acute distress. HEENT: Normocephalic, atraumatic, moist mucous membranes. Neck: No lymphadenopathy or thyromegaly Cardiac: Regular rate and rhythm, no murmurs, normal S1, normal S2 Pulm: Clear to auscultation bilaterally. No wheezes, rhonchi, rales Abd: Nondistended, nontender to palpation, normal bowel sounds Ext: No edema bilateral lower extremities LABORATORY DATA: Please see below. IMAGING: Chest x-ray performed on 04/20/2021 was reported to show interstitial density in the lung bases much of which may be chronic. Bilateral duplex lower extremity ultrasound performed on 04/20/2021 was reported to show no evidence of DVT. PROGNOSIS: Good ACTIVITY: As tolerated. DIET: 2 g sodium DISCHARGE PLAN: Discharge home DISPOSITION: Home, Self-Care. DISCHARGE INSTRUCTIONS: 1. Follow-up with primary care provider in 3 to 5 days discharge. 2. Follow-up with pulmonology as scheduled. 3. Continue take Augmentin for total 7 days 4. Return the emergency department symptoms worsen. ITEMS TO FOLLOWUP ON ON OUTPATIENT: 1. None. DISCHARGE CONDITION: Stable. TIME SPENT ON DISCHARGE: 25 minutes. Vital Signs/I&Os Vital Signs Date Time Temp Pulse Resp B/P (MAP) Pulse Ox O2 Delivery O2 Flow Rate FiO2 04/22/21 09:00 2.0 04/22/21 09:00 94 Nasal Cannula 04/22/21 08:57 85 134/77 04/22/21 06:00 97.1 18 I&O- Last 24 Hours up to 6 AM 04/22/21 06:00 Intake Total 1820 ml Output Total 1875 ml Balance -55 ml Laboratory Data Labs 24H Laboratory Tests 2 04/22/21 08:27: Immature Granulocyte % (Auto) 0.5, Neutrophils (%) (Auto) 81.8H, Lymphocytes (%) (Auto) 9.5L, Monocytes (%) (Auto) 6.9, Eosinophils (%) (Auto) 1.2, Basophils (%) (Auto) 0.1, Neutrophils # (Auto) 11.8H, Lymphocytes # (Auto) 1.4L, Monocytes # (Auto) 1.0H, Eosinophils # (Auto) 0.2, Basophils # (Auto) 0.0, Nucleated Red Blood Cells % (auto) 0.0, Anion Gap 5L, Glomerular Filtration Rate 57.0, Calcium Level 9.2, Magnesium Level 2.2 CBC/BMP Laboratory Tests 04/22/21 08:27 Microbiology Microbiology 04/21/21 Gram Stain - Final, Resulted 04/21/21 Sputum Culture, Resulted Pending 04/20/21 Respiratory Virus Panel (PCR) (JOANN) - Final, Complete Discharge Medications Scheduled Amoxicillin/Potassium Clav (Amox-Clav 875-125 mg Tablet) 1 Each Tablet, 875 MG PO BID Aspirin (Aspirin EC) 81 Mg Tablet.dr, 81 MG PO 3XW, (Reported) MON,WED,FRI Carvedilol (Carvedilol) 6.25 Mg Tablet, 6.25 MG PO BID, (Reported) Enalapril Maleate (Enalapril Maleate) 5 Mg Tablet, 5 MG PO BID, (Reported) Furosemide (Furosemide) 40 Mg Tablet, 40 MG PO DAILY, (Reported) Latanoprost (Xalatan) 0.005% 2.5ML Drops, 1 DROP OU QHS, (Reported) Lovastatin (Lovastatin) 40 Mg Tab, 40 MG PO QHS, (Reported) Multivitamin,Therapeutic (Thera-Tabs) 1 Each Tablet, 1 TAB PO DAILY, (Reported) Psyllium Husk/Aspartame (Metamucil Fiber Singles Packet) 3.4 Gm Powd.pack, 1 PKT PO BID, (Reported) Ranolazine (Ranexa) 500 Mg Aleisha, 500 MG PO BID, (Reported) Ropinirole HCl (Ropinirole HCl) 2 Mg Tablet, 2 MG PO QHS, (Reported) MAY TAKE A SECOND TABLET IF NEEDED Spironolactone (Spironolactone) 25 Mg Tab, 12.5 MG PO DAILY, (Reported) Umeclidinium [place] (Incruse Ellipta) 62.5 Mcg Blst.w.dev, 1 PUFF INH DAILY, (Reported) Scheduled PRN Albuterol Sulfate (Albuterol Sulfate Hfa) 8.5 Gm Hfa.aer.ad, 2 PUFFS INH Q6H PRN for WHEEZING, (Reported) Albuterol Sulfate (Albuterol Sulfate) 0.63 Mg/3 Ml Vial.neb, 1 VIAL NEB Q6H PRN for WHEEZING, (Reported) Sodium Chloride (Sodium Chloride 3% Neb Jessica) 15 Ml Vial.neb, 1 VIAL NEB BID PRN for WHEEZING, (Reported) USES AFTER ALBUTEROL IN NEB Allergies Coded Allergies: pseudoephedrine (Verified Adverse Reaction, Intermediate, ENLARGES HIS PROSTATE, 12/27/20) Influenza Virus Vaccines (Verified Adverse Reaction, Mild, "I GOT THE FLU", 12/27/20) GRICEL ROSAS DO Apr 22, 2021 18:30
== END 2021-04-22 12:36 | disposition home or self-care (01) ==
LOC: M ED 20:03 → M ED INP 20:04 → ENRESERV 23:37 → M MSPAV 04-21 01:35
PROVIDERS: ADMIT Family Medicine; ATTEND Family Medicine
DX: I50.30 Unspecified diastolic (congestive) heart failure (principal); J47.9 Bronchiectasis, uncomplicated; R06.02 Shortness of breath; R79.89 Other specified abnormal findings of blood chemistry; R60.0 Localized edema; I11.0 Hypertensive heart disease with heart failure; E78.5 Hyperlipidemia, unspecified; I48.91 Unspecified atrial fibrillation; I25.10 Atherosclerotic heart disease of native coronary artery without angina pectoris; G25.81 Restless legs syndrome; Z95.0 Presence of cardiac pacemaker; Z99.81 Dependence on supplemental oxygen; J98.4 Other disorders of lung; M19.90 Unspecified osteoarthritis, unspecified site; Z79.899 Other long term (current) drug therapy; Z79.2 Long term (current) use of antibiotics; Z79.82 Long term (current) use of aspirin; Z88.7 Allergy status to serum and vaccine; Z88.8 Allergy status to other drugs, medicaments and biological substances; Z87.891 Personal history of nicotine dependence
CPT/HCPCS: 36415; 36600; 71045; 80048; 80076; 82550; 82553; 82803; 83735; 83880; 84145; 84443; 84484; 85025; 85610; 85730; 87070; 87077; 87186; 87205; 87798; 93005; 93041; 93970; 96372; 96374; 96376; 99285; G0378; J1644; J1940

== ENCOUNTER 2021-06-11 23:44 | Inpatient (IN) | payer MEDICARE ==
[~2021-06-11] VITALS: Ht 177.8 cm; Wt 105.5 kg
[~2021-06-11 23:44] MED LIST changes: +AMOX875T2 PO; -CEFD1CAP8 PO; +CEFD300C41 PO; +THERTAB52 PO
[2021-06-12] VITALS (17 sets, daily range): BP systolic 98–130; BP diastolic 42–68; O2SAT 66–99
[2021-06-12 00:32] LABS: BASO # 0.1 10^3/uL (0.0-0.2); BASO % 0.7 % (0.0-1.0); EOS # 0.5 10^3/uL (0.0-0.5); EOS % 4.6 % (0.0-3.0); HEMATOCRIT 38.1 % (42.0-52.0); HEMOGLOBIN 11.6 g/dl (13.5-17.5); LYMPH # 0.9 10^3/uL (1.5-5.0); LYMPH % 8.2 % (24.0-44.0); MEAN CORPUSCULAR HEMOGLOBIN 31.8 pg (27.0-33.0); MEAN CORPUSCULAR HGB CONC 30.4 g/dl (32.0-36.5); MEAN CORPUSCULAR VOLUME 104.4 fl (80.0-96.0); MONO # 0.9 10^3/uL (0.0-0.8); MONO % 8.7 % (2.0-8.0); NEUTROPHILS # 8.1 10^3/uL (1.5-8.5); PLATELET COUNT, AUTOMATED 215 10^3/uL (150-450); RED BLOOD COUNT 3.65 10^6/uL (4.30-6.10); WHITE BLOOD COUNT 10.5 10^3/uL (4.0-10.0)
[2021-06-12 00:33] LABS: INR 0.99; PROTHROMBIN TIME 13.5 SECONDS (12.7-14.5)
[2021-06-12 00:40] LABS: PARTIAL THROMBOPLASTIN TIME 28.4 SECONDS (25.9-37.0)
[2021-06-12 00:46] LABS: CALCIUM LEVEL 9.4 MG/DL (8.8-10.2); CK-MB VALUE MASS 1.3 NG/ML (<3.6); CREATININE FOR GFR 1.65 MG/DL (0.70-1.30); GLOMERULAR FILTRATION RATE 42.5 (>35); MB/CK RELATIVE INDEX 3.42 (< OR =4); POTASSIUM SERUM 5.1 MEQ/L (3.5-5.1)
[2021-06-12] MEDS ORDERED: FUROSEMIDE 40MG/4ML VIAL (J1940) IV ONE (01:00)
[2021-06-12] MEDS ORDERED: FUROSEMIDE 40MG/4ML VIAL (J1940) As Ordered ONE (01:19)
[2021-06-12] MEDS ORDERED: ACETAMINOPHEN TAB 650MG DOSE (2X325MG) PO PRN (02:50)
[2021-06-12] MEDS ORDERED: MOM 30ML SUSPENSION UDC PO PRN (02:50)
[2021-06-12 03:02] LABS: RSV AMPLIFICATION NEGATIVE (NEGATIVE)
[2021-06-12 05:09] LABS: ABG BASE EXCESS 11.7 (-2.0-2.0); ABG HCO3 40.6 MEQ/L (22.0-26.0); ABG O2 SATURATION 91.5 % (95.0-99.0); ABG PARTIAL PRESSURE O2 65.5 mmHg (75.0-100.0); ABG STANDARD HCO3 35.4 MEQ/L (22.0-26.0); ABG pH (ARTERIAL) 7.338 UNITS (7.350-7.450)
[2021-06-12 05:10] LABS: ABG PARTIAL PRESSURE CO2 66.2 mmHg (35.0-45.0)
[2021-06-12] MEDS: HEPARIN SOD (PORCINE) 5000UNITS/ML 1ML VIAL/SYRINGE SC SCH ×3 (06:17→21:54)
[2021-06-12] MEDS: IPRATROPIUM 0.5MG/ALBUTEROL 2.5MG INH SOL UD 3ML (DUONEB) NEB SCH ×3 (08:00→19:44)
[2021-06-12] MEDS ORDERED: IPRATROPIUM 0.5MG/ALBUTEROL 2.5MG INH SOL UD 3ML (DUONEB) NEB PRN (09:15)
[2021-06-12 09:43] LABS: BASO % 0.3 % (0.0-1.0); EOS # 0.6 10^3/uL (0.0-0.5); EOS % 5.6 % (0.0-3.0); HEMATOCRIT 37.4 % (42.0-52.0); HEMOGLOBIN 11.3 g/dl (13.5-17.5); LYMPH % 9.8 % (24.0-44.0); MEAN CORPUSCULAR HEMOGLOBIN 31.4 pg (27.0-33.0); MEAN CORPUSCULAR HGB CONC 30.2 g/dl (32.0-36.5); MEAN CORPUSCULAR VOLUME 103.9 fl (80.0-96.0); MONO % 9.5 % (2.0-8.0); NEUTROPHILS # 7.7 10^3/uL (1.5-8.5); NEUTROPHILS % 74.6 % (36.0-66.0); PLATELET COUNT, AUTOMATED 216 10^3/uL (150-450); WHITE BLOOD COUNT 10.3 10^3/uL (4.0-10.0)
[2021-06-12] MEDS ORDERED: IPRA0.00 NEB (09:44)
[2021-06-12] MEDS ORDERED: FLUTISP NARES (09:44)
[2021-06-12] MEDS ORDERED: HOME MED LIST COMPLETE! XX SCH (09:50)
[2021-06-12] MEDS ORDERED: DOXYCYCLINE HYCLATE 100 MG in D5W MINI-BAG PLUS 100 ML IV SCH (10:00)
[2021-06-12 10:10] LABS: CK-MB VALUE MASS 1.8 NG/ML (<3.6)
[2021-06-12 10:14] LABS: ALBUMIN 3.2 GM/DL (3.2-5.2); BILIRUBIN,TOTAL 0.4 MG/DL (0.2-1.0); C REACTIVE PROTEIN QUANTITATIV 0.61 MG/DL (0.00-0.30); CREATININE FOR GFR 1.51 MG/DL (0.70-1.30); GLOMERULAR FILTRATION RATE 47.1 (>35); MAGNESIUM LEVEL 2.5 MG/DL (1.8-2.4); POTASSIUM SERUM 4.2 MEQ/L (3.5-5.1); TOTAL PROTEIN 6.6 GM/DL (6.4-8.2)
[2021-06-12] MEDS: FUROSEMIDE 40MG/4ML VIAL (J1940) IV SCH ×2 (10:26→15:59)
[2021-06-12] MEDS: CARVedilol 6.25 MG TAB PO SCH ×2 (10:39→20:31)
[2021-06-12] MEDS: FLUTICASONE PROP 0.05% NASAL SPRAY 16 GM (FLONASE) NARES SCH (12:10)
[2021-06-12] MEDS: RANOLAZINE 500 MG ER TAB PO SCH ×2 (12:10→20:30)
[2021-06-12] MEDS: cefTRIAXone SOD 1 GM in D5W MINI-BAG PLUS 50 ML IV SCH (12:13)
[2021-06-12] MEDS ORDERED: rOPINIRole 2MG TAB PO ONE (15:35)
[2021-06-12] MEDS: DOXYCYCLINE HYCLATE 100MG TABLET PO SCH (18:05)
[2021-06-12] MEDS ORDERED: SIMVASTATIN 40 MG TAB PO SCH (21:00)
[2021-06-12] MEDS ORDERED: LATANOPROST 0.005% OPHTH SOLN 2.5 ML OU SCH (21:00)
[2021-06-12] MEDS ORDERED: rOPINIRole 2MG TAB PO SCH (21:00)
[2021-06-13] MEDS: IPRATROPIUM 0.5MG/ALBUTEROL 2.5MG INH SOL UD 3ML (DUONEB) NEB SCH ×3 (01:44→13:33)
[2021-06-13] MEDS: DOXYCYCLINE HYCLATE 100MG TABLET PO SCH (05:49)
[2021-06-13] MEDS: HEPARIN SOD (PORCINE) 5000UNITS/ML 1ML VIAL/SYRINGE SC SCH ×2 (05:49→14:00)
[2021-06-13 05:52] LABS: BASO % 0.4 % (0.0-1.0); EOS # 0.5 10^3/uL (0.0-0.5); EOS % 5.7 % (0.0-3.0); HEMATOCRIT 35.4 % (42.0-52.0); HEMOGLOBIN 10.9 g/dl (13.5-17.5); LYMPH # 1.1 10^3/uL (1.5-5.0); LYMPH % 12.9 % (24.0-44.0); MEAN CORPUSCULAR HEMOGLOBIN 31.6 pg (27.0-33.0); MEAN CORPUSCULAR HGB CONC 30.8 g/dl (32.0-36.5); MEAN CORPUSCULAR VOLUME 102.6 fl (80.0-96.0); MONO # 0.7 10^3/uL (0.0-0.8); MONO % 8.7 % (2.0-8.0); NEUTROPHILS # 5.9 10^3/uL (1.5-8.5); NEUTROPHILS % 71.9 % (36.0-66.0); PLATELET COUNT, AUTOMATED 192 10^3/uL (150-450); RED BLOOD COUNT 3.45 10^6/uL (4.30-6.10); WHITE BLOOD COUNT 8.2 10^3/uL (4.0-10.0)
[2021-06-13 06:00] VITALS: BP 126/68
[2021-06-13 06:21] LABS: ALT/SGPT 19 U/L (12-78); BILIRUBIN,TOTAL 0.3 MG/DL (0.2-1.0); BLOOD UREA NITROGEN 41 MG/DL (7-18); CARBON DIOXIDE LEVEL 43 MEQ/L (21-32); CHLORIDE LEVEL 96 MEQ/L (98-107); CREATININE FOR GFR 1.17 MG/DL (0.70-1.30); GLOMERULAR FILTRATION RATE > 60.0 (>35); GLUCOSE, FASTING 116 MG/DL (70-100); MAGNESIUM LEVEL 2.3 MG/DL (1.8-2.4); POTASSIUM SERUM 4.2 MEQ/L (3.5-5.1); SODIUM LEVEL 140 MEQ/L (136-145); TOTAL PROTEIN 6.1 GM/DL (6.4-8.2)
[2021-06-13 09:00] VITALS: BP 126/68
[2021-06-13] MEDS ORDERED: MULTIVITAMINS/MINERALS THERAP 1 TAB PO SCH (09:00)
[2021-06-13] MEDS ORDERED: ASPIRIN 81MG ENTERIC TABLET PO SCH (09:00)
[2021-06-13] MEDS: RANOLAZINE 500 MG ER TAB PO SCH (09:00)
[2021-06-13] MEDS: CARVedilol 6.25 MG TAB PO SCH (09:00)
[2021-06-13] MEDS: FLUTICASONE PROP 0.05% NASAL SPRAY 16 GM (FLONASE) NARES SCH (09:01)
[2021-06-13] MEDS: FUROSEMIDE 40MG/4ML VIAL (J1940) IV SCH (09:01)
[2021-06-13] MEDS: cefTRIAXone SOD 1 GM in D5W MINI-BAG PLUS 50 ML IV SCH (11:06)
[2021-06-13] MEDS ORDERED: TORS10TA3 PO (11:31)
[2021-06-13] MEDS ORDERED: CEFD300CAP PO (11:31)
[2021-06-13] MEDS ORDERED: DOXY100T PO (11:31)
[2021-06-13] MEDS ORDERED: TORSEMIDE 10 MG TABLET PO SCH (17:00)
== END 2021-06-13 15:21 | disposition home health service (06) | DRG 291 ==
LOC: M ED 23:44 → M ED INP 23:45 → M MSPAV 06-12 03:30 → OBSVTOIN 06-12 09:14
PROVIDERS: ADMIT Family Medicine; ATTEND Internal Medicine
DX: I13.0 Hypertensive heart and chronic kidney disease with heart failure and stage 1 through stage 4 chronic kidney disease, or unspecified chronic kidney disease (principal); I50.33 Acute on chronic diastolic (congestive) heart failure; J96.21 Acute and chronic respiratory failure with hypoxia; J44.0 Chronic obstructive pulmonary disease with (acute) lower respiratory infection; I25.10 Atherosclerotic heart disease of native coronary artery without angina pectoris; I48.91 Unspecified atrial fibrillation; E78.5 Hyperlipidemia, unspecified; H40.9 Unspecified glaucoma; G25.81 Restless legs syndrome; Z95.0 Presence of cardiac pacemaker; Z87.891 Personal history of nicotine dependence; N18.30 Chronic kidney disease, stage 3 unspecified; K59.00 Constipation, unspecified; Z20.822 Contact with and (suspected) exposure to COVID-19; Z79.82 Long term (current) use of aspirin; Z79.899 Other long term (current) drug therapy; Z88.7 Allergy status to serum and vaccine; Z88.8 Allergy status to other drugs, medicaments and biological substances; Z99.81 Dependence on supplemental oxygen